=== PATIENT | male | born 1945 | race Asian ===

== ENCOUNTER 2020-09-20 13:23 | Outpatient (REF) | payer MEDICARE, SELFPAY ==
[2020-09-20 15:03] LABS: Anion Gap 12 (12-20); Blood Urea Nitrogen 26 mg/dL (9-16); Carbon Dioxide 31 mmol/L (22-29); Chloride 103 mmol/L (96-108); Estimated Glomerular Filt Rate 50; Potassium 4.5 mmol/l (3.3-5.1); Sodium 141 mmol/L (135-145)
[2020-09-20 15:50] LABS: Creatinine Urine 39.63 mg/dL
[2020-09-20 17:07] LABS: Protein/Creatinine Ratio, Ur 8.07 (<0.2); Total Protein Urine Random 320 mg/dL (<12)
[2020-09-22 12:02] LABS: IgA 144 mg/dL (70-320); IgG 955 mg/dL (600-1540); IgM 148 mg/dL (50-300)
== END 2020-09-20 13:24 | disposition home or self-care (01) ==
LOC: HO.LAB 13:23
PROVIDERS: PCP Internal Medicine Endocrinology, Diabetes & Metabolism; Visit Provider Internal Medicine Hypertension Specialist
DX: E11.21 Type 2 diabetes mellitus with diabetic nephropathy (principal); E11.22 Type 2 diabetes mellitus with diabetic chronic kidney disease; N18.30 Chronic kidney disease, stage 3 unspecified
CPT/HCPCS: 36415; 80051; 82565; 82784; 84156; 84520; 86334

== ENCOUNTER 2021-02-04 15:27 | Outpatient (REF) | payer MEDICARE, SELFPAY ==
[2021-02-04 16:02] LABS: Hematocrit 45.3 % (42-52); Hemoglobin 14.8 g/dl (14.0-18.0); Mean Corpuscular HGB Conc 32.7 g/dl (31.0-36.0); Mean Corpuscular Hemoglobin 29.4 pg (27.0-33.0); Mean Corpuscular Volume 90.1 fL (80-98); Mean Platelet Volume 10.3 fL (9.4-12.4); Platelet Count 235 X10*3/uL (160-400); Red Blood Count 5.03 X10*6/uL (4.60-5.80); Red Cell Distribution Width 12.9 % (11.0-16.0); White Blood Count 10.7 X10*3/uL (4.8-10.8)
[2021-02-04 16:28] LABS: Anion Gap 13 (12-20); Blood Urea Nitrogen 42 mg/dL (9-16); Calcium 9.6 mg/dL (8.4-10.2); Carbon Dioxide 33 mmol/L (22-29); Chloride 102 mmol/L (96-108); Estimated Glomerular Filt Rate 37; Potassium 4.2 mmol/L (3.3-5.1); Sodium 144 mmol/L (135-145)
== END 2021-02-04 15:28 | disposition home or self-care (01) ==
LOC: HO.LAB 15:27
PROVIDERS: Visit Provider Internal Medicine Hypertension Specialist
DX: N18.31 Chronic kidney disease, stage 3a (principal)
CPT/HCPCS: 36415; 80051; 82310; 82565; 84520; 85027

== ENCOUNTER 2021-05-21 03:52 | Emergency (ER) | payer MEDICARE, SELFPAY ==
[2021-05-21] VITALS (8 sets, daily range): BP systolic 157–205; BP diastolic 72–78; PULSE 59–66; RESP 14–16; TEMP 36.4; O2SAT 95–97; BMI 27.4
--- NOTE | 2021-05-21 04:34 | ED.EYEPROB ---
HPI - Eye Problem General Chief complaint: Eye Problems Stated complaint: Headache Time Seen by Provider: 05/21/21 03:59 Source: patient Mode of arrival: ambulatory Limitations: language barrier (phlipine) History of Present Illness HPI Narrative: patient comes to emergency room complaining of severe left-sided eye pain, which started yesterday. Patient states that yesterday he had an eye appointment, he was told that his eye pressure was high. patient is currently taking ofloxacin ophthalmic, prednisolone acetate, and dorzolamide -timolol. Patient states that yesterday during his appointment he had no eye pain, however when he got home, he started developing severe eye pain and pressure. Patient states the eye pressure radiates towards the back of his head. Of note, patient states he had a procedure done on on May 03, on May 04, patient noticed that he cannot see out of his left eye, states he has not regained vision in the left eye since then. MD chief complaint: eye pain and eye redness Related Data Home Medications Medication Instructions Recorded Confirmed fenofibrate nanocrystallized 145 mg PO DAILY 05/17/21 05/18/21 [Tricor] fluticasone propion-salmeterol 2 puff INHALATION BID 05/17/21 05/18/21 [Advair HFA] furosemide [Lasix] 20 mg PO DAILY 05/17/21 05/18/21 hydralazine 25 mg PO TID 05/17/21 05/18/21 insulin pump controller 05/17/21 05/17/21 isosorbide mononitrate [Imdur] 30 mg PO DAILY 05/17/21 05/18/21 metoprolol succinate 50 mg PO DAILY 05/17/21 05/18/21 pravastatin 40 mg PO BEDTIME 05/17/21 05/18/21 pregabalin [Lyrica] 75 mg PO BID 05/17/21 05/18/21 valsartan [Diovan] 320 mg PO DAILY 05/17/21 05/18/21 Novolog U-100 Insulin aspart 05/18/21 05/18/21 Allergies Allergy/AdvReac Type Severity Reaction Status Date / Time brompheniramine Allergy Unknown NAUSEA & Unverified 05/17/21 16:15 [From DIMETAPP DM COLD-COUGH VOMITING (PE)] dextromethorphan Allergy Unknown NAUSEA & Unverified 05/17/21 16:15 [From DIMETAPP DM COLD-COUGH VOMITING (PE)] phenylephrine Allergy Unknown NAUSEA & Unverified 05/17/21 16:15 [From DIMETAPP DM COLD-COUGH VOMITING (PE)] Penicillins Allergy Unknown Verified 05/21/21 04:37 Review of Systems Review of Systems: Constitutional : No Weight loss, No Fever, No Chills, No Night Sweats, No Fatigue, No Malaise ENT/Mouth : No Hearing loss, No Ear Pain, No Nasal Congestion, No Sinus Pain, No Hoarseness, No sore throat, No Rhinorrhea, No Swallowing Difficulty Eyes: complaining of severe left eye pain, redness, feels hard Cardiovascular : No Chest Pain, No SOB, No Dyspnea on Exertion, No Orthopnea, No Edema, No Palpitations Respiratory : No Cough, No Sputum, No Wheezing, No Smoke Exposure, No Dyspnea Gastrointestinal : No Nausea, No Vomiting, No Diarrhea, No Constipation, No abdominal Pain, No Hematochezia, No Melena Genitourinary : no irregular bleeding, No Dysuria, No Urinary Frequency, No Hematuria, No Urinary Incontinence, No Urgency, No Flank Pain, No Urinary Flow Changes, No Hesitancy Musculoskeletal : No joint pain, No Myalgias, No Joint Swelling Skin : No Skin Lesions, No rash Neuro : No Weakness, No Numbness, No Paresthesias, No Loss of Consciousness, No Dizziness, No Headache Psych : No Anxiety/Panic, No Depression, No SI/HI/AH/VH, No Social Issues, Heme/Lymph: No Bruising, No Bleeding,No Lymphadenopathy Endocrine : No Polyuria, No Polydipsia, No Temperature Intolerance [facility] Past Medical History Medical History Asthma Back pain CAD (coronary artery disease) COVID-19 vaccine series completed Elevated cholesterol [place] (hard of hearing) HTN (hypertension) IDDM (insulin dependent diabetes mellitus) On beta robert at home Renal disease Surgical History History of blepharoplasty History of nasal surgery S/P triple vessel bypass Social History Social History Are you a primary hospice home care coordinator to a significant other at home: No Do you presently have visiting nurse or other home services: No Alcohol intake: never Patient Tobacco Use Status: Never used Tobacco Use of substances other than those prescribed or required for medical reasons: No Advance Directives: No Advance Directives Information Provided: No Physical Exam Vital Signs: Vital Signs: Last Vital Signs Temp 97.6 F 05/21/21 04:03 Pulse 64 05/21/21 06:43 Resp 14 05/21/21 06:43 BP 158/72 H 05/21/21 06:43 Pulse Ox 96 05/21/21 06:43 Body Mass Index 27.4 Appearance: Alert. Oriented X3. No acute distress. Eyes: Pupils equal, round and reactive to light on the right side, on the left side, patient's pupil is dilated at 5 mm, sluggish response. Eye pressure average range in the right eye is 21mmHg, on the left eye, to averages were checked, 1st average 65mmHg, 2nd average was 75mmHg ENT: Pharynx normal. Neck: Normal inspection. Neck supple. No lymph nodes noted. No crepitus CVS: Normal heart rate and rhythm. Pulses normal. Normal S1 and S2 Respiratory: No respiratory distress. Breath sounds normal. No Wheezing. No rales Abdomen: Soft and nontender. No rigidity. No distention. good BS x4 Skin: Skin warm and dry. Normal skin color. Normal skin turgor. Extremities: No lower extremity edema. No lower extremity edema. No Lacerations. No Rash Neuro: Oriented X 3. No motor deficit. No sensory deficit. Moving all extermities. No slurred speech. Course Course Course Narrative: I discussed the patient and the eye pressure on the left eye with Dr. Maxwell. Patient has the dx of neovascular glaucoma. Recommendations: Apply apraclonidine 0.5% eyedrops to the left eye, and IV acetazolamide will be given as well, and was instructed to recheck the eye pressure again in 1/2 hour and 1 hour and then call Dr[address] Maxwell again. The medication above-mentioned was given at 05:00, at 05:35, the eye pressure on the left side is 61 mmHg, the eye looks less erythematous, patient was given Dilaudid for pain, this time he feels comfortable Now at 06:00, 1 hour after the medication was given, eye pressure averages are 56 and 58. I discussed the patient again with Dr. Maxwell. Dr. Maxwell is coming in, he is coming to his office where he can not perform a more thorough eye exam with his equipment. Once Dr. Maxwell gets to his office, he will let us know that he is in, patient will be discharged/escorted to his office. At this time, patient states that the pain in his decreased, patient received 1 mg of Dilaudid Patient is being sent now to Dr. Maxwell office, patient is taking with him a bottle of ophthalmic Betadine. Critical Care Time Critical Care Time Total Critical Care Time: 60 Discharge Plan Discharge Clinical Impression: Neovascular glaucoma of left eye Qualifiers: Glaucoma stage: stage unspecified Qualified Code(s): H40.52X0 - Glaucoma secondary to other eye disorders, left eye, stage unspecified Patient Disposition: Xfer Other Transfer Details: Ophthalmology office with Dr. Maxwell Prescriptions: No Action pravastatin 40 mg Tablet 40 mg PO BEDTIME RF: 0 metoprolol succinate 50 mg Tablet Extended Release 24 Hr 50 mg PO DAILY RF: 0 isosorbide mononitrate [Imdur] 30 mg Tablet Extended Release 24 Hr 30 mg PO DAILY RF: 0 hydralazine 25 mg Tablet 25 mg PO TID RF: 0 valsartan [Diovan] 320 mg Tablet 320 mg PO DAILY RF: 0 furosemide [Lasix] 20 mg Tablet 20 mg PO DAILY RF: 0 pregabalin [Lyrica] 75 mg Capsule 75 mg PO BID RF: 0 fenofibrate nanocrystallized [Tricor] 145 mg Tablet 145 mg PO DAILY RF: 0 Advair HFA 115-21 mcg/actuation Hfa Aerosol Inhaler 2 puff INHALATION BID RF: 0 (DME) insulin pump controller RF: 0 Novolog U-100 Insulin aspart RF: 0
[2021-05-21] MEDS: Morphine Sulfate 2 MG/ML CARTRIDGE IVPUSH (04:38)
[2021-05-21] MEDS: Apraclonidine HCl 1 % Oph Sol 1 EACH DROPERETTE 1 DROP EYE-LEFT (05:01)
[2021-05-21] MEDS: acetaZOLAMIDE sodium 500 MG VIAL IVPUSH (05:01)
--- NOTE | 2021-05-21 05:11 | PC.NURSE ---
PATIENT MEDICATED PER [facility]AR FOR PAIN MEDICATION, PROVIDER STATING TO ONLY GIVE 2MG MORPHINE AT THIS TIME AND HOLD THE 4MG. ADDITIONAL MEDICATIONS BROUGHT TO UNIT BY NURSING EMPLOYMENT SERVICE SPECIALIST DUE TO UNAVAILABILITY IN ED PYXIS. MONITORING PATIENTS PRESSURE CLOSELY.
[2021-05-21] MEDS: HYDROmorphone HCl 1 MG/ML SYRINGE IVPUSH (05:31)
[2021-05-21] MEDS: POVIDONE IODINE 5% 1 APPL EYE-LEFT (06:50)
--- NOTE | 2021-05-21 06:50 | PC.NURSE ---
PATIENT TRANSPORTED BY STAFF MEMBER TO [address] TO SEE THE EYE DOCTOR. PATIENT IS BEING TRANSPORTED WITH EYE SOLUTION PER THE REQUEST OF ANALOG DEVICE DESIGNER
== END 2021-05-21 07:00 | disposition other institution (70) ==
PROVIDERS: Emergency Provider Emergency Medicine; PCP Internal Medicine Endocrinology, Diabetes & Metabolism
DX: H40.52X0 Glaucoma secondary to other eye disorders, left eye, stage unspecified (principal); I10 Essential (primary) hypertension; E11.9 Type 2 diabetes mellitus without complications; I25.10 Atherosclerotic heart disease of native coronary artery without angina pectoris; J45.909 Unspecified asthma, uncomplicated; Z79.4 Long term (current) use of insulin; Z79.899 Other long term (current) drug therapy
CPT/HCPCS: 96374; 96375; 99284; J1170; J2270

== ENCOUNTER 2021-05-23 10:38 | Day surgery (SDC) | payer MEDICARE, SELFPAY ==
[2021-05-18 09:28] VITALS: BMI 30.1
--- NOTE | 2021-05-19 14:24 | MHC.SHP ---
Pre-Procedural Eval Section A Date of Service: 05/19/21 The patient is an INPATIENT: No The History & Physical has been completed within 30 days and I have reviewed it.: Yes Section B Chief Complaint: cataract Allergies: Allergies Allergy/AdvReac Type Severity Reaction Status Date / Time brompheniramine Allergy Unknown NAUSEA & Unverified 05/17/21 16:15 [From DIMETAPP DM COLD-COUGH VOMITING (PE)] dextromethorphan Allergy Unknown NAUSEA & Unverified 05/17/21 16:15 [From DIMETAPP DM COLD-COUGH VOMITING (PE)] phenylephrine Allergy Unknown NAUSEA & Unverified 05/17/21 16:15 [From DIMETAPP DM COLD-COUGH VOMITING (PE)] Plan Diagnosis/Plan: Unchanged I have reviewed the history and physical and performed a pertinent physical examination on my patient. No changes have occurred unless specified.
--- NOTE | 2021-05-23 12:49 | HO.ANESPROP2 ---
[facility] Past Medical History Medical History Asthma Back pain CAD (coronary artery disease) COVID-19 vaccine series completed Elevated cholesterol [place] (hard of hearing) HTN (hypertension) IDDM (insulin dependent diabetes mellitus) On beta robert at home Renal disease Surgical History Surgical History History of blepharoplasty History of nasal surgery S/P triple vessel bypass Social History Social History Are you a primary inspector health care facilities to a significant other at home: No Do you presently have visiting nurse or other home services: No Alcohol intake: never Patient Tobacco Use Status: Never used Tobacco Use of substances other than those prescribed or required for medical reasons: No Have you been hit, kicked, punched, or otherwise hurt by someone within the past year? If so, by whom?: No Are you DNR?: No Advance Directives: No Advance Directives Information Provided: No Advance Directives on File: No Recently lost weight without trying: No Eating poorly because of decreased appetite: No Nutrition Risks: No Nutritional Risk Meds Allergies Allergy/AdvReac Type Severity Reaction Status Date / Time brompheniramine Allergy Unknown NAUSEA & Verified 05/23/21 12:35 [From DIMETAPP DM COLD-COUGH VOMITING (PE)] dextromethorphan Allergy Unknown NAUSEA & Verified 05/23/21 12:35 [From DIMETAPP DM COLD-COUGH VOMITING (PE)] phenylephrine Allergy Unknown NAUSEA & Verified 05/23/21 12:35 [From DIMETAPP DM COLD-COUGH VOMITING (PE)] Penicillins Allergy Unknown Verified 05/21/21 04:37 Home Medications Medication Instructions Recorded Confirmed Last Taken Type fenofibrate nanocrystallized 145 mg PO DAILY 05/17/21 05/18/21 Unknown History [Tricor] fluticasone propion-salmeterol 2 puff INHALATION BID 05/17/21 05/18/21 05/23/21 History [Advair HFA] furosemide [Lasix] 20 mg PO DAILY 05/17/21 05/18/21 Unknown History hydralazine 25 mg PO TID 05/17/21 05/18/21 05/23/21 History insulin pump controller 05/17/21 05/17/21 Unknown History isosorbide mononitrate [Imdur] 30 mg PO DAILY 05/17/21 05/18/21 Unknown History metoprolol succinate 50 mg PO DAILY 05/17/21 05/18/21 05/23/21 History pravastatin 40 mg PO BEDTIME 05/17/21 05/18/21 Unknown History pregabalin [Lyrica] 75 mg PO BID 05/17/21 05/18/21 Unknown History valsartan [Diovan] 320 mg PO DAILY 05/17/21 05/18/21 Unknown History Novolog U-100 Insulin aspart 05/18/21 05/18/21 Unknown History Exam Exam Date and Time: May 23, 2021 1249 Height,Weight and Vital Signs: Height 5 ft 5 in Weight 82.1 kg Airway Mallampati Class: III TM Dist: >3cm Neck ROM: Full Heart: rrr Lungs: cta Assessment and Plan Assessment Anesthesia Assessment: Anesthesia Plan Discussed and Chart Reviewed Final Anesthetic Review NPO: Yes (Sip water) ASA Class: III Final Preanesthetic Review: No Changes in Pt Med Stat and Consent Obtained/Reviewed Patient Risk: Intermediate Procedure Risk: Intermediate Anesthetic Plan Anesthetic Plan: MAC: Disposition: Standard PACU
[2021-05-23 12:54] VITALS: BP 113/57; PULSE 51; RESP 16; TEMP 36.4; O2SAT 97
[2021-05-23] MEDS: Tetracaine HCl/PF 0.5% Oph Sol 4 ML DROPS 1 DROP EYE-LEFT (12:58)
[2021-05-23] MEDS: Tropicamide 1 % Ophth Sol 3 ML BTL 1 DROP EYE-LEFT ×3 (12:59→13:11)
[2021-05-23] MEDS: Phenylephrine HCL 2.5% Oph SoL 2 ML BOTTLE 1 DROP EYE-LEFT ×3 (13:02→13:15)
[2021-05-23] MEDS: Lactated Ringers 500 ML 50 ML IV (13:21)
--- NOTE | 2021-05-23 14:09 | HO.PNOPHT ---
Ophthalmology Procedure Procedure Date of Service: 05/23/21 Ophthalmology Viscoelastic: Healmarvin Garciat Dual Pack Pro Ophthalmology Lenses: TECRAMONA [id number] (19.5) Procedure Notes: PREOPERATIVE DIAGNOSIS: Decreased visual acuity left eye secondary to cataract POSTOPERATIVE DIAGNOSIS: Same PROCEDURE: Left cataract extraction with intraocular lens insertion SURGEON: Nacho Maxwell M.D. ANESTHESIA: Topical/MAC ESTIMATED BLOOD LOSS: None COMPLICATIONS: Posterior Capsule tear After obtaining informed consent, the patient was brought to the operation room suite and placed in the supine position. After adequate sedation per anesthesia, topical drops of Tetracaine were given to the left eye. The eye was then prepped and draped in the usual sterile fashion. The operating room microscope was then positioned over the operative eye and a lid speculum placed. A paracentesis was created. Viscoelastic was then instilled into the anterior chamber. A three plane incision was then created temporally, utilizing a 2.85 mm keratome. Capsulotomy forceps were then utilized to create a circular tear capsulotomy. Hydrodissection and hydrodelineation were carried out until adequate mobilization of the nucleus occurred. The lens had undergone partial autolysis so the automated aspiration irrigation unit was utilized to remove the lens A partial tear was noted in the posterior capule requiring placement of the lens into the sulcus.. The residual Viscoat elastic was then removed utilizing the vitrector. The wound was check and found to be watertight. Miochol was instilled resulting in a small round pupil.The patient tolerated the procedure well and the lid speculum was removed. Intracameral injection of Vigamox 0.1 mL followed by a subtenon injection of Kenalog-40 0.2 mL were administered. The patient will be seen in the a.m.
[2021-05-23 14:43] VITALS: BP 144/68; PULSE 56; RESP 16; TEMP 36.2; O2SAT 95
== END 2021-05-23 15:13 | disposition home or self-care (01) ==
PROVIDERS: PCP Internal Medicine Endocrinology, Diabetes & Metabolism; Visit Provider Ophthalmology
PROC: (CPT 66985; principal; 2021-05-23 13:30)
DX: H25.12 Age-related nuclear cataract, left eye (principal); H59.212 Accidental puncture and laceration of left eye and adnexa during an ophthalmic procedure; Y65.8 Other specified misadventures during surgical and medical care; Y92.234 Operating room of hospital as the place of occurrence of the external cause; H54.7 Unspecified visual loss; J45.909 Unspecified asthma, uncomplicated; I25.10 Atherosclerotic heart disease of native coronary artery without angina pectoris; I10 Essential (primary) hypertension; Z95.1 Presence of aortocoronary bypass graft; E11.9 Type 2 diabetes mellitus without complications; Z79.4 Long term (current) use of insulin; Z79.899 Other long term (current) drug therapy
CPT/HCPCS: 66984; J2250; J3010; J3300; V2632

== ENCOUNTER 2021-05-24 22:54 | Emergency (ER) | payer MEDICARE, SELFPAY ==
[2021-05-24 23:02] VITALS: BP 159/79; PULSE 60; RESP 18; TEMP 36.8; O2SAT 93; BMI 27.3
--- NOTE | 2021-05-24 23:12 | ED_ITS ---
HPI - Headache General Chief Complaint: Headache Stated Complaint: migraine Time Seen by Provider: 05/24/21 23:13 Source: patient Mode of arrival: ambulatory Limitations: no limitations History of Present Illness HPI Narrative: patient with history of neurovascular glaucoma status post left eye cataract surgery done yesterday on dorzolamide -timolol eyedrops was seen by Dr. Maxwell today and IOP was only 8 was doing fine until 19:00 and patient started having headache on the left eye with left eye pain with blurred vision no nausea no vomiting , patient was here on 05/21 at that time patient's IOP was 75 left eye Related Data Home Medications Medication Instructions Recorded Confirmed fenofibrate nanocrystallized 145 mg PO DAILY 05/17/21 05/18/21 [Tricor] fluticasone propion-salmeterol 2 puff INHALATION BID 05/17/21 05/18/21 [Advair HFA] furosemide [Lasix] 20 mg PO DAILY 05/17/21 05/18/21 hydralazine 25 mg PO TID 05/17/21 05/18/21 insulin pump controller 05/17/21 05/17/21 isosorbide mononitrate [Imdur] 30 mg PO DAILY 05/17/21 05/18/21 metoprolol succinate 50 mg PO DAILY 05/17/21 05/18/21 pravastatin 40 mg PO BEDTIME 05/17/21 05/18/21 pregabalin [Lyrica] 75 mg PO BID 05/17/21 05/18/21 valsartan [Diovan] 320 mg PO DAILY 05/17/21 05/18/21 Novolog U-100 Insulin aspart 05/18/21 05/18/21 Allergies Allergy/AdvReac Type Severity Reaction Status Date / Time brompheniramine Allergy Intermediate NAUSEA & Verified 05/24/21 23:02 [From DIMETAPP DM COLD-COUGH VOMITING (PE)] dextromethorphan Allergy Intermediate NAUSEA & Verified 05/24/21 23:02 [From DIMETAPP DM COLD-COUGH VOMITING (PE)] Penicillins Allergy Intermediate Unknown Verified 05/24/21 23:02 phenylephrine Allergy Intermediate NAUSEA & Verified 05/24/21 23:02 [From DIMETAPP DM COLD-COUGH VOMITING (PE)] Review of Systems 2 Review of Systems: Yes all other systems are reviewed and are negative PMFSH Past Medical History Medical History Asthma Back pain CAD (coronary artery disease) COVID-19 vaccine series completed Elevated cholesterol [place] (hard of hearing) HTN (hypertension) IDDM (insulin dependent diabetes mellitus) On beta robert at home Renal disease Surgical History History of blepharoplasty History of nasal surgery S/P triple vessel bypass Social History Social History Are you a primary rn intensive care unit to a significant other at home: No Do you presently have visiting nurse or other home services: No Alcohol intake: never Patient Tobacco Use Status: Never used Tobacco Use of substances other than those prescribed or required for medical reasons: No Advance Directives: No Advance Directives Information Provided: No Physical Exam Vital Signs: Vital Signs: Last Vital Signs Temp 98.3 F 05/24/21 23:02 Pulse 60 05/24/21 23:02 Resp 15 05/25/21 00:01 BP 159/79 H 05/24/21 23:02 Pulse Ox 93 05/24/21 23:02 Body Mass Index 27.3 Const: General: well developed and acute distress moderate Orientation/consciousness: patient oriented x3 Eyes: Eyelids: Yes eyelids normal Conjunctivae: conjunctivae normal Sclerae: sclerae normal Pupils: Dilated pupils and Pupil size comments ( dilated left pupil 3 mm slow reaction to the light) Direct Ophthalmoscopy: decreased light reflex and other ( IOP left eye 81 right eye 35 mm Hg) Neck: Neck: Yes full ROM Resp: Effort & Inspection: normal respiratory effort Auscultation: clear to auscultation bilaterally Cardio: Palpation: normal PMI Rate: regular rate Rhythm: regular rhythm Heart sounds: S1 normal heart sound present and S2 normal heart sound present GI: Inspection: Yes normal to inspection Palpation (GI): Soft to palpation Auscultation: normal bowel sounds Neuro: General: patient oriented x3 and no focal motor deficits MDM - Headache MDM Narrative Medical decision making narrative: patient with neurovascular glaucoma with severe headache on the left side IOP was 81 mm Hg checked multiple times including tonopen an icare IOP on right eye was 35. Case discussed his eye doctor Dr. 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 Maxwell office Instructions: Glaucoma (ED) Additional Instructions: See Dr. Maxwell now Prescriptions: No Action pravastatin 40 mg Tablet 40 mg PO BEDTIME RF: 0 metoprolol succinate 50 mg Tablet Extended Release 24 Hr 50 mg PO DAILY RF: 0 isosorbide mononitrate [Imdur] 30 mg Tablet Extended Release 24 Hr 30 mg PO DAILY RF: 0 hydralazine 25 mg Tablet 25 mg PO TID RF: 0 valsartan [Diovan] 320 mg Tablet 320 mg PO DAILY RF: 0 furosemide [Lasix] 20 mg Tablet 20 mg PO DAILY RF: 0 pregabalin [Lyrica] 75 mg Capsule 75 mg PO BID RF: 0 fenofibrate nanocrystallized [Tricor] 145 mg Tablet 145 mg PO DAILY RF: 0 Advair HFA 115-21 mcg/actuation Hfa Aerosol Inhaler 2 puff INHALATION BID RF: 0 (DME) insulin pump controller RF: 0 Novolog U-100 Insulin aspart RF: 0 Discharge Date/Time: 05/25/21 00:55
[2021-05-25 00:01] VITALS: RESP 15
[2021-05-25] MEDS: Morphine Sulfate 4 MG/ML CARTRIDGE IVPUSH (00:01)
[2021-05-25] MEDS: ondansetron HCL 4 MG/2 ML VIAL IVPUSH (00:01)
[2021-05-25] MEDS: acetaZOLAMIDE sodium 500 MG VIAL IVPUSH (00:45)
[2021-05-25] MEDS: Apraclonidine HCl 1 % Oph Sol 1 EACH DROPERETTE 1 DROP EYE-LEFT (00:45)
== END 2021-05-25 00:55 | disposition other institution (70) ==
PROVIDERS: Emergency Provider Internal Medicine; PCP Internal Medicine Endocrinology, Diabetes & Metabolism
DX: H40.52X3 Glaucoma secondary to other eye disorders, left eye, severe stage (principal); I10 Essential (primary) hypertension; E11.9 Type 2 diabetes mellitus without complications; I25.10 Atherosclerotic heart disease of native coronary artery without angina pectoris; J45.909 Unspecified asthma, uncomplicated; Z79.4 Long term (current) use of insulin; Z79.899 Other long term (current) drug therapy
CPT/HCPCS: 96374; 96375; 99284; J2270; J2405

== ENCOUNTER 2021-08-02 14:31 | Outpatient (REF) | payer MEDICARE, SELFPAY ==
[2021-08-02 15:31] LABS: MANUAL DIFF FLAG NO
[2021-08-02 15:35] LABS: Basophils Percent Auto 0.3 % (0-2); Eosinophils Absolute Auto 0.3 X10*3/uL (0.0-0.4); Eosinophils Percent Auto 3.1 % (0-4); Hematocrit 42.3 % (42-52); Hemoglobin 13.7 g/dl (14.0-18.0); Imm Gran Abs Auto 0.03 X10*3/uL (0.00-0.03); Imm Gran Pct Auto 0.3 % (0.0-0.4); Lymphocytes Absolute Auto 2.9 X10*3/uL (1.2-4.9); Lymphocytes Percent Auto 31.3 % (20-40); Mean Corpuscular HGB Conc 32.4 g/dl (31.0-36.0); Mean Corpuscular Hemoglobin 28.7 pg (27.0-33.0); Mean Corpuscular Volume 88.7 fL (80-98); Mean Platelet Volume 10.2 fL (9.4-12.4); Monocytes Absolute Auto 0.9 X10*3/uL (0.1-1.2); Monocytes Percent Auto 9.5 % (2-11); Neutrophils Absolute Auto 5.1 X10*3/uL (2.0-8.3); Neutrophils Percent Auto 55.5 % (45-73); Platelet Count 209 X10*3/uL (160-400); Red Blood Count 4.77 X10*6/uL (4.60-5.80); Red Cell Distribution Width 12.7 % (11.0-16.0); White Blood Count 9.1 X10*3/uL (4.8-10.8)
[2021-08-02 15:57] LABS: Anion Gap 10 (12-20); Blood Urea Nitrogen 35 mg/dL (9-16); Calcium 9.4 mg/dL (8.4-10.2); Carbon Dioxide 30 mmol/L (22-29); Chloride 105 mmol/L (96-108); Estimated Glomerular Filt Rate 38; Potassium 4.2 mmol/L (3.3-5.1); Sodium 141 mmol/L (135-145)
[2021-08-07 06:31] LABS: Calcium (PTHI) 9.5 mg/dL (8.6-10.3); PTHI 25 pg/mL (14-64)
== END 2021-08-02 14:32 | disposition home or self-care (01) ==
LOC: HO.LAB 14:31
PROVIDERS: Absent Provider Internal Medicine Endocrinology, Diabetes & Metabolism; PCP Internal Medicine Endocrinology, Diabetes & Metabolism; Visit Provider Internal Medicine Hypertension Specialist
DX: N18.32 Chronic kidney disease, stage 3b (principal)
CPT/HCPCS: 36415; 80051; 82310; 82565; 83970; 84520; 85025

== ENCOUNTER 2022-01-13 07:57 | Outpatient (REF) | payer MEDICARE, SELFPAY ==
[2022-01-13 09:22] LABS: Thyroid Stimulating Hormone 2.39 uIU/mL (0.32-4.0)
== END 2022-01-13 07:58 | disposition home or self-care (01) ==
LOC: HO.LAB 07:57
PROVIDERS: PCP Internal Medicine Endocrinology, Diabetes & Metabolism; Visit Provider Internal Medicine Endocrinology, Diabetes & Metabolism
DX: E11.9 Type 2 diabetes mellitus without complications (principal); I25.10 Atherosclerotic heart disease of native coronary artery without angina pectoris; R80.9 Proteinuria, unspecified
CPT/HCPCS: 36415; 84443

== ENCOUNTER 2022-01-25 16:28 | Outpatient (REF) | payer MEDICARE, SELFPAY ==
[2022-01-25 16:44] LABS: MANUAL DIFF FLAG NO
[2022-01-25 17:06] LABS: Basophils Percent Auto 0.3 % (0-2); Eosinophils Absolute Auto 0.2 X10*3/uL (0.0-0.4); Eosinophils Percent Auto 2.4 % (0-4); Imm Gran Abs Auto 0.04 X10*3/uL (0.00-0.03); Imm Gran Pct Auto 0.5 % (0.0-0.4); Lymphocytes Percent Auto 34.2 % (20-40); Mean Corpuscular HGB Conc 31.8 g/dl (31.0-36.0); Mean Corpuscular Hemoglobin 28.3 pg (27.0-33.0); Mean Corpuscular Volume 88.9 fL (80.0-98.0); Mean Platelet Volume 10.3 fL (9.4-12.4); Monocytes Absolute Auto 0.7 X10*3/uL (0.1-1.2); Monocytes Percent Auto 7.7 % (2-11); Neutrophils Absolute Auto 4.8 x10*3/uL (2.0-8.3); Neutrophils Percent Auto 54.9 % (45-73); Platelet Count 196 X10*3/uL (160-400); Red Blood Count 4.95 X10*6/uL (4.60-5.80); Red Cell Distribution Width 13.5 % (11.0-16.0); White Blood Count 8.7 X10*3/uL (4.8-10.8)
[2022-01-25 17:26] LABS: Anion Gap 13 (12-20); Blood Urea Nitrogen 44 mg/dL (9-16); Calcium 9.1 mg/dL (8.4-10.2); Carbon Dioxide 30 mmol/L (22-29); Chloride 103 mmol/L (96-108); Estimated Glomerular Filt Rate 31; Glucose Random 239 mg/dL (60-115); Potassium 4.6 mmol/L (3.3-5.1); Sodium 141 mmol/L (135-145)
[2022-01-25 18:01] LABS: Creatinine Urine 69.32 mg/dL
[2022-01-25 18:34] LABS: Protein/Creatinine Ratio, Ur 8.34 (<0.2); Total Protein Urine Random 578 mg/dL (<12)
== END 2022-01-25 16:29 | disposition home or self-care (01) ==
LOC: HO.LAB 16:28
PROVIDERS: Visit Provider Internal Medicine Hypertension Specialist
DX: N18.32 Chronic kidney disease, stage 3b (principal); E11.22 Type 2 diabetes mellitus with diabetic chronic kidney disease
CPT/HCPCS: 36415; 80048; 84156; 85025

== ENCOUNTER 2022-04-04 08:25 | Outpatient (REF) | payer MEDICARE, SELFPAY ==
--- NOTE | ~2022-04-04 | FL_ITS ---
PROCEDURE: FL BARIUM SWALLOW CLINICAL INFORMATION: Dysphagia. COMPARISON: None TECHNIQUE: Barium swallow examination is performed using fluoroscopic evaluation in addition to multiple fluoroscopic spot views. The patient is imaged both upright and prone and using both thick and thin sulfate along with effervescent granules. A barium tablet was also administered. Fluoroscopy time: 1.2 minutes DAP: 10.8 Gy-cm2 Images: 64 FINDINGS: No aspiration or penetration is seen. Esophageal motility is normal. There is gastroesophageal reflux. There are feline contractions suggestive of mild esophagitis in mid and distal thoracic esophagus. No mass or stricture is seen. There is a small sliding-type hiatal hernia. The barium tablet passed freely into the stomach. FL/FL barium swallow IMPRESSION: Gastroesophageal reflux and mild esophagitis. Small sliding-type hiatal hernia.
== END 2022-04-04 08:26 | disposition home or self-care (01) ==
LOC: HO.XRAY 08:25
PROVIDERS: Visit Provider Otolaryngology
DX: R13.10 Dysphagia, unspecified (principal)
CPT/HCPCS: 74220

== ENCOUNTER 2022-04-11 11:32 | Outpatient (REF) | payer MEDICARE, SELFPAY ==
[2022-04-11 12:36] LABS: Blood Urea Nitrogen 38 mg/dL (9-16); Estimated Glomerular Filt Rate 26
== END 2022-04-11 11:33 | disposition home or self-care (01) ==
LOC: HO.LAB 11:32
PROVIDERS: PCP Internal Medicine Endocrinology, Diabetes & Metabolism; Visit Provider Otolaryngology
DX: Z01.812 Encounter for preprocedural laboratory examination (principal); R22.1 Localized swelling, mass and lump, neck
CPT/HCPCS: 36415; 82565; 84520

== ENCOUNTER 2022-04-26 11:00 | Outpatient (REF) | payer MEDICARE, SELFPAY ==
[2022-04-26 12:09] LABS: Anion Gap 11 (12-20); Blood Urea Nitrogen 39 mg/dL (9-16); Calcium 9.2 mg/dL (8.4-10.2); Carbon Dioxide 28 mmol/L (22-29); Chloride 107 mmol/L (96-108); Estimated Glomerular Filt Rate 29; Potassium 4.8 mmol/L (3.3-5.1); Sodium 141 mmol/L (135-145)
[2022-04-26 15:23] LABS: Creatinine Urine 89.98 mg/dL
[2022-04-26 15:53] LABS: Total Protein Urine Random 675 mg/dL (<12)
== END 2022-04-26 11:01 | disposition home or self-care (01) ==
LOC: HO.LAB 11:00
PROVIDERS: PCP Internal Medicine Endocrinology, Diabetes & Metabolism; Visit Provider Internal Medicine Hypertension Specialist
DX: E11.22 Type 2 diabetes mellitus with diabetic chronic kidney disease (principal); I12.9 Hypertensive chronic kidney disease with stage 1 through stage 4 chronic kidney disease, or unspecified chronic kidney disease; N18.9 Chronic kidney disease, unspecified
CPT/HCPCS: 36415; 80051; 82310; 82565; 84156; 84520

== ENCOUNTER 2022-05-08 10:25 | Outpatient (REF) | payer MEDICARE, SELFPAY ==
[2022-05-08 11:09] LABS: Alanine Aminotransferase 21 U/L (0-40); Albumin Level 3.8 g/dL (3.5-5.0); Alkaline Phosphatase 54 U/L (39-117); Anion Gap 11 (12-20); Aspartate Amino Transferase 27 U/L (5-37); B Type Natriuretic Peptide 95 pg/mL (<100); Bilirubin Total 0.4 mg/dL (0.0-1.0); Blood Urea Nitrogen 44 mg/dL (9-16); Carbon Dioxide 32 mmol/L (22-29); Chloride 100 mmol/L (96-108); Estimated Glomerular Filt Rate 27; Glucose Random 153 mg/dL (60-115); Magnesium 2.5 mg/dL (1.6-2.6); Potassium 4.3 mmol/L (3.3-5.1); Sodium 139 mmol/L (135-145); Total Protein 6.7 g/dL (6.5-8.0)
== END 2022-05-08 10:26 | disposition home or self-care (01) ==
LOC: HO.LAB 10:25
PROVIDERS: Visit Provider Internal Medicine Cardiovascular Disease
DX: I25.10 Atherosclerotic heart disease of native coronary artery without angina pectoris (principal); R60.0 Localized edema
CPT/HCPCS: 36415; 80053; 83735; 83880

== ENCOUNTER 2022-09-13 13:36 | Outpatient (REF) | payer MEDICARE, SELFPAY ==
[2022-09-13 14:43] LABS: Mean Corpuscular HGB Conc 32.4 g/dl (31.0-36.0); Mean Corpuscular Hemoglobin 29.2 pg (27.0-33.0); Mean Corpuscular Volume 90.2 fL (80.0-98.0); Mean Platelet Volume 10.6 fL (9.4-12.4); Platelet Count 225 X10*3/uL (160-400); Red Blood Count 3.77 X10*6/uL (4.60-5.80); Red Cell Distribution Width 14.2 % (11.0-16.0); White Blood Count 6.8 X10*3/uL (4.8-10.8)
[2022-09-13 15:17] LABS: Alanine Aminotransferase 14 U/L (0-40); Alkaline Phosphatase 46 U/L (39-117); Anion Gap 15 (12-20); Aspartate Amino Transferase 18 U/L (5-37); Bilirubin Total 0.3 mg/dL (0.0-1.0); Blood Urea Nitrogen 36 mg/dL (9-16); Carbon Dioxide 28 mmol/L (22-29); Chloride 103 mmol/L (96-108); Estimated Glomerular Filt Rate 26; Glucose Random 156 mg/dL (60-115); Potassium 4.4 mmol/L (3.3-5.1); Sodium 142 mmol/L (135-145); Total Protein 6.9 g/dL (6.5-8.0)
== END 2022-09-13 13:37 | disposition home or self-care (01) ==
LOC: HO.LAB 13:36
PROVIDERS: Visit Provider Internal Medicine Hypertension Specialist
DX: E11.22 Type 2 diabetes mellitus with diabetic chronic kidney disease (principal); N18.4 Chronic kidney disease, stage 4 (severe)
CPT/HCPCS: 36415; 80053; 85027

== ENCOUNTER 2023-01-01 11:54 | Outpatient (REF) | payer MEDICARE, SELFPAY ==
[2023-01-01 14:24] LABS: Hematocrit 38.3 % (42.0-52.0); Hemoglobin 12.1 g/dl (14.0-18.0); Mean Corpuscular HGB Conc 31.6 g/dl (31.0-36.0); Mean Corpuscular Hemoglobin 28.8 pg (27.0-33.0); Mean Corpuscular Volume 91.2 fL (80.0-98.0); Platelet Count 198 X10*3/uL (160-400); Red Cell Distribution Width 13.9 % (11.0-16.0); White Blood Count 7.7 X10*3/uL (4.8-10.8)
[2023-01-01 14:50] LABS: Anion Gap 14 (12-20); Blood Urea Nitrogen 47 mg/dL (9-16); Calcium 8.9 mg/dL (8.4-10.2); Carbon Dioxide 26 mmol/L (22-29); Chloride 107 mmol/L (96-108); Estimated Glomerular Filt Rate 22; Glucose Random 116 mg/dL (60-115); Potassium 4.4 mmol/L (3.3-5.1); Sodium 143 mmol/L (135-145)
== END 2023-01-01 11:55 | disposition home or self-care (01) ==
LOC: HO.LAB 11:54
PROVIDERS: PCP Internal Medicine Endocrinology, Diabetes & Metabolism; Visit Provider Internal Medicine Hypertension Specialist
DX: N18.30 Chronic kidney disease, stage 3 unspecified (principal)
CPT/HCPCS: 36415; 80048; 85027

== ENCOUNTER 2023-03-30 12:09 | Outpatient (REF) | payer MEDICARE, SELFPAY ==
[2023-03-30 12:34] LABS: MANUAL DIFF FLAG NO
[2023-03-30 14:20] LABS: Basophils Percent Auto 0.4 % (0-2); Eosinophils Absolute Auto 0.2 X10*3/uL (0.0-0.4); Eosinophils Percent Auto 4.3 % (0-4); Hematocrit 35.1 % (42.0-52.0); Hemoglobin 11.1 g/dl (14.0-18.0); Imm Gran Abs Auto 0.01 X10*3/uL (0.00-0.03); Imm Gran Pct Auto 0.2 % (0.0-0.4); Lymphocytes Absolute Auto 1.1 X10*3/uL (1.2-4.9); Lymphocytes Percent Auto 19.8 % (20-40); Mean Corpuscular HGB Conc 31.6 g/dl (31.0-36.0); Mean Corpuscular Hemoglobin 28.4 pg (27.0-33.0); Mean Corpuscular Volume 89.8 fL (80.0-98.0); Mean Platelet Volume 11.8 fL (9.4-12.4); Monocytes Absolute Auto 0.6 X10*3/uL (0.1-1.2); Neutrophils Absolute Auto 3.4 x10*3/uL (2.0-8.3); Neutrophils Percent Auto 64.3 % (45-73); Platelet Count 188 X10*3/uL (160-400); Red Blood Count 3.91 X10*6/uL (4.60-5.80); Red Cell Distribution Width 14.3 % (11.0-16.0); White Blood Count 5.4 X10*3/uL (4.8-10.8)
[2023-03-30 14:54] LABS: Anion Gap 10 (12-20); Blood Urea Nitrogen 43 mg/dL (9-16); Calcium 8.1 mg/dL (8.4-10.2); Carbon Dioxide 28 mmol/L (22-29); Chloride 109 mmol/L (96-108); Estimated Glomerular Filt Rate 20; Potassium 4.1 mmol/L (3.3-5.1); Sodium 143 mmol/L (135-145)
== END 2023-03-30 12:10 | disposition home or self-care (01) ==
LOC: HO.LAB 12:09
PROVIDERS: PCP Internal Medicine Endocrinology, Diabetes & Metabolism; Visit Provider Internal Medicine Hypertension Specialist
DX: N18.30 Chronic kidney disease, stage 3 unspecified (principal)
CPT/HCPCS: 36415; 80051; 82310; 82565; 84520; 85025

== ENCOUNTER 2023-04-02 09:21 | Day surgery (SDC) | payer MEDICARE, SELFPAY ==
[2023-03-27 16:20] VITALS: BMI 26.7
--- NOTE | 2023-03-30 08:48 | MHC.SHP ---
Pre-Procedural Eval Section A Date of Service: 03/30/23 The patient is an INPATIENT: No Changes since office visit: No Cold of Flu in the past 2 weeks, No New Medical Problems, No Changes in Medication and No Patient answered all questions The History & Physical has been completed within 30 days and I have reviewed it.: Yes Section B Chief Complaint: Age-related nuclear cataract, right eye Allergies: Allergies Allergy/AdvReac Type Severity Reaction Status Date / Time brompheniramine Allergy Intermediate NAUSEA & Verified 05/24/21 23:02 [From DIMETAPP DM COLD-COUGH VOMITING (PE)] dextromethorphan Allergy Intermediate NAUSEA & Verified 05/24/21 23:02 [From DIMETAPP DM COLD-COUGH VOMITING (PE)] Penicillins Allergy Intermediate Unknown Verified 05/24/21 23:02 phenylephrine Allergy Intermediate NAUSEA & Verified 05/24/21 23:02 [From DIMETAPP DM COLD-COUGH VOMITING (PE)] Plan Diagnosis/Plan: Unchanged I have reviewed the history and physical and performed a pertinent physical examination on my patient. No changes have occurred unless specified. Time Spent With Patient Time: Total time managing care of this patient today ____ minutes.
--- NOTE | 2023-04-02 10:05 | P.CONAN_ITS ---
[facility] Past Medical History Medical History Asthma Back pain CAD (coronary artery disease) COVID-19 vaccine series completed Elevated cholesterol [place] (hard of hearing) HTN (hypertension) IDDM (insulin dependent diabetes mellitus) On beta robert at home Renal disease Surgical History Surgical History History of blepharoplasty History of nasal surgery Hx of left cataract extraction S/P triple vessel bypass History of Problems with Anesthesia: No Social History Social History Are you a primary medicare specialist to a significant other at home: No Do you presently have visiting nurse or other home services: No Alcohol intake: never Patient Tobacco Use Status: Never used Tobacco Use of substances other than those prescribed or required for medical reasons: No Have you been hit, kicked, punched, or otherwise hurt by someone within the past year? If so, by whom?: No Are you DNR?: No Advance Directives: No Advance Directives Information Provided: Yes Advance Directives on File: No Recently lost weight without trying: No Eating poorly because of decreased appetite: No Nutrition Risks: No Nutritional Risk Meds Allergies Allergy/AdvReac Type Severity Reaction Status Date / Time brompheniramine Allergy Intermediate NAUSEA & Verified 05/24/21 23:02 [From DIMETAPP DM COLD-COUGH VOMITING (PE)] dextromethorphan Allergy Intermediate NAUSEA & Verified 05/24/21 23:02 [From DIMETA DM COLD-COUGH VOMITING (PE)] Penicillins Allergy Intermediate Unknown Verified 05/24/21 23:02 phenylephrine Allergy Intermediate NAUSEA & Verified 05/24/21 23:02 [From DIMETA DM COLD-COUGH VOMITING (PE)] Home Medications Medication Instructions Recorded Confirmed Last Taken Type fluticasone propionate 115 2 puff inhalation BID 05/17/21 03/27/23 05/23/21 History mcg-salmeterol 21 mcg/actuation HFA inhaler (Advair HFA) furosemide 20 mg tablet (Lasix) 20 mg PO DAILY 05/17/21 03/27/23 Unknown History hydralazine 25 mg tablet 25 mg PO TID 05/17/21 03/27/23 05/23/21 History insulin pump controller 05/17/21 05/17/21 Unknown History isosorbide mononitrate 30 mg 30 mg PO DAILY 05/17/21 03/27/23 Unknown History tablet,extended release 24 hr metoprolol succinate 50 mg 50 mg PO DAILY 05/17/21 03/27/23 05/23/21 History tablet,extended release 24 hr pravastatin 40 mg tablet 40 mg PO BEDTIME 05/17/21 03/27/23 Unknown History pregabalin 75 mg capsule (Lyrica) 75 mg PO BID 05/17/21 03/27/23 Unknown History valsartan 320 mg tablet (Diovan) 320 mg PO DAILY 05/17/21 03/27/23 Unknown History albuterol sulfate 90 mcg/actuation inhalation 03/27/23 Unknown History aerosol inhaler cholecalciferol (vitamin D3) 25 25 mcg PO DAILY 03/27/23 03/27/23 Unknown History mcg (1,000 unit) capsule dapagliflozin 5 mg tablet (Farxiga) 5 mg PO DAILY 03/27/23 03/27/23 Unknown History fenofibrate nanocrystallized 145 145 mg PO DAILY 03/27/23 03/27/23 Unknown History mg tablet (Tricor) fluticasone propionate 50 1 spray intranasal BID 03/27/23 03/27/23 Unknown History mcg/actuation nasal spray,suspension insulin aspart U-100 100 unit/mL 240 unit subcut DAILY 03/27/23 03/27/23 Unknown History subcutaneous solution (Novolog U-100 Insulin aspart) gbvcbpvsjner-jlvqgdrh-qvlbem tablet 1 tab PO DAILY 03/27/23 03/27/23 Unknown History omega 5-cql-nzc-fish oil 1,000 mg 1 cap PO DAILY 03/27/23 03/27/23 Unknown History (120 mg-180 mg) capsule (Fish Oil) Exam Exam Date and Time: April 02, 2023 1005 Height,Weight and Vital Signs: Height 5 ft 7 in Weight 77.2 kg Airway Mallampati Class: III TM Dist: >3cm Neck ROM: Full Loose/Missing/Broken Teeth: No Heart: RRR Lungs: CTA Assessment and Plan Assessment Anesthesia Assessment: Anesthesia Plan Discussed Final Anesthetic Review History of Problems with Anesthesia: No NPO: Yes ASA Class: III Final Preanesthetic Review: Meds/Allgs Chart Reviewed, Consent Obtained/Reviewed and Anes Risks/Benef Reviewed Patient Risk: Intermediate Procedure Risk: Low Anesthetic Plan Anesthetic Plan: MAC: Disposition: Standard PACU
[2023-04-02 10:27] LABS: Glucose, Whole Blood 158 mg/dL (60-115)
[2023-04-02 10:46] VITALS: BP 162/86; PULSE 75; RESP 18; TEMP 36.4; O2SAT 96
[2023-04-02] MEDS: Lactated Ringers 500 ML 50 ML IV (10:49)
[2023-04-02] MEDS: Phenylephrine HCL 2.5% Oph SoL 2 ML BOTTLE 1 DROP EYE-RIGHT ×3 (10:55→11:00)
[2023-04-02] MEDS: Tetracaine HCl/PF 0.5% Oph Sol 4 ML DROPS 1 DROP EYE-RIGHT (10:55)
[2023-04-02] MEDS: Ketorolac Tromethamine 0.5% Op 5 ML DROPS 1 DROP EYE-RIGHT ×3 (10:56→11:01)
[2023-04-02] MEDS: Cyclopentolate 1 % Ophth Sol 2 ML DRPBTL 1 DROP EYE-RIGHT ×3 (10:56→11:00)
[2023-04-02] MEDS: Tropicamide 1 % Ophth Sol 3 ML BTL 1 DROP EYE-RIGHT ×3 (10:56→11:00)
--- NOTE | 2023-04-02 11:44 | HO.PNOPHT ---
Ophthalmology Procedure Procedure Date of Service: 04/02/23 Ophthalmology Viscoelastic: Ron Garciat Dual Pack Pro Ophthalmology Lenses: TECRAMONA [id number] (19) Procedure Notes: PREOPERATIVE DIAGNOSIS: Decreased visual acuity right eye secondary to cataract POSTOPERATIVE DIAGNOSIS: Same PROCEDURE: Right cataract extraction with intraocular lens insertion SURGEON: Nacho Maxwell M.D. ANESTHESIA: Topical/MAC ESTIMATED BLOOD LOSS: None COMPLICATIONS: None After obtaining informed consent, the patient was brought to the operating room suite and placed in the supine position. After adequate sedation per anesthesia, topical drops of Tetracaine were given to the right eye. The eye was then prepped and draped in the usual sterile fashion. The operating room microscope was then positioned over the operative eye and a lid speculum placed. A paracentesis was created. Viscoelastic was then instilled into the anterior chamber. A three plane incision was then created temporally, utilizing a 2.85 mm keratome. Capsulotomy forceps were then utilized to create a circular tear capsulotomy. Hydrodissection and hydrodelineation were carried out until adequate mobilization of the nucleus occurred. Phacoemulsification was then utilized to remove the dense central nucleus followed by removal of the cortical material utilizing the automated aspiration irrigation unit. Viscoelastic was instilled into the posterior capsular bag followed by placement of a posterior chamber intraocular lens without difficulty. The residual Viscoelastic was then removed utilizing the automated IA machine. The wound was checked and found to be watertight. The patient tolerated the procedure well and the lid speculum was removed. Intracameral injection of Vigamox 0.1 mL followed by a subtenon injection of Kenalog-40 0.2 mL were administered. The patient will be seen in the a.m.
[2023-04-02 12:18] VITALS: BP 163/67; PULSE 55; RESP 18; TEMP 36.7; O2SAT 96
== END 2023-04-02 12:22 | disposition home or self-care (01) ==
PROVIDERS: PCP Internal Medicine Endocrinology, Diabetes & Metabolism; Visit Provider Ophthalmology
PROC: (CPT 66985; principal; 2023-04-02 11:50)
DX: H25.11 Age-related nuclear cataract, right eye (principal); H40.52X3 Glaucoma secondary to other eye disorders, left eye, severe stage; I25.10 Atherosclerotic heart disease of native coronary artery without angina pectoris; Z95.1 Presence of aortocoronary bypass graft; I10 Essential (primary) hypertension; E11.9 Type 2 diabetes mellitus without complications; Z79.4 Long term (current) use of insulin; Z88.0 Allergy status to penicillin; Z88.8 Allergy status to other drugs, medicaments and biological substances; Z79.899 Other long term (current) drug therapy
CPT/HCPCS: 66984; 82947; J2250; J3010; J3301; V2632

== ENCOUNTER 2023-06-13 13:22 | Outpatient (REF) | payer MEDICARE, SELFPAY ==
[2023-06-14 02:43] LABS: Anion Gap 12 (12-20); Blood Urea Nitrogen 48 mg/dL (9-16); Calcium 8.7 mg/dL (8.4-10.2); Carbon Dioxide 26 mmol/L (22-29); Chloride 109 mmol/L (96-108); Estimated Glomerular Filt Rate 21; Glucose Random 118 mg/dL (60-115); Potassium 4.7 mmol/L (3.3-5.1); Sodium 142 mmol/L (135-145)
[2023-06-16 05:43] LABS: Calcium (PTHI) 8.2 mg/dL (8.6-10.3); PTHI 124 pg/mL (16-77)
== END 2023-06-13 13:23 | disposition home or self-care (01) ==
LOC: HO.LAB 13:22
PROVIDERS: PCP Internal Medicine Endocrinology, Diabetes & Metabolism; Visit Provider Internal Medicine Hypertension Specialist
DX: N18.4 Chronic kidney disease, stage 4 (severe) (principal)
CPT/HCPCS: 36415; 80048; 83970

== ENCOUNTER 2023-07-18 09:17 | Outpatient (REF) | payer MEDICARE, SELFPAY ==
[2023-07-18 10:23] LABS: Anion Gap 12 (12-20); Blood Urea Nitrogen 41 mg/dL (9-16); Calcium 9.1 mg/dL (8.4-10.2); Carbon Dioxide 27 mmol/L (22-29); Chloride 110 mmol/L (96-108); Estimated Glomerular Filt Rate 22; Glucose Random 116 mg/dL (60-115); Potassium 4.2 mmol/L (3.3-5.1); Sodium 145 mmol/L (135-145)
== END 2023-07-18 09:18 | disposition home or self-care (01) ==
LOC: HO.LAB 09:17
PROVIDERS: PCP Internal Medicine Endocrinology, Diabetes & Metabolism; Visit Provider Internal Medicine Hypertension Specialist
DX: N18.4 Chronic kidney disease, stage 4 (severe) (principal)
CPT/HCPCS: 36415; 80048

== ENCOUNTER 2023-09-06 15:43 | Outpatient (REF) | payer MEDICARE, SELFPAY ==
[2023-09-06 17:19] LABS: Anion Gap 14 (12-20); Blood Urea Nitrogen 49 mg/dL (9-16); Calcium 8.2 mg/dL (8.4-10.2); Carbon Dioxide 25 mmol/L (22-29); Chloride 107 mmol/L (96-108); Estimated Glomerular Filt Rate 18; Glucose Random 194 mg/dL (60-115); Potassium 4.6 mmol/L (3.3-5.1); Sodium 141 mmol/L (135-145)
== END 2023-09-06 15:44 | disposition home or self-care (01) ==
LOC: HO.LAB 15:43
PROVIDERS: Visit Provider Internal Medicine Hypertension Specialist
DX: N18.4 Chronic kidney disease, stage 4 (severe) (principal)
CPT/HCPCS: 36415; 80048

== ENCOUNTER 2023-10-01 13:38 | Outpatient (REF) | payer MEDICARE, SELFPAY ==
[2023-10-01 15:49] LABS: Anion Gap 14 (12-20); Blood Urea Nitrogen 57 mg/dL (9-16); Carbon Dioxide 34 mmol/L (22-29); Chloride 97 mmol/L (96-108); Glucose Random 88 mg/dL (60-115); Potassium 4.3 mmol/L (3.3-5.1); Sodium 141 mmol/L (135-145)
[2023-10-01 15:51] LABS: Estimated Glomerular Filt Rate 14
== END 2023-10-01 13:39 | disposition home or self-care (01) ==
LOC: HO.LAB 13:38
PROVIDERS: PCP Internal Medicine Endocrinology, Diabetes & Metabolism; Visit Provider Internal Medicine
DX: Z13.89 Encounter for screening for other disorder (principal)
CPT/HCPCS: 36415; 80048; 80051; 82310; 82565; 84520

== ENCOUNTER 2023-10-04 18:15 | Emergency (ER) | payer MEDICARE, SELFPAY ==
[2023-10-04 18:21] VITALS: BP 145/76; PULSE 80; O2SAT 98
[2023-10-04 18:29] VITALS: BP 142/88; PULSE 82; RESP 14; TEMP 36.7; O2SAT 97; BMI 25.6
[2023-10-04 18:31] LABS: Glucose, Whole Blood 123 mg/dL (60-115)
--- NOTE | 2023-10-04 18:34 | PC.NURSE ---
patient is resting comfortably on stretcher, respirations even and unlabored, skin is pink warm and dry, patient is alert and oriented x4. Offers no complaints at this time, requesting to leave at this time. Reports he is feeling better
--- NOTE | 2023-10-04 19:30 | ED.GENADULT ---
HPI - General Adult General Chief complaint: General Medical Stated complaint: LOW BLOOD SUGAR Time Seen by Provider: 10/04/23 19:20 Source: patient, family, RN notes reviewed and old records reviewed Mode of arrival: EMS Limitations: no limitations History of Present Illness HPI narrative: Patient with PMH diabetes presents for low blood sugar. He states he started feeling lightheaded and dizzy and took his blood sugar which was approximately 50. He reports calling EMS who provided D10 which brought his sugar up. He states he took his medications today as prescribed and ate a normal breakfast this morning before going shopping. He reports this has never happened before. He denies nausea, vomiting, syncope. Patient has a PCP who manages his diabetes. He states he currently feels fine and is asymptomatic. Related Data Home Medications Medication Instructions Recorded Confirmed fluticasone propionate 115 2 puff inhalation BID 05/17/21 03/27/23 mcg-salmeterol 21 mcg/actuation HFA inhaler (Advair HFA) furosemide 20 mg tablet (Lasix) 20 mg PO DAILY 05/17/21 03/27/23 hydralazine 25 mg tablet 25 mg PO TID 05/17/21 03/27/23 insulin pump controller 05/17/21 05/17/21 isosorbide mononitrate 30 mg 30 mg PO DAILY 05/17/21 03/27/23 tablet,extended release 24 hr metoprolol succinate 50 mg 50 mg PO DAILY 05/17/21 03/27/23 tablet,extended release 24 hr pravastatin 40 mg tablet 40 mg PO BEDTIME 05/17/21 03/27/23 pregabalin 75 mg capsule (Lyrica) 75 mg PO BID 05/17/21 03/27/23 valsartan 320 mg tablet (Diovan) 320 mg PO DAILY 05/17/21 03/27/23 albuterol sulfate 90 mcg/actuation inhalation 03/27/23 aerosol inhaler cholecalciferol (vitamin D3) 25 25 mcg PO DAILY 03/27/23 03/27/23 mcg (1,000 unit) capsule dapagliflozin propanediol 5 mg 5 mg PO DAILY 03/27/23 03/27/23 tablet (Farxiga) fenofibrate nanocrystallized 145 145 mg PO DAILY 03/27/23 03/27/23 mg tablet (Tricor) fluticasone propionate 50 1 spray intranasal BID 03/27/23 03/27/23 mcg/actuation nasal spray,suspension insulin aspart U-100 100 unit/mL 240 unit subcut DAILY 03/27/23 03/27/23 subcutaneous solution (Novolog U-100 Insulin aspart) iipjckscybuy-lkxcjjka-fgrbkv tablet 1 tab PO DAILY 03/27/23 03/27/23 omega 2-ouh-ntr-fish oil 1,000 mg 1 cap PO DAILY 03/27/23 03/27/23 (120 mg-180 mg) capsule (Fish Oil) Allergies Allergy/AdvReac Type Severity Reaction Status Date / Time brompheniramine Allergy Intermediate NAUSEA & Verified 05/24/21 23:02 [From DIMETAPP DM COLD-COUGH VOMITING (PE)] dextromethorphan Allergy Intermediate NAUSEA & Verified 05/24/21 23:02 [From DIMETAPP DM COLD-COUGH VOMITING (PE)] Penicillins Allergy Intermediate Unknown Verified 05/24/21 23:02 phenylephrine Allergy Intermediate NAUSEA & Verified 05/24/21 23:02 [From DIMETAPP DM COLD-COUGH VOMITING (PE)] Review of Systems Constitutional: Constitutional: Denies chills, Denies fever(s), Denies headache(s) and Denies weakness Eyes: Eyes: Denies change in vision ENT: Reports dizziness and Denies headache(s) Cardiovascular: Cardiovascular: Denies chest pain, Denies syncope and Denies dyspnea Respiratory: Respiratory: Denies dyspnea Gastrointestinal: Gastrointestinal: Denies abdominal pain, Denies nausea and Denies vomiting Integumentary/Breasts: Skin/Breast: Denies rash Neurologic: Reports dizziness, Denies syncope, Denies headache(s) and Denies weakness [facility] Past Medical History Medical History Asthma Back pain CAD (coronary artery disease) COVID-19 vaccine series completed Elevated cholesterol [place] (hard of hearing) HTN (hypertension) IDDM (insulin dependent diabetes mellitus) On beta robert at home Renal disease Surgical History History of blepharoplasty History of nasal surgery Hx of left cataract extraction S/P triple vessel bypass Social History Social History Are you a primary manager respiratory care to a significant other at home: No Do you presently have visiting nurse or other home services: No Alcohol intake: never Patient Tobacco Use Status: Never used Tobacco Smoked in Last 30 Days: No Use of substances other than those prescribed or required for medical reasons: No Advance Directives: No Physical Exam ED Vital Signs: Vital Signs - 24 hr 10/04/23 18:29 Temperature 98.0 F Pulse Rate 82 Respiratory Rate 14 Blood Pressure 142/88 H Pulse Oximetry 97 Oxygen Delivery Method Room Air BMI result Body Mass Index 25.6 Const General: comfortable and no acute distress Orientation/consciousness: patient oriented x3 Limitations: no limitations HENMT Head: Yes normocephalic and Yes atraumatic Eyes Conjunctivae: conjunctivae normal Sclerae: sclerae normal Corneas: corneas normal Pupils: Equal, round and reactive pupils present Resp Effort & Inspection: normal respiratory effort Auscultation: clear to auscultation bilaterally Cardio Rate: regular rate Rhythm: regular rhythm Skin General skin exam: no rashes or lesions noted Neuro General: patient oriented x3 Cranial nerves: Yes Equal, round and reactive pupils present Cognition (Neuro): normal cognition Extrem General: Yes normal to inspection Medical Decision Making Medical Decision Making [facility] Narrative: 37-year-old male presents for evaluation of dizziness that has resolved. His blood sugar was reportedly 58 for EMS. At the time of my evaluation he has been the ER for approximately 3 hours. He has been asymptomatic in the ER. He has been checking his blood sugar it did drop as low as 60. Again, he remains asymptomatic he just took a glucose tablet, he will be set any is requesting discharge. Given that he has been stable for the last 3 hours and is capable of checking his blood sugar regularly as he has an electric monitor I feel he is safe for discharge at this time. Patient was given return precautions Differential Diagnosis Differential Diagnoses: The differential diagnosis associated with the presentation includes hypoglycemia insulin resistance medication noncompliance malnutrition hyperinsulinemia Lab Data [facility] Lab Attestation statement: I reviewed the patient's lab results. Point of care glucose 123 and then 60 Labs: Lab Results 10/04/23 10/04/23 Range/Units 18:26 19:35 POC Glucose 123 H 60 (60-115) mg/dL Discharge Plan Discharge Clinical Impression: Hypoglycemia Patient Disposition: Home, Self-Care Instructions: Hypoglycemia in a Person with Diabetes (ED) Additional Instructions: Check your blood sugar every hour and to go to bed. If it is less than 80 you should continue taking your glucose tablets Make sure you take all of your medications exactly as prescribed Follow-up with your primary doctor Prescriptions: No Action pravastatin 40 mg Tablet 40 mg PO BEDTIME metoprolol succinate 50 mg Tablet Extended Release 24 Hr 50 mg PO DAILY isosorbide mononitrate [Imdur] 30 mg Tablet Extended Release 24 Hr 30 mg PO DAILY hydralazine 25 mg Tablet 25 mg PO TID valsartan [Diovan] 320 mg Tablet 320 mg PO DAILY furosemide [Lasix] 20 mg Tablet 20 mg PO DAILY pregabalin [Lyrica] 75 mg Capsule 75 mg PO BID fluticasone propion-salmeterol [Advair HFA] 115-21 mcg/actuation Hfa Aerosol Inhaler 2 puff INHALATION BID (DME) insulin pump controller insulin aspart U-100 [Novolog U-100 Insulin aspart] 100 unit/mL solution 240 unit subcut DAILY albuterol sulfate 90 mcg/actuation HFA aerosol inhaler INHALATION fluticasone propionate 50 mcg/actuation spray,suspension 1 spray intranasal BID Farxiga 5 mg tablet 5 mg PO DAILY cholecalciferol (vitamin D3) 25 mcg (1,000 unit) Capsule 25 mcg PO DAILY Centrum Silver Tablet 1 tab PO DAILY fenofibrate nanocrystallized [Tricor] 145 mg Tablet 145 mg PO DAILY omega 1-wov-rhi-fish oil [Fish Oil] 1,000 mg (120 mg-180 mg) Capsule 1 cap PO DAILY
[2023-10-04 19:39] LABS: Glucose, Whole Blood 60 mg/dL (60-115)
== END 2023-10-04 20:02 | disposition home or self-care (01) ==
PROVIDERS: Emergency Provider Emergency Medicine; PCP Internal Medicine Endocrinology, Diabetes & Metabolism
DX: E11.649 Type 2 diabetes mellitus with hypoglycemia without coma (principal); R42 Dizziness and giddiness; E78.00 Pure hypercholesterolemia, unspecified; I10 Essential (primary) hypertension; Z79.4 Long term (current) use of insulin; Z79.899 Other long term (current) drug therapy
CPT/HCPCS: 82947; 99283; 99284

== ENCOUNTER 2023-10-20 10:19 | Outpatient (REF) | payer MEDICARE, SELFPAY ==
[2023-10-20 11:28] LABS: Albumin Level 3.4 g/dL (3.5-5.0); Anion Gap 12 (12-20); Blood Urea Nitrogen 61 mg/dL (9-16); Carbon Dioxide 28 mmol/L (22-29); Chloride 108 mmol/L (96-108); Magnesium 2.8 mg/dL (1.6-2.6); Phosphorus 5.4 mg/dL (2.7-4.5); Potassium 4.4 mmol/L (3.3-5.1); Sodium 144 mmol/L (135-145)
[2023-10-20 11:33] LABS: Appearance Urine Clear; Color Urine Yellow; Glucose Urine UA 500 mg/dL (Negative); Leukocyte Esterase Urine Negative (Negative); Nitrite Urine Negative (Negative); Specific Gravity - Urine 1.015 (1.005-1.025); UMIC TRIGGER UA YES; Urine Blood Negative (Negative); Urine Ketones Negative (Negative); Urine Protein 300 (3+) mg/dL (Neg-Trace)
[2023-10-20 11:33] LABS: Vitamin D 25-OH Total 15.8 ng/mL (>30)
[2023-10-20 11:34] LABS: Estimated Glomerular Filt Rate 13
[2023-10-20 11:37] LABS: Bacteria Urine None Seen (None Seen); Hyaline Casts Urine 0-2 /LPF (0-2); RBC Urine 0-2 /HPF (0-2); Squamous Epithelial Cell Urine 0-2 /HPF (0-2); WBC Urine 0-5 /HPF (0-5)
[2023-10-20 12:20] LABS: Creatinine Urine 29.62 mg/dL
[2023-10-20 12:35] LABS: Protein/Creatinine Ratio, Ur 11.95 (<0.2); Total Protein Urine Random 354 mg/dL (<12)
[2023-10-20 12:42] LABS: Microalbumin Urine > 2000.0 mg/L
[2023-10-22 14:23] LABS: Calcium (PTHI) 8.8 mg/dL (8.6-10.3); PTHI 107 pg/mL (16-77)
== END 2023-10-20 10:20 | disposition home or self-care (01) ==
LOC: HO.LAB 10:19
PROVIDERS: PCP Internal Medicine Endocrinology, Diabetes & Metabolism; Visit Provider Internal Medicine Nephrology
DX: I12.9 Hypertensive chronic kidney disease with stage 1 through stage 4 chronic kidney disease, or unspecified chronic kidney disease (principal); E11.22 Type 2 diabetes mellitus with diabetic chronic kidney disease; N18.4 Chronic kidney disease, stage 4 (severe); R80.1 Persistent proteinuria, unspecified
CPT/HCPCS: 36415; 80051; 81001; 82040; 82043; 82306; 82310; 82565; 82570; 83735; 83970; 84100; 84156; 84520

== ENCOUNTER 2024-01-29 14:33 | Outpatient (AMB) | payer MEDICARE, SELFPAY ==
[2024-01-29 14:36] VITALS: BP 116/46; PULSE 64; O2SAT 97; BMI 29.3
--- NOTE | 2024-01-29 14:36 | HO.NEPHOV_ITS ---
HPI HPI Comments History of Present Illness Details Elderly man with a history of longstanding hypertension and diabetes mellitus with advanced kidney disease. He is well known to me for the last several years. He has biopsy-proven diabetic nephropathy. He was accompanied by his today and wants me to take care of him. 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 Trinidad and awaiting a PET scan in the next few weeks. 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 [place] light chain 179 with a kappa lambda ratio of 6.1 Jordan was recently hospitalized with hypoxemic respiratory failure and fluid overload. At that time he was diuresed and fortunately was able to discharge the need for dialysis. His recent serum creatinine is 5.5 with EGFR of 10 mL/minute. Today denies any nausea or vomiting. No shortness of breath. Appetite is fair according to his . No urinary symptoms. His blood sugar seems to be well controlled PFSH Medical History Asthma Back pain CAD (coronary artery disease) COVID-19 vaccine series completed Elevated cholesterol [place] (hard of hearing) HTN (hypertension) IDDM (insulin dependent diabetes mellitus) On beta robert at home Renal disease Surgical History Hx of left cataract extraction History of blepharoplasty History of nasal surgery S/P triple vessel bypass Social History Are you a primary child care sitter to a significant other at home: No Do you presently have visiting nurse or other home services: No Alcohol intake: never Patient Tobacco Use Status: Never used Tobacco Vital Signs 01/29/24 14:36 Height 5 ft 2 in Weight 160 lb BMI 29.3 BP 116/46 L Blood Pressure Location Lt brachial Position Sitting Pulse 64 Pulse Source Pulse Oximeter Pulse Oximetry (%) 97 Oxygen Delivery Method Room Air Physical Exam Vital Signs: Last Vital Signs Pulse 64 01/29/24 14:36 BP 116/46 L 01/29/24 14:36 Pulse Ox 97 01/29/24 14:36 Oxygen Delivery Method Room Air 01/29/24 14:36 BMI result Body Mass Index 29.3 Const General: comfortable Nutritional Appearance: well nourished Orientation/consciousness: patient oriented x3 HEENT Head: No normal to inspection Mouth: moist mucous membranes Neck Neck: Yes supple and Yes no JVD Resp Auscultation: clear to auscultation bilaterally, no rales and rub present Cardio Jugular venous distension: no JVD Palpation: no palpable S3 and no palpable S4 Heart sounds: no rubs GI Palpation (GI): Soft to palpation and nontender Percussion: No Fluid wave present General: Yes no CVA tenderness Back/Spine/Pelvis Back: no CVA tenderness Skin General skin exam: no rashes or lesions noted Neuro General: patient oriented x3 Extrem General: Yes no pedal edema and No clubbing Assessment & Plan Assessment & Plan (1) CKD (chronic kidney disease) stage 5, GFR less than 15 ml/min: Code(s): N18.5 - Chronic kidney disease, stage 5 Plan Jordan has stage 5 CKD due to diabetic nephropathy. Today he has no overt signs or symptoms of uremia or fluid overload. However he is approaching end stage renal disease. I had a lengthy discussion with him and his regarding the possible need for dialysis in the near future. They are in agreement. We discussed treatment options including hemodialysis and peritoneal dialysis and he prefers to proceed with hemodialysis. I have taken the liberty of referring him to Dr. Cosme for the creation of AV fistula in preparation for hemodialysis. At present the blood pressure is optimal. Discussed importance of maintaining tight control of blood sugar. Continue to avoid nephrotoxic agents including NSAIDs. Today the fluid status seems optimal. We will continue with the current dose of diuretics and encouraged him to stay on a low-salt diet. I will follow him closely along with the team. Orders: Orders Complete Blood Count no Diff Today N18.5 - Chronic kidney disease, stage 5 Comprehensive Met. Panel Today N18.5 - Chronic kidney disease, stage 5, N18.9 - Chronic kidney disease, unspecified Phosphorus Today N18.5 - Chronic kidney disease, stage 5 Parathyroid Hormone Intact Today N18.5 - Chronic kidney disease, stage 5 Referrals Vascular Surgery Referral N18.5 - Chronic kidney disease, stage 5 Coding Level of Care Code Est Pt Level 5 (33697) Diagnoses CKD (chronic kidney disease) stage 5, GFR less than 15 ml/min N18.5 Results Reviewed Results Reviewed: Lab results from December 2023 was reviewed. Nephrology Results: Hgb 11.1 g/dl (14.0-18.0) L 03/30/23 WBC 5.4 X10*3/uL (4.8-10.8) 03/30/23 Plt Count 188 X10*3/uL (160-400) 03/30/23 Sodium 144 mmol/L (135-145) 10/20/23 Potassium 4.4 mmol/L (3.3-5.1) 10/20/23 Chloride 108 mmol/L (96-108) 10/20/23 Carbon Dioxide 28 mmol/L (22-29) 10/20/23 BUN 61 mg/dL (9-16) H 10/20/23 Creatinine 4.33 mg/dL (0.5-1.4) H* 10/20/23 Calcium 9.0 mg/dL (8.4-10.2) 10/20/23 Phosphorus 5.4 mg/dL (2.7-4.5) H 10/20/23 PTH Intact 107 pg/mL (16-77) H 10/20/23 Urine Protein 300 (3+) mg/dL (Neg-Trace) H 10/20/23 Urine Creatinine 29.62 mg/dL 10/20/23 Protein/Creatinin Ratio 11.95 (<0.2) H 10/20/23
== END 2024-01-29 15:05 | disposition home or self-care (01) ==
PROVIDERS: PCP Internal Medicine Endocrinology, Diabetes & Metabolism; Visit Provider Internal Medicine Hypertension Specialist
DX: N18.5 Chronic kidney disease, stage 5 (principal)
CPT/HCPCS: 99214

== ENCOUNTER 2024-01-29 14:33 | Outpatient (REF) | payer MEDICARE, SELFPAY ==
[2024-01-29 16:10] LABS: Hematocrit 25.9 % (42.0-52.0); Hemoglobin 8.5 g/dl (14.0-18.0); Mean Corpuscular HGB Conc 32.8 g/dl (31.0-36.0); Mean Corpuscular Hemoglobin 29.2 pg (27.0-33.0); Platelet Count 178 X10*3/uL (160-400); Red Blood Count 2.91 X10*6/uL (4.60-5.80); Red Cell Distribution Width 14.6 % (11.0-16.0)
[2024-01-29 16:38] LABS: Parathyroid Hormone Intact 182.1 pg/mL (8.7-77.1)
[2024-01-29 17:00] LABS: Alanine Aminotransferase 13 U/L (0-40); Albumin Level 4.1 g/dL (3.5-5.0); Alkaline Phosphatase 44 U/L (39-117); Anion Gap 14 (12-20); Aspartate Amino Transferase 22 U/L (5-37); Bilirubin Total 0.4 mg/dL (0.0-1.0); Blood Urea Nitrogen 97 mg/dL (9-16); Calcium 9.3 mg/dL (8.4-10.2); Carbon Dioxide 29 mmol/L (22-29); Chloride 99 mmol/L (96-108); Estimated Glomerular Filt Rate 9; Glucose Random 217 mg/dL (60-115); Phosphorus 5.7 mg/dL (2.7-4.5); Potassium 4.3 mmol/L (3.3-5.1); Sodium 138 mmol/L (135-145); Total Protein 7.2 g/dL (6.5-8.0)
== END 2024-01-29 14:34 | disposition home or self-care (01) ==
LOC: HO.LAB 14:33
PROVIDERS: PCP Internal Medicine Endocrinology, Diabetes & Metabolism; Visit Provider Internal Medicine Hypertension Specialist
DX: N18.5 Chronic kidney disease, stage 5 (principal)
CPT/HCPCS: 36415; 80053; 83970; 84100; 85027; 99212

== ENCOUNTER 2024-02-12 11:04 | Outpatient (AMB) | payer MEDICARE, SELFPAY ==
--- NOTE | 2024-02-12 11:05 | A.OFFVIS_ITS ---
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 Patient is not on dialysis as of yet. Patient is diabetic and has advanced kidney disease. Accompanied by: Son Allergies brompheniramine [From DIMETAPP DM COLD-COUGH (PE)] Allergy (Intermediate, Verified 02/12/24 11:11) NAUSEA & VOMITING dextromethorphan [From DIMETAPP DM COLD-COUGH (PE)] Allergy (Intermediate, Verified 02/12/24 11:11) NAUSEA & VOMITING Penicillins Allergy (Intermediate, Verified 02/12/24 11:11) Unknown phenylephrine [From DIMETAPP DM COLD-COUGH (PE)] Allergy (Intermediate, Verified 02/12/24 11:11) NAUSEA & VOMITING HPI Neurophysiological Technician/ Ref for Fistula placement CKD5 HPI Details Very pleasant 78-year-old gentleman presents for chronic renal insufficiency and potential dialysis access. Reason for dialysis access includes longstanding hypertension and diabetes Current GFR 9 Currently not on dialysis Patient denies any previous catheter use, pacemaker or other risk factors for central venous stenosis. 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 (hard of hearing) HTN (hypertension) IDDM (insulin dependent diabetes mellitus) On beta robert at home Renal disease Surgical History Hx of left cataract extraction History of blepharoplasty History of nasal surgery S/P triple vessel bypass Social History Are you a primary customer care associate to a significant other at home: No Do you presently have visiting nurse or other home services: No Alcohol intake: never Patient Tobacco Use Status: Never used Tobacco Review of Systems Const All systems reviewed & are unremarkable except as noted in HPI and below Reports no additional complaints ENT Reports Normal hearing present Card Denies chest pain, Denies chest pain at rest, Denies chest pain with activity and Denies pedal edema Resp Denies cough GI Denies abdominal pain Musc Denies abnormal gait, Denies muscle cramps and Denies radiating pain into limb Skin/Breast Denies skin ulcer and Denies wounds Neuro Reports Normal hearing present and Denies abnormal gait Psych Reports no additional complaints Physical Exam Vital Signs: BMI result Body Mass Index 29.3 Const General: cooperative, healthy appearing and comfortable Orientation/consciousness: oriented to person, oriented to place and oriented to time HEENT Head: Yes normal to inspection Neck Neck: Yes normal visual inspection Carotids: no bruits Chest Chest palpation & inspection: normal inspection of the chest Resp Effort & Inspection: normal respiratory effort and able to speak in complete sentences Auscultation: clear to auscultation bilaterally, no crackles, no rales, no rhonchi and no wheezes Cardio Rate: regular rate Rhythm: regular rhythm Heart sounds: S1 normal heart sound present and S2 normal heart sound present Bruits: no carotid bruits Peripheral pulses: Peripheral pulses 2+ throughout GI Inspection: Yes normal to inspection Skin Wounds: no wounds Hair: normal Neuro General: oriented to person, oriented to place and oriented to time Cranial nerves: Yes CN's II-XII intact bilaterally and Yes Normal hearing present Cognition (Neuro): normal cognition Motor exam (neuro): 5/5 motor strength present throughout Extrem Other: venous exam: No significant superficial varicosities or spider telangiectasias, minimal edema General: No clubbing, No cyanosis and No edema Psych Appearance: grossly normal Mental Status: mental status grossly normal Speech and movement: Normal speech and movement present Assessment & Plan Assessment & Plan (1) CKD (chronic kidney disease) stage 5, GFR less than 15 ml/min: Code(s): N18.5 - Chronic kidney disease, stage 5 Plan: In short patient will require permanent dialysis access. ?The patient will require left arm fistula placement. ?Alternative modalities of dialysis was discussed with the patient and the patient has elected for fistula placement. ?Risks benefits complications including but not limited to bleeding, infection, hematoma, pseudoaneurysm, congestive heart failure, steal syndrome, ischemic neuropathy, thrombosis, and limb loss were discussed with the patient. ?They agreed and would like to move forward. ?We will schedule for fistula placement as soon as possible. ?Thank you for allowing us to assist in this patient's care. ?If there are any questions or concerns please do not hesitate to contact us. Orders: Orders US venous duplex UE LT 02/13/24 N18.5 - Chronic kidney disease, stage 5 Coding Level of Care Code New Pt Level 4 (27607) Diagnoses CKD (chronic kidney disease) stage 5, GFR less than 15 ml/min N18.5
[2024-02-12 11:06] VITALS: BMI 29.3
== END 2024-02-12 12:13 | disposition home or self-care (01) ==
PROVIDERS: PCP Internal Medicine Endocrinology, Diabetes & Metabolism; Visit Provider Surgery Vascular Surgery
DX: N18.5 Chronic kidney disease, stage 5 (principal)
CPT/HCPCS: 99204

== ENCOUNTER → 2024-02-12 11:04 | Outpatient (BNVA) | payer MEDICARE, SELFPAY | PROVIDERS: PCP Internal Medicine Endocrinology, Diabetes & Metabolism; Visit Provider Surgery Vascular Surgery | DX: E11.22 Type 2 diabetes mellitus with diabetic chronic kidney disease (principal); N18.5 Chronic kidney disease, stage 5 | CPT/HCPCS: 99202 ==

== ENCOUNTER 2024-02-21 08:35 | Outpatient (REF) | payer MEDICARE, SELFPAY ==
--- NOTE | ~2024-02-21 | US_ITS ---
EXAMINATION: US VENOUS WITH DOPPLER UPPER EXTREMITY, LEFT CLINICAL INFORMATION: Vein mapping for AV fistula placement COMPARISON: None available. TECHNIQUE: Ultrasound of the upper extremity is performed for venous mapping of the left upper extremity basilic vein and cephalic vein. Additional Doppler ultrasound evaluation of the brachial, radial artery and ulnar artery. Spectral analysis with color-flow imaging is performed. FINDINGS: Basilic vein: Proximal upper arm: 0.4 cm, depth 1.0 cm Mid upper arm: 0.2 cm, depth 0.8 cm Distal upper arm: 0.3 cm, depth 0.6 cm Cephalic vein: Shoulder: 0.5 cm, depth 1.2 cm Proximal upper arm: 0.4 cm, depth 0.8 cm Mid upper arm: 0.4 cm, depth 0.4 cm Distal upper arm: 0.3 cm, depth 0.5 cm AC fossa: 0.5 cm, depth 0.5 cm Proximal forearm: 0.3 cm, depth 0.4 cm Mid forearm: 0.2 cm, depth 0.3 cm Wrist: 0.2 cm, depth 0.4 cm Brachial artery: Patent with normal arterial waveform. Peak systolic velocity 81 cm/s. Diameter: 0.6 cm, depth 1.1 cm Radial artery: Patent with normal arterial waveform. Peak systolic velocity 61 cm/s. The diameter: 0.1 cm, depth of 2.0 cm Ulnar artery: Patent with a normal arterial waveform. Peak systolic velocity 136 cm/s. Diameter: 0.3 cm, depth 0.7 cm US/US venous duplex UE LT IMPRESSION: Ultrasound venous mapping of the left upper extremity as described above.
== END 2024-02-21 08:36 | disposition home or self-care (01) ==
LOC: HO.US 08:35
PROVIDERS: PCP Internal Medicine Endocrinology, Diabetes & Metabolism; Visit Provider Surgery Vascular Surgery
DX: N18.5 Chronic kidney disease, stage 5 (principal)
CPT/HCPCS: 93971

== ENCOUNTER 2024-02-25 06:10 | Day surgery (SDC) | payer MEDICARE, SELFPAY ==
[2024-02-21 11:16] VITALS: BMI 29.3
--- NOTE | 2024-02-21 13:33 | P.CONAN_ITS ---
Documented by User: Rehana Galindo NP 02/22/24 13:03 HPI - Anesthesia Eval Consult details Narrative: 78yo M for Left Arm AV Fistula Creation Insulin pump in situ PMFSH Active Problems Active Problems: All Active Problems (Updated 02/21/24 @ 11:06 by Davina Pereyra RN) CKD (chronic kidney disease) stage 5, GFR less than 15 ml/min (Acute) Past Medical History Medical History (Updated 02/21/24 @ 11:06 by Davina Pereyra RN) CKD (chronic kidney disease) stage 5, GFR less than 15 ml/min YAKUTAT (hard of hearing) Elevated cholesterol Back pain IDDM (insulin dependent diabetes mellitus) Asthma On beta robert at home CAD (coronary artery disease) HTN (hypertension) Surgical History Surgical History (Updated 02/21/24 @ 10:58 by Davina Pereyra RN) Hx of right cataract extraction Hx of left cataract extraction History of blepharoplasty History of nasal surgery S/P triple vessel bypass History of Problems with Anesthesia: No Social History Social History Are you a primary palliative care coordinator to a significant other at home: No Do you presently have visiting nurse or other home services: No Alcohol intake: never Patient Tobacco Use Status: Never used Tobacco Use of substances other than those prescribed or required for medical reasons: No Are you DNR?: No Advance Directives: No Advance Directives Information Provided: Yes Meds Allergies Allergy/AdvReac Type Severity Reaction Status Date / Time brompheniramine Allergy Intermediate NAUSEA & Verified 02/12/24 11:11 [From DIMETAPP DM COLD-COUGH VOMITING (PE)] dextromethorphan Allergy Intermediate NAUSEA & Verified 02/12/24 11:11 [From DIMETAPP DM COLD-COUGH VOMITING (PE)] Penicillins Allergy Intermediate Unknown Verified 02/12/24 11:11 phenylephrine Allergy Intermediate NAUSEA & Verified 02/12/24 11:11 [From DIMETAPP DM COLD-COUGH VOMITING (PE)] Home Medications Medication Instructions Recorded Confirmed Last Taken Type fluticasone propionate 115 2 puff inhalation BID 05/17/21 02/21/24 02/25/24 History mcg-salmeterol 21 mcg/actuation HFA inhaler (Advair HFA) insulin pump controller 05/17/21 05/17/21 Unknown History albuterol sulfate 90 mcg/actuation 2 puff inhalation Q6H PRN 03/27/23 02/21/24 Unknown History aerosol inhaler Shortness Of Breath cholecalciferol (vitamin D3) 25 25 mcg PO DAILY 03/27/23 02/21/24 Unknown History mcg (1,000 unit) capsule fenofibrate nanocrystallized 145 145 mg PO DAILY 03/27/23 02/21/24 Unknown History mg tablet (Tricor) fluticasone propionate 50 1 spray intranasal BID 03/27/23 02/21/24 Unknown History mcg/actuation nasal spray,suspension insulin aspart U-100 100 unit/mL 240 unit subcut DAILY 03/27/23 02/21/24 Unknown History subcutaneous solution (Novolog U-100 Insulin aspart) ubfhqpmmonvc-acvgfukf-qeisvk tablet 1 tab PO DAILY 03/27/23 02/21/24 Unknown History omega 8-new-xrm-fish oil 1,000 mg 1 cap PO DAILY 03/27/23 02/21/24 Unknown History (120 mg-180 mg) capsule (Fish Oil) amlodipine 5 mg tablet 5 mg PO DAILY 01/29/24 02/21/24 02/25/24 History atorvastatin 40 mg tablet 40 mg PO DAILY 01/29/24 02/21/24 Unknown History hydralazine 50 mg tablet 50 mg PO TID 01/29/24 02/21/24 02/25/24 History insulin glargine 100 unit/mL (3 10 unit subcut DAILY 01/29/24 02/21/24 Unknown History mL) subcutaneous pen (Lantus Solostar U-100 Insulin) metoprolol succinate 50 mg 25 mg PO BID 01/29/24 02/21/24 02/25/24 History tablet,extended release 24 hr nitroglycerin 0.4 mg sublingual 0.4 mg sublingual Q5M PRN Chest 01/29/24 02/21/24 Unknown History tablet Pain pregabalin 100 mg capsule 100 mg PO BID 01/29/24 02/21/24 Unknown History torsemide 20 mg tablet 40 mg PO BID 01/29/24 02/21/24 Unknown History calcium acetate(phosphat bind) 667 667 mg PO TID 02/21/24 02/21/24 Unknown History mg tablet Exam Height,Weight and Vital Signs: Height 5 ft 2 in Weight 72.575 kg Pertinent Lab Results Pertinent Lab Results: Laboratory Tests 01/29/24 15:39 WBC 6.0 Hgb 8.5 L D Hct 25.9 L D Plt Count 178 Sodium 138 Potassium 4.3 Chloride 99 Carbon Dioxide 29 Assessment and Plan Assessment Anesthesia Assessment: Chart Reviewed Final Anesthetic Review History of Problems with Anesthesia: No Documented by User: Jovan Soler MD 02/25/24 07:32 [facility] Past Medical History Medical History (Updated 02/21/24 @ 11:06 by Davina Pereyra RN) CKD (chronic kidney disease) stage 5, GFR less than 15 ml/min [place]UTAT (hard of hearing) Elevated cholesterol Back pain IDDM (insulin dependent diabetes mellitus) Asthma On beta robert at home CAD (coronary artery disease) HTN (hypertension) Family History Family history of problems with anesthesia: No Surgical History Surgical History (Updated 02/21/24 @ 10:58 by Davina Pereyra RN) Hx of right cataract extraction Hx of left cataract extraction History of blepharoplasty History of nasal surgery S/P triple vessel bypass Social History Social History Are you a primary palliative care coordinator to a significant other at home: No Do you presently have visiting nurse or other home services: No Alcohol intake: never Patient Tobacco Use Status: Never used Tobacco Use of substances other than those prescribed or required for medical reasons: No Are you DNR?: No Advance Directives: No Advance Directives Information Provided: Yes Meds Allergies Allergy/AdvReac Type Severity Reaction Status Date / Time brompheniramine Allergy Intermediate NAUSEA & Verified 02/12/24 11:11 [From DIMETAPP DM COLD-COUGH VOMITING (PE)] dextromethorphan Allergy Intermediate NAUSEA & Verified 02/12/24 11:11 [From DIMETAPP DM COLD-COUGH VOMITING (PE)] Penicillins Allergy Intermediate Unknown Verified 02/12/24 11:11 phenylephrine Allergy Intermediate NAUSEA & Verified 02/12/24 11:11 [From [facility] DM COLD-COUGH VOMITING (PE)] Home Medications Medication Instructions Recorded Confirmed Last Taken Type fluticasone propionate 115 2 puff inhalation BID 05/17/21 02/21/24 02/25/24 History mcg-salmeterol 21 mcg/actuation HFA inhaler (Advair HFA) insulin pump controller 05/17/21 05/17/21 Unknown History albuterol sulfate 90 mcg/actuation 2 puff inhalation Q6H PRN 03/27/23 02/21/24 Unknown History aerosol inhaler Shortness Of Breath cholecalciferol (vitamin D3) 25 25 mcg PO DAILY 03/27/23 02/21/24 Unknown History mcg (1,000 unit) capsule fenofibrate nanocrystallized 145 145 mg PO DAILY 03/27/23 02/21/24 Unknown History mg tablet (Tricor) fluticasone propionate 50 1 spray intranasal BID 03/27/23 02/21/24 Unknown History mcg/actuation nasal spray,suspension insulin aspart U-100 100 unit/mL 240 unit subcut DAILY 03/27/23 02/21/24 Unknown History subcutaneous solution (Novolog U-100 Insulin aspart) lbuzzmpgwbpa-xdcktmyz-wvzxqf tablet 1 tab PO DAILY 03/27/23 02/21/24 Unknown History omega 8-paf-rbc-fish oil 1,000 mg 1 cap PO DAILY 03/27/23 02/21/24 Unknown History (120 mg-180 mg) capsule (Fish Oil) amlodipine 5 mg tablet 5 mg PO DAILY 01/29/24 02/21/24 02/25/24 History atorvastatin 40 mg tablet 40 mg PO DAILY 01/29/24 02/21/24 Unknown History hydralazine 50 mg tablet 50 mg PO TID 01/29/24 02/21/24 02/25/24 History insulin glargine 100 unit/mL (3 10 unit subcut DAILY 01/29/24 02/21/24 Unknown History mL) subcutaneous pen (Lantus Solostar U-100 Insulin) metoprolol succinate 50 mg 25 mg PO BID 01/29/24 02/21/24 02/25/24 History tablet,extended release 24 hr nitroglycerin 0.4 mg sublingual 0.4 mg sublingual Q5M PRN Chest 01/29/24 02/21/24 Unknown History tablet Pain pregabalin 100 mg capsule 100 mg PO BID 01/29/24 02/21/24 Unknown History torsemide 20 mg tablet 40 mg PO BID 01/29/24 02/21/24 Unknown History calcium acetate(phosphat bind) 667 667 mg PO TID 02/21/24 02/21/24 Unknown History mg tablet Exam Airway Mallampati Class: III TM Dist: <=3cm Neck ROM: Full Loose/Missing/Broken Teeth: No Heart: rrr Lungs: cta Assessment and Plan Final Anesthetic Review Family History of Problems with Anesthesia: No NPO: Yes ASA Class: IV Final Preanesthetic Review: No Changes in Pt Med Stat, Meds/Allgs Chart Reviewed, Consent Obtained/Reviewed and Anes Risks/Benef Reviewed Patient Risk: Intermediate Procedure Risk: Intermediate Anesthetic Plan Anesthetic Plan: GA Disposition: Standard PACU
[2024-02-25] VITALS (8 sets, daily range): BP systolic 142–171; BP diastolic 49–67; PULSE 56–64; RESP 12–20; TEMP 36.6–36.9; O2SAT 94–96; BMI 30.6
[2024-02-25 06:50] LABS: Hematocrit 27.1 % (42.0-52.0); Hemoglobin 8.8 g/dl (14.0-18.0); Mean Corpuscular HGB Conc 32.5 g/dl (31.0-36.0); Mean Corpuscular Hemoglobin 29.1 pg (27.0-33.0); Mean Corpuscular Volume 89.7 fL (80.0-98.0); Mean Platelet Volume 9.9 fL (9.4-12.4); Platelet Count 162 X10*3/uL (160-400); Red Blood Count 3.02 X10*6/uL (4.60-5.80); Red Cell Distribution Width 14.5 % (11.0-16.0); White Blood Count 6.7 X10*3/uL (4.8-10.8)
[2024-02-25] MEDS: Lactated Ringers 1,000 ML 50 ML IVCONT (06:51)
[2024-02-25] MEDS: vancomycin HCL 1,000 MG in 0.9 % Sodium Chloride 250 ML 270 MG IV (07:01)
[2024-02-25 07:10] LABS: Anion Gap 18 (12-20); Blood Urea Nitrogen 97 mg/dL (9-16); Calcium 9.1 mg/dL (8.4-10.2); Carbon Dioxide 27 mmol/L (22-29); Chloride 102 mmol/L (96-108); Glucose Random 131 mg/dL (60-115); Potassium 4.7 mmol/L (3.3-5.1); Sodium 142 mmol/L (135-145)
[2024-02-25 07:13] LABS: Creatinine Clr Calc Pharmacy 8.5; Estimated Glomerular Filt Rate 8
--- NOTE | 2024-02-25 07:35 | PC.NURSE ---
changed lr fluids to ns per md parks.
--- NOTE | 2024-02-25 09:24 | MHC.SHP ---
Pre-Procedural Eval Section A - 24 Hr Update-Section A only Date of Service: 02/25/24 The patient is an INPATIENT: No Changes since office visit: Yes Patient answered all questions The patient has been examined within 24 hours of the surgical procedure. The History & Physical has been completed within 30 days and I have reviewed it.: Yes Section B - Complete if H&P > 30 days Chief Complaint: End stage renal disease Allergies: Allergies Allergy/AdvReac Type Severity Reaction Status Date / Time brompheniramine Allergy Intermediate NAUSEA & Verified 02/12/24 11:11 [From DIMETAPP DM COLD-COUGH VOMITING (PE)] dextromethorphan Allergy Intermediate NAUSEA & Verified 02/12/24 11:11 [From DIMETAPP DM COLD-COUGH VOMITING (PE)] Penicillins Allergy Intermediate Unknown Verified 02/12/24 11:11 phenylephrine Allergy Intermediate NAUSEA & Verified 02/12/24 11:11 [From DIMETAPP DM COLD-COUGH VOMITING (PE)] Plan I have reviewed the history and physical and performed a pertinent physical examination on my patient. No changes have occurred unless specified. Time Spent With Patient Time: Total time managing care of this patient today ____ minutes.
--- NOTE | 2024-02-25 09:26 | P.OP_ITS ---
Operative Note Operative Note Date of Service: 02/25/24 Narrative: Operative note by [facility] Preoperative diagnosis: Chronic renal insufficiency Postoperative diagnosis: Same Procedure: Left Arm brachiocephalic fistula creation (direct) Surgeon:Clay Cosme M.D. Extension Professor: James Anesthesia: General Specimens: None Drains: None Estimated blood loss: Minimal Indications: Patient was identified with chronic renal insufficiency by the nephrology team. Now presents for permanent dialysis access risks benefits complications including but not limited to bleeding, infection, ischemic neuropathy, heart failure, lymphedema, steal. The patient has signed the informed consent after reviewing risks, complications, benefits, and alternatives previously discussed with the patient. The patient was given the opportunity to ask any additional questions or voice any concerns. All questions were answered to the patient's satisfaction. Procedure in detail: Patient was brought to the operating room prior to which a time-out was called for patient identification and site verification. The patient was placed in a supine position. The left arm was prepped and draped in the standard surgical fashion. We made a small transverse incision in the antecubital fossa approximately 1-2 finger breaths just above the antecubital fossa. The cephalic vein was identified and mobilized. The fascia was incised, and the brachial artery was also identified and mobilized. Both these vessels were skeletonized. The brachial artery was free of significant disease. A good pulse was noted. The cephalic vein was mobilized proximally and distally. The brachial artery was mobilized proximally and distally. We administered 3000 units of systemic heparin. The brachial artery was then isolated with silastic loops and clamped proximally and distally. The cephalic vein was also clamped proximally. We then distally ligated the vein. We used a 2-0 silk suture ligature to close the vein. We then marked the vein. We brought the vein over and made sure there was appropriate reach. Longitudinal arteriotomy was made in the brachial artery, and this was splayed open using 2 separate stay 7 0 Prolene sutures. We then trimmed the cephalic vein appropriately. We did a circumferential anastomosis using a 6 0 Prolene. Prior to closure this was flushed clear. Then the anastomosis was completed. A good thrill was noted. Hemostasis was achieved. We closed the you wound using a deep layer of 2-0 Polysorb. Superficial layer of 3-0 Polysorb. Finally the skin was closed using a running 4-0 Monocryl in a subcuticular fashion. Sterile dressing was applied at the end the case. At the end the case sponge needle instrument counts were correct. Patient awoke and had a good radial and ulnar pulse. This note is constructed using voice recognition software. While every effort has been made to ensure accuracy, snow plow operator errors may have been included. Thank you for allowing me to participate in the care of your patient. Yours sincerely, Clay Cosme MD, FACS, R.P.V.I.
== END 2024-02-25 11:40 | disposition home or self-care (01) ==
LOC: HO.SSS 06:10
PROVIDERS: Nurse Practitioner; PCP Internal Medicine Endocrinology, Diabetes & Metabolism; Visit Provider Surgery Vascular Surgery
PROC: (CPT 36821; principal; 2024-02-25 07:30)
DX: E11.22 Type 2 diabetes mellitus with diabetic chronic kidney disease (principal); I12.0 Hypertensive chronic kidney disease with stage 5 chronic kidney disease or end stage renal disease; N18.5 Chronic kidney disease, stage 5; J45.909 Unspecified asthma, uncomplicated; E78.00 Pure hypercholesterolemia, unspecified; I25.10 Atherosclerotic heart disease of native coronary artery without angina pectoris; Z95.1 Presence of aortocoronary bypass graft; Z79.4 Long term (current) use of insulin; Z79.899 Other long term (current) drug therapy; Z88.0 Allergy status to penicillin; Z88.8 Allergy status to other drugs, medicaments and biological substances
CPT/HCPCS: 36821; 36415; 80048; 85027; A4364; A4649; J1644; J2704; J2795; J3010; J3370

== ENCOUNTER → 2024-02-25 06:10 | Outpatient (BNV) | payer MEDICARE, SELFPAY | PROVIDERS: PCP Internal Medicine Endocrinology, Diabetes & Metabolism; Visit Provider Surgery Vascular Surgery | DX: N18.6 End stage renal disease (principal) | CPT/HCPCS: 36821 ==

== ENCOUNTER 2024-04-01 09:41 | Outpatient (REF) | payer MEDICARE, SELFPAY ==
--- NOTE | ~2024-04-01 | XR_ITS ---
EXAMINATION: XR RIBS, LEFT CLINICAL INFORMATION: Left lower rib pain. Evaluate for fracture. COMPARISON: Chest radiograph dated 11/20/2019. TECHNIQUE: PA view the chest as well as 3 views of the left ribs. FINDINGS: Interstitial and pulmonary vascular crowding, which may be due to hypoinflation. No focal airspace consolidation. Stable cardiac mediastinal silhouette. Sternal wires and mediastinal surgical clips are redemonstrated. Dual lumen right-sided central venous catheter in appropriate position. No pleural effusion or pneumothorax. No displaced rib fracture. No lytic or blastic osseous lesion. No abnormal soft tissue calcification. XR/XR ribs LT min 3V w CXR1V IMPRESSION: 1. No displaced rib fracture. 2. Interstitial and pulmonary vascular crowding, which may be due to hypoinflation. No focal airspace consolidation.
== END 2024-04-01 09:42 | disposition home or self-care (01) ==
LOC: HO.XRAY 09:41
PROVIDERS: PCP Internal Medicine Endocrinology, Diabetes & Metabolism; Visit Provider Internal Medicine Endocrinology, Diabetes & Metabolism
DX: M84.48XD Pathological fracture, other site, subsequent encounter for fracture with routine healing (principal)
CPT/HCPCS: 71101

== ENCOUNTER 2024-04-10 10:52 | Outpatient (AMB) | payer MEDICARE, SELFPAY ==
--- NOTE | 2024-04-10 10:59 | MHC.OFFVIS ---
Intake Visit Reasons: 2 week follow up fistula placement Intake Note: follow up Left UE fistula creation for dialysis. No complaints Twisting Frame Operator Required: No Accompanied by: Family/Other Allergies brompheniramine [From DIMETAPP DM COLD-COUGH (PE)] Allergy (Intermediate, Verified 04/10/24 11:00) NAUSEA & VOMITING dextromethorphan [From DIMETAPP DM COLD-COUGH (PE)] Allergy (Intermediate, Verified 04/10/24 11:00) NAUSEA & VOMITING Penicillins Allergy (Intermediate, Verified 04/10/24 11:00) Unknown phenylephrine [From DIMETAPP DM COLD-COUGH (PE)] Allergy (Intermediate, Verified 04/10/24 11:00) NAUSEA & VOMITING HPI HPI 2 week follow up fistula placement: Details: Very pleasant 78-year-old gentleman presents for follow-up status post fistula placement. This was a left brachiocephalic fistula placed on 02/25/2024. Reports no postoperative issues. He denies any pain or discomfort in the left arm. In the interim he ended up on hemodialysis which is currently being done through a right IJ PermCath. There is significant confusion as to who his yard caller is. He was originally seen by Dr. Shima Lara and has transferred back to yard caller at [facility]. He now presents for routine postoperative follow-up. [facility] Medical History CKD (chronic kidney disease) stage 5, GFR less than 15 ml/min [place] (hard of hearing) Elevated cholesterol Back pain IDDM (insulin dependent diabetes mellitus) Asthma On beta robert at home CAD (coronary artery disease) HTN (hypertension) Surgical History Hx of right cataract extraction Hx of left cataract extraction History of blepharoplasty History of nasal surgery S/P triple vessel bypass Social History Are you a primary health care liaison to a significant other at home: No Do you presently have visiting nurse or other home services: No Alcohol intake: never Patient Tobacco Use Status: Never used Tobacco Review of Systems Const All systems reviewed & are unremarkable except as noted in HPI and below Reports no additional complaints ENT Reports Normal hearing present Card Denies chest pain, Denies chest pain at rest, Denies chest pain with activity and Denies pedal edema Resp Denies cough GI Denies abdominal pain Musc Denies abnormal gait, Denies muscle cramps and Denies radiating pain into limb Skin/Breast Denies skin ulcer and Denies wounds Neuro Reports Normal hearing present and Denies abnormal gait Psych Reports no additional complaints Physical Exam Const General: cooperative, healthy appearing and comfortable Orientation/consciousness: oriented to person, oriented to place and oriented to time HEENT Head: Yes normal to inspection Neck Neck: Yes normal visual inspection Carotids: no bruits Chest Chest palpation & inspection: normal inspection of the chest Resp Effort & Inspection: normal respiratory effort and able to speak in complete sentences Auscultation: clear to auscultation bilaterally, no crackles, no rales, no rhonchi and no wheezes Cardio Rate: regular rate Rhythm: regular rhythm Heart sounds: S1 normal heart sound present and S2 normal heart sound present Bruits: no carotid bruits Peripheral pulses: Peripheral pulses 2+ throughout GI Inspection: Yes normal to inspection Skin Wounds: no wounds Hair: normal Neuro General: oriented to person, oriented to place and oriented to time Cranial nerves: Yes CN's II-XII intact bilaterally and Yes Normal hearing present Cognition (Neuro): normal cognition Motor exam (neuro): 5/5 motor strength present throughout Extrem Other: Left upper extremity fistula demonstrates excellent thrill and bruit General: No clubbing, No cyanosis and No edema Psych Appearance: grossly normal Mental Status: mental status grossly normal Speech and movement: Normal speech and movement present Assessment & Plan Assessment & Plan (1) ESRD (end stage renal disease): Code(s): N18.6 - End stage renal disease Category: Medical Plan: In short patient has an excellent functioning left upper extremity fistula. It appears to be ready for use. Unfortunately he is already on dialysis through a PermCath. I have given him a note that it is okay to start using fistula at the dialysis center. Should it worked out well PermCath can be removed. He will follow up with us on an as-needed basis. Thank you for allowing us to assist in his care. If there are any questions or concerns please do not hesitate to contact us. Coding Level of Care Code Est Pt Level 4 (53171) Diagnoses ESRD (end stage renal disease) N18.6
== END 2024-04-10 11:01 | disposition home or self-care (01) ==
PROVIDERS: PCP Internal Medicine Endocrinology, Diabetes & Metabolism; Visit Provider Surgery Vascular Surgery
DX: N18.6 End stage renal disease (principal)
CPT/HCPCS: 99024

== ENCOUNTER → 2024-04-10 10:52 | Outpatient (BNVA) | payer MEDICARE, SELFPAY | PROVIDERS: PCP Internal Medicine Endocrinology, Diabetes & Metabolism; Visit Provider Surgery Vascular Surgery | DX: N18.6 End stage renal disease (principal); Z99.2 Dependence on renal dialysis; Z98.890 Other specified postprocedural states | CPT/HCPCS: 99212 ==

== ENCOUNTER 2024-12-04 12:10 | Outpatient (RCR) | payer MEDICARE, SELFPAY ==
[2024-10-30 12:05] VITALS: BP 107/52; PULSE 55
--- NOTE | 2024-12-04 17:12 | MHC.PT.DC ---
[facility] [place] Office [place] Office [place] [address] Guicho Engle [address] [phone] F: [phone] F: [phone] F: [phone] F: [phone] Physical Therapy Discharge Report Diagnosis: Vertigo Date of Surgery: Date of Evaluation: 10/30/24 Date of Discharge: 12/04/24 Treatments to Date: 5 Cancellations to Date: No Shows to Date: Discharge Status: Improved Function Independent with HEP Discharge Summary: Pt has made good progress since SOC. He consistently presents without dizziness and demonstrates improvements in balance and gait since SOC. I provided pt with cervical stretching exercises and gentle postural stabilization exercises as he appeared to have a cervicogenic component to his dizziness. Pt is being D/C from skilled PT at this time. I provided pt with printed, updated copy of HEP and YTB. He reports he has a follow up with his provider today regarding his L UE fistula as it may not be working properly; I discussed with pt to ask his doctor about performing banded exercises if he is undergoing any new intervention and pt verbalized understanding. Pt reports no further questions or concerns for PT at this time Electronically signed by: Jalyn Barrios, PT, DPT Please sign and return to therapist. Thank you for your referral.
== END 2024-12-04 17:11 | disposition home or self-care (01) ==
LOC: HO.PT 12:10
PROVIDERS: PCP Physician Assistant; Visit Provider Otolaryngology
DX: H81.11 Benign paroxysmal vertigo, right ear (principal)
CPT/HCPCS: 95992; 97110; 97112; 97140; 97162

== ENCOUNTER 2024-12-04 13:24 | Outpatient (AMB) | payer MEDICARE, SELFPAY ==
--- NOTE | 2024-12-04 13:25 | A.OFFVIS_ITS ---
Vital Signs 12/04/24 13:27 Height 5 ft 6 in Weight 153 lb BMI 24.7 Intake Visit Reasons: PRN follow up fistulagram Intake Note: follow up fistula Left UE for bleeding. Has dialysis M, W, F Accompanied by: Self / Same As Patient Allergies brompheniramine [From DIMETAPP DM COLD-COUGH (PE)] Allergy (Intermediate, Verified 12/04/24 13:29) NAUSEA & VOMITING dextromethorphan [From DIMETAPP DM COLD-COUGH (PE)] Allergy (Intermediate, Verified 12/04/24 13:29) NAUSEA & VOMITING Penicillins Allergy (Intermediate, Verified 12/04/24 13:29) Unknown phenylephrine [From DIMETAPP DM COLD-COUGH (PE)] Allergy (Intermediate, Verified 12/04/24 13:29) NAUSEA & VOMITING HPI HPI PRN follow up fistulagram: Details: Very pleasant 78-year-old gentleman presents for follow-up regarding his dialysis access. He had a left brachiocephalic fistula placed on 02/25/2024. He is now back on dialysis and is currently on a Sunday regimen. They have been using the left upper extremity fistula and has been noticing incr eased bleeding times. They had difficulty at his last dialysis session. He is being treated at the [facility]. He now presents for vascular evaluation. 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 ml/min [place] (hard of hearing) Elevated cholesterol Back pain IDDM (insulin dependent diabetes mellitus) Asthma On beta robert at home CAD (coronary artery disease) HTN (hypertension) Surgical History Hx of right cataract extraction Hx of left cataract extraction History of blepharoplasty History of nasal surgery S/P triple vessel bypass Social History Are you a primary resident care provider to a significant other at home: No Do you presently have visiting nurse or other home services: No Alcohol intake: never Patient Tobacco Use Status: Never used Tobacco Review of Systems Const All systems reviewed & are unremarkable except as noted in HPI and below Reports no additional complaints ENT Reports Normal hearing present Card Denies chest pain, Denies chest pain at rest, Denies chest pain with activity and Denies pedal edema Resp Denies cough GI Denies abdominal pain Musc Denies abnormal gait, Denies muscle cramps and Denies radiating pain into limb Skin/Breast Denies skin ulcer and Denies wounds Neuro Reports Normal hearing present and Denies abnormal gait Psych Reports no additional complaints Physical Exam Vital Signs: BMI result Body Mass Index 24.7 Const General: cooperative, healthy appearing and comfortable Orientation/consciousness: oriented to person, oriented to place and oriented to time HEENT Head: Yes normal to inspection Neck Neck: Yes normal visual inspection Carotids: no bruits Chest Chest palpation & inspection: normal inspection of the chest Resp Effort & Inspection: normal respiratory effort and able to speak in complete sentences Auscultation: clear to auscultation bilaterally, no crackles, no rales, no rhonchi and no wheezes Cardio Rate: regular rate Rhythm: regular rhythm Heart sounds: S1 normal heart sound present and S2 normal heart sound present Bruits: no carotid bruits Peripheral pulses: Peripheral pulses 2+ throughout GI Inspection: Yes normal to inspection Skin Wounds: no wounds Hair: normal Neuro General: oriented to person, oriented to place and oriented to time Cranial nerves: Yes CN's II-XII intact bilaterally and Yes Normal hearing present Cognition (Neuro): normal cognition Motor exam (neuro): 5/5 motor strength present throughout Extrem Other: venous exam: No significant superficial varicosities or spider telangiectasias, minimal edema General: No clubbing, No cyanosis and No edema Psych Appearance: grossly normal Mental Status: mental status grossly normal Speech and movement: Normal speech and movement present Assessment & Plan Assessment & Plan (1) ESRD (end stage renal disease): Code(s): N18.6 - End stage renal disease Category: Medical Plan: In short patient has poorly functioning left upper extremity fistula. He will require left upper extremity fistulogram with possible plasty and stent. Risks benefits complications including but not limited to bleeding infection clot and limb loss were discussed in detail with the patient he understood and consented. We will try to get him scheduled for Sunday to not interfere with his dialysis schedule. Coding Level of Care Code Est Pt Level 4 (44266) Diagnoses ESRD (end stage renal disease) N18.6
[2024-12-04 13:27] VITALS: BMI 24.7
--- OUTSIDE RECORDS SUMMARY | 2024-12-04 14:42 | XMS_ITS ---
Author Organization [facility] [place] Address [address] [place] [address] Care Team Providers Care [employer] Crewmember Name Role Phone Delon Gao MD Primary Care Provider David Arzate Unavailable [phone] Allergies Allergen (clinical drug ingredient) Drug/Non Drug Allergy documented on EMR Reaction Allergy Type Onset Date Status amoxicillin Amoxicillin itching Drug Allergy Act tommy REASON FOR VISIT At Risk Footcare, Skin problem(s) Medications Medication SIG (Take, Route, Frequency, Duration) Notes Start Date End Date Status Ammonium Lactate 12 % 1 application Exte rnally to affected areas of dry skin to feet except for between the toes Twice a day for 30 days Active HumaLOG Not-Taking Metoprolol Succinate 50 MG Orally Not-Taking Pravastatin Sodium 40 MG Orally Not-Taking Lyrica 75 MG Orally Once a day Not-Taking Insulin Pump Syringe Spiro Active Extra Depth Orthopedic Shoes (1 Pair) with Customized Heat Molded Multidensity Innersoles (3 Pair) as directed Dx: NIDDM/Polyneuropathy (E11.42), Hammertoe Foot Deformity (M20.41,M20.42), Preulcerative Skin Lesion(s) (L85.1 Active Aspirin 81 MG Orally Not-Ta cami Diovan 320 MG Orally Not-Ta cami NovoLOG Active Furosemide 20 MG TAKE 1 TABLET BY WALTER TH EVERY DAY DIRECTED Oral for 90 Days Active hydrALAZINE HCl 50 MG TAKE 1 TABLET BY M OUTH THREE TIMES A DAY DIRECTED Oral for 90 Days Active Nitroglycerin 0.4 MG as directed Sublingual 2022 Active Fenofibrate 145 MG TAKE 1 TABLET BY WALTER TH EVERY DAY Oral for 90 Days Active Fluticasone Propionate 50 MCG/ACT SPRAY 1 SPRAY INTO EACH NOSTRIL TWICE A DAY Nasal for 90 Days Active Metoprolol Tartrate 50 MG Oral for 90 Days Active Pregabalin 100 MG TAKE 1 CAPSULE BY MO UTH TWICE A DAY Oral for 90 Days Active Social History Tobacco Use: Social History Observation Description Date Details (start date - stop date) Former Smoker NA - NA Tobacco Use/Smoking Question Answer Notes Are you a: former smoker Additional Findings: Tobacco Non-User Current no n-smoker Alcohol Screen Question Answer Notes Did you have a drink containing alcohol in the p ast year? No Points 0 Interpretation Negative Tobacco use other than smoking: Question Answer Notes Are you an other tobacco user? No Vital Signs Height 5 ft 5 in in 10/07/2024 Weight 153 lbs 10/07/2024 BMI 25.46 kg/m2 10/07/2024 Blood pressure systolic 120 mm Hg 10/07/20 24 Blood pressure diastolic 70 mm Hg 024 Procedures Procedure Date Ordered Date Performed Result Body Sit e 08073-DOODWOZ NAIL, 6 OR MORE 10/07/2024 N/A 82431-RSPN SKIN LESIONS, OVER 4 10/07/2024 N/A Encounters Encounter Location Date Provider Diagnosis [facility] [address] [place] [address] 10/07/2024 David Thao Type 2 diabetes mellitus with diabetic polyneuropathy E11.42 ; Tinea unguium B35.1 and Xerosis of skin L85.3 Assessments Encounter Date Diagnosis (ICD Code) Assessment Notes Treatment Notes Treatment Clinical Notes Section Notes 10/07/2024 Type 2 diabetes mellitus with diabetic polyneuropathy (ICD-10 - E11.42) 10/07/2024 Tinea unguium (ICD-10 - B35.1) 10/07/2024 Xerosis of skin (ICD-10 - L85.3) 10/07/2024 Other Plan Of Treatment Medication Medication Name Sig Start Date Stop Date Notes Ammonium Lactate 12 % 1 application Exte rnally to affected areas of dry skin to feet except for between the toes Twice a day for 30 days Pending Test Test Name Order Date 75477-[id number] NAIL, 6 OR MORE 10/07/2024 99718-FTZL SKIN LESIONS, OVER 4 10/07/20 24 Next Appt Details Follow Up: prn, Reason: Provider Name:David Thao , 01/06/2025 01:45:00 PM, [address] [place], [address], Procedure Notes * Category Sub-Category Detail Notes Debride Nail 6-10 Nail debridement Performance o f this nail treatment by a nonprofessional would put this patients foot and overall health at risk. Therefore, debridement to affected nail(s), as described in exam, was performed extensively to reduce/remove overall nail length, girth, thickness, subungual debris, and necrotic tissue, by manual and/or electrical means through the use of a nail nipper and/or dremel-type gear and spline grinder, to a more viable healthy nail plate or bed tissue 6-10. Silver nitrate used for any petechial bleeding as necessary. Definitive antifungal treatment options have been reviewed and discussed with the patient. The patient chooses, no pharmaceutical tx - 45716 Keratoma Treatment Parring or Cutting o f Benign Hyperkeratotic Lesion(s) (-57) More than 4 Lesions - The Benign hyperkeratotic lesions, as described in exam, were pared, and/or cut utilizing a sterile 15 blade, tissue nippers, and/or dremel - 03769 Progress Notes * Jordan SOLORZANO VDOB:1945 (78 yo M)Acc No.[id number]:10/07/2024 Progress Note Patient:?Jordan SOLORZANO V Provider:?David Thao DPM :1945???Age:78 Y???Sex:Male Osmin e:10/07/2024 Address:[address] [place] [id number] Pcp:Delon Gao MD Subjective: * Chief Complaints: * ???At Risk FootcareSkin prob lorie(s) * HPI: ???At Risk footcare:?Pt States Last PCP Visit:?Date?05/27/2024 ???Toe pain:?Treatments:?Rx shoes, states still needs.?Skin problems:?Nature:?dryness , scaling.?Location:?B/L .?Duration:?several days.?Course:?worse.? * ROS:?General/Constitutional:?Nausea?denies.?Vomiting?denies.?Hunger Thirst?denies.?Loss appetite?denies.?Chills?denies.?Fatigue?denies.?Fever?denies.?Night Sweats?denies.?Unexplained weight loss?denies.?Unexplained weight gain?denies.?HEENTM:?Dentures?denies.?Dizziness?denies.?Glasses/contacts?denies.?Retinopathy?de nies.?Blurred/double vision?denies.?TMJ?denies.?Discharge/drainage?denies.?Implants?denies.?Sore throat?denies.?Dental implants?admits.?Hard of hearing ?admits.?Difficulty chewing/swallowing/speaking?denies.?Nose bleeds?denies.?Sore mouth?denies.?Respiratory:?On Oxygen?denies.?Pneumonia/pleurisy?denies.?Bronchitis?denies.?Emphysema?denies.?C oughing?admits.?Cough blood?denies.?Shortness of breath?admits.?Wheezing?admits.?Cardiovascular:?Pacemaker?denies.?MVP?denies.?WPW?denies.?CHF?denies.?Heart attack?denies.?Septal defect?denies.?Rapid beat?denies.?Chest pain ?denies.?Atrial Fib.?denies.?Murmur/Palpitations?denies.?Gastrointestinal:?Hemorrhoids?denies.?Stomach/Abdominal pain?denies.?Dark blood stool?denies.?Irritable bowel ?denies.?Constipation?denies.?Diarrhea?denies.?Hematology:?Swelling?admits.?Clots?denies.?Varicose Veins?denies.?Bruising?denies.?Bleeding problem?denies.?Genitourinary:?Blood urine?denies.?Frequent/Painfu/urination/bladder control?denies.?Kidney stones?denies.?Infection (UTI)?denies.?Nephropathy?denies.?sex trans dis (STD)?denies.?Prostate?denies.?Musculoskeletal:?Hammertoes?admits.?Bunions?denies.?Back Pain?denies.?Muscle Cramps/ Resting?admits.?Muscle cramps / walking?denies.?Generalized aches and pains?denies.?Weakness?denies.?Integ.:?Dominguez?denies.?Scars?denies.?Corns/calluses?admits.?Ingrown nails?admits.?Painful nails?denies.?Open Sores?denies.?Rashes?denies.?Neurologic:?Difficulty sleeping?admits.?Brain disorder?denies.?Numbness?admits.?Balance trouble?admits.?Confusion?denies.?Fainting/blackouts?denies.?Tingling?denies.?Tr emors?denies.? * Medical History:? * Surgical History:?triple byp ass 2004eye surgery 05/2020 * Hospitalization/Major Diagno stic Procedure:?Denies Past Hospitalization * Family History:?Mother: dece ased, colon cancer, diagnosed with Other malignant neoplasm of unspecified site, Diabetic - NIDDM.?Father: .?Siblings: diagnosed with Diabetic - NIDDM, Family history of arthritis.? * Social History:?Tobacco Use:?Tobacco Use/Smoking?Are you a:?former smoker ?Additional Findings: Tobacco Non-User?Current non-smoker ?Tobacco use other than smoking?Are you an other tobacco user??No ???Drugs/Alcohol:?Drugs?Have you used drugs other than those for medical reasons in the past 12 months??No ?Alcohol Screen?Did you have a drink containing alcohol in the past year??No ?Points?0 ?Interpretation?Negative ???Miscellaneous:?Caffeine: no. ?Children: yes, 3. ?Exercise: no. ?Marital status: . * Medications:?TakingMetoprolo l Tartrate 50 MG Tablet Oral Pregabalin 100 MG Capsule TAKE 1 CAPSULE BY MOUTH TWICE A DAY Oral Fenofibrate 145 MG Tablet TAKE 1 TABLET BY MOUTH EVERY DAY Oral Fluticasone Propionate 50 MCG/ACT Suspension SPRAY 1 SPRAY INTO EACH NOSTRIL TWICE A DAY Nasal Furosemide 20 MG Tablet TAKE 1 TABLET BY MOUTH EVERY DAY DIRECTED Oral hydrALAZINE HCl 50 MG Tablet TAKE 1 TABLET BY MOUTH THREE TIMES A DAY DIRECTED Oral Nitroglycerin 0.4 MG Tablet Sublingual as directed Sublingual NovoLOG Insulin Pump Syringe Spiro Extra Depth Orthopedic Shoes (1 Pair) with Customized Heat Molded Multidensity Innersoles (3 Pair) as directed Dx: NIDDM/Polyneuropathy (E11.42), Hammertoe Foot Deformity (M20.41,M20.42), Preulcerative Skin Lesion(s) (L85.1 Taking Metoprolol Tartrate 50 MG Tablet Oral Taking Pregabalin 100 MG Capsule TAKE 1 CAPSULE BY MOUTH TWICE A DAY Oral Taking Fenofibrate 145 MG Tablet TAKE 1 TABLET BY MOUTH EVERY DAY Oral Taking Fluticasone Propionate 50 MCG/ACT Suspension SPRAY 1 SPRAY INTO EACH NOSTRIL TWICE A DAY Nasal Taking Furosemide 20 MG Tablet TAKE 1 TABLET BY MOUTH EVERY DAY DIRECTED Oral Taking hydrALAZINE HCl 50 MG Tablet TAKE 1 TABLET BY MOUTH THREE TIMES A DAY DIRECTED Oral Taking Nitroglycerin 0.4 MG Tablet Sublingual as directed Sublingual Taking NovoLOG Taking Insulin Pump Syringe Spiro Taking Extra Depth Orthopedic Shoes (1 Pair) with Customized Heat Molded Multidensity Innersoles (3 Pair) as directed Dx: NIDDM/Polyneuropathy (E11.42), Hammertoe Foot Deformity (M20.41,M20.42), Preulcerative Skin Lesion(s) (L85.1 Not-Taking/PRNAspirin 81 MG Tablet Delayed Release Orally Diovan 320 MG Tablet Orally Metoprolol Succinate 50 MG Capsule ER 24 Hour Sprinkle Orally Pravastatin Sodium 40 MG Tablet Orally Lyrica 75 MG Capsule Orally Once a day HumaLOG Medication List reviewed and reconciled with the patientNot-Taking/PRN Aspirin 81 MG Tablet Delayed Release Orally Not-Taking/PRN Diovan 320 MG Tablet Orally Not-Taking/PRN Metoprolol Succinate 50 MG Capsule ER 24 Hour Sprinkle Orally Not-Taking/PRN Pravastatin Sodium 40 MG Tablet Orally Not-Taking/PRN Lyrica 75 MG Capsule Orally Once a day Not-Taking/PRN HumaLOG Medication List reviewed and reconciled with the patient * Allergies:?Amoxicillin: itch ingyes[Allergies Verified] Objective: * Vitals:?Ht: 5 ft 5 in, Wt:15 3, BMI: 25.46, Shoe size:7, BP:120/70mm Hg, BS:130, Ht-cm: 165.1 cm, Wt-k.4 kg. * ???Past Orders: ???Lab:HEMOGLOBIN A1C (GLYCO HEMOGLOBIN) (Order Date - 12/14/2023) (Collection Date & Time - 11/27/2023) ? Value Reference Range ?TOTAL HEMOGLOBIN (HGBA1C) 6.2 * Examination: ???Neurological: ?SENSORY:? Neurological exam demonstrates, reduced light touch sensation, reduced sharp/dull pin prick discrimination , B/L, 5.07 monofilament test performed at plantar aspects of 5 varied sites per foot shows sensation, reduced , B/L.?Nails: ?NAILS are:?Elongated, overgrown, dystrophic, lytic, greater than 3mm thick, discolored and friable with crumbly malodorous subungual debris , 1-5 B/L.?Dermatologic: ?SKIN FINDINGS:?Skin exam reveals Keratotic lesion(s) located at , Medial plantar, IPJ, TA, Medial plantar, IPJ, T5, SUB MTH (s) , 1 , B/L , SUB MTH (s) , 5 , B/L , Heel(s) , B/L , Skin shows sign(s) of, dryness, scaling, in a stocking fashion, no fissure(s) present, B/L.? Assessment: * Assessment: 1.?Type 2 diabetes mellitus with diabetic polyneuropathy - E11.42 (Primary)???2.?Tinea unguium - B35.1???3.?Xerosis of skin - L85.3???Specify :Acute problem, Uncomplicated (3),Rx Management (4)??? Plan: * Treatment: 2.?Xerosis of skin? Start Ammonium Lactate Cream, 12 %, 1 application, Externally to affected areas of dry skin to feet except for between the toes, Twice a day, 30 days, 140, Refills 2.?? * Procedures:?Debride Nail 6-10:?Nail debridement?Performance of this nail treatment by a nonprofessional would put this patients foot and overall health at risk. Therefore, debridement to affected nail(s), as described in exam, was performed extensively to reduce/remove overall nail length, girth, thickness, subungual debris, and necrotic tissue, by manual and/or electrical means through the use of a nail nipper and/or dremel-type gear and spline grinder, to a more viable healthy nail plate or bed tissue 6-10. Silver nitrate used for any petechial bleeding as necessary. Definitive antifungal treatment options have been reviewed and discussed with the patient. The patient chooses, no pharmaceutical tx - 30922.?Keratoma Treatment:?Parring or Cutting of Benign Hyperkeratotic Lesion(s)?(-57) More than 4 Lesions - The Benign hyperkeratotic lesions, as described in exam, were pared, and/or cut utilizing a sterile 15 blade, tissue nippers, and/or dremel - 49964.? * Procedure Codes:?90111 DEBRI DE NAIL, 6 OR MORE, Modifiers: XS 26773 TRIM SKIN LESIONS, OVER 4, Modifiers: XS * Preventive Medicine:? ??Counseling:?Discussion:?-13: Office or other outpatient visit for the evaluation and management of an established patient, which required a medically appropriate history and/or examination and LOW level of DECISION MAKING for: 1 STABLE ACUTE UNCOMPLICATED PROBLEM, 2 OR MORE MINOR PROBLEMS, OR 1 STABLE CHRONIC PROBLEM, THAT POSE(S) A LOW RISK FOR MORBIDITY/MORTALITY. The visit on the day of the encounter encompassed interpreting the data and educating the patient as to the nature of their condition, treatment options available according to their individual PMH, meds, allergies, and overall health/living conditions, as well as any potential risks or complications that may occur from a failure to adhere to, and participate in, the recommended course of therapy. The discussion included a complete verbal, and/or written explanation of the examination results, any x-rays taken, the proposed diagnosis, and outline of the treatment plan. A schedule for future care needs was also explained. The patient verbalized an understanding of the instructions at this time and agreed to be an active participant in their treatment. If the patient should think of any questions or concerns after the visit, I have encouraged the patient to call the office.?Xerosis:?The patient was counseled on the diagnosis, potential etiologies, and treatment options for their skin condition. We discussed the risks and benefits of each option from performing no treatment, to utilizing OTC topical skin creams/ointments, to utilizing prescription topical creams/ointments, to utilizing customized compounded topical medications and use of nocturnal occlusion with any/all previously detailed therapies. We discussed the advantages and disadvantages of each possible treatment and importance for adherence to all the recommended therapies for optimum success and avoid potential complications such as open sore/infection/possible hospitalization. We discussed the potential effectiveness of each topical preparation as well as each ones possible side effects and/or patient medication interactions. Patient questions re: use, dosage, successful outcomes, and application consistency were reviewed and the patient verbalized that all answers were clearly understood. The patient has decided to apply Rx skin creams to their feet save the interspaces while paying special attention to the heels. Such was sent to their pharmacy at the time of visit.? * Follow Up:?prn * Images: * Sign off status: Completed true * Provider:?David Thao DPM Date:?2023 Generated for Darion cain/Mandy/Avi on:?12/04/2024 02:42 PM EST History and Physical Notes * HPI (History of Present Illness) Category Sub-Category Detail Notes Category Not es Toe pain Treatments: Rx shoes, states still needs Skin problems Nature: dryness , scaling Location: B/L Duration: several days Course: worse At Risk footcare Pt States Last PCP Visit: Date: 4 Examination Category Sub-Category Detail Notes Category Not es Neurological SENSORY: Neurological exa m demonstrates, reduced light touch sensation, reduced sharp/dull pin prick discrimination , B/L, 5.07 monofilament test performed at plantar aspects of 5 varied sites per foot shows sensation, reduced , B/L Dermatologic SKIN FINDINGS: Skin exam reveal s Keratotic lesion(s) located at , Medial plantar, IPJ, TA, Medial plantar, IPJ, T5, SUB MTH (s) , 1 , B/L , SUB MTH (s) , 5 , B/L , Heel(s) , B/L , Skin shows sign(s) of, dryness, scaling, in a stocking fashion, no fissure(s) present, B/L Nails NAILS are: Elongated, overg rown, dystrophic, lytic, greater than 3mm thick, discolored and friable with crumbly malodorous subungual debris , 1-5 B/L
--- OUTSIDE RECORDS SUMMARY | 2024-12-04 14:43 | XMS_ITS ---
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 Name Role Phone Delon Gao MD Primary Care Provider David Arzate Unavailable [phone] Allergies Allergen (clinical drug ingredient) Drug/Non Drug Allergy documented on EMR Reaction Allergy Type Onset Date Status amoxicillin Amoxicillin itching Drug Allergy Act tommy REASON FOR VISIT At Risk Footcare, Toe Irritation, Ingrown Nail Medications Medication SIG (Take, Route, Frequency, Duration) Notes Start Date End Date Status Pravastatin Sodium 40 MG Orally Unknown Diovan 320 MG Orally Unknow n Metoprolol Succinate 50 MG Orally Unknown Extra Depth Orthopedic Shoes (1 Pair) with Customized Heat Molded Multidensity Innersoles (3 Pair) as directed Dx: NIDDM/Polyneuropathy (E11.42), Hammertoe Foot Deformity (M20.41,M20.42), Preulcerative Skin Lesion(s) (L85.1 Active Lyrica 75 MG Orally Once a day Unknown Aspirin 81 MG Orally Unknow n NovoLOG Active Insulin Pump Syringe Brogden Active hydrALAZINE HCl 50 MG TAKE 1 [...] A DAY Oral for 90 Days Active Furosemide 20 MG TAKE 1 TABLET BY WALTER TH EVERY DAY DIRECTED Oral for 90 Days Active HumaLOG Unknown Social History Tobacco Use: Social History Observation [...] Signs Height 5 ft 5 in in 07/08/2024 Weight 156 lbs 07/08/2024 BMI 25.96 kg/m2 07/08/2024 Blood pressure systolic 120 mm Hg 07/08/20 24 Blood pressure diastolic 70 mm Hg 024 Procedures Procedure Date Ordered Date Performed Result Body Sit e 57163-CCNVHGW NAIL, 6 OR MORE 07/08/2024 N/A 20631-Zjjfbeko Plate 07/08/2024 N/A 47524-CSRA SKIN LESIONS, OVER 4 07/08/2024 N/A Encounters Encounter Location Date Provider Diagnosis [facility] [place] [address] [place] [address] 07/08/2024 David Thao Type 2 diabetes mellitus with diabetic polyneuropathy E11.42 ; Tinea unguium B35.1 ; Other hammer toe(s) (acquired), right foot M20.41 ; Other hammer toe(s) (acquired), left foot M20.42 and Ingrown nail L60.0 Assessments Encounter Date Diagnosis (ICD Code) Assessment Notes Treatment Notes Treatment Clinical Notes Section Notes 07/08/2024 Type 2 diabetes mellitus with diabetic polyneuropathy (ICD-10 - E11.42) 07/08/2024 Tinea unguium (ICD-10 - B35.1) 07/08/2024 Other hammer toe(s) (acquired), right foot (ICD-10 - M20.41) Patient Educated with: DIABETIC FOOT CARE INSTRUCTIONS. pdf (DIABETIC FOOT CARE INSTRUCTIONS. pdf) 07/08/2024 Other hammer toe(s) (acquired), left foot (ICD-10 - M20.42) 07/08/2024 Ingrown nail (ICD-10 - L60.0) Plan Of Treatment Medication Medication Name Sig Start Date Stop Date Notes Extra Depth Orthopedic Shoes (1 Pair) with Customized Heat Molded Multidensity Innersoles (3 Pair) as directed Dx: NIDDM/Polyneuropathy (E11.42), Hammertoe Foot Deformity (M20.41,M20.42), Preulcerative Skin Lesion(s) (L85.1 Treatment Notes Assessment Notes Other hammer toe(s) (acquired), right fo ot Patient Educated with: DIABETIC FOOT CARE INSTRUCTIONS.pdf (DIABETIC FOOT CARE INSTRUCTIONS.pdf) Pending Test Test Name Order Date 59691-IBRHPQP NAIL, 6 OR MORE 07/08/2024 64887-Fqbwhbjk Plate 07/08/2024 33036-HKEA SKIN LESIONS, OVER 4 07/08/20 24 Next Appt Details Follow Up: prn, Reason: Provider Name:David Thao , 01/06/2025 01:45:00 PM, [address] [place] [address], [phone], Procedure Notes * Category Sub-Category Detail Notes Nail Avulsion Procedure A fine sterile e levator was placed between the eponychium, nail fold, and nail plate to separate the structures. A sterile nail splitter, and/or sterile 316 blade, was then used to longitudinally section the nail along its entire length through the eponychium to the area under the nail fold. The offending portion of nail was from the nail bed with a rolling action and then removed with a hemostat. No underlying bone was identified. There was minimal bleeding as hemostasis was achieved through the temporary use of either a digital tourniquet or the aforementioned local with epinephrine. A bacitracin sterile dressing was applied. Local wound aftercare instructions were discussed and dispensed. The patient was informed of both conservative and future surgical procedures to prevent recurrence. Tylenol or Motrin was recommended for pain or discomfort (00213) , DIABETES: Pt was advised as to the risk of delayed or nonhealing due to diabetes. Pt is to call the office with any questions, concerns, or complications Anesthesia was deferred - NEURO NATHANAEL: patient has medically documented neuropathic condition affecting sensation Location T5, Lateral nail bor dayday Debride Nail 6-10 Nail debridement Nail debridem ent performed extensively to reduce/remove overall nail length, girth, thickness, subungual debris, and necrotic tissue, by manual and electrical means through the use of a nail nipper and/or dremel, to more viable healthy nail plate or bed tissue 6-10. Silver nitrate used for any petechial bleeding as necessary. Patient chooses, no pharmaceutical tx (14601) Keratoma Treatment Parring or Cutting o f Benign Hyperkeratotic Lesion(s) 60095 ( More than 4 Lesions ) - The Benign hyperkeratotic lesions, as described above were pared, and/or cut utilizing a sterile 15 blade, tissue nippers, and/or dremel Progress Notes * SOLORZANOJordan DELGADO VDOB:1945 (78 yo M)Acc No.[id number]:07/08/2024 Progress Note Patient:?Jordan Solorzano V Provider:?David Thao DPM :1945???Age:78 Y???Sex:Male Osmin e:07/08/2024 Address:[address] [place], [place] [id number] Pcp:Delon Gao MD Subjective: * Chief Complaints: * ???At Risk FootcareToe Irrit ationIngrown Nail * HPI: ???At Risk footcare:?Pt States Last PCP Visit:?Date?05/27/2024 ???Toe pain:?Location:?B/L feet.?Duration:?several years.?Course:?worse.?Aggravated by:?shoes, any pressure.?Treatments:?change in shoes.? * ROS:?General/Constitutional:?Nausea?denies.?Vomiting?denies.?Hunger Thirst?denies.?Loss appetite?denies.?Chills?denies.?Fatigue?denies.?Fever?denies.?Night Sweats?denies.?Unexplained weight loss?denies.?Unexplained [...] History:?Mother: dece ased, colon cancer, diagnosed with Diabetic - NIDDM, Other malignant neoplasm of unspecified site.?Father: .?Siblings: diagnosed with Family history of arthritis, Diabetic - NIDDM.? * Social History:?Tobacco Use:?Tobacco Use/Smoking?Are you a:?former smoker ?Additional Findings: Tobacco Non-User?Current non-smoker ?Tobacco use other than smoking?Are you an other tobacco user??No ???Drugs/Alcohol:?Drugs?Have you used drugs other than those for medical reasons in the past 12 months??No ?Alcohol Screen?Did you have a drink containing alcohol in the past year??No ?Points?0 ?Interpretation?Negative ???Miscellaneous:?no Caffeine. ?Children: yes, 3. ?no Exercise. ?Marital status: . * Medications:?TakingMetoprolo l Tartrate [...] as directed Sublingual NovoLOG Insulin Pump Syringe Brogden Extra Depth Orthopedic Shoes (1 Pair) with Customized Heat Molded Multidensity Innersoles (3 Pair) as directed Dx: NIDDM/Polyneuropathy (E11.42), Hammertoe Foot Deformity (M20.41,M20.42), Preulcerative Skin Lesion(s) (L85.1Taking Metoprolol Tartrate 50 MG Tablet Oral Taking [...] Sublingual Taking NovoLOG Taking Insulin Pump Syringe Brogden Taking Extra Depth Orthopedic Shoes (1 Pair) with Customized Heat Molded Multidensity Innersoles (3 Pair) as directed Dx: NIDDM/Polyneuropathy (E11.42), Hammertoe Foot Deformity (M20.41,M20.42), Preulcerative Skin Lesion(s) (L85.1UnknownAspirin 81 MG Tablet Delayed Release Orally Diovan 320 MG Tablet Orally Metoprolol Succinate 50 MG Capsule ER 24 Hour Sprinkle Orally Pravastatin Sodium 40 MG Tablet Orally Lyrica 75 MG Capsule Orally Once a dayHumaLOG Medication List reviewed and reconciled with the patientUnknown Aspirin 81 MG Tablet Delayed Release Orally Unknown Diovan 320 MG Tablet Orally Unknown Metoprolol Succinate 50 MG Capsule ER 24 Hour Sprinkle Orally Unknown Pravastatin Sodium 40 MG Tablet Orally Unknown Lyrica 75 MG Capsule Orally Once a dayUnknown HumaLOG Medication List reviewed and reconciled with the patient * Allergies:?Amoxicillin: itch ingyes[Allergies Verified] Objective: * Vitals:?Ht: 5 ft 5 in, Wt:15 6, BMI:25.96, Shoe size:7, BP:120/70 mm Hg, BS:130. * ???Past Orders: ???Lab:HEMOGLOBIN A1C (GLYCO HEMOGLOBIN) (Order Date - 12/14/2023) (Collection Date - 11/27/2023) ? Value Reference Range ?TOTAL [...] with crumbly malodorous subungual debris , 1-5 B/L.?Ingrown Nail: ?INSPECTION:?Reveals nail incurvation, dull pain on palpation due to neuropathy, groove hypertrophy , Lateral nail border , T5.?Dermatologic: ?SKIN FINDINGS:?Skin exam reveals Keratotic lesion(s) located at , Medial plantar, IPJ, TA, Medial plantar, IPJ, T5, SUB MTH (s) , 1 , B/L , SUB MTH (s) , 5 , B/L , Heel(s) , B/L.?Orthopedic: ?MUSCLE STRENGTH:?5/5 all groups in a symmetrical fashion, B/L.?FOOT MORPHOLOGY:?(-) Charcot collapse/destruction noted at [facility].?DIGITAL DEFORMITIES:?Digital contracture, PIPJ, 2-5 B/L, incompl- nonreducible to push-up test, no over, nor underlapping, with evidence of shoe producing skin irritation.?FOOTWEAR:?worn, non-supportive, shoe gear properties exacerbate patient's foot/toe deformity , shoe gear properties exacerbate patients foot/toe deformity.?Vascular: ?DP PULSES:?0/4, B/L.?PT PULSES:?0/4, B/L.?CAPILLARY FILL TIME:?delayed, all digits, B/L.?SKIN TEMPERTURE GRADIENT OF THE LOWER EXTERMITIES:?decreased, cool to cool, proximal to distal, B/L.?HAIR GROWTH/TEXTURE/ELASTICITY/TURGOR:?decreased, B/L.?PIGMENTATION:?mottled, B/L.?EDEMA:?absent, B/L.?CLAUDICATION:?denies, B/L.?REST PAIN:?denies, B/L.?Ophthalmology Referral: ?DIABETES EYE EXAM?General Examination: ?GENERAL APPEARANCE:?Reveals a pleasant, alert, well nourished, well- developed, well hydrated individual, who demonstrates proper attention to hygiene/body habitus, and is in no acute distress, Pt serves as own historian for office visit today.?ORIENTED:?person, place, and time.?FOOT EXAM:?Footwear Evaluation? Assessment: * Assessment: 1.?Type 2 diabetes mellitus with diabetic polyneuropathy - E11.42 (Primary)?2.?Tinea unguium - B35.1?3.?Other hammer toe(s) (acquired), right foot - M20.41, Chronic problem, Worse (4),Rx Management (4)?4.?Other hammer toe(s) (acquired), left foot - M20.42, Chronic problem, Worse (4),Rx Management (4)?5.?Ingrown nail - L60.0, Lateral border, T5? Plan: * Treatment: 2.?Other hammer toe(s) (acqu ired), right foot? Start Extra Depth Orthopedic Shoes (1 Pair) with Customized Heat Molded Multidensity Innersoles (3 Pair), as directed, Dx: NIDDM/Polyneuropathy (E11.42), Hammertoe Foot Deformity (M20.41,M20.42), Preulcerative Skin Lesion(s) (L85.1, 1, Refills 0.?? Notes: Patient Educated with: DIABETIC FOOT CARE INSTRUCTIONS.pdf (DIABETIC FOOT CARE INSTRUCTIONS.pdf)?? 3.?Ingrown nail?Procedure: 98197-Ggrhubza Plate * Procedures:?Debride Nail 6-10:?Nail debridement?Nail debridement performed extensively to reduce/remove overall nail length, girth, thickness, subungual debris, and necrotic tissue, by manual and electrical means through the use of a nail nipper and/or dremel, to more viable healthy nail plate or bed tissue 6-10. Silver nitrate used for any petechial bleeding as necessary. Patient chooses, no pharmaceutical tx (24789).?Keratoma Treatment:?Parring or Cutting of Benign Hyperkeratotic Lesion(s)?20989 ( More than 4 Lesions ) - The Benign hyperkeratotic lesions, as described above were pared, and/or cut utilizing a sterile 15 blade, tissue nippers, and/or dremel.?Nail Avulsion:?Location?T5, Lateral nail border.?Anesthesia?was deferred - NEUROPATHY: patient has medically documented neuropathic condition affecting sensation.?Procedure?A fine sterile elevator was placed between the eponychium, nail fold, and nail plate to separate the structures. A sterile nail splitter, and/or sterile 316 blade, was then used to longitudinally section the nail along its entire length through the eponychium to the area under the nail fold. The offending portion of nail was from the nail bed with a rolling action and then removed with a hemostat. No underlying bone was identified. There was minimal bleeding as hemostasis was achieved through the temporary use of either a digital tourniquet or the aforementioned local with epinephrine. A bacitracin sterile dressing was applied. Local wound aftercare instructions were discussed and dispensed. The patient was informed of both conservative and future surgical procedures to prevent recurrence. Tylenol or Motrin was recommended for pain or discomfort (24490) , DIABETES: Pt was advised as to the risk of delayed or nonhealing due to diabetes. Pt is to call the office with any questions, concerns, or complications.? * Procedure Codes:?96668 Avuls ion Plate, Modifiers: XS , [id number] DEBRIDE NAIL, 6 OR MORE, Modifiers: XS 98419 TRIM SKIN LESIONS, OVER 4, Modifiers: XS * Preventive Medicine:? ??Counseling:?Discussion:?-14: Office or other outpatient visit for the evaluation and management of an established patient, which required a medically appropriate history and/or examination and MODERATE level of DECISION MAKING for: 1 OR MORE CHRONIC PROBLEM(S) THATS WORSENING, 2 STABLE CHRONIC PROBLEMS, A NEWLY DIAGNOSED PROBLEM WITH UNCERTAIN PROGNOSIS, AN ACUTE COMPLICATED INJURY WITH MULTIPLE TREATMENT OPTIONS, OR AN ACUTE PROBLEM WITH ACCOMPANYING SYSTEMIC SYMPTOMS, THAT POSE(S) A MODERATE RISK OF MORBIDITY. THIS CONDITION MAY ALSO INCLUDE RX DRUG MANAGEMENT, OR A DECISON FOR MINOR SURGERY. The visit on the day of the [...] have encouraged the patient to call the office.?Digital Surgery:?Digital surgery was discussed with the patient, We elected to try conservative treatment at the present time, due to the patients medical history and increased asssociated post-operative risks.?Digital Treatment:?HT- I explained to the patient the possible etiologies of Hammertoes, including genetics/foot type/shoegear/activity level/exercise routine and the risks/benefits of all the different treatment options for their pain including: No treatment at all, Rest, Ice, New/supportive/wider/deeper Shoegear, Digital Padding/Strapping/Taping/Bracing/Gel protective sleeves, Foot/Ankle AFO Bracing, Stretching exercises, Deep Tissue Massage, Arch support/shoe inserts with splay metatarsal padding, and Custom orthoses. I insisted that any digital devices be removed daily and not worn overnight for safety. The patient is to carefully examine the toes daily for any skin irritation while using any splinting or padding device. The advantages and disadvantages of each option were discussed and the patients questions re: shoegear, padding, custom vs prefabricated inserts, activity level, and consistency in home treatment regimens for optimal success were answered to their verbally confirmed satisfaction.?Shoe Gear Counseling:?SHOE Rx - The patient was counseled in great detail on their muscoloskeletal foot and toe deformities which coincided with the dermatological presentations visualized on exam. We discussed how their deformities put the integrity of their feet at risk for potential pedal complications which makes the accomidative diabetic shoes and cutomizable inserts medically necessary. We discussed the different shoe and insert treatment types and options, as well as the important advantages for adhering to regularly wearing these accomidative devices daily. The patient was made aware of the fact that a failure to abide by these recommedations may be deleterious to their foot health as they are able to prevent many pedal complications such as skin irritation, skin ulceration, infection, and even loss of toe/foot/leg/or life. Time was also spent with the patient dispensing and discussing proper diabetic footcare techniques including daily skin moisturization, daily foot inspection for any interruption in skin integrity including open lesions, or sign of infection such as redness/malodor/drainage/swelling. Also discussed and recommended were procedures regarding daily shoe inspection for the presence of internal foreign bodies as well as any visualized irregular shoe or insert wear. Patient questions re: shoes, inserts, and self foot inspections were answered to their satisfaction as the patient verbally confirmed a full understanding of the above information. A Rx for Extra Depth Orthopedic Shoes with 3 pair of custom heat-molded inserts was dispensed.? ??Screening/Special Tests:?Fall Risk?Assessment:?Performed ?Plan of Care:?Documented ?Screening:?No falls in the past year ?FALLS: Screening for Future Fall Risk?Have you had any falls with injury in the past year??No * Follow Up:?prn * Images: * Sign off status: Completed true * Provider:?David Thao DPM Date:?2023 Generated for Darion cain/Mandy/Avi on:?12/04/2024 02:42 PM EST History and Physical Notes * HPI (History of Present Illness) Category Sub-Category Detail Notes Category Not es Toe pain Location: B/L feet Duration: several years Course: worse Aggravated by: shoes, any pressure Treatments: change in shoes At Risk footcare Pt States Last PCP Visit: Date: 4 Examination Category Sub-Category Detail Notes Category Not es Ingrown Nail INSPECTION: Reveals nail inc urvation, dull pain on palpation due to neuropathy, groove hypertrophy , Lateral nail border , T5 Neurological SENSORY: Neurological exa m demonstrates, reduced [...] 5 , B/L , Heel(s) , B/L Orthopedic FOOT MORPHOLOGY: (-) Charcot col lapse/destruction noted at [facility] FOOTWEAR: worn, non-supportive , shoe gear properties exacerbate patient's foot/toe deformity , shoe gear properties exacerbate patients foot/toe deformity DIGITAL DEFORMITIES: Digital contracture , PIPJ, 2-5 B/L, incompl-nonreducible to push-up test, no over, nor underlapping, with evidence of shoe producing skin irritation MUSCLE STRENGTH: 5/5 all groups in a symmetrical fashion, B/L General Examination GENERAL APPEARANCE: Reveals a pleasant, alert, well nourished, well-developed, well hydrated individual, who demonstrates proper attention to hygiene/body habitus, and is in no acute distress, Pt serves as own historian for office visit today FOOT EXAM: Lower Extremity Neurological Exa m performed:: Yes ORIENTED: person, place, and t moiz Footwear Evaluation Footwear Evaluation performe d:: Yes Ophthalmology Referral DIABETES EYE EXAM Diabetic Retinopa thy Screening:: No Findings of Diabetic Eye Exam:: no retin opathy Vascular DP PULSES (B): 0/4, B/L PT PULSES (B): 0/4, B/L CAPILLARY FILL TIME: delayed, all digits , B/L TEMPERTURE GRADIENT (C): decreased, cool to cool, proximal to distal, B/L TROPHIC CONDITION-TEXTURE/ELASTICITY/TURGOR/HAIR GROWTH (B): decreased, B/L EDEMA (C): absent, B/L CLAUDICATION (C): denies, B/L REST PAIN: denies, B/L PIGMENTATION: mottled, B/L Nails NAILS are: Elongated, overg rown, dystrophic, lytic, greater than 3mm thick, discolored and friable with crumbly malodorous subungual debris , 1-5 B/L
--- OUTSIDE RECORDS SUMMARY | 2024-12-04 14:43 | XMS_ITS | Patient Health Record ---
Author Organization [facility] Pablo lizz [place] Address [address] [facility] [address] Care Team Providers Care Food Service Helper Name Role Phone Murray MONTILLA, Delon Primary Care Provider David Arzate Unavailable [phone] Allergies Allergen (clinical drug ingredient) Drug/Non Drug Allergy documented on EMR Reaction Allergy Type Onset Date Status amoxicillin Amoxicillin itching Drug Allergy Act tommy Results Component Value Reference Range Notes HEMOGLOBIN A1C (GLYCOHEMOGLO BIN) Reviewed date:12/14/2023 10:49:57 AM Interpretation: Performing Lab: Notes/Report: TOTAL HEMOGLOBIN (HGBA1C) 6.2 Reason For Referral No Information Medications Medication SIG (Take, Route, Frequency, Duration) Notes Start Date End Date Status Metoprolol Succinate 50 MG Orally Not-Taking Pravastatin Sodium 40 MG Orally Not-Taking Lyrica 75 MG Orally Once a day Not-Taking Insulin Pump Syringe [place] Active Extra Depth Orthopedic Shoes (1 Pair) with Customized Heat Molded Multidensity Innersoles (3 Pair) as directed Dx: NIDDM/Polyneuropathy (E11.42), Hammertoe Foot Deformity (M20.41,M20.42), Preulcerative Skin Lesion(s) (L85.1 Active Aspirin 81 MG Orally Not-Ta Ammonium Lactate 12 % 1 application Exte rnally to affected areas of dry skin to feet except for between the toes Twice a day for 30 days Active Diovan 320 MG Orally Not-Ta Furosemide 20 MG TAKE 1 TABLET BY WALTER TH EVERY DAY DIRECTED Oral for 90 Days Active HumaLOG Not-Taking hydrALAZINE HCl 50 MG TAKE 1 TABLET BY M OUTH THREE TIMES A DAY DIRECTED Oral for 90 Days Active Nitroglycerin 0.4 MG as directed Sublingual 2022 Active NovoLOG Active Metoprolol Tartrate 50 MG Oral for 90 Days Active Pregabalin 100 MG TAKE 1 CAPSULE BY MO UTH TWICE A DAY Oral for 90 Days Active Fenofibrate 145 MG TAKE 1 TABLET BY WALTER TH EVERY DAY Oral for 90 Days Active Fluticasone Propionate 50 MCG/ACT SPRAY 1 SPRAY INTO EACH NOSTRIL TWICE A DAY Nasal for 90 Days Active Immunizations Vaccine Route Administration Date Status Comme nts Influenza Unknown 08/26/2018 Administered Influenza Unknown 08/26/2019 Administered Social History Tobacco Use: Social History Observation [...] Are you an other tobacco user? No Problems Problem Type SNOMED Code ICD Code Onset Dates Problem Status W/U Status Risk Notes Problem Acquired hammer toe of right foot (9930281319891714 ) Other hammer toe(s) (acquired), right foot (M20.41) Active confirmed Problem Acquired hammer toe of left foot (9636235976719691 ) Other hammer toe(s) (acquired), left foot (M20.42) Active confirmed Problem Polyneuropathy due to type 2 diabetes mellitus (144646824) Type 2 diabetes mellitus with diabetic polyneuropathy (E11.42) Active confirmed Vital Signs Blood pressure diastolic 70 mm Hg 10/07/2024 Height 5 ft 5 in in 10/07/2024 Blood pressure systolic 120 mm Hg 10/07/2024 Weight 153 lbs 10/07/2024 BMI 25.46 kg/m2 10/07/2024 Procedures Procedure Date Ordered Date Performed Result Body Sit e 42972-AGTBBHG NAIL, 6 OR MORE 12/14/2023 N/A 97377-UCYB SKIN LESIONS, OVER 4 12/14/2023 N/A 13538-ISRSMQQ NAIL, 6 OR MORE 07/08/2024 N/A 23791-Xijfstpi Plate 07/08/2024 N/A 19157-NHSY SKIN LESIONS, OVER 4 07/08/2024 N/A 15518-EOVAPLQ NAIL, 6 OR MORE 10/07/2024 N/A 51431-TWLC SKIN LESIONS, OVER 4 10/07/2024 N/A Encounters Encounter Location Date Provider Diagnosis [address] [address] 12/14/2023 David Thao Type 2 diabetes mellitus with diabetic polyneuropathy E11.42 ; Tinea unguium B35.1 ; Other hammer toe(s) (acquired), right foot M20.41 and Other hammer toe(s) (acquired), left foot M20.[address] [address] 07/08/2024 David Thao Type 2 diabetes mellitus with diabetic polyneuropathy E11.42 ; Tinea unguium B35.1 ; Other hammer toe(s) (acquired), right foot M20.41 ; Other hammer toe(s) (acquired), left foot M20.42 and Ingrown nail L60.[address] [address] 10/07/2024 David Thao Type 2 diabetes mellitus with diabetic polyneuropathy E11.42 ; Tinea unguium B35.1 and Xerosis of skin L85.[address] [address] 03/10/2024 David Thao [address] [address] 04/16/2024 David Thao [facility] [address] [address] 06/12/2024 David Thao Assessments Encounter Date Diagnosis (ICD Code) Assessment Notes Treatment Notes Treatment Clinical Notes Section Notes 12/14/2023 Type 2 diabetes mellitus with diabetic polyneuropathy (ICD-10 - E11.42) 12/14/2023 Tinea unguium (ICD-10 - B35.1) 07/08/2024 Type 2 diabetes mellitus with diabetic polyneuropathy (ICD-10 - E11.42) 07/08/2024 Tinea unguium (ICD-10 - B35.1) 10/07/2024 Type 2 diabetes mellitus with diabetic polyneuropathy (ICD-10 - E11.42) 10/07/2024 Tinea unguium (ICD-10 - B35.1) 07/08/2024 Other hammer toe(s) (acquired), right foot (ICD-10 - M20.41) Patient Educated with: DIABETIC FOOT CARE INSTRUCTIONS. pdf (DIABETIC FOOT CARE INSTRUCTIONS. pdf) 12/14/2023 Other hammer toe(s) (acquired), right foot (ICD-10 - M20.41) Patient Educated with: DIABETIC FOOT CARE INSTRUCTIONS. pdf (DIABETIC FOOT CARE INSTRUCTIONS. pdf) 12/14/2023 Other hammer toe(s) (acquired), left foot (ICD-10 - M20.42) 07/08/2024 Other hammer toe(s) (acquired), left foot (ICD-10 - M20.42) 10/07/2024 Xerosis of skin (ICD-10 - L85.3) 07/08/2024 Ingrown nail (ICD-10 - L60.0) 10/07/2024 Other Plan Of Treatment Pending Test Test Name Order Date X ray : Foot, left 3V 12/04/2018 X ray : Foot, left 3V 12/22/2019 60066-DMFIUZZ NAIL, 6 OR MORE 12/14/2023 33042-KFTOBKP NAIL, 6 OR MORE 07/08/2024 23544-QPSKFYT NAIL, 6 OR MORE 10/07/2024 36875-Gnqqxwjp Plate 07/08/2024 69743-RGJP SKIN LESIONS, OVER 4 10/07/20 24 51789-SSHD SKIN LESIONS, OVER 4 07/08/20 24 77733-FZIE SKIN LESIONS, OVER 4 12/14/19 24 08544-GMMX SKIN LESIONS, OVER 4 12/22/19 20 51870-WBDC SKIN LESIONS, OVER 4 03/25/20 64830-LVZD SKIN LESIONS, OVER 4 06/26/20 27744-FGQV SKIN LESIONS, OVER 4 09/25/20 Next Appt Details Provider Name:David Thao , 01/06/2025 01:45:00 PM, [address] [place] [address], [place], [address], Insurance Providers Payer Name Payer Address Payer Phone Subscriber Number Group Number Insured Name Patient Relationship to Insured Coverage Start Date Coverage End Date Medicare National Govt Sv[employer] Inc [address] [place] [address] [id number] Jordan Orozco Self - patient is the insured [employer] [address] [place] [address] [phone] [id number] Jordan Orozco Self - patient is the insured Medical (General) History Medical History History ICD Code Diabetic Chicken pox Heart disease Cancer Cataracts High blood pressure Kidney disease Numbness Reflux ( GERD) Warts Measles Surgical History Surgery Date(Month/Year) triple bypass 2003 eye surgery 05/2020
--- OUTSIDE RECORDS SUMMARY | 2024-12-04 14:43 | XMS_ITS ---
Author Organization [facility] lizz [employer] Address [address] [place] [address] Care Team Providers Care Seed Cleaning Manager Name Role Phone Delon Gao MD Primary Care Provider David Arzate [phone] Encounters Encounter Location Date Provider Diagnosis [address] [address] 06/27/2024 David Thao Plan Of Treatment Next Appt Details Provider Name:David Thao , 01/06/2025 01:45:00 PM, [address] [place] [address], [address], Progress Notes * Jordan SOLORZANO VDOB:1945 (78 yo M)Acc No.[id number]:06/27/2024 Progress Note Patient:?Jordan SOLORZANO V Provider:?David Thao DPM :1945???Age:78 Y???Sex:Male Osmin e:06/27/2024 Address:[address] [place] [address] Pcp:Delon Gao MD Subjective: * Chief Complaints: * ??? * Medical History:? Objective: * Vitals:? Assessment: Plan: * Treatment: * Images: * The named appointment provid er may or may not be the originator of this progress note, and it is not deemed complete until electronically signed by the appointment provider. Sign off status: Pending * Provider:Alda Thao DPM Date:?2023 Generated for Darion cain/Mandy/Avi on:?12/04/2024 02:42 PM EST
--- OUTSIDE RECORDS SUMMARY | 2024-12-04 14:43 | XMS_ITS | Continuity of Care Document ---
Author Organization [facility] [address] [facility] [address] [place] [address] Phone [phone] Care Team Providers Care Telephony Engineer Name Role Phone Delon Gao M.D. Care Team Information Rece iver [phone] Hudson Silva Care Team Information Receive r [phone] Problems Active Problems Provider Date Coronary artery bypass graft Debo Engle Onset: 08/01/2022 Asthma Delon Gao M.D. Onset: 04/2022 Diabetes mellitus Delon Gao M.D. 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 Onset: 08/01/2022 Monoclonal gammopathy (clinical) Delon Gao M.D. Onset: 12/01/2022 Congestive heart failure Delon Gao M.D. O nset: 09/28/2023 Insulin treated type 2 diabetes mellitus Delon santos M.D. 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 07/22/2024 Idzzpurln53bk Tablets 2 tab by mouth every morning 180tadenver Peraza M.D. 01/24/2024 Amlodipine Fnrjdndb8ut Tablets 1 by mouth every day 90tabs Delon Gao M.D. 12/04/2023 Hydralazine AXK23qr Tablets Take 1 Tablet By Mouth Two Times A Day as Directed 270tadenver Peraza M.D. 04/30/2023 Albuterol Sulfate LEO107(90Base) mcg/Act Aerosol Inhale 2 Puffs 4 Times Daily as Needed 25.5units Becky Peraza M.D. 04/30/2023 Minimed [place] 3ML3ml Misc 1 reservoir to insulin pump every two days as directed for 90 days dx: e11.9 40units E11Osmany Gao M.D. 02/01/2023 Freestyle Jana 2/Sensor/Flash Glucose Monitoring Jlhoga1Cvoqgb Misc 1 sensor to skin every fourteen days as directed dx: e11.9 6units E11Osmany Gao M.D. 02/01/2023 Minimed Quick Set Infusion Set/23 /6mm23 /6mm Misc use 1 every 3 days dx: e11.9 30units E11Osmany Gao M.D. 02/01/2023 Kpxkqr433js Capsules 1 by mouth 2 times a day 180caps Delon Gao M.D. 12/01/2022 Zetgrv819oa Tablets take 1 tablet 1 time daily 90tadenver Peraza M.D. 08/01/2022 Wixela Fejof059-91obw/Act Aerosol inhale 1 puff 2 times daily as directed 180unserafin Peraza M.D. 08/01/2022 Metoprolol Mwxdpjnm95ea Tablets take 1/2 tablet 2 times daily 180tabs Becky Peraza M.D. 06/19/2022 Ngzcseo420Mkjr/ML Solution Use 240 Units Subcutaneously With Insulin Pump Every Day as Directed 210units E11.9 Becky Peraza M.D. 06/13/2022 Atorvastatin Ihegrvp93wi Tablets 1 by mouth every day 90tabs Emiliana Peraza M.D. History Medications Oxycodone HCL5mg/5ML Solution 5ml q 6hrs prn pain 100ml Delon Gao M.D. 03/31/2024 - 07/22/2024 Ukbfdpavxg45xo Tablets 1 by mouth every day 180tabs Delon Gao M.D. 01/24/2024 - 01/25/2024 Vital Signs Date Vital Result Comment 09/23/2024 1:34pm BP Systolic 140 mmHg BP Diastolic 60 mmHg Heart Rate 96 /min Height 66 inches 5'6 Weight 157.38 lb BMI (Body Mass Index) 25.4 kg/m2 Results Test Acquired Date Facility Test Result H/L Range Note Laboratory test finding 09/23/2024 Inhouse Glucose Fingerstick 250 Laboratory test finding 07/22/2024 Inhouse Glucose Fingerstick 162 Hemoglobin A1c 7.1% Laboratory test finding 03/31/2024 Inhouse Glucose Fingerstick 106 Laboratory test finding 01/24/2024 Inhouse Glucose Fingerstick 182 Hemoglobin A1c 6.3% Laboratory test finding 12/04/2023 Inhouse Glucose Fingerstick 156 Laboratory test finding 10/08/2023 Inhouse Glucose Fingerstick 98 Laboratory test finding 09/28/2023 Inhouse Glucose Fingerstick 227 Hemoglobin A1c 6.2% Laboratory test finding 08/27/2023 [facility] Calcium 9.2 mg/dL (8.6-10.5 ) Lipid Panel 08/27/2023 [facility] Cholesterol, Total 175 mg/dL (<200) Triglyceride 193 mg/dL High (<150) HDL Chol 45 mg/dL (>39) LDL Cholesterol , Calculated 91 mg/dL (0-130) Non HDL Cholesterol (Calc) 130 mg/dL (<160) Laboratory test finding 08/27/2023 Inhouse Glucose Fingerstick 175 Hemoglobin A1c 6.2% Laboratory test finding 04/26/2023 Inhouse Glucose Fingerstick 122 Hemoglobin A1c 6.5% Laboratory test finding 12/01/2022 Inhouse Glucose Fingerstick 150 Hemoglobin A1c 6.6% Laboratory test finding 09/11/2022 [facility] Phosphorus 4.2 mg/dL (2.5-4.5) Calcium 10.4 mg/dL (8.6-10.5 ) PTH, Intact 20 pg/mL (15-65) Albumin 4.5 GM/DL (3.4-4.8) Laboratory test finding 08/01/2022 Inhouse Hemoglobin A1c 7.3% Glucose Fingerstick 134 Procedures Date Code Description Status 09/23/2024 50974 Glucose Monitoring Interpeta tion And Report Completed 07/22/2024 64694 Glucose Monitoring Interpeta tion And Report Completed 03/31/2024 13783 Glucose Monitoring Interpeta tion And Report Completed 09/28/2023 98811 Glucose Monitoring Interpeta tion And Report Completed 12/01/2022 84795 Glucose Monitoring Interpeta tion And Report Completed 11/03/2022 NSHOWOFF No Show Office Visit Complet ed 08/01/2022 30170 Glucose Monitoring Interpeta tion And Report Completed Medical Devices Description No Information Available Encounters Type Date Location Provider Dx Diagnosis Office Visit 10/29/2024 1:30p Main Office [facility] I10 Essential (pr imary) hypertension E78.5 Hyperlipidemia, unsp ecified Assessments Date Code Description Provider 10/29/2024 I10 Essential hypertension J[facility] Mu[facility]iz 10/29/2024 E78.5 Hyperlipidemia, unspecified [facility] Plan of Treatment Future Appointment(s):* 01/15/2025 1:00 pm - [facility] at Main Office 09/23/2024 - [facility] [place]* N18.9 Chronic renal failure NOS * I10 Essential hypertension * E78.5 Hyperlipidemia, unspecified * 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 * D47.2 Monoclonal gammopathy of uncertain significance * I50.9 Congestive heart failure * I25.10 Atherosclerotic heart disease of [place] coronary artery without angina pectoris * E11.8 Type 2 diabetes mellitus with unspecified complications * Z79.4 USP (current) use of insulin * Z96.41 Presence of insulin pump (external) (internal) * G47.30 Sleep apnea, unspecified Functional Status Description No Information Available Mental Status Description No Information Available Referrals Refer to Reason for Referral Status Appt Osmin e MONOCLONAL GAMMA NATHANAEL ANEMIA Closed 03/27/2024 [facility] chest pain Closed [address] [facility] [phone] [facility] sleep study Closed 11/04/[address] [place] [address] [phone]
== END 2024-12-04 14:09 | disposition home or self-care (01) ==
PROVIDERS: PCP Physician Assistant; Visit Provider Surgery Vascular Surgery
DX: N18.6 End stage renal disease (principal)
CPT/HCPCS: 99214

== ENCOUNTER → 2024-12-04 13:24 | Outpatient (BNVA) | payer MEDICARE, SELFPAY | PROVIDERS: PCP Physician Assistant; Visit Provider Surgery Vascular Surgery | DX: N18.6 End stage renal disease (principal) | CPT/HCPCS: 99212 ==

== ENCOUNTER 2024-12-09 06:32 | Day surgery (SDC) | payer MEDICARE, SELFPAY ==
--- OUTSIDE RECORDS SUMMARY | 2024-12-08 09:29 | XMS_ITS ---
Author Organization [facility] lizz [place] Address [address] [place] [address] Care Team Providers Care Food Runner Name Role Phone Delon Gao MD Primary Care Provider David Arzate [phone] Encounters Encounter Location Date Provider Diagnosis [address] [address] 06/27/2024 David Thao Plan Of Treatment Next Appt Details Provider Name:aDvid Thao , 01/06/2025 01:45:00 PM, [address] [place] [address], [address], Progress Notes * Jordan SOLORZANO VDOB:1945 (79 yo M)Acc No.[id number]:06/27/2024 Progress Note Patient:?Jordan SOLORZANO V Provider:?David Thao DPM :1945???Age:78 Y???Sex:Male Osmin e:06/27/2024 Address:[address] [place] [address] Pcp:Delon Gao MD Subjective: * Chief Complaints: * ??? * Medical History:? Objective: * Vitals:? Assessment: Plan: * Treatment: * Images: * The named appointment provid er may or may not be the originator of this progress note, and it is not deemed complete until electronically signed by the appointment provider. Sign off status: Pending * Provider:?David Thao DPM Date:?2023 Generated for Darion cain/Mandy/Avi on:?12/08/2024 09:29 AM EST
--- OUTSIDE RECORDS SUMMARY | 2024-12-08 09:29 | XMS_ITS ---
Author Organization [facility] Pablo [place] Address [address] [place] [address] Care Team Providers Care Fundraising Manager Name Role Phone Delon Gao MD Primary Care Provider David Arzate Unavailable [phone] Allergies Allergen (clinical drug ingredient) Drug/Non Drug [...] Unknow n NovoLOG Active Insulin Pump Syringe [place] Active hydrALAZINE HCl 50 MG TAKE 1 [...] Ordered Date Performed Result Body Sit e 66561-VEWVDLL NAIL, 6 OR MORE 07/08/2024 N/A 45431-Zfshusub Plate 07/08/2024 N/A 07168-QEUD SKIN LESIONS, OVER 4 07/08/2024 N/A Encounters Encounter Location Date Provider Diagnosis [facility] [place] [address] [place] [address] 07/08/2024 David Thao Type 2 diabetes mellitus [...] INSTRUCTIONS.pdf) Pending Test Test Name Order Date 72441-HRFVUJN NAIL, 6 OR MORE 07/08/2024 28507-Cklwzdlk Plate 07/08/2024 48431-MTVT SKIN LESIONS, OVER 4 07/08/20 24 Next Appt Details Follow Up: prn, Reason: Provider Name:David Thao , 01/06/2025 01:45:00 PM, [address] [place] [address], [phone], Procedure Notes * Category Sub-Category Detail [...] Motrin was recommended for pain or discomfort (93390) , DIABETES: Pt was advised as to [...] as necessary. Patient chooses, no pharmaceutical tx (07832) Keratoma Treatment Parring or Cutting o f Benign Hyperkeratotic Lesion(s) 65387 ( More than 4 Lesions ) - The Benign hyperkeratotic lesions, as described above were pared, and/or cut utilizing a sterile 15 blade, tissue nippers, and/or dremel Progress Notes * SOLORZANOJordan DELGADO VDOB:1945 (78 yo M)Acc No.[id number]:07/08/2024 Progress Note Patient:?Jordan Solorzano V Provider:?David Thao DPM :1945???Age:78 Y???Sex:Male Osmin e:07/08/2024 Address:[address] [place], [place] [address] Pcp:Delon Gao MD Subjective: * Chief Complaints: [...] as directed Sublingual NovoLOG Insulin Pump Syringe [place] Extra Depth Orthopedic Shoes (1 Pair) with [...] Sublingual Taking NovoLOG Taking Insulin Pump Syringe [place] Taking Extra Depth Orthopedic Shoes (1 Pair) [...] INSTRUCTIONS.pdf (DIABETIC FOOT CARE INSTRUCTIONS.pdf)?? 3.?Ingrown nail?Procedure: 93669-Tmiyeauu Plate * Procedures:?Debride Nail 6-10:?Nail debridement?Nail debridement performed extensively to reduce/remove overall nail length, girth, thickness, subungual debris, and necrotic tissue, by manual and electrical means through the use of a nail nipper and/or dremel, to more viable healthy nail plate or bed tissue 6-10. Silver nitrate used for any petechial bleeding as necessary. Patient chooses, no pharmaceutical tx (98728).?Keratoma Treatment:?Parring or Cutting of Benign Hyperkeratotic Lesion(s)?98729 ( More than 4 Lesions ) - [...] Motrin was recommended for pain or discomfort (05317) , DIABETES: Pt was advised as to the risk of delayed or nonhealing due to diabetes. Pt is to call the office with any questions, concerns, or complications.? * Procedure Codes:?84238 Avuls ion Plate, Modifiers: XS , [id number] DEBRIDE NAIL, 6 OR MORE, Modifiers: XS 49537 TRIM SKIN LESIONS, OVER 4, Modifiers: XS [...] for Darion cain/Mandy/Avi on:?12/08/2024 09:29 AM EST History and Physical Notes * HPI [...]
--- OUTSIDE RECORDS SUMMARY | 2024-12-08 09:29 | XMS_ITS ---
Author Organization [facility] Pablo lizz [place] Address [address] [place] [address] Care Team Providers Care Schedule Planning Manager Name Role Phone Delon Gao MD Primary Care Provider David Arzate Unavailable [phone] Allergies Allergen (clinical drug ingredient) Drug/Non Drug [...] Once a day Not-Taking Insulin Pump Syringe [place] Active Extra Depth Orthopedic Shoes (1 Pair) [...] Ordered Date Performed Result Body Sit e 89531-MVZKPNK NAIL, 6 OR MORE 10/07/2024 N/A 62131-DUNO SKIN LESIONS, OVER 4 10/07/2024 N/A Encounters Encounter Location Date Provider Diagnosis [facility] [place] [address] [place] [address] 10/07/2024 David Thao Type 2 diabetes mellitus [...] days Pending Test Test Name Order Date 01942-OFYHZXN NAIL, 6 OR MORE 10/07/2024 05147-HDZR SKIN LESIONS, OVER 4 10/07/20 24 Next Appt Details Follow Up: prn, Reason: Provider Name:David Thao , 01/06/2025 01:45:00 PM, [address] [place], [address], Procedure Notes * Category Sub-Category Detail Notes [...] use of a nail nipper and/or dremel-type grinder set up operator surface, to a more viable healthy nail plate or bed tissue 6-10. Silver nitrate used for any petechial bleeding as necessary. Definitive antifungal treatment options have been reviewed and discussed with the patient. The patient chooses, no pharmaceutical tx - 92120 Keratoma Treatment Parring or Cutting o f Benign Hyperkeratotic Lesion(s) (-57) More than 4 Lesions - The Benign hyperkeratotic lesions, as described in exam, were pared, and/or cut utilizing a sterile 15 blade, tissue nippers, and/or dremel - 12193 Progress Notes * Jordan SOLORZANO VDOB:1945 (78 yo M)Acc No.[id number]:10/07/2024 Progress Note Patient:?Jordan SOLORZANO V Provider:?David Thao DPM :1945???Age:78 Y???Sex:Male Osmin e:10/07/2024 Address:[address] [place] [address] Pcp:Delon Gao MD Subjective: * Chief Complaints: [...] as directed Sublingual NovoLOG Insulin Pump Syringe [place] Extra Depth Orthopedic Shoes (1 Pair) with [...] Sublingual Taking NovoLOG Taking Insulin Pump Syringe [place] Taking Extra Depth Orthopedic Shoes (1 Pair) [...] use of a nail nipper and/or dremel-type grinder set up operator surface, to a more viable healthy nail plate or bed tissue 6-10. Silver nitrate used for any petechial bleeding as necessary. Definitive antifungal treatment options have been reviewed and discussed with the patient. The patient chooses, no pharmaceutical tx - 21124.?Keratoma Treatment:?Parring or Cutting of Benign Hyperkeratotic Lesion(s)?(-57) More than 4 Lesions - The Benign hyperkeratotic lesions, as described in exam, were pared, and/or cut utilizing a sterile 15 blade, tissue nippers, and/or dremel - 91858.? * Procedure Codes:?89138 DEBRI DE NAIL, 6 OR MORE, Modifiers: XS 26875 TRIM SKIN LESIONS, OVER 4, Modifiers: XS [...]
--- OUTSIDE RECORDS SUMMARY | 2024-12-08 09:30 | XMS_ITS | Patient Health Record ---
Author Organization [facility] Pablo lizz [place] Address [address] [place] [address] Care Team Providers Care Quill Machine Operator Name Role Phone Murray MONTILLA, Delon Primary Care Provider David Arzate Unavailable [phone] Allergies Allergen (clinical drug ingredient) Drug/Non Drug [...] Once a day Not-Taking Insulin Pump Syringe [place] Active Extra Depth Orthopedic Shoes (1 Pair) [...] Problem Acquired hammer toe of right foot (9202078848888194 ) Other hammer toe(s) (acquired), right foot (M20.41) Active confirmed Problem Acquired hammer toe of left foot (8734758798187328 ) Other hammer toe(s) (acquired), left foot (M20.42) Active confirmed Problem Polyneuropathy due to type 2 diabetes mellitus (257613156) Type 2 diabetes mellitus with diabetic polyneuropathy (E11.42) Active confirmed Vital Signs Blood pressure diastolic 70 mm Hg 10/07/2024 Height 5 ft 5 in in 10/07/2024 Blood pressure systolic 120 mm Hg 10/07/2024 Weight 153 lbs 10/07/2024 BMI 25.46 kg/m2 10/07/2024 Procedures Procedure Date Ordered Date Performed Result Body Sit e 59992-WMNFKNG NAIL, 6 OR MORE 12/14/2023 N/A 42146-ASXA SKIN LESIONS, OVER 4 12/14/2023 N/A 59713-EAXIRSU NAIL, 6 OR MORE 07/08/2024 N/A 91087-Olfruhdb Plate 07/08/2024 N/A 69234-NSJE SKIN LESIONS, OVER 4 07/08/2024 N/A 99836-LTYAZUN NAIL, 6 OR MORE 10/07/2024 N/A 98315-IWUF SKIN LESIONS, OVER 4 10/07/2024 N/A Encounters Encounter Location Date Provider Diagnosis [address] [address] 12/14/2023 David Thao Type 2 diabetes mellitus with diabetic polyneuropathy E11.42 ; Tinea unguium B35.1 ; Other hammer toe(s) (acquired), right foot M20.41 and Other hammer toe(s) (acquired), left foot M20.[address] [address] 07/08/2024 David Thao Type 2 diabetes mellitus with diabetic polyneuropathy E11.42 ; Tinea unguium B35.1 ; Other hammer toe(s) (acquired), right foot M20.41 ; Other hammer toe(s) (acquired), left foot M20.42 and Ingrown nail L60.[address] [address] 10/07/2024 David Thao Type 2 diabetes mellitus with diabetic polyneuropathy E11.42 ; Tinea unguium B35.1 and Xerosis of skin L85.[address] [address] 03/10/2024 David Thao [address] [address] 04/16/2024 David Thao [facility] [address] [address] 06/12/2024 David Thao Assessments Encounter Date Diagnosis [...] X ray : Foot, left 3V 12/22/2019 93327-NJBZJKH NAIL, 6 OR MORE 12/14/2023 64156-IGEZIVC NAIL, 6 OR MORE 07/08/2024 89933-OSILKZO NAIL, 6 OR MORE 10/07/2024 18534-Oudqahyf Plate 07/08/2024 62898-WDCX SKIN LESIONS, OVER 4 10/07/20 24 63766-ILYD SKIN LESIONS, OVER 4 07/08/20 24 97161-OUCV SKIN LESIONS, OVER 4 12/14/19 24 69849-TNZY SKIN LESIONS, OVER 4 12/22/19 20 37096-NKGZ SKIN LESIONS, OVER 4 03/25/20 46357-FSVW SKIN LESIONS, OVER 4 06/26/20 90887-PELV SKIN LESIONS, OVER 4 09/25/20 Next Appt Details Provider Name:David Thao , 01/06/2025 01:45:00 PM, [address] [place] [address], [place], [address], Insurance Providers Payer Name Payer Address Payer Phone Subscriber Number Group Number Insured Name Patient Relationship to Insured Coverage Start Date Coverage End Date Medicare National Govt Svcs Inc [address] [place] [address] [id number] Jordan Orozco Self - patient is the insured [employer] [address] [place] [address] [phone] [id number] Jordan Orozco Self - patient is the insured Medical (General) History Medical History History ICD Code Diabetic Chicken pox Heart disease Cancer Cataracts High blood pressure Kidney disease Numbness Reflux ( GERD) Warts Measles Surgical History Surgery Date(Month/Year) triple bypass 2003 eye surgery 05/2020
--- OUTSIDE RECORDS SUMMARY | 2024-12-08 09:30 | XMS_ITS | Continuity of Care Document ---
Author Organization [facility] [address] [facility] [address] [place] [address] Phone [phone] Care Team Providers Care Toll Repairer Central Office Name Role Phone Delon Gao M.D. Care Team Information Rece iver [phone] Hudson Silva Care Team Information Receive r [phone] Problems Active Problems Provider Date Coronary artery [...] SIG Qnty Indications Order ing Provider Date [place] 85378nx Capsules 1 by mouth every day 90caps Becky Peraza M.D. 07/22/2024 Bphypmggm34sq Tablets 2 tab by mouth every morning 180tadenver Peraza M.D. 01/24/2024 Amlodipine Viiiqnnb5et Tablets 1 by mouth every day 90tabs Delon Gao M.D. 12/04/2023 Hydralazine VEH07td Tablets Take 1 Tablet By Mouth Two Times A Day as Directed 270tadenver Peraza M.D. 04/30/2023 Albuterol Sulfate TXX451(90Base) mcg/Act Aerosol Inhale 2 Puffs 4 Times Daily as Needed 25.5units Becky Peraza M.D. 04/30/2023 Minimed [place] 3ML3ml Misc 1 reservoir to insulin pump every two days as directed for 90 days dx: e11.9 40units E11Osmany Gao M.D. 02/01/2023 Freestyle Jana 2/Sensor/Flash Glucose Monitoring Rxgoqb3Zwegie Misc 1 sensor to skin every fourteen days as directed dx: e11.9 6units E11Osmany Gao M.D. 02/01/2023 Minimed Quick Set Infusion Set/23 /6mm23 /6mm Misc use 1 every 3 days dx: e11.9 30units E11Osmany Gao M.D. 02/01/2023 Flhnvv465vv Capsules 1 by mouth 2 times a day 180caps Delon Gao M.D. 12/01/2022 Sxqxej848xt Tablets take 1 tablet 1 time daily 90tadenver Peraza M.D. 08/01/2022 Wixela Vcesc925-52zcp/Act Aerosol inhale 1 puff 2 times daily as directed 180unsearfin Peraza M.D. 08/01/2022 Metoprolol Gntvubxf99zg Tablets take 1/2 tablet 2 times daily 180tabs Becky Peraza M.D. 06/19/2022 Hpbjqvc641Zjsl/ML Solution Use 240 Units Subcutaneously With Insulin Pump Every Day as Directed 210units E11.9 Becky Peraza M.D. 06/13/2022 Atorvastatin Enpbhqs88wu Tablets 1 by mouth every day 90tabs Emiliana Peraza M.D. History Medications Oxycodone HCL5mg/5ML Solution 5ml q 6hrs prn pain 100ml Delon Gao M.D. 03/31/2024 - 07/22/2024 Ssiwqofzgw15rr Tablets 1 by mouth every day 180tabs [...] Hemoglobin A1c 6.2% Laboratory test finding 08/27/2023 [facility] Calcium 9.2 mg/dL (8.6-10.5 ) Lipid Panel 08/27/2023 [facility] Cholesterol, Total 175 mg/dL [...] Hemoglobin A1c 6.6% Laboratory test finding 09/11/2022 [facility] Phosphorus 4.2 mg/dL (2.5-4.5) Calcium 10.4 mg/dL (8.6-10.5 ) PTH, Intact 20 pg/mL (15-65) Albumin 4.5 GM/DL (3.4-4.8) Laboratory test finding 08/01/2022 Inhouse Hemoglobin A1c 7.3% Glucose Fingerstick 134 Procedures Date Code Description Status 09/23/2024 44427 Glucose Monitoring Interpeta tion And Report Completed 07/22/2024 70781 Glucose Monitoring Interpeta tion And Report Completed 03/31/2024 59586 Glucose Monitoring Interpeta tion And Report Completed 09/28/2023 43120 Glucose Monitoring Interpeta tion And Report Completed 12/01/2022 09642 Glucose Monitoring Interpeta tion And Report Completed 11/03/2022 NSHOWOFF No Show Office Visit Complet ed 08/01/2022 57021 Glucose Monitoring Interpeta tion And Report Completed [...] failure * I25.10 Atherosclerotic heart disease of [place] coronary artery without angina pectoris * E11.8 Type 2 diabetes mellitus with unspecified complications * Z79.4 assisted (current) use of insulin * Z96.41 Presence of insulin pump (external) (internal) * G47.30 Sleep apnea, unspecified Functional Status Description No Information Available Mental Status Description No Information Available Referrals Refer to Reason for Referral Status Appt Osmin e MONOCLONAL GAMMA NATHANAEL ANEMIA Closed 03/27/2024 [facility] Heart & Vascular chest pain Closed [address] [facility] [phone] [facility] sleep study Closed 11/04/[address] [place] [address] [phone]
[2024-12-09] VITALS (8 sets, daily range): BP systolic 127–164; BP diastolic 31–60; PULSE 50–56; RESP 16–19; TEMP 36.1–36.5; O2SAT 96–97; BMI 24.2
--- OUTSIDE RECORDS SUMMARY | 2024-12-09 06:34 | XMS_ITS ---
Author Organization [facility] Pablo [place] Address [address] [place] [address] Care Team Providers Care Lead Level Designer Name Role Phone Delon Gao MD Primary Care Provider David Arzate Unavailable [phone] Allergies Allergen (clinical drug ingredient) Drug/Non Drug [...] Unknow n NovoLOG Active Insulin Pump Syringe [place] Active hydrALAZINE HCl 50 MG TAKE 1 [...] Ordered Date Performed Result Body Sit e 53704-EGYGNAG NAIL, 6 OR MORE 07/08/2024 N/A 73445-Wtfroisn Plate 07/08/2024 N/A 11423-TENN SKIN LESIONS, OVER 4 07/08/2024 N/A Encounters Encounter Location Date Provider Diagnosis [facility] [address] [place] [address] 07/08/2024 David Thao Type 2 diabetes mellitus [...] INSTRUCTIONS.pdf) Pending Test Test Name Order Date 03983-OSJACSJ NAIL, 6 OR MORE 07/08/2024 48534-Ujgmdvjh Plate 07/08/2024 57831-UOJH SKIN LESIONS, OVER 4 07/08/20 24 Next Appt Details Follow Up: prn, Reason: Provider Name:David Thao , 01/06/2025 01:45:00 PM, [address] [place] [address], [phone], Procedure Notes * Category Sub-Category Detail [...] Motrin was recommended for pain or discomfort (25034) , DIABETES: Pt was advised as to [...] as necessary. Patient chooses, no pharmaceutical tx (20707) Keratoma Treatment Parring or Cutting o f Benign Hyperkeratotic Lesion(s) 99415 ( More than 4 Lesions ) - The Benign hyperkeratotic lesions, as described above were pared, and/or cut utilizing a sterile 15 blade, tissue nippers, and/or dremel Progress Notes * SOLORZANOJordan DELGADO VDOB:1945 (78 yo M)Acc No.[id number]:07/08/2024 Progress Note Patient:?Jordan Solorzano V Provider:?David Thao DPM :1945???Age:78 Y???Sex:Male Osmin e:07/08/2024 Address:[address] [place], [place] [address] Pcp:Delon Gao MD Subjective: * Chief Complaints: [...] as directed Sublingual NovoLOG Insulin Pump Syringe [place] Extra Depth Orthopedic Shoes (1 Pair) with [...] Sublingual Taking NovoLOG Taking Insulin Pump Syringe [place] Taking Extra Depth Orthopedic Shoes (1 Pair) [...] INSTRUCTIONS.pdf (DIABETIC FOOT CARE INSTRUCTIONS.pdf)?? 3.?Ingrown nail?Procedure: 00263-Kujcdvmf Plate * Procedures:?Debride Nail 6-10:?Nail debridement?Nail debridement performed extensively to reduce/remove overall nail length, girth, thickness, subungual debris, and necrotic tissue, by manual and electrical means through the use of a nail nipper and/or dremel, to more viable healthy nail plate or bed tissue 6-10. Silver nitrate used for any petechial bleeding as necessary. Patient chooses, no pharmaceutical tx (21669).?Keratoma Treatment:?Parring or Cutting of Benign Hyperkeratotic Lesion(s)?79740 ( More than 4 Lesions ) - [...] Motrin was recommended for pain or discomfort (66806) , DIABETES: Pt was advised as to the risk of delayed or nonhealing due to diabetes. Pt is to call the office with any questions, concerns, or complications.? * Procedure Codes:?99072 Avuls ion Plate, Modifiers: XS , [id number] DEBRIDE NAIL, 6 OR MORE, Modifiers: XS 15187 TRIM SKIN LESIONS, OVER 4, Modifiers: XS [...] Thao DPM Date:?2023 Generated for Darion cain/Mandy/Avi on:?12/09/2024 06:34 AM EST History and Physical Notes * [...]
--- OUTSIDE RECORDS SUMMARY | 2024-12-09 06:34 | XMS_ITS ---
Author Organization [facility] lizz [place] Address [address] [place] [address] Care Team Providers Care Senior Integration Developer Name Role Phone Delon Gao MD Primary Care Provider David Arzate [phone] Encounters Encounter Location Date Provider Diagnosis [address] [address] 06/27/2024 David Thao Plan Of Treatment Next Appt Details Provider Name:David Thao , 01/06/2025 01:45:00 PM, [address] [place] [address], [phone], Progress Notes * Jordan SOLORZANO VDOB:1945 (79 yo M)Acc No.[id number]:06/27/2024 Progress Note Patient:?Jordan SOLORZANO V Provider:?David Thao DPM :1945???Age:78 Y???Sex:Male Osmin e:06/27/2024 Address:[address] [place] [address] Pcp:Delon Gao MD Subjective: * Chief Complaints: [...]
--- OUTSIDE RECORDS SUMMARY | 2024-12-09 06:34 | XMS_ITS | Patient Health Record ---
Author Organization [facility] Pablo lizz [place] Address [address] [facility] [place] [address] Care Team Providers Care Electrical And Radio Mechanic Name Role Phone Murray MONTILLA, Delon Primary Care Provider David Arzate Unavailable [phone] Allergies Allergen (clinical drug ingredient) Drug/Non Drug [...] Once a day Not-Taking Insulin Pump Syringe [place] Active Extra Depth Orthopedic Shoes (1 Pair) [...] Problem Acquired hammer toe of right foot (0976084586676415 ) Other hammer toe(s) (acquired), right foot (M20.41) Active confirmed Problem Acquired hammer toe of left foot (0097315023179086 ) Other hammer toe(s) (acquired), left foot (M20.42) Active confirmed Problem Polyneuropathy due to type 2 diabetes mellitus (564851637) Type 2 diabetes mellitus with diabetic polyneuropathy (E11.42) Active confirmed Vital Signs Blood pressure diastolic 70 mm Hg 10/07/2024 Height 5 ft 5 in in 10/07/2024 Blood pressure systolic 120 mm Hg 10/07/2024 Weight 153 lbs 10/07/2024 BMI 25.46 kg/m2 10/07/2024 Procedures Procedure Date Ordered Date Performed Result Body Sit e 99659-DKYHZWQ NAIL, 6 OR MORE 12/14/2023 N/A 12709-ALDS SKIN LESIONS, OVER 4 12/14/2023 N/A 48259-LOCDVWH NAIL, 6 OR MORE 07/08/2024 N/A 74459-Cvbxoptq Plate 07/08/2024 N/A 74549-QKNR SKIN LESIONS, OVER 4 07/08/2024 N/A 28007-JZTYZQW NAIL, 6 OR MORE 10/07/2024 N/A 03012-EVRF SKIN LESIONS, OVER 4 10/07/2024 N/A Encounters Encounter Location Date Provider Diagnosis [address] [address] 12/14/2023 David Thao Type 2 diabetes mellitus with diabetic polyneuropathy E11.42 ; Tinea unguium B35.1 ; Other hammer toe(s) (acquired), right foot M20.41 and Other hammer toe(s) (acquired), left foot M20.[address] [address] 07/08/2024 David Thao Type 2 diabetes mellitus with diabetic polyneuropathy E11.42 ; Tinea unguium B35.1 ; Other hammer toe(s) (acquired), right foot M20.41 ; Other hammer toe(s) (acquired), left foot M20.42 and Ingrown nail L60.[address] [address] 10/07/2024 David Thao Type 2 diabetes mellitus with diabetic polyneuropathy E11.42 ; Tinea unguium B35.1 and Xerosis of skin L85.[address] [address] 03/10/2024 David Thao [address] [address] 04/16/2024 David Thao [facility] [address] [address] 06/12/2024 David Thao Assessments Encounter Date Diagnosis [...] X ray : Foot, left 3V 12/22/2019 49673-JGQVPJJ NAIL, 6 OR MORE 12/14/2023 39913-BYNQNQS NAIL, 6 OR MORE 07/08/2024 83997-LGLLDFH NAIL, 6 OR MORE 10/07/2024 31663-Aamcgqtd Plate 07/08/2024 27903-RSFM SKIN LESIONS, OVER 4 10/07/20 24 34108-OPKO SKIN LESIONS, OVER 4 07/08/20 24 01385-ICTJ SKIN LESIONS, OVER 4 12/14/19 24 06325-FGQP SKIN LESIONS, OVER 4 12/22/19 20 04269-CUOK SKIN LESIONS, OVER 4 03/25/20 87321-WCIW SKIN LESIONS, OVER 4 06/26/20 13346-GFKF SKIN LESIONS, OVER 4 09/25/20 Next Appt Details Provider Name:David Thao , 01/06/2025 01:45:00 PM, [address] [place] [address], [place], [address], Insurance Providers Payer Name Payer Address Payer Phone Subscriber Number Group Number Insured Name Patient Relationship to Insured Coverage Start Date Coverage End Date Medicare National Govt Svcs Inc [address] [place] [address] [id number] Jordan Orozco Self - patient is the insured [employer]. [address] [place] [address] [phone] [id number] Jordan Orozco Self - patient is the insured Medical (General) History Medical History History ICD Code Diabetic Chicken pox Heart disease Cancer Cataracts High blood pressure Kidney disease Numbness Reflux ( GERD) Warts Measles Surgical History Surgery Date(Month/Year) triple bypass 2003 eye surgery 05/2020
--- OUTSIDE RECORDS SUMMARY | 2024-12-09 06:34 | XMS_ITS | Continuity of Care Document ---
Author Organization [facility] [address] [facility] [address] [place] [address] Phone [phone] Care Team Providers Care Aircraft Maintenance Engineer Name Role Phone Delon Gao M.D. Care Team Information Rece iver [phone] Hudson Silva Care Team Information Receive r [phone] Problems Active Problems Provider Date Coronary artery [...] Insulin treated type 2 diabetes mellitus Delon santso M.D. Onset: 08/27/2023 Chronic kidney disease JACKSON [...] SIG Qnty Indications Order ing Provider Date [place] 55733iw Capsules 1 by mouth every day 90caps Becky Peraza M.D. 07/22/2024 Lniqfnzbs88dd Tablets 2 tab by mouth every morning 180tadenver Peraza M.D. 01/24/2024 Amlodipine Pexmaulm7sm Tablets 1 by mouth every day 90tabs Delon Gao M.D. 12/04/2023 Hydralazine LHF77tf Tablets Take 1 Tablet By Mouth Two Times A Day as Directed 270tadenver Peraza M.D. 04/30/2023 Albuterol Sulfate CMF707(90Base) mcg/Act Aerosol Inhale 2 Puffs 4 Times Daily as Needed 25.5units Becky Peraza M.D. 04/30/2023 Minimed [place] 3ML3ml Misc 1 reservoir to insulin pump every two days as directed for 90 days dx: e11.9 40units E11Osmany Gao M.D. 02/01/2023 Freestyle Jana 2/Sensor/Flash Glucose Monitoring Vsavzp0Udfqzz Misc 1 sensor to skin every fourteen days as directed dx: e11.9 6units E11Osmany Gao M.D. 02/01/2023 Minimed Quick Set Infusion Set/23 /6mm23 /6mm Misc use 1 every 3 days dx: e11.9 30units E11Osmany Gao M.D. 02/01/2023 Vdmhjl342rx Capsules 1 by mouth 2 times a day 180caps Delon Gao M.D. 12/01/2022 Vjsxml717nz Tablets take 1 tablet 1 time daily 90tadenver Peraza M.D. 08/01/2022 Wixela Xxmwq184-09rde/Act Aerosol inhale 1 puff 2 times daily as directed 180unserafin Peraza M.D. 08/01/2022 Metoprolol Xrhafxoy49yl Tablets take 1/2 tablet 2 times daily 180tabs Becky Peraza M.D. 06/19/2022 Zhactdg615Sotd/ML Solution Use 240 Units Subcutaneously With Insulin Pump Every Day as Directed 210units E11.9 Becky Peraza M.D. 06/13/2022 Atorvastatin Kwrjeiw48gu Tablets 1 by mouth every day 90tabs Emiliana Peraza M.D. History Medications Oxycodone HCL5mg/5ML Solution 5ml q 6hrs prn pain 100ml Delon Gao M.D. 03/31/2024 - 07/22/2024 Mzhcfgolzp77zz Tablets 1 by mouth every day 180tabs [...] Hemoglobin A1c 6.2% Laboratory test finding 08/27/2023 [facility] Calcium 9.2 mg/dL (8.6-10.5 ) Lipid Panel 08/27/2023 [facility] Cholesterol, Total 175 mg/dL [...] Hemoglobin A1c 6.6% Laboratory test finding 09/11/2022 [facility] Phosphorus 4.2 mg/dL (2.5-4.5) Calcium 10.4 mg/dL (8.6-10.5 ) PTH, Intact 20 pg/mL (15-65) Albumin 4.5 GM/DL (3.4-4.8) Laboratory test finding 08/01/2022 Inhouse Hemoglobin A1c 7.3% Glucose Fingerstick 134 Procedures Date Code Description Status 09/23/2024 42186 Glucose Monitoring Interpeta tion And Report Completed 07/22/2024 14354 Glucose Monitoring Interpeta tion And Report Completed 03/31/2024 24615 Glucose Monitoring Interpeta tion And Report Completed 09/28/2023 81752 Glucose Monitoring Interpeta tion And Report Completed 12/01/2022 63680 Glucose Monitoring Interpeta tion And Report Completed 11/03/2022 NSHOWOFF No Show Office Visit Complet ed 08/01/2022 31323 Glucose Monitoring Interpeta tion And Report Completed [...] failure * I25.10 Atherosclerotic heart disease of [place] coronary artery without angina pectoris * E11.8 Type 2 diabetes mellitus with unspecified complications * Z79.4 [facility] (current) use of insulin * Z96.41 Presence of insulin pump (external) (internal) * G47.30 Sleep apnea, unspecified Functional Status Description No Information Available Mental Status Description No Information Available Referrals Refer to Reason for Referral Status Appt Osmin e MONOCLONAL GAMMA NATHANAEL ANEMIA Closed 03/27/2024 [facility] Heart & Vascular chest pain Closed [address] [facility] [phone] [facility] sleep study Closed 11/04/[address] [place] [address] [phone]
[2024-12-09 07:34] LABS: MANUAL DIFF FLAG NO
[2024-12-09 07:36] LABS: Basophils Percent Auto 0.3 % (0-2); Eosinophils Absolute Auto 0.2 X10*3/uL (0.0-0.4); Eosinophils Percent Auto 2.5 % (0-4); Hematocrit 26.9 % (42.0-52.0); Hemoglobin 9.1 g/dl (14.0-18.0); Imm Gran Abs Auto 0.04 X10*3/uL (0.00-0.03); Imm Gran Pct Auto 0.6 % (0.0-0.4); Lymphocytes Absolute Auto 1.6 X10*3/uL (1.2-4.9); Lymphocytes Percent Auto 25.3 % (20-40); Mean Corpuscular HGB Conc 33.8 g/dl (31.0-36.0); Mean Corpuscular Volume 94.7 fL (80.0-98.0); Mean Platelet Volume 9.5 fL (9.4-12.4); Monocytes Absolute Auto 0.8 X10*3/uL (0.1-1.2); Monocytes Percent Auto 12.6 % (2-11); Neutrophils Absolute Auto 3.7 x10*3/uL (2.0-8.3); Neutrophils Percent Auto 58.7 % (45-73); Platelet Count 186 X10*3/uL (160-400); Red Blood Count 2.84 X10*6/uL (4.60-5.80); White Blood Count 6.3 X10*3/uL (4.8-10.8)
[2024-12-09 07:56] LABS: Anion Gap 17 (12-20); Blood Urea Nitrogen 45 mg/dL (9-16); Calcium 9.3 mg/dL (8.4-10.2); Carbon Dioxide 28 mmol/L (22-29); Chloride 97 mmol/L (96-108); Creatinine Clr Calc Pharmacy 11.5; Estimated Glomerular Filt Rate 11; Glucose Random 143 mg/dL (60-115); Potassium 5.2 mmol/L (3.3-5.1); Sodium 137 mmol/L (135-145)
[2024-12-09] MEDS: 0.9 % Sodium Chloride 1,000 ML 100 ML IVCONT (07:56)
--- NOTE | 2024-12-09 09:56 | P.OP_ITS ---
Operative Note Operative Note Date of Service: 12/09/24 Narrative: Angiogram report from [facility] Preoperative diagnosis: End-stage renal disease Postoperative diagnosis: Same Procedure: 1. Ultrasound-guided left upper extremity fistula access 2. Fistulogram 3. Angioplasty of outflow tract Surgeon:Clay Cosme M.D., FACS, RPVI Broadcast Director Operations:None Anesthesia: Local only Specimens:none Drains:none Estimated blood loss: Less than 10 ml Implant: Medtronic Impact DCB 6 x 40 Indications:[] The patient has signed the informed consent after reviewing risks, complications, benefits, and alternatives previously discussed with the patient. The patient was given the opportunity to ask any additional questions or voice any concerns. All questions were answered to the patient's satisfaction. Procedure in detail: Patient was brought to the angiography suite prior to which a time-out was called for patient identification and site verification. Left upper extremity was prepped and draped in standard surgical fashion. Under ultrasound guidance 5 Norwegian precision sheath was brought into place. Once the sheath was in place fistulogram was then undertaken. We imaged the entire outflow tract along with central venous imaging. We did identify [address] enosis in the mid cephalic vein. At this time we exchanged out for an 0180 glidewire Advantage along with a short 6 [place] sheath. Once in position we 1st plasty this area in the mid cephalic vein outflow tract with a 6 x 30 regular balloon. Subsequently we followed this up with a 6 x 40 drug coated balloon. This was brought into position in under 3 minutes and insufflated for a total of 3 minutes in duration. Once this was accomplished completion fistulogram demonstrated excellent result. Prolene pursestring suture was then placed. Adequate hemostasis was achieved. Patient tolerated the procedure well and returned to recovery with stable vitals. Interpretation of films: 1. Ultrasound demonstrates appropriate fistula access site. Vessel was patent with minimal stenosis at entry site. Needle entry was visualized. Image of ultrasound was saved. 2. Fistulogram demonstrated mid cephalic vein stenosis. No evidence of central venous stenosis. Arterial anastomosis appeared intact with no significant stenosis 3. Completion fistulogram demonstrated resolution of stenotic area Conclusion: 1. Successful fistulogram with outflow tract plasty 2. Anticoagulation status: No change This note is constructed using voice recognition software. While every effort has been made to ensure accuracy, manager meeting errors may have been included. Thank you for allowing me to participate in the care of your patient. Yours sincerely, Clay Cosme MD, FACS, R.P.V.I.
== END 2024-12-09 10:05 | disposition home or self-care (01) ==
PROVIDERS: Visit Provider Surgery Vascular Surgery
DX: E11.22 Type 2 diabetes mellitus with diabetic chronic kidney disease (principal); I12.0 Hypertensive chronic kidney disease with stage 5 chronic kidney disease or end stage renal disease; N18.6 End stage renal disease; Z99.2 Dependence on renal dialysis; Z79.4 Long term (current) use of insulin; E78.00 Pure hypercholesterolemia, unspecified; J45.909 Unspecified asthma, uncomplicated; I25.10 Atherosclerotic heart disease of native coronary artery without angina pectoris; Z95.1 Presence of aortocoronary bypass graft; Z79.899 Other long term (current) drug therapy
CPT/HCPCS: 36415; 36902; 80048; 85025; C1725; C1769; C1894; C2623; J1644; J2250; J2310; J3010; Q9967

== ENCOUNTER → 2024-12-09 06:32 | Outpatient (BNV) | payer MEDICARE, SELFPAY | PROVIDERS: Visit Provider Surgery Vascular Surgery | DX: N18.6 End stage renal disease (principal) | CPT/HCPCS: 36902; 76937 ==

== ENCOUNTER 2024-12-23 14:14 | Outpatient (AMB) | payer MEDICARE, SELFPAY ==
--- NOTE | 2024-12-23 14:15 | A.OFFVIS_ITS ---
Intake Visit Reasons: 2w follow up s/p L arm Fistulagram 12/09/24 Intake Note: Patient presents for two week follow up left arm fistulagram . Patient states he feels good, no pain. He has a stitch that he is asking to have removed. Accompanied by: Self / Same As Patient Allergies brompheniramine [From DIMETAPP DM COLD-COUGH (PE)] Allergy (Intermediate, Verified 12/23/24 14:29) NAUSEA & VOMITING dextromethorphan [From DIMETAPP DM COLD-COUGH (PE)] Allergy (Intermediate, Verified 12/23/24 14:29) NAUSEA & VOMITING Penicillins Allergy (Intermediate, Verified 12/23/24 14:29) Unknown phenylephrine [From DIMETAPP DM COLD-COUGH (PE)] Allergy (Intermediate, Verified 12/23/24 14:29) NAUSEA & VOMITING HPI HPI 2w follow up s/p L arm Fistulagram 12/09/24: Details: Very pleasant 79-year-old gentleman presents for follow-up status post fistulogram. Undergone left upper extremity fistulogram and outflow tract plasty. Reports that dialysis is going much better. He has no post dialysis bleeding. He now presents for routine postprocedure follow-up [facility] Medical History CKD (chronic kidney disease) stage 5, GFR less than 15 ml/min [place] (hard of hearing) Elevated cholesterol Back pain IDDM (insulin dependent diabetes mellitus) Asthma On beta robert at home CAD (coronary artery disease) HTN (hypertension) Surgical History Hx of right cataract extraction Hx of left cataract extraction History of blepharoplasty History of nasal surgery S/P triple vessel bypass Social History Are you a primary behavioral health care coordinator to a significant other at home: No Do you presently have visiting nurse or other home services: No Alcohol intake: never Patient Tobacco Use Status: Never used Tobacco Review of Systems Const All systems reviewed & are unremarkable except as noted in HPI and below Reports no additional complaints ENT Reports Normal hearing present Card Denies chest pain, Denies chest pain at rest, Denies chest pain with activity and Denies pedal edema Resp Denies cough GI Denies abdominal pain Musc Denies abnormal gait, Denies muscle cramps and Denies radiating pain into limb Skin/Breast Denies skin ulcer and Denies wounds Neuro Reports Normal hearing present and Denies abnormal gait Psych Reports no additional complaints Physical Exam Const General: cooperative, healthy appearing and comfortable Orientation/consciousness: oriented to person, oriented to place and oriented to time HEENT Head: Yes normal to inspection Neck Neck: Yes normal visual inspection Carotids: no bruits Chest Chest palpation & inspection: normal inspection of the chest Resp Effort & Inspection: normal respiratory effort and able to speak in complete sentences Auscultation: clear to auscultation bilaterally, no crackles, no rales, no rhonchi and no wheezes Cardio Rate: regular rate Rhythm: regular rhythm Heart sounds: S1 normal heart sound present and S2 normal heart sound present Bruits: no carotid bruits Peripheral pulses: Peripheral pulses 2+ throughout GI Inspection: Yes normal to inspection Skin Wounds: no wounds Hair: normal Neuro General: oriented to person, oriented to place and oriented to time Cranial nerves: Yes CN's II-XII intact bilaterally and Yes Normal hearing present Cognition (Neuro): normal cognition Motor exam (neuro): 5/5 motor strength present throughout Extrem Other: Left upper extremity has excellent thrill and bruit. Stitch removed. General: No clubbing, No cyanosis and No edema Psych Appearance: grossly normal Mental Status: mental status grossly normal Speech and movement: Normal speech and movement present Assessment & Plan Assessment & Plan (1) ESRD (end stage renal disease): Code(s): N18.6 - End stage renal disease Category: Medical Plan: In short patient is doing well with his left upper extremity brachiocephalic fistula. 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 I did inform him that this does have a propensity to restenosis. I did schedule him for a six- month follow-up with us to ensure that the fistula continues to function well. Should he have any interval issues prior to that I requested that he call our office. Thank you for allowing us to take care of this very kind gentleman. If there are any questions or concerns please do not hesitate to contact us Coding Level of Care Code Est Pt Level 3 (98483) Diagnoses ESRD (end stage renal disease) N18.6
--- OUTSIDE RECORDS SUMMARY | 2024-12-23 15:13 | XMS_ITS ---
Author Organization [facility] Pablo [place] Address [address] [place] [address] Care Team Providers Care Promotions Intern Name Role Phone Delon Gao MD Primary Care Provider David Arzate Unavailable [phone] Allergies Allergen (clinical drug ingredient) Drug/Non Drug [...] Unknow n NovoLOG Active Insulin Pump Syringe [place] Active hydrALAZINE HCl 50 MG TAKE 1 [...] Ordered Date Performed Result Body Sit e 07497-ZEAAFKU NAIL, 6 OR MORE 07/08/2024 N/A 62178-Yzwhfvue Plate 07/08/2024 N/A 24998-VJQL SKIN LESIONS, OVER 4 07/08/2024 N/A Encounters Encounter Location Date Provider Diagnosis [facility] [place] [address] [place] [address] 07/08/2024 David Thao Type 2 diabetes mellitus [...] INSTRUCTIONS.pdf) Pending Test Test Name Order Date 20470-BIQFXIT NAIL, 6 OR MORE 07/08/2024 39225-Wqhkfyqc Plate 07/08/2024 77587-KXKZ SKIN LESIONS, OVER 4 07/08/20 24 Next Appt Details Follow Up: prn, Reason: Provider Name:David Thao , 01/06/2025 01:45:00 PM, [address] [place] [address], [phone], Procedure Notes * Category Sub-Category Detail [...] Motrin was recommended for pain or discomfort (49599) , DIABETES: Pt was advised as to [...] as necessary. Patient chooses, no pharmaceutical tx (09972) Keratoma Treatment Parring or Cutting o f Benign Hyperkeratotic Lesion(s) 28618 ( More than 4 Lesions ) - The Benign hyperkeratotic lesions, as described above were pared, and/or cut utilizing a sterile 15 blade, tissue nippers, and/or dremel Progress Notes * SOLORZANOJordan DELGADO VDOB:1945 (78 yo M)Acc No.[id number]:07/08/2024 Progress Note Patient:?Jordan Solorzano V Provider:?David Thao DPM :1945???Age:78 Y???Sex:Male Osmin e:07/08/2024 Address:[address] [place], [place] [address] Pcp:Delon Gao MD Subjective: * Chief Complaints: [...] as directed Sublingual NovoLOG Insulin Pump Syringe [place] Extra Depth Orthopedic Shoes (1 Pair) with [...] Sublingual Taking NovoLOG Taking Insulin Pump Syringe [place] Taking Extra Depth Orthopedic Shoes (1 Pair) [...] INSTRUCTIONS.pdf (DIABETIC FOOT CARE INSTRUCTIONS.pdf)?? 3.?Ingrown nail?Procedure: 41732-Zczuqqor Plate * Procedures:?Debride Nail 6-10:?Nail debridement?Nail debridement performed extensively to reduce/remove overall nail length, girth, thickness, subungual debris, and necrotic tissue, by manual and electrical means through the use of a nail nipper and/or dremel, to more viable healthy nail plate or bed tissue 6-10. Silver nitrate used for any petechial bleeding as necessary. Patient chooses, no pharmaceutical tx (06628).?Keratoma Treatment:?Parring or Cutting of Benign Hyperkeratotic Lesion(s)?52050 ( More than 4 Lesions ) - [...] Motrin was recommended for pain or discomfort (44876) , DIABETES: Pt was advised as to the risk of delayed or nonhealing due to diabetes. Pt is to call the office with any questions, concerns, or complications.? * Procedure Codes:?57655 Avuls ion Plate, Modifiers: XS , [id number] DEBRIDE NAIL, 6 OR MORE, Modifiers: XS 89799 TRIM SKIN LESIONS, OVER 4, Modifiers: XS [...] Thao DPM Date:?2023 Generated for Darion cain/Mandy/Avi on:?12/23/2024 03:13 PM EST History and Physical Notes * [...]
--- OUTSIDE RECORDS SUMMARY | 2024-12-23 15:13 | XMS_ITS | Patient Health Record ---
Author Organization [facility] Pablo lizz [place] Address [address] [place] [place] [address] Care Team Providers Care Teletypesetter Name Role Phone Murray MONTILLA, Delon Primary Care Provider David Arzate Unavailable [phone] Allergies Allergen (clinical drug ingredient) Drug/Non Drug Allergy documented on EMR Reaction Allergy Type Onset Date Status amoxicillin Amoxicillin itching Drug Allergy Act tommy Reason For Referral No Information Medications Medication SIG (Take, Route, Frequency, Duration) Notes Start Date End Date Status Metoprolol Succinate 50 MG Orally Not-Taking Pravastatin Sodium 40 MG Orally Not-Taking Lyrica 75 MG Orally Once a day Not-Taking Insulin Pump Syringe [place] Active Extra Depth Orthopedic Shoes (1 Pair) [...] 30 days Active Diovan 320 MG Orally Not-Elia almanza Furosemide 20 MG TAKE 1 TABLET BY [...] Problem Acquired hammer toe of right foot (5278222338173763 ) Other hammer toe(s) (acquired), right foot (M20.41) Active confirmed Problem Acquired hammer toe of left foot (0158630403650811 ) Other hammer toe(s) (acquired), left foot (M20.42) Active confirmed Problem Polyneuropathy due to type 2 diabetes mellitus (573916407) Type 2 diabetes mellitus with diabetic polyneuropathy (E11.42) Active confirmed Vital Signs Blood pressure diastolic 70 mm Hg 10/07/2024 Height 5 ft 5 in in 10/07/2024 Blood pressure systolic 120 mm Hg 10/07/2024 Weight 153 lbs 10/07/2024 BMI 25.46 kg/m2 10/07/2024 Procedures Procedure Date Ordered Date Performed Result Body Sit e 96513-JRFYODK NAIL, 6 OR MORE 07/08/2024 N/A 34454-Swauqyeg Plate 07/08/2024 N/A 05232-WPLV SKIN LESIONS, OVER 4 07/08/2024 N/A 03258-KHPBQHP NAIL, 6 OR MORE 10/07/2024 N/A 68077-SHPX SKIN LESIONS, OVER 4 10/07/2024 N/A Encounters Encounter Location Date Provider Diagnosis [facility] [place] [address] [place] [address] 07/08/2024 David Thao Type 2 diabetes mellitus with diabetic polyneuropathy E11.42 ; Tinea unguium B35.1 ; Other hammer toe(s) (acquired), right foot M20.41 ; Other hammer toe(s) (acquired), left foot M20.42 and Ingrown nail L60.[address] [address] 10/07/2024 David Thao Type 2 diabetes mellitus with diabetic polyneuropathy E11.42 ; Tinea unguium B35.1 and Xerosis of skin L85.[address] [address] 03/10/2024 [facility] [address] [address] [facility] [address] [facility] [address] [place] [address] 06/12/2024 David Master Assessments Encounter Date Diagnosis (ICD Code) Assessment [...] X ray : Foot, left 3V 12/22/2019 60577-TIMCZIE NAIL, 6 OR MORE 12/14/2023 85849-FFHNFIU NAIL, 6 OR MORE 07/08/2024 11940-NAGCCWK NAIL, 6 OR MORE 10/07/2024 30364-Icftvwum Plate 07/08/2024 23802-ENZK SKIN LESIONS, OVER 4 10/07/20 24 09137-NMGE SKIN LESIONS, OVER 4 07/08/20 24 11408-BMFD SKIN LESIONS, OVER 4 12/14/19 24 92293-FCNL SKIN LESIONS, OVER 4 12/22/19 90597-ULSJ SKIN LESIONS, OVER 4 03/25/20 17285-XWWT SKIN LESIONS, OVER 4 06/26/20 74758-CENV SKIN LESIONS, OVER 4 09/25/20 Next Appt Details Provider Name:David Thao , 01/06/2025 01:45:00 PM, [address] [place], [address], Insurance Providers Payer Name Payer Address Payer Phone Subscriber Number Group Number Insured Name Patient Relationship to Insured Coverage Start Date Coverage End Date Medicare National [employer] [address] [facility] [place] [address] [id number] Jordan Orozco Self - [facility] the [facility] [address] [place] [address] [id number] Jordan Orozco Self - patient is the insured Medical (General) History Medical History History ICD Code Diabetic Chicken pox Heart disease Cancer Cataracts High blood pressure Kidney disease Numbness Reflux ( GERD) Warts Measles Surgical History Surgery Date(Month/Year) triple bypass 2004 eye surgery 05/2020
--- OUTSIDE RECORDS SUMMARY | 2024-12-23 15:13 | XMS_ITS ---
Author Organization [facility] Pablo lizz [place] Address [address] [place] [address] Care Team Providers Care Cost Consultant Name Role Phone Delon Gao MD Primary Care Provider David Arzate Unavailable [phone] Allergies Allergen (clinical drug ingredient) Drug/Non Drug [...] Once a day Not-Taking Insulin Pump Syringe [place] Active Extra Depth Orthopedic Shoes (1 Pair) [...] Ordered Date Performed Result Body Sit e 66816-LZMUCMK NAIL, 6 OR MORE 10/07/2024 N/A 36626-GMCQ SKIN LESIONS, OVER 4 10/07/2024 N/A Encounters Encounter Location Date Provider Diagnosis [facility] [place] [address] [place] [address] 10/07/2024 David Thao Type 2 diabetes mellitus [...] days Pending Test Test Name Order Date 67823-GEHOOXZ NAIL, 6 OR MORE 10/07/2024 02865-OFYF SKIN LESIONS, OVER 4 10/07/20 24 Next Appt Details Follow Up: prn, Reason: Provider Name:David Thao , 01/06/2025 01:45:00 PM, [address] [place], [address], Procedure Notes * Category Sub-Category Detail Notes [...] use of a nail nipper and/or dremel-type steel grinder, to a more viable healthy nail plate or bed tissue 6-10. Silver nitrate used for any petechial bleeding as necessary. Definitive antifungal treatment options have been reviewed and discussed with the patient. The patient chooses, no pharmaceutical tx - [address]177 Keratoma Treatment Parring or Cutting o f Benign Hyperkeratotic Lesion(s) (-57) More than 4 Lesions - The Benign hyperkeratotic lesions, as described in exam, were pared, and/or cut utilizing a sterile 15 blade, tissue nippers, and/or dremel - 13392 Progress Notes * Jordan SOLORZANO VDOB:1945 (78 yo M)Acc No.[id number]:10/07/2024 Progress Note Patient:?Jordan SOLORZANO V Provider:?David Thao DPM :1945???Age:78 Y???Sex:Male Osmin e:10/07/2024 Address:[address] [place] [phone] Pcp:Delon Gao MD Subjective: * Chief Complaints: [...] as directed Sublingual NovoLOG Insulin Pump Syringe [place] Extra Depth Orthopedic Shoes (1 Pair) with [...] Sublingual Taking NovoLOG Taking Insulin Pump Syringe [place] Taking Extra Depth Orthopedic Shoes (1 Pair) [...] use of a nail nipper and/or dremel-type steel grinder, to a more viable healthy nail plate or bed tissue 6-10. Silver nitrate used for any petechial bleeding as necessary. Definitive antifungal treatment options have been reviewed and discussed with the patient. The patient chooses, no pharmaceutical tx - 54572.?Keratoma Treatment:?Parring or Cutting of Benign Hyperkeratotic Lesion(s)?(-57) More than 4 Lesions - The Benign hyperkeratotic lesions, as described in exam, were pared, and/or cut utilizing a sterile 15 blade, tissue nippers, and/or dremel - 49864.? * Procedure Codes:?19481 DEBRI DE NAIL, 6 OR MORE, Modifiers: XS 72617 TRIM SKIN LESIONS, OVER 4, Modifiers: XS [...] DPM Date:?2023 Generated for Darion cain/Mandy/Avi on:?12/23/2024 03:12 PM EST History and Physical Notes * HPI (History of Present Illness) Category Sub-Category Detail Notes Category Not es Toe pain Treatments: Rx shoes, states still needs Skin problems Nature: dryness , scaling Location: B/L Duration: several days Course: worse At Risk footcare Pt States Last PCP Visit: Date: Examination Category Sub-Category Detail Notes Category Not [...]
--- OUTSIDE RECORDS SUMMARY | 2024-12-23 15:13 | XMS_ITS ---
Author Organization [facility] lizz [place] Address [address] [place] [address] Care Team Providers Care Tongue Presser Name Role Phone Delon Gao MD Primary Care Provider David Arzate [phone] Encounters Encounter Location Date Provider Diagnosis [address] [address] 06/27/2024 David Thao Plan Of Treatment Next Appt Details Provider Name:David Thao , 01/06/2025 01:45:00 PM, [address] [place] [address], [phone], Progress Notes * Jordan SOLORZANO VDOB:1945 (79 yo M)Acc No.[id number]:06/27/2024 Progress Note Patient:?Jordan SOLORZANO V Provider:?David Thao DPM :1945???Age:78 Y???Sex:Male Osmin e:06/27/2024 Address:[address] [place] [address] Pcp:Delon Gao MD Subjective: * Chief Complaints: [...]
--- OUTSIDE RECORDS SUMMARY | 2024-12-23 15:13 | XMS_ITS | Encounter Summary ---
Author Organization [facility] Address [address] [facility] [address] [place] [address] Phone Care Team Providers Care Technical Laboratory Asst Name Role Phone Frank Velarde MD Primary Care Provide r Encounter Details Date Type Department Care Team (Late st Contact Info) Description 10/20/2023 Office Communication [facility] [address] [facility] [address] [place] [address] Thiago Angelo MD [address] [facility] [address] [place] [phone] Social History Tobacco Use Types Packs/Day Years Used Date Smoking Tobacco: Never Smokeless Tobacco: Never Alcohol Use Standard Drinks/Week Comments No 0 (1 standard drink = 0.6 oz pur e alcohol) Sex and Gender Information Value Date Recorded Sex Assigned at Not on file Legal Sex Male 4:57 PM EST Gender Identity Not on file Sexual Orientation Not on file documented as of this encounter Miscellaneous Notes * Telephone Encounter - Thiago Angelo MD - 10/20/2023 7:59 PM EST Needs f/uwith me in 1-2 weeks documented in this encounter Plan of Treatment Not on file documented as of this encounter Visit Diagnoses Not on filedocumented in this encounter Care Teams Technical Laboratory Asst Relationship Specialty Start Date End Date Frank Velarde MD PCP - General Nephrology 01/14/24 03/12/24 documented as of this encounter
--- OUTSIDE RECORDS SUMMARY | 2024-12-23 15:13 | XMS_ITS | Encounter Summary ---
Author Organization [facility] Address [address] [place] [phone] Phone Care Team Providers Care Computed Tomography Technologist Name Role Phone Unavailable Primary Care Provider Unavailabl e Encounter Details Date Type Department Care Team ([facility] st Contact Info) Description 11/28/2024 Treatment [facility] [address] [address] Jun Harris MD [address] [address] Social History Tobacco Use Types Packs/Day Years [...] as of this encounter Miscellaneous Notes * Dialysis Note - Jun Harris MD - 11/28/2024 12:00 AM EST Patient: Jordan Orozco : 1945 Note Type: Dialysis Rounds-Comp Service Date: 11/28/2024 This patient was personally seen for a complete visit as part of routine monthly dialysis care for end stage renal disease. Attending Wrapper Cashier: MJ PIERRE MD Dialysis Location: [facility] Schedule: Shift: 2 OVERVIEW Patient is stable. HOME MEDICATIONS Medications reviewed. [facility] Medications albuterol (PROVENTIL HFA;VENTOLIN HFA) inhaler Inhale as directed Start Date: amLODIPine (NORVASC) tablet Take 5 mg by mouth 1 (one) time each day Start Date: atorvastatin (LIPITOR) tablet Take 40 mg by mouth 1 (one) time each day Start Date: 10/22/2023 BD PEN NEEDLE MINI U/F 31G X 5 MM MISC USE TO INJECT INSULIN FOUR TIMES A DAY Start Date: 01/07/2024 calcium acetate (PHOSLO) 667 MG tablet Take 1 tablet (667 mg total) by mouth in the morning and 1 tablet (667 mg total) at noon and 1 tablet (667 mg total) in the evening. Take with meals. Start Date: 08/01/2024 CHOLECALCIFEROL 25 MCG (1000 UT) PO CHEW Chew Start Date: fenofibrate (TRICOR) tablet Take 1 tablet by mouth 1 (one) time each day Start Date: FISH OIL 1000 MG PO CPDR Take by mouth Start Date: fluticasone-salmeterol (ADVAIR DISKUS) inhaler 100-50mcg/dose Inhale as directed Start Date: furosemide (LASIX) tablet Take 40 mg by mouth Start Date: 01/07/2024 hydrALAZINE 50 MG tablet Take 1 tablet (50 mg total) by mouth in the morning and 1 tablet (50 mg total) in the evening and 1 tablet (50 mg total) before bedtime. Start Date: 07/26/2023 LANTUS SOLOSTAR 100 UNIT/ML SC SOPN Inject 10 Units under the skin Start Date: 01/07/2024 LIDOCAINE VISCOUS HCL 2 % MT SOLN Use 15 mL in the mouth or throat Start Date: 06/09/2022 losartan (Cozaar) 25 MG tablet Take 1 tablet (25 mg total) by mouth 1 (one) time each day Start Date: 10/29/2024 metoprolol tartrate (LOPRESSOR) tablet Take 1 tablet by mouth 2 (two) times a day Start Date: nitroglycerin (NITROSTAT) SL tablet Place 0.4 mg under the tongue every 5 (five) minutes if needed for chest pain Start Date: NOVOLOG FLEXPEN 100 UNIT/ML SC SOPN 140 Units Start Date: pregabalin (LYRICA) capsule Take 100 mg by mouth 1 (one) time each day Start Date: 03/07/2021 Current [facility] Allergies Allergen: AMOXICILLIN Reaction: Itching Allergen: Dimetapp Cold-allergy [BROMPHENIRAMINE-PHENYLEPHRINE] Allergen: PENICILLINS Reaction: Other (see comments) BP AND FLUID ASSESSMENT Acceptable blood pressure. Fluid status acceptable. ADEQUACY ASSESSMENT Target met. Prescription compliance acceptable. Kt/V, Natural Log 1.28 (10/29/24) 1.58 (10/01/24) UREA REDUCTION RATIO (%) 66 (10/29/24) 75 (10/01/24) BUN 53 (10/29/24) 52 (10/01/24) 78 (01/07/24) BUN Post Dialysis 18 (10/29/24) 13 (10/01/24) Creatinine 5.09 (10/29/24) 5.32 (10/01/24) 5.70 (01/07/24) Bicarbonate (CO2) 25 (10/29/24) 27 (10/01/24) Sodium 137 (10/29/24) 140 (10/01/24) 139 (01/07/24) ACCESS ASSESSMENT Vascular access examined. Current access is permanent and functioning well. ANEMIA ASSESSMENT Anemia targets met. Continue current NIURKA dose. Iron adjusted per protocol. Hgb 10.5 (11/12/24) 11.3 (10/29/24) 11.0 (10/01/24) Iron Saturation (TSat) 76 (10/29/24) 31 (10/01/24) Ferritin 1,507 (10/29/24) 1,389 (10/01/24) Iron 243 (10/29/24) 116 (10/01/24) TIBC 321 (10/29/24) 375 (10/01/24) MCV 95.1 (10/29/24) 101.5 (10/01/24) Platelets 159 (10/29/24) 154 (10/01/24) BMM ASSESSMENT PTH within target. Phosphorus controlled. Phosphorus binders adjusted. Calcium controlled. Bone and mineral metabolism parameters reviewed. Calcium, Adjusted Total 9.1 10/29/24 9.2 10/01/24 Calcium 9.1 10/29/24 9.2 10/01/24 9.2 01/07/24 Phosphorus, Serum 4.0 10/29/24 4.2 10/01/24 Ca*PO4 36.4 10/29/24 38.6 10/01/24 Magnesium 2.4 10/29/24 2.7 10/01/24 Alkaline Phosphatase 57 10/29/24 50 10/01/24 NUTRITION ASSESSMENT Albumin at goal. Potassium controlled. Albumin 4.5 10/29/24 4.5 10/01/24 4.0 01/07/24 Potassium 4.6 10/29/24 4.5 10/01/24 3.8 01/07/24 PHYSICAL EXAM Exam performed. Vital Signs Reviewed. Lungs - Clear. CV - Blood pressure noted. No edema. EXT - No ulcers. ADDITIONAL LABS White Blood Cells 7.4 (10/29/24) 6.4 (10/01/24) Signed by: JUN HARRIS MD on 11/28/2024 at 09:04:22 PM Transcribed by: JUN HARRIS MD on 11/28/2024 at 09:04:22 PM documented in this encounter Plan of Treatment Not on file documented as of this encounter Visit Diagnoses Not on filedocumented in this encounter
--- OUTSIDE RECORDS SUMMARY | 2024-12-23 15:13 | XMS_ITS | Encounter Summary ---
Author Organization [facility] Address [address] [place] [phone] Phone Care Team Providers Care Train Operations Manager Name Role Phone Unavailable Primary Care Provider Unavailabl e Encounter Details Date Type Department Care Team ([facility] st Contact Info) Description 12/10/2024 Treatment [facility] [address] [phone] Jun Harris MD [address] [phone] Social History Tobacco Use Types [...] Dialysis Note - Jun Harris MD - 12/10/2024 12:00 AM EST Patient: Jordan Orozco : 1945 Note Type: Dialysis Rounds-Basic Service Date: 12/10/2024 This patient was personally seen for a basic visit as part of routine monthly dialysis care for end stage renal disease. Attending Rap Artist: MJ PIERRE MD Dialysis Location: [facility] Schedule: Shift: 2 OVERVIEW Patient is stable. HOME MEDICATIONS Medications reviewed. Current [facility] Outpatient Medications albuterol (PROVENTIL HFA;VENTOLIN HFA) inhaler [...] blood pressure. Fluid status acceptable. ADEQUACY ASSESSMENT Kt/V, Natural Log 1.59 (12/03/24) 1.28 (10/29/24) 1.58 (10/01/24) UREA REDUCTION RATIO (%) 75 (12/03/24) 66 (10/29/24) 75 (10/01/24) BUN 69 (12/03/24) 53 (10/29/24) 52 (10/01/24) BUN Post Dialysis 17 (12/03/24) 18 (10/29/24) 13 (10/01/24) Creatinine 7.18 (12/03/24) 5.09 (10/29/24) 5.32 (10/01/24) Bicarbonate (CO2) 25 (12/03/24) 25 (10/29/24) 27 (10/01/24) Sodium 136 (12/03/24) 137 (10/29/24) 140 (10/01/24) ANEMIA ASSESSMENT Hgb 9.2 (12/03/24) 10.5 (11/12/24) 11.3 (10/29/24) Iron Saturation (TSat) 43 (12/03/24) 76 (10/29/24) 31 (10/01/24) Ferritin 1,416 (12/03/24) 1,507 (10/29/24) 1,389 (10/01/24) Iron 132 (12/03/24) 243 (10/29/24) 116 (10/01/24) TIBC 304 (12/03/24) 321 (10/29/24) 375 (10/01/24) MCV 96.6 (12/03/24) 95.1 (10/29/24) 101.5 (10/01/24) Platelets 203 (12/03/24) 159 (10/29/24) 154 (10/01/24) BMM ASSESSMENT Calcium, Adjusted Total 9.4 12/03/24 9.1 10/29/24 9.2 10/01/24 Calcium 9.4 12/03/24 9.1 10/29/24 9.2 10/01/24 Phosphorus, Serum 5.9 12/03/24 4.0 10/29/24 4.2 10/01/24 Ca*PO4 55.5 12/03/24 36.4 10/29/24 38.6 10/01/24 PTH, Intact 165 12/03/24 Magnesium 2.7 12/03/24 2.4 10/29/24 2.7 10/01/24 Alkaline Phosphatase 38 12/03/24 57 10/29/24 50 10/01/24 Aluminum 4 12/03/24 NUTRITION ASSESSMENT Albumin 4.5 12/03/24 4.5 10/29/24 4.5 10/01/24 Potassium 4.6 12/03/24 4.6 10/29/24 4.5 10/01/24 Hemoglobin A1C 7.3 12/03/24 ADDITIONAL LABS White Blood Cells 5.7 (12/03/24) 7.4 (10/29/24) 6.4 (10/01/24) Cholesterol 178 (12/03/24) HDL 30 (12/03/24) LDL-Calc 87 (12/03/24) Triglycerides 304 (12/03/24) Hep B Surface Antibody <4 (12/03/24) Uric Acid 8.7 (12/03/24) Signed by: JUN HARRIS MD on 12/10/2024 at 09:27:50 PM documented in this encounter Plan of Treatment Not on file documented as of this encounter Visit Diagnoses Not on filedocumented in this encounter
--- OUTSIDE RECORDS SUMMARY | 2024-12-23 15:13 | XMS_ITS | Encounter Summary ---
Author Organization [facility] Address [address] [place] [phone] Phone Care Team Providers Care Asphalt Mixing Machine Operator Name Role Phone Unavailable Primary Care Provider Unavailabl e Encounter Details Date Type Department Care Team ([facility] st Contact Info) Description 12/16/2024 Treatment [facility] [address] [phone] Jun Harris MD [address] [phone] Social History Tobacco Use Types [...] Dialysis Note - Jun Harris MD - 12/16/2024 12:00 AM EST Patient: Jordan Orozco : 1945 Note Type: Dialysis Rounds-Basic Telehealth Service Date: 12/16/2024 Telehealth encounter using audiovisual technology, performed according to state requirements. Appropriate patient consent obtained. This patient was personally seen for a basic visit as part of routine monthly dialysis care for end stage renal disease. Attending Senior Electronics Technician: MJ PIERRE MD Dialysis Location: [facility] Schedule: Shift: 2 OVERVIEW Patient is stable. HOME MEDICATIONS Medications reviewed. Current [facility] Outpatient Medications albuterol (PROVENTIL HFA;VENTOLIN [...] BP AND FLUID ASSESSMENT Acceptable blood pressure. ADEQUACY ASSESSMENT Kt/V, Natural Log 1.59 (12/03/24) [...] (12/03/24) Signed by: JUN HARRIS MD on 12/17/2024 at 02:20:49 PM documented in this encounter Plan of Treatment Not on file documented as of this encounter Visit Diagnoses Not on filedocumented in this encounter
--- OUTSIDE RECORDS SUMMARY | 2024-12-23 15:13 | XMS_ITS | Clinical Summary ---
Author Organization [facility] Address [address] [place] [address] Phone Care Team Providers Care Sports Intern Name Role Phone Unavailable Primary Care Provider Unavailabl e Allergies Active Allergy Reactions Criticality Noted Date Comments Amoxicillin Itching 01/11/2024 Brompheniramine-Phenylephrine 2021 Penicillins Other (see comments) 01/21/2021 Medications albuterol HFA (PROVENTIL HFA;VENTOLIN HFA) 108 (90 Base) MCG/ACT inhaler Inhale as directed Active fenofibrate (TRICOR) 145 MG tablet Take 1 tablet by mouth 1 (one) time each day Active fluticasone-kylah meterol (ADVAIR DISKUS) 100-50 MCG/DOSE diskus inhaler Inhale as directed Active insulin aspart (NovoLOG FLEXPEN) 100 UNIT/ML injection 140 Units Active metoprolol tartrate (LOPRESSOR) 50 MG tablet Take 1 tablet by mouth 2 (two) times a day Active pregabalin (LYRICA) 100 MG capsule Take 100 mg by mouth 1 (one) time each day 03/07/2021 Active Lidocaine HCl (Lidocaine Viscous HCl) 2 % solution Use 15 mL in the mouth or throat 06/09/2022 Active hydrALAZINE 50 MG tablet Take 1 tablet (50 mg total) by mouth in the morning and 1 tablet (50 mg total) in the evening and 1 tablet (50 mg total) before bedtime. 90 tablet 5 07/26/2023 Active atorvastatin (LIPITOR) 40 MG tablet Take 40 mg by mouth 1 (one) time each day 10/22/2023 Active amLODIPine (NORVASC) 5 MG tablet Take 5 mg by mouth 1 (one) time each day Active furosemide (Lasix) 40 MG tablet Take 40 mg by mouth 01/07/2024 Active Lantus SoloStar 100 UNIT/ML injection Inject 10 Units under the skin 01/07/2024 Active B-D UF III MINI PEN NEEDLES 31G X 5 MM [facility] INJECT INSULIN FOUR TIMES A DAY 01/07/2024 Active Cholecalciferol 25 MCG (1000 UT) chewable tablet Chew Active nitroglycerin (NITROSTAT) 0.[address] 0.4 mg under the tongue every 5 (five) minutes if needed for chest pain Active Paris-3 Fatty Acids (Fish Oil) 1000 MG capsule delayed-release Take by mouth Active calcium acetate (PHOSLO) 667 MG tablet Take 1 tablet (667 mg total) by mouth in the morning and 1 tablet (667 mg total) at noon and 1 tablet (667 mg total) in the evening. Take with meals. 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 Asthma 05/17/2022 07/26/2023 Overview (07/26/2023): Last Assessment & Plan: No current symptoms of acute exacerbation. Patient does have home inhalers with albuterol, Advair Diskus, rarely. Flonase as needed. Home medical regimen ordered as needed. Gastroesophageal reflux disease 05/17/2022 07/26/2023 Malignant neoplasm of oropharynx 05/17/2022 07/26/2023 Overview (07/26/2023): Last Assessment & Plan: Patient radiation oncology/oncology notes reviewed. History of right-sided oropharyngeal cancer with dysphagia, just a 5 pound weight loss. Prior to admission eating softer foods. Status post G-tube placement for nutrition delivery during his cancer treatment. Procedure well-tolerated in the CV IR suite. -Admission lab work requested. CBC shows no leukocytosis or anemia, normal platelet count. PT/INR within normal limits. BMP, LFTs, magnesium pending -Surgery instructions reviewed with diet to be advanced this evening. Oral intake okay. Mouth swabs for comfort. No G-tube access for 24 hours. -Nursing instructions for G-tube to low continuous suction. No suction for 6 hours after a meal. -We will avoid chemical DVT prophylaxis, SCDs ordered. -Pain management as needed. No current discomfort. Tylenol available. 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 [address] [address] Jun Harris MD 12/10/2024 Treatment [facility] [address] [address] Jun Hraris MD 12/03/2024 Treatment [facility] [address] [facility] [address] [place] [address] Jun Harris MD 11/28/2024 Treatment [facility] [address] [address] Jun Harris MD 11/25/2024 Treatment [facility] [address] [address] Jun Harris MD 11/17/2024 Treatment [facility] [address] [address] Frank Velarde MD 11/07/2024 Treatment [facility] [address] [address] Jun Harris MD 10/29/2024 Treatment [facility] [address] [address] Jun Harris MD 10/15/2024 Treatment [facility] [address] [address] Jun Harris MD 10/08/2024 Treatment [facility] [address] [address] Jun Harris MD 10/01/2024 Treatment [facility] [address] [address] Jun Harris MD 09/26/2024 Treatment [facility] [address] [address] Jun Harris MD 09/22/2024 Treatment [facility] [address] [address] Jun Harris MD from Last 3 Months Immunizations Name Administration Dates Next Due Influenza Split High Dose Pr eservative Free IM 10/01/2017,09/14/2016 Influenza Vaccine, Quadrivalent, Adjuvanted 08/26 Influenza, Quadrivalent, Preservative Free 09/20 Pfizer SARS-COV-2 08/31/2021,02/27/2021,02/07/20 21 Pneumococcal Polysaccharide 09/14/2016, 3 Family History Medical History Relation Comments Cancer Mother Diabetes Mother Diabetes Sibling Relation Status Comments Father Mother Sibling Social History Tobacco Use Types Packs/Day Years Used Date Smoking Tobacco: Never Smokeless Tobacco: Never Tobacco Cessation:Counseling Given: Not Answered Alcohol Use Standard Drinks/Week Comments No 0 (1 standard drink = 0.6 oz pur e alcohol) Sex and Gender Information Value Date Recorded Sex Assigned at Not on file Legal Sex Male 4:57 PM EST Gender Identity Not on file Sexual Orientation Not on file Last Filed Vital Signs Vital Sign Reading Time Taken Comments Blood Pressure 120/54 01/11/2024 12:01 PM EST Pulse 53 01/11/2024 12:01 PM EST Temperature - - Respiratory Rate - - Oxygen Saturation 97% 01/11/2024 12:01 PM EST Inhaled Oxygen Concentration - - Weight 67.1 kg (148 lb) 01/11/2024 12:01 PM EST Height 170.2 cm (5' 7 ) 06/21/2023 2:09 PM EDT Body Mass Index 23.18 06/21/2023 2:09 PM EDT Plan of Treatment Health Maintenance Due Date Last Done Comments Hepatitis B Vaccine (1 of 5 - Risk Dialysis 4-dose series) 1965 Pneumococcal Vaccine: 65+ Ye ars (3 of 3 - PCV) 09/14/2017 09/14/2016, 10/29/2013 Diabetes: Ophthalmology Exam 12/26/2020 Diabetes: Pedal Pulse Checked 12/26/2020 Diabetes: Sensory Foot Exam 12/26/2020 Diabetes: Visual Foot Exam 12/26/2020 Influenza Vaccine (#1) 2024 , 08/26/2019, 08/26/2018, Additional history exists Diabetes: Hemoglobin A1C 03/03/2025 12/03/2024, 09/0 07/2020 Procedures Procedure Name Priority Date/Time Associated Diagnosis Comments HEMOGLOBIN Routine 12/19/2024 3:00 AM EST COLLECTION DATE (HC) Routine 12/19/2024 3:00 AM EST COLLECTION DATE (HC) Routine 12/03/2024 3:00 AM EST ALUMINUM LEVEL Routine 12/03/2024 3:00 AM EST FERRITIN Routine 12/03/2024 3:00 AM EST HEPATITIS C ABS W/REFLEX RNA DETECTR Routine 12/03/2024 3:00 AM EST CONFIRMATION TEST HCV Routine 12/03/2024 3:00 AM EST HEPATITIS B SURFACE ANTIGEN W/REFL CONFIRM Routine 12/03/2024 3:00 AM EST HEPATITIS B SURFACE ANTIBODY QUANT Routine 12/03/2024 3:00 AM EST TRANSFERRIN SATURATION Routine 3:00 AM EST URIC ACID Routine 12/03/2024 3:00 AM EST PROTEIN, TOTAL, SERUM Routine 12/03/2024 3:00 AM EST KT/V NATURAL LOG, URR (HC) Routine 12/03/2024 3:00 AM EST LIPID PANEL Routine 12/03/2024 3:00 AM EST ELECTROLYTE PANEL Routine 12/03/2024 3:0 0 AM EST MAGNESIUM Routine 12/03/2024 3:00 AM EST LIH (HC) Routine 12/03/2024 3:00 AM EST LACTATE DEHYDROGENASE Routine 12/03/2024 3:00 AM EST GLUCOSE, RANDOM Routine 12/03/2024 3:00 AM EST BILIRUBIN, TOTAL Routine 12/03/2024 3:00 AM EST CREATININE, SERUM Routine 12/03/2024 3:0 0 AM EST AST Routine 12/03/2024 3:00 AM EST ALKALINE PHOSPHATASE Routine 12/03/2024 3:00 AM EST CALCIUM PHOSPHORUS PRODUCT, ADJUSTED (HC) Routine 12/03/2024 3:00 AM EST ALT Routine 12/03/2024 3:00 AM EST PTH, INTACT Routine 12/03/2024 3:00 AM EST HEMOGLOBIN A1C Routine 12/03/2024 3:00 AM EST CBC AND DIFFERENTIAL Routine 12/03/2024 3:00 AM EST HEMOGLOBIN Routine 11/12/2024 3:00 AM EST HEPATITIS B SURFACE ANTIGEN W/REFL CONFIRM Routine 10/29/2024 3:00 AM EST PROTEIN, TOTAL, SERUM Routine 10/29/2024 3:00 AM EST TRANSFERRIN SATURATION Routine 3:00 AM EST KT/V NATURAL LOG, URR (HC) Routine 10/29/2024 3:00 AM EST ELECTROLYTE PANEL Routine 10/29/2024 3:0 0 AM EST MAGNESIUM Routine 10/29/2024 3:00 AM EST LIH (HC) Routine 10/29/2024 3:00 AM EST LACTATE DEHYDROGENASE Routine 10/29/2024 3:00 AM EST GLUCOSE, RANDOM Routine 10/29/2024 3:00 AM EST CREATININE, SERUM Routine 10/29/2024 3:0 0 AM EST BILIRUBIN, TOTAL Routine 10/29/2024 3:00 AM EST ALT Routine 10/29/2024 3:00 AM EST ALKALINE PHOSPHATASE Routine 10/29/2024 3:00 AM EST AST Routine 10/29/2024 3:00 AM EST CALCIUM PHOSPHORUS PRODUCT, ADJUSTED (HC) Routine 10/29/2024 3:00 AM EST FERRITIN Routine 10/29/2024 3:00 AM EST CBC AND DIFFERENTIAL Routine 10/29/2024 3:00 AM EST COLLECTION DATE (HC) Routine 10/01/2024 3:00 AM EST HEPATITIS B SURFACE ANTIGEN W/REFL CONFIRM Routine 10/01/2024 3:00 AM EST TRANSFERRIN SATURATION Routine 3:00 AM EST PROTEIN, TOTAL, SERUM Routine 10/01/2024 3:00 AM EST MAGNESIUM Routine 10/01/2024 3:00 AM EST KT/V NATURAL LOG, URR (HC) Routine 10/01/2024 3:00 AM EST ELECTROLYTE PANEL Routine 10/01/2024 3:0 0 AM EST LIH (HC) Routine 10/01/2024 3:00 AM EST LACTATE DEHYDROGENASE Routine 10/01/2024 3:00 AM EST GLUCOSE, RANDOM Routine 10/01/2024 3:00 AM EST CREATININE, SERUM Routine 10/01/2024 3:0 0 AM EST BILIRUBIN, TOTAL Routine 10/01/2024 3:00 AM EST AST Routine 10/01/2024 3:00 AM EST CALCIUM PHOSPHORUS PRODUCT, ADJUSTED (HC) Routine 10/01/2024 3:00 AM EST ALT Routine 10/01/2024 3:00 AM EST ALKALINE PHOSPHATASE Routine 10/01/2024 3:00 AM EST FERRITIN Routine 10/01/2024 3:00 AM EST CBC AND DIFFERENTIAL Routine 10/01/2024 3:00 AM EST from Last 3 Months Results * Collection Date (12/19/2024 3:00 AM EST) Only the most recent of3 resultswithin the time period is included. Collection Date See Comment [facility] Comment: Patient sample received may exceed specimen stability, based on the collection date electronically provided. ??When reviewing patient results, verify collection information and consider specimen stability before acting on any critical or panic results. 12/19/2024 3:00 AM EST Khoa Carmichael MD LAB [id number] ICITED RESULTS Final Result [facility] [address] [place] [address] * (ABNORMAL) Hemoglobin (12/19/2024 3:00 AM EST) Only the most recent of2 resultswithin the time period is included. Hgb 9.4(L) 13.7 - 17.5 g/dL [facility] Hemoglobin x 3 28.2(L) 41.1 - 52.5 g/dL [facility] 12/19/2024 3:00 AM EST 12/23/2024 12:23 PM EST us Khoa Carmichael MD LAB BLOOD ORDERABLES Final Resul t Performing Organization Address [facility] Co de Phone Number [facility]PS [facility] [address] [place] [address] * Confirmation Test HCV (12/03/2024 3:00 AM EST) Hep C Ab Confirmation Not needed [facility] 12/03/2024 3:00 AM EST 12/04/2024 4:10 PM EST us Khoa Carmichael MD LAB BLOOD ORDERABLES Final Resul t Performing Organization Address [facility] de Phone Number [facility]PS [facility] [address] [place] [address] * LIH (12/03/2024 3:00 AM EST) Only the most recent of3 resultswithin the time period is included. Lipemia Normal Normal [facility] Icterus Normal Normal [facility] Hemolysis Normal Normal [facility] 12/03/2024 3:00 AM EST 12/04/2024 4:46 PM EST us Khoa Carmichael MD LAB [id number] ICITED RESULTS Final Result Performing Organization Address [facility] de Phone Number [facility] [address] [place] [address] * (ABNORMAL) Kt/V Natural Log, URR (12/03/2024 3:00 AM EST) Only the most recent of3 resultswithin the time period is included. BUN 69(H) 7 - 25 mg/dL [facility] Treatment Time 227 min [facility] Pre-Weight, lb 72.3 kg [facility] Post-Weight, lb 70.9 kg [facility] Ultrafiltration Rate 5 <=13 mL/kg/hr [facility] Comment: Recommend achieving Ultrafiltration Rate (UFR) <=10 mL/kg/hr References: Slim HARMON et al. Kidney Int. 2010; 79(2):250-257 BUN Post Dialysis 17 7 - 25 mg/dL [facility] UREA REDUCTION RATIO (%) 75 >=65 % [facility] Kt/V Natural Log 1.59 >=1.2 [facility] 12/03/2024 3:00 AM EST 12/04/2024 4:46 PM EST us Khoa Carmichael MD LAB [id number] ICITED RESULTS Final Result Performing Organization Address [facility] Co de Phone Number [facility]PS [facility] [address] [place] [address] * (ABNORMAL) Calcium Phosphorus Product, Adjusted (12/03/2024 3:00 AM EST) Only the most recent of3 resultswithin the time period is included. Pathologist [facility] Albumin 4.5 3.6 - 5.4 g/dL [facility] Calcium 9.4 8.6 - 10.3 mg/dL [facility] Phosphorus, Serum 5.9(H) 2.5 - 5.0 mg/dL [facility] Ca*PO4 55.5(A) <55.0 mg2/dL2 [facility] Calcium, Adjusted Total 9.4 8.6 - 10.3 mg/dL [facility] CA*PO4 CORRCTD 55.5(A) <55.0 mg2/dL2 [facility] 12/03/2024 3:00 AM EST 12/04/2024 4:46 PM EST us Khoa Carmichael MD LAB [id number] ICITED RESULTS Final Result Performing Organization Address [facility] Co de Phone Number [facility] [address] [place] [address] * HEPATITIS C ABS W/REFLEX RNA DETECTR (12/03/2024 3:00 AM EST) Hep C Virus Ab Non-Reacti ve Non-Reacti ve [facility] 12/03/2024 3:00 AM EST 12/04/2024 4:46 PM EST us Khoa Carmichael MD LAB [id number] ICITED RESULTS Final Result Performing Organization Address City/[facility]/ZIP Co de Phone Number [facility] [address] [place] [address] * Hepatitis B Surface Ag w/Reflex Confirmation (12/03/2024 3:00 AM EST) Only the most recent of3 resultswithin the time period is included. Hep B Surface Antigen Negative Negative [facility] 12/03/2024 3:00 AM EST 12/04/2024 4:46 PM EST us Khoa Carmichael MD LAB BLOOD ORDERABLES Final Resul t Performing Organization Address [facility] de Phone Number [facility] [address] [place] [address] * TSAT (12/03/2024 3:00 AM EST) Only the most recent of3 resultswithin the time period is included. Iron 132 65 - 175 ug/dL [facility] Transferrin 217 215 - 365 mg/dL [facility] TIBC 304 211 - 406 ug/dL [facility] Iron Saturation (TSat) 43 22 - 52 % [facility] 12/03/2024 3:00 AM EST 12/04/2024 4:46 PM EST us Khoa Carmichael MD LAB BLOOD ORDERABLES Final Resul t Performing Organization Address [facility] de Phone Number [facility]PS [facility] [address] [place] [address] * Aluminum level (12/03/2024 3:00 AM EST) Aluminum 4 1 - 20 ug/L [facility] 12/03/2024 3:00 AM EST 12/04/2024 4:39 PM EST us Khoa Carmichael MD LAB BLOOD ORDERABLES Final Resul t Performing Organization Address [facility] Co de Phone Number [facility] [address] [place] [address] * (ABNORMAL) Hepatitis B Surface Antibody (12/03/2024 3:00 AM EST) Pathologist [facility] Hep B Surface Antibody <4(A) mIU/mL [facility] Comment: Interpretation: <10: No Immunity >=10: Probable Immunity 12/03/2024 3:00 AM EST 12/04/2024 4:46 PM EST us Khoa Carmichael MD LAB BLOOD ORDERABLES Final Resul t [facility] [address] [place] [address] * (ABNORMAL) CBC and Differential (12/03/2024 3:00 AM EST) Only the most recent of3 resultswithin the time period is included. Pathologist [facility] DIFFERENTIAL MANUAL, 2 Not Indicated [facility] White Blood Cells 5.7 4.2 - 9.1 K/uL [facility] RBC 2.92(L) 4.63 - 6.08 M/uL [facility] Hgb 9.2(L) 13.7 - 17.5 g/dL [facility] Hemoglobin x 3 27.6(L) 41.1 - 52.5 g/dL [facility] Hematocrit 28.2(L) 40.1 - 51.0 % [facility] MCV 96.6(H) 79.0 - 92.2 fL [facility] MCH 31.5 25.7 - 32.2 pg [facility] MCHC 32.6 32.3 - 36.5 g/dL [facility] Platelets 203 163 - 337 K/uL [facility] RDW 13.5 11.6 - 14.4 % [facility] Neutrophils Relative 59.7 34.0 - 67.9 % [facility] Lymphocytes Relative 25.5 21.8 - 53.1 % [facility] Monocytes 11.2 5.3 - 12.2 % [facility] Eosinophils Relative 2.8 0.8 - 7.0 % [facility] Basophils Relative 0.3 0.2 - 1.2 % [facility] Immature Granulocytes 0.5 0.0 - 1.0 % [facility] 12/03/2024 3:00 AM EST 12/04/2024 4:10 PM EST us Khoa Carmichael MD LAB BLOOD ORDERABLES Final Resul t Performing Organization Address [facility] Co de Phone Number [facility] [address] [place] [address] * (ABNORMAL) Uric Acid (12/03/2024 3:00 AM EST) Uric Acid 8.7(H) 4.4 - 7.6 mg/dL [facility] 12/03/2024 3:00 AM EST 12/04/2024 4:46 PM EST Khoa Carmichael MD LAB BLOOD ORDERABLES Final Resul t Performing Organization Address [facility] de Phone Number [facility] [address] [place] [address] * ALT (12/03/2024 3:00 AM EST) Only the most recent of3 resultswithin the time period is included. ALT (SGPT) 13 10 - 49 U/L [facility] 12/03/2024 3:00 AM EST 12/04/2024 4:46 PM EST us Khoa Carmichael MD LAB BLOOD ORDERABLES Final Resul t Performing Organization Address [facility] de Phone Number [facility] [address] [place] [address] * AST (12/03/2024 3:00 AM EST) Only the most recent of3 resultswithin the time period is included. AST (SGOT) 23 <34 U/L [facility] 12/03/2024 3:00 AM EST 12/04/2024 4:46 PM EST us Khoa Carmichael MD LAB BLOOD ORDERABLES Final Resul t Performing Organization Address [facility] de Phone Number [facility] [address] [place] [address] * Protein, total (12/03/2024 3:00 AM EST) Only the most recent of3 resultswithin the time period is included. Total Protein 7.5 6.4 - 8.9 g/dL [facility] 12/03/2024 3:00 AM EST 12/04/2024 4:46 PM EST us Khoa Carmichael MD LAB BLOOD ORDERABLES Final Resul t Performing Organization Address [facility] de Phone Number [facility] [address] [place] [address] * (ABNORMAL) Alkaline phosphatase (12/03/2024 3:00 AM EST) Only the most recent of3 resultswithin the time period is included. Alkaline Phosphatase 38(L) 46 - 116 U/L [facility] 12/03/2024 3:00 AM EST 12/04/2024 4:46 PM EST us Khoa Carmichael MD LAB BLOOD ORDERABLES Final Resul t Performing Organization Address [facility] de Phone Number [facility] [address] [place] [address] * PTH, Intact (12/03/2024 3:00 AM EST) PTH, Intact 165 160 - 721 pg/mL [facility] Comment: Suggested (KDIGO) ESRD maintenance range is two to nine times the upper normal limit (80.1 pg/mL) for the laboratory. 12/03/2024 3:00 AM EST 12/04/2024 4:46 PM EST us Khoa Carmichael MD LAB BLOOD ORDERABLES Final Resul t Performing Organization Address [facility] de Phone Number [facility] [address] [place] [address] * Magnesium (12/03/2024 3:00 AM EST) Only the most recent of3 resultswithin the time period is included. Magnesium 2.7 1.9 - 2.7 mg/dL [facility] 12/03/2024 3:00 AM EST 12/04/2024 4:46 PM EST us Khoa Carmichael MD LAB BLOOD ORDERABLES Final Resul t Performing Organization Address City/[facility] Co de Phone Number [facility] [address] [place] [address] * (ABNORMAL) Lactate dehydrogenase (12/03/2024 3:00 AM EST) Only the most recent of3 resultswithin the time period is included. LDH 278(H) 120 - 246 U/L [facility] 12/03/2024 3:00 AM EST 12/04/2024 4:46 PM EST us Khoa Carmichael MD LAB BLOOD ORDERABLES Final Resul t Performing Organization Address [facility] de Phone Number [facility] [address] [place] [address] * (ABNORMAL) Hemoglobin A1c (12/03/2024 3:00 AM EST) Hemoglobin A1C 7.3(H) <5.7 % [facility] Comment: Methodology: Enzymatic HbA1c (NGSP %) ?Suggested Diagnosis >6.4% ? Diabetic 5.7-6.4% ?Pre-Diabetic <5.7% ? Non-Diabetic Diabetic Glucose Control Evaluation: Therapeutic action suggested at >8.0% ADA recommends a glycemic goal of <7.0% 12/03/2024 3:00 AM EST 12/04/2024 4:10 PM EST us Khoa Carmichael MD LAB BLOOD ORDERABLES Final Resul t Performing Organization Address [facility] Co de Phone Number [facility] [address] [place] [address] * (ABNORMAL) Glucose, random (12/03/2024 3:00 AM EST) Only the most recent of3 resultswithin the time period is included. Glucose 217(H) 74 - 109 mg/dL [facility] 12/03/2024 3:00 AM EST 12/04/2024 4:46 PM EST us Khoa Carmichael MD LAB BLOOD ORDERABLES Final Resul t Performing Organization Address [facility] Co de Phone Number [facility] [address] [place] [address] * (ABNORMAL) Ferritin (12/03/2024 3:00 AM EST) Only the most recent of3 resultswithin the time period is included. Ferritin 1,416(H) 22 - 322 ng/mL [facility] 12/03/2024 3:00 AM EST 12/04/2024 4:46 PM EST us Khoa Carmichael MD LAB BLOOD ORDERABLES Final Resul t Performing Organization Address [facility] de Phone Number [address] [address] * (ABNORMAL) Creatinine, serum (12/03/2024 3:00 AM EST) Only the most recent of3 resultswithin the time period is included. Creatinine 7.18(H) 0.70 - 1.30 mg/dL [facility] 12/03/2024 3:00 AM EST 12/04/2024 4:46 PM EST us Khoa Carmichael MD LAB BLOOD ORDERABLES Final Resul t Performing Organization Address [facility] de Phone Number [facility] [address] [place] [address] * Bilirubin, total (12/03/2024 3:00 AM EST) Only the most recent of3 resultswithin the time period is included. Total Bilirubin 0.4 0.3 - 1.2 mg/dL [facility] 12/03/2024 3:00 AM EST 12/04/2024 4:46 PM EST us Khoa Carmichael MD LAB BLOOD ORDERABLES Final Resul t Performing Organization Address [facility] de Phone Number [facility] [address] [place] [address] * (ABNORMAL) Lipid panel (12/03/2024 3:00 AM EST) Cholesterol 178 <200 mg/dL [facility] Comment: Optimal: ?<200 Borderline: ? 200-239 Higher Risk: ?>239 Triglycerides 304(A) <150 mg/dL [facility] Comment: Optimal: ?<150 Borderline High: ??150-199 High: ? 200-499 Very High: ?>499 HDL 30(A) >59 mg/dL [facility] Comment: Desirable: ?>59 Higher Risk: ?<40 LDL-Calc 87 <100 mg/dL [facility] Comment: Optimal: ?<100 Above Optimal: ?100-129 Borderline High: ??130-159 High: ? 160-189 Very High: ?>189 VLDL Cholesterol Vic 61(A) <30 mg/dL [facility] Comment: Optimal: ?<30 Borderline High: ??30-39 High: ? 40-99 Very High: ?>99 Chol/HDL Ratio 5.9(A) <3.3 [facility] Comment: Optimal: ?<3.3 Higher Risk: ?>6.2 12/03/2024 3:00 AM EST 12/04/2024 4:46 PM EST Khoa Carmichael MD LAB BLOOD ORDERABLES Final Resul t Performing Organization Address [facility] de Phone Number APS [facility] [address] [place] [address] * Electrolyte panel (12/03/2024 3:00 AM EST) Only the most recent of3 resultswithin the time period is included. Sodium 136 136 - 145 mEq/L [facility] Potassium 4.6 3.4 - 5.0 mEq/L [facility] Chloride 99 98 - 107 mEq/L [facility] Bicarbonate (CO2) 25 21 - 31 mEq/L [facility] Anion Gap 12 3 - 14 mEq/L [facility] 12/03/2024 3:00 AM EST 12/04/2024 4:46 PM EST us Khoa Carmichael MD LAB BLOOD ORDERABLES Final Resul t [facility]PS [facility] [address] [place] [address] from Last 3 Months Insurance [facility]
--- OUTSIDE RECORDS SUMMARY | 2024-12-23 15:13 | XMS_ITS | Encounter Summary ---
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 Role Phone Unavailable Primary Care Provider Unavailabl e Encounter Details Date Type Department Care Team ([facility] st Contact Info) Description 11/25/2024 Treatment [facility] [address] [address] Jun Harris MD [address] [address] Social History Tobacco Use Types [...] Dialysis Note - Jun Harris MD - 11/25/2024 12:00 AM EST Patient: Jordan Orozco : 1945 Note Type: Dialysis Rounds-Basic Telehealth Service Date: 11/25/2024 Telehealth encounter using audiovisual technology, performed according to state requirements. Appropriate patient consent obtained. This patient was personally seen for a basic visit as part of routine monthly dialysis care for end stage renal disease. Attending Enterprise Account Manager: MJ PIERRE MD Dialysis Location: [facility] Schedule: Shift: 2 OVERVIEW Patient is stable. HOME MEDICATIONS Medications reviewed. Current [facility] Outpatient Medications albuterol (PROVENTIL HFA;VENTOLIN [...] status acceptable. ADEQUACY ASSESSMENT Kt/V, Natural Log 1.28 (10/29/24) 1.58 (10/01/24) UREA REDUCTION RATIO (%) 66 (10/29/24) 75 (10/01/24) BUN 53 (10/29/24) 52 (10/01/24) 78 (01/07/24) BUN Post Dialysis 18 (10/29/24) 13 (10/01/24) Creatinine 5.09 (10/29/24) 5.32 (10/01/24) 5.70 (01/07/24) Bicarbonate (CO2) 25 (10/29/24) 27 (10/01/24) Sodium 137 (10/29/24) 140 (10/01/24) 139 (01/07/24) ANEMIA ASSESSMENT Hgb 10.5 (11/12/24) 11.3 (10/29/24) 11.0 (10/01/24) Iron Saturation (TSat) 76 (10/29/24) 31 (10/01/24) Ferritin 1,507 (10/29/24) 1,389 (10/01/24) Iron 243 (10/29/24) 116 (10/01/24) TIBC 321 (10/29/24) 375 (10/01/24) MCV 95.1 (10/29/24) 101.5 (10/01/24) Platelets 159 (10/29/24) 154 (10/01/24) BMM ASSESSMENT Calcium, Adjusted Total 9.1 10/29/24 9.2 10/01/24 Calcium 9.1 10/29/24 9.2 10/01/24 9.2 01/07/24 Phosphorus, Serum 4.0 10/29/24 4.2 10/01/24 Ca*PO4 36.4 10/29/24 38.6 10/01/24 Magnesium 2.4 10/29/24 2.7 10/01/24 Alkaline Phosphatase 57 10/29/24 50 10/01/24 NUTRITION ASSESSMENT Albumin 4.5 10/29/24 4.5 10/01/24 4.0 01/07/24 Potassium 4.6 10/29/24 4.5 10/01/24 3.8 01/07/24 ADDITIONAL LABS White Blood Cells 7.4 (10/29/24) 6.4 (10/01/24) Signed by: JUN HARRIS MD on 11/26/2024 at 06:47:23 PM Transcribed by: JUN HARRIS MD on 11/26/2024 at 06:47:23 PM documented in this encounter Plan of Treatment Not on file documented as of this encounter Visit Diagnoses Not on filedocumented in this encounter
--- OUTSIDE RECORDS SUMMARY | 2024-12-23 15:13 | XMS_ITS | Encounter Summary ---
Author Organization [facility] Address [address] [place] [phone] Phone Care Team Providers Care Manager Parking Name Role Phone Unavailable Primary Care Provider Unavailabl e Encounter Details Date Type Department Care Team ([facility] st Contact Info) Description 12/03/2024 Treatment [facility] [address] [phone] Jun Harris MD [address] [phone] Social History Tobacco Use Types [...] Dialysis Note - Jun Harris MD - 12/03/2024 12:00 AM EST Patient: Jordan Orozco : 1945 Note Type: Dialysis Rounds-Basic Service Date: 12/03/2024 This patient was personally seen for a basic visit as part of routine monthly dialysis care for end stage renal disease. Attending Clinic Lpn: MJ PIERRE MD Dialysis Location: [facility] Schedule: Shift: 2 OVERVIEW Patient is stable. HOME MEDICATIONS Medications reviewed. [facility] Medications albuterol (PROVENTIL HFA;VENTOLIN HFA) [...] (10/01/24) Signed by: JUN HARRIS MD on 12/03/2024 at 02:21:43 PM Transcribed by: JUN HARRIS MD on 12/03/2024 at 02:21:43 PM documented in this encounter Plan of Treatment Not on file documented as of this encounter Visit Diagnoses Not on filedocumented in this encounter
== END 2024-12-23 14:43 | disposition home or self-care (01) ==
PROVIDERS: PCP Physician Assistant; Visit Provider Surgery Vascular Surgery
DX: N18.6 End stage renal disease (principal)
CPT/HCPCS: 99213

== ENCOUNTER → 2024-12-23 14:14 | Outpatient (BNVA) | payer MEDICARE, SELFPAY | PROVIDERS: PCP Physician Assistant; Visit Provider Surgery Vascular Surgery | DX: N18.6 End stage renal disease (principal); I77.0 Arteriovenous fistula, acquired | CPT/HCPCS: 99212 ==

== ENCOUNTER 2025-02-26 13:03 | Outpatient (RCR) | payer MEDICARE, SELFPAY | END 2025-03-05 08:34 | disposition home or self-care (01) | LOC: HO.PT 13:03 | PROVIDERS: PCP Physician Assistant; Visit Provider Nurse Practitioner Family | DX: M43.6 Torticollis (principal) | CPT/HCPCS: 97110; 97140; 97161 ==

== ENCOUNTER 2025-03-17 08:12 | Outpatient (REF) | payer MEDICARE, SELFPAY ==
--- OUTSIDE RECORDS SUMMARY | 2025-03-17 08:32 | XMS_ITS | Clinical Summary ---
Author Organization [facility] Address [address] [place] [address] Phone Care Team Providers Care It Network Administrator Name Role Phone Unavailable Primary Care Provider [...] MINI PEN NEEDLES 31G X 5 MM [facility] USE TO INJECT INSULIN FOUR TIMES A DAY 01/07/2024 Active Cholecalciferol 25 MCG (1000 UT) chewable tablet Chew Active nitroglycerin (NITROSTAT) 0.[address] 0.4 mg under the tongue every 5 (five) minutes if needed for chest pain Active [place]-3 Fatty Acids (Fish Oil) 1000 MG capsule [...] Encounters Date Type Department Care Team Description 03/11/2025 Treatment [facility] [address] [phone] Jun Harris MD End stage renal disease; Dependence on renal dialysis 03/06/2025 Treatment [facility] [address] [phone] Jnu Harris MD End stage renal disease; Dependence on renal dialysis 03/04/2025 Treatment [facility] [address] [address] Jun Harris MD End stage renal disease; Dependence on renal dialysis 02/11/2025 Treatment [facility] [address] [address] Jun Harris MD End stage renal disease; Dependence on renal dialysis 02/04/2025 Treatment [facility] [address] [address] Jun Harris MD End stage renal disease; Dependence on renal dialysis 01/28/2025 Orders Only [facility] [address] [address] hKoa Carmichael MD 01/28/2025 Treatment [facility] [address] [address] Jun Harris MD End stage renal disease; Dependence on renal dialysis 01/26/2025 Treatment [facility] [address] [address] Jun Harris MD End stage renal disease; Dependence on renal dialysis 01/14/2025 Treatment [facility] [address] [address] Jun Harris MD 01/07/2025 Treatment [facility] [address] [address] Jun Harris MD 01/05/2025 Treatment [facility] [address] [address] Jun Harris MD 12/31/2024 Treatment [facility] [address] [address] Jun Harris MD from Last 3 Months Immunizations Immunization Administration Dates Next Due Influenza Split High [...] Risk Dialysis 4-dose series) 1967 Pneumococcal Vaccine: 50+ Ye ars (3 of 3 - PCV) 09/14/2017 09/14/2016, 10/29/2013 Diabetes: Ophthalmology Exam 12/26/2020 Diabetes: Pedal Pulse Checked 12/26/2020 Diabetes: Sensory Foot Exam 12/26/2020 Diabetes: Visual Foot Exam 12/26/2020 Diabetes: Hemoglobin A1C 05/27/2025 04/ 025, 12/03/2024, 08/04/2020 Influenza Vaccine (Season Ended) 2025 09/07/2021, 08/26/2019, 08/26/2018, Additional history exists Pneumococcal Vaccine: Peds ( 0 to 5 Years) and At-Risk Patients (6 to 49 Years) Discontinued 09/14/2016, 10/29/2013 Procedures Procedure Name Priority Date/Time Associated Diagnosis Comments COLLECTION DATE (HC) Routine 02/25/2025 3:00 AM EDT HEMOGLOBIN A1C Routine 02/25/2025 3:00 AM EDT HEPATITIS B SURFACE ANTIGEN W/REFL CONFIRM Routine 02/25/2025 3:00 AM EDT TRANSFERRIN SATURATION Routine 3:00 AM EDT MAGNESIUM Routine 02/25/2025 3:00 AM EDT PROTEIN, TOTAL, SERUM Routine 02/25/2025 3:00 AM EDT KT/V NATURAL LOG, URR (HC) Routine 02/25/2025 3:00 AM EDT ELECTROLYTE PANEL Routine 02/25/2025 3:0 0 AM EDT LIPID PANEL Routine 02/25/2025 3:00 AM EDT LIH (HC) Routine 02/25/2025 3:00 AM EDT LACTATE DEHYDROGENASE Routine 02/25/2025 3:00 AM EDT CREATININE, SERUM Routine 02/25/2025 3:0 0 AM EDT GLUCOSE, RANDOM Routine 02/25/2025 3:00 AM EDT BILIRUBIN, TOTAL Routine 02/25/2025 3:00 AM EDT AST Routine 02/25/2025 3:00 AM EDT ALKALINE PHOSPHATASE Routine 02/25/2025 3:00 AM EDT ALT Routine 02/25/2025 3:00 AM EDT CALCIUM PHOSPHORUS PRODUCT, ADJUSTED (HC) Routine 02/25/2025 3:00 AM EDT FERRITIN Routine 02/25/2025 3:00 AM EDT PTH, INTACT Routine 02/25/2025 3:00 AM EDT CBC AND DIFFERENTIAL Routine 02/25/2025 3:00 AM EDT HEMOGLOBIN Routine 02/18/2025 3:00 AM EDT HEMOGLOBIN Routine 02/11/2025 3:00 AM EDT HEPATITIS B SURFACE ANTIGEN W/REFL CONFIRM Routine 01/28/2025 3:00 AM EST PROTEIN, TOTAL, SERUM Routine 01/28/2025 3:00 AM EST TRANSFERRIN SATURATION Routine 3:00 AM EST MAGNESIUM Routine 01/28/2025 3:00 AM EST LIH (HC) Routine 01/28/2025 3:00 AM EST ELECTROLYTE PANEL Routine 01/28/2025 3:0 0 AM EST GLUCOSE, RANDOM Routine 01/28/2025 3:00 AM EST LACTATE DEHYDROGENASE Routine 01/28/2025 3:00 AM EST CREATININE, SERUM Routine 01/28/2025 3:0 0 AM EST BILIRUBIN, TOTAL Routine 01/28/2025 3:00 AM EST ALT Routine 01/28/2025 3:00 AM EST AST Routine 01/28/2025 3:00 AM EST CALCIUM PHOSPHORUS PRODUCT, ADJUSTED (HC) Routine 01/28/2025 3:00 AM EST ALKALINE PHOSPHATASE Routine 01/28/2025 3:00 AM EST FERRITIN Routine 01/28/2025 3:00 AM EST KT/V NATURAL LOG, URR (HC) Routine 01/28/2025 3:00 AM EST CBC AND DIFFERENTIAL Routine 01/28/2025 3:00 AM EST CLOTTED TUBE Routine 01/21/2025 3:00 AM EST HEMOGLOBIN Routine 01/14/2025 3:00 AM EST HEMOGLOBIN Routine 01/07/2025 3:00 AM EST HEPATITIS B SURFACE ANTIGEN W/REFL CONFIRM Routine 12/31/2024 3:00 AM EST TRANSFERRIN SATURATION Routine 3:00 AM EST KT/V NATURAL LOG, URR (HC) Routine 12/31/2024 3:00 AM EST PROTEIN, TOTAL, SERUM Routine 12/31/2024 3:00 AM EST ELECTROLYTE PANEL Routine 12/31/2024 3:0 0 AM EST MAGNESIUM Routine 12/31/2024 3:00 AM EST LIH (HC) Routine 12/31/2024 3:00 AM EST LACTATE DEHYDROGENASE Routine 12/31/2024 3:00 AM EST GLUCOSE, RANDOM Routine 12/31/2024 3:00 AM EST CREATININE, SERUM Routine 12/31/2024 3:0 0 AM EST BILIRUBIN, TOTAL Routine 12/31/2024 3:00 AM EST AST Routine 12/31/2024 3:00 AM EST ALT Routine 12/31/2024 3:00 AM EST CALCIUM PHOSPHORUS PRODUCT, ADJUSTED (HC) Routine 12/31/2024 3:00 AM EST ALKALINE PHOSPHATASE Routine 12/31/2024 3:00 AM EST FERRITIN Routine 12/31/2024 3:00 AM EST CBC AND DIFFERENTIAL Routine 12/31/2024 3:00 AM EST HEMOGLOBIN Routine 12/26/2024 3:00 AM EST HEMOGLOBIN Routine 12/19/2024 3:00 AM EST COLLECTION DATE (HC) Routine 12/19/2024 3:00 AM EST from Last 3 Months Results * Collection Date (02/25/2025 3:00 AM EDT) Only the most recent of2 resultswithin the time period is included. Collection Date See Comment [facility] Comment: Patient sample received may exceed specimen stability, based on the collection date electronically provided. ??When reviewing patient results, verify collection information and consider specimen stability before acting on any critical or panic results. 02/25/2025 3:00 AM EDT us Khoa Carmichael MD LAB [id number] ICITED RESULTS Final Result [facility] [address] [place] [address] * [facility] (02/25/2025 3:00 AM EDT) Only the most recent of3 resultswithin the time period is included. Lipemia Normal Normal [facility] Icterus Normal Normal [facility] Hemolysis Normal Normal [facility] 02/25/2025 3:00 AM EDT 02/27/2025 2:45 PM EDT us Khoa Carmichael MD LAB [id number] ICITED RESULTS Final Result Performing Organization Address [facility] de Phone Number APS [facility] [address] [place] [address] * (ABNORMAL) Kt/V Natural Log, URR (02/25/2025 3:00 AM EDT) Only the most recent of3 resultswithin the time period is included. BUN 68(H) 7 - 25 mg/dL [facility] Treatment Time 215 min [facility] Pre-Weight, lb 73.7 kg [facility] Post-Weight, lb 72.0 kg [facility] Ultrafiltration Rate 7 <=13 mL/kg/hr [facility] Comment: Recommend achieving Ultrafiltration Rate (UFR) <=10 mL/kg/hr References: Slim HARMON et al. Kidney Int. 2010; 79(2):250-257 BUN Post Dialysis 18 7 - 25 mg/dL [facility] UREA REDUCTION RATIO (%) 74 >=65 % [facility] Kt/V Natural Log 1.52 >=1.2 [facility] 02/25/2025 3:00 AM EDT 02/27/2025 2:45 PM EDT us Khoa Carmichael MD LAB [id number] ICITED RESULTS Final Result Performing Organization Address [facility] de Phone Number [facility]PS [facility] [address] [place] [address] * (ABNORMAL) Calcium Phosphorus Product, Adjusted (02/25/2025 3:00 AM EDT) Only the most recent of3 resultswithin the time period is included. Albumin 4.9 3.6 - 5.4 g/dL [facility] Calcium 8.8 8.6 - 10.3 mg/dL [facility] Phosphorus, Serum 6.0(H) 2.5 - 5.0 mg/dL [facility] Ca*PO4 52.8 <55.0 mg2/dL2 [facility] Calcium, Adjusted Total 8.8 8.6 - 10.3 mg/dL [facility] CA*PO4 CORRCTD 52.8 <55.0 mg2/dL2 [facility] 02/25/2025 3:00 AM EDT 02/27/2025 2:45 PM EDT us Khoa Carmichael MD LAB [id number] ICITED RESULTS Final Result Performing Organization Address [facility] Co de Phone Number [facility]PS [facility] [address] [place] [address] * Hepatitis B Surface Ag w/Reflex Confirmation (02/25/2025 3:00 AM EDT) Only the most recent of3 resultswithin the time period is included. Hep B Surface Antigen Negative Negative [facility] 02/25/2025 3:00 AM EDT 02/27/2025 2:45 PM EDT us Khoa Carmichael MD LAB BLOOD ORDERABLES Final Resul t Performing Organization Address [facility] de Phone Number [facility]PS [facility] [address] [place] [address] * (ABNORMAL) TSAT (02/25/2025 3:00 AM EDT) Only the most recent of3 resultswithin the time period is included. Iron 61(L) 65 - 175 ug/dL [facility] Transferrin 270 215 - 365 mg/dL [facility] TIBC 378 211 - 406 ug/dL [facility] Iron Saturation (TSat) 16(L) 22 - 52 % [facility] 02/25/2025 3:00 AM EDT 02/27/2025 2:45 PM EDT us Khoa Carmichael MD LAB BLOOD ORDERABLES Final Resul t Performing Organization Address [facility] de Phone Number [facility] [address] [place] [address] * (ABNORMAL) CBC and Differential (02/25/2025 3:00 AM EDT) Only the most recent of3 resultswithin the time period is included. DIFFERENTIAL MANUAL, 2 Not Indicated [facility] White Blood Cells 7.1 4.2 - 9.1 K/uL [facility] RBC 3.29(L) 4.63 - 6.08 M/uL [facility] Hgb 10.6(L) 13.7 - 17.5 g/dL [facility] Hemoglobin x 3 31.8(L) 41.1 - 52.5 g/dL [facility] Hematocrit 33.1(L) 40.1 - 51.0 % [facility] MCV 100.6(H) 79.0 - 92.2 fL [facility] MCH 32.2 25.7 - 32.2 pg [facility] MCHC 32.0(L) 32.3 - 36.5 g/dL [facility] Platelets 152(L) 163 - 337 K/uL [facility] RDW 13.5 11.6 - 14.4 % [facility] Neutrophils Relative 67.4 34.0 - 67.9 % [facility] Lymphocytes Relative 18.5(L) 21.8 - 53.1 % [facility] Monocytes 11.0 5.3 - 12.2 % [facility] Eosinophils Relative 2.1 0.8 - 7.0 % [facility] Basophils Relative 0.4 0.2 - 1.2 % [facility] Immature Granulocytes 0.6 0.0 - 1.0 % [facility] 02/25/2025 3:00 AM EDT 02/27/2025 2:28 PM EDT us Khoa Carmichael MD LAB BLOOD ORDERABLES Final Resul t Performing Organization Address City/State/[facility] Co de Phone Number [facility]PS [facility] [address] [place] [address] * ALT (02/25/2025 3:00 AM EDT) Only the most recent of3 resultswithin the time period is included. Pathologist [facility] ALT (SGPT) 11 10 - 49 U/L [facility] 02/25/2025 3:00 AM EDT 02/27/2025 2:45 PM EDT us Khoa Carmichael MD LAB BLOOD ORDERABLES Final Resul t Performing Organization Address City/State/[facility] Co de Phone Number [facility]PS [facility] [address] [place] [address] * AST (02/25/2025 3:00 AM EDT) Only the most recent of3 resultswithin the time period is included. AST (SGOT) 22 <34 U/L [facility] 02/25/2025 3:00 AM EDT 02/27/2025 2:45 PM EDT us Khoa Carmichael MD LAB BLOOD ORDERABLES Final Resul t Performing Organization Address [facility] de Phone Number [place] [facility] [address] [place] [address] * Protein, total (02/25/2025 3:00 AM EDT) Only the most recent of3 resultswithin the time period is included. Total Protein 7.5 6.4 - 8.9 g/dL [facility] 02/25/2025 3:00 AM EDT 02/27/2025 2:45 PM EDT us Khoa Carmichael MD LAB BLOOD ORDERABLES Final Resul t Performing Organization Address [facility] de Phone Number [facility]PS [facility] [address] [place] [address] * (ABNORMAL) Alkaline phosphatase (02/25/2025 3:00 AM EDT) Only the most recent of3 resultswithin the time period is included. Alkaline Phosphatase 44(L) 46 - 116 U/L [facility] 02/25/2025 3:00 AM EDT 02/27/2025 2:45 PM EDT us Khoa Carmichael MD LAB BLOOD ORDERABLES Final Resul t Performing Organization Address [facility] Co de Phone Number [facility]PS [facility] [address] [place] [address] * PTH, Intact (02/25/2025 3:00 AM EDT) PTH, Intact 305 160 - 721 pg/mL [facility] Comment: Suggested (KDIGO) ESRD maintenance range is two to nine times the upper normal limit (80.1 pg/mL) for the laboratory. 02/25/2025 3:00 AM EDT 02/27/2025 2:45 PM EDT us Khoa Carmichael MD LAB BLOOD ORDERABLES Final Resul t Performing Organization Address City/[facility] Co de Phone Number [facility]PS [facility] [address] [place] [address] * Magnesium (02/25/2025 3:00 AM EDT) Only the most recent of3 resultswithin the time period is included. Pathologist [facility] Magnesium 2.5 1.9 - 2.7 mg/dL [facility] 02/25/2025 3:00 AM EDT 02/27/2025 2:45 PM EDT us Khoa Carmichael MD LAB BLOOD ORDERABLES Final Resul t Performing Organization Address [facility] de Phone Number [facility] [address] [place] [address] * (ABNORMAL) Lactate dehydrogenase (02/25/2025 3:00 AM EDT) Only the most recent of3 resultswithin the time period is included. Pathologist [facility] LDH 260(H) 120 - 246 U/L [facility] 02/25/2025 3:00 AM EDT 02/27/2025 2:45 PM EDT us Khoa Carmichael MD LAB BLOOD ORDERABLES Final Resul t Performing Organization Address [facility] de Phone Number [facility]PS [facility] [address] [place] [address] * (ABNORMAL) Hemoglobin A1c (02/25/2025 3:00 AM EDT) Pathologist [facility] Hemoglobin A1C 5.8(H) <5.7 % [facility] Comment: Methodology: Enzymatic HbA1c (NGSP %) ?Suggested Diagnosis >6.4% ? Diabetic 5.7-6.4% ?Pre-Diabetic <5.7% ? Non-Diabetic Diabetic Glucose Control Evaluation: Therapeutic action suggested at >8.0% ADA recommends a glycemic goal of <7.0% 02/25/2025 3:00 AM EDT 02/27/2025 2:28 PM EDT us Khoa Carmichael MD LAB BLOOD ORDERABLES Final Resul t Performing Organization Address [facility] de Phone Number [facility] [address] [place] [address] * (ABNORMAL) Glucose, random (02/25/2025 3:00 AM EDT) Only the most recent of3 resultswithin the time period is included. Glucose 149(H) 74 - 109 mg/dL [facility] 02/25/2025 3:00 AM EDT 02/27/2025 2:45 PM EDT us Khoa Carmichael MD LAB BLOOD ORDERABLES Final Resul t Performing Organization Address [facility] de Phone Number [facility] [address] [place] [address] * (ABNORMAL) Ferritin (02/25/2025 3:00 AM EDT) Only the most recent of3 resultswithin the time period is included. Ferritin 1,295(H) 22 - 322 ng/mL [facility] 02/25/2025 3:00 AM EDT 02/27/2025 2:45 PM EDT us Khoa Carmichael MD LAB BLOOD ORDERABLES Final Resul t Performing Organization Address [facility] de Phone Number [facility] [address] [place] [address] * (ABNORMAL) Creatinine, serum (02/25/2025 3:00 AM EDT) Only the most recent of3 resultswithin the time period is included. Creatinine 6.26(H) 0.70 - 1.30 mg/dL [facility] 02/25/2025 3:00 AM EDT 02/27/2025 2:45 PM EDT Khoa Carmichael MD LAB BLOOD ORDERABLES Final Resul t Performing Organization Address [facility] de Phone Number [facility] [address] [place] [address] * Bilirubin, total (02/25/2025 3:00 AM EDT) Only the most recent of3 resultswithin the time period is included. Total Bilirubin 0.3 0.3 - 1.2 mg/dL [facility] 02/25/2025 3:00 AM EDT 02/27/2025 2:45 PM EDT Khoa Carmichael MD LAB BLOOD ORDERABLES Final Resul t Performing Organization Address [facility] de Phone Number [facility] [address] [place] [address] * (ABNORMAL) Lipid panel (02/25/2025 3:00 AM EDT) Cholesterol 76 <200 mg/dL [facility] Comment: Optimal: ?<200 Borderline: ? 200-239 Higher Risk: ?>239 Triglycerides 163(A) <150 mg/dL [facility] Comment: Optimal: ?<150 Borderline High: ??150-199 High: ? 200-499 Very High: ?>499 HDL 23(A) >59 mg/dL [facility] Comment: Desirable: ?>59 Higher Risk: ?<40 LDL-Calc 20 <100 mg/dL [facility] Comment: Optimal: ?<100 Above Optimal: ?100-129 Borderline High: ??130-159 High: ? 160-189 Very High: ?>189 VLDL Cholesterol Vic 33(A) <30 mg/dL [facility] Comment: Optimal: ?<30 Borderline High: ??30-39 High: ? 40-99 Very High: ?>99 Chol/HDL Ratio 3.3(A) <3.3 [facility] Comment: Optimal: ?<3.3 Higher Risk: ?>6.2 02/25/2025 3:00 AM EDT 02/27/2025 2:45 PM EDT Khoa Carmichael MD LAB BLOOD ORDERABLES Final Resul t Performing Organization Address City/[facility] Co de Phone Number [facility] [address] [place] [address] * Electrolyte panel (02/25/2025 3:00 AM EDT) Only the most recent of3 resultswithin the time period is included. Sodium 137 136 - 145 mEq/L [facility] Potassium 4.7 3.4 - 5.0 mEq/L [facility] Chloride 98 98 - 107 mEq/L [facility] Bicarbonate (CO2) 26 21 - 31 mEq/L [facility] Anion Gap 13 3 - 14 mEq/L [facility] 02/25/2025 3:00 AM EDT 02/27/2025 2:45 PM EDT us Khoa Carmichael MD LAB BLOOD ORDERABLES Final Resul t Performing Organization Address City/[facility] Co de Phone Number [facility] [address] [place] [address] * (ABNORMAL) Hemoglobin (02/18/2025 3:00 AM EDT) Only the most recent of6 resultswithin the time period is included. Hgb 10.4(L) 13.7 - 17.5 g/dL [facility] Hemoglobin x 3 31.2(L) 41.1 - 52.5 g/dL [facility] 02/18/2025 3:00 AM EDT 02/19/2025 1:17 PM EDT Khoa Carmichael MD LAB BLOOD ORDERABLES Final Resul t Performing Organization Address [facility] Co de Phone Number [facility] [address] [place] [address] * Clotted Tube (01/21/2025 3:00 AM EST) [facility] Signature Clotted Tube Lavender [facility] Comment:Received clotted lav betty tube; unable to perform hematology tests. 01/21/2025 3:00 AM EST Khoa Carmichael MD LAB BLOOD ORDERABLES Final Resul t Performing Organization Address [facility] de Phone Number [facility]PS [facility] [address] [place] [address] from Last 3 Months Insurance Medicare [facility] Medicare [facility]
--- OUTSIDE RECORDS SUMMARY | 2025-03-17 08:32 | XMS_ITS | Continuity of Care Document ---
Author Organization [facility] [address] [facility] [address] [place] [address] Phone [phone] Care Team Providers Care Platform Power Technician Name Role Phone Delon Gao M.D. Care Team Information Rece iver [phone] Hudson Silva Care Team Information Receive r [phone] Problems Active Problems Provider Date Asthma Delon Gao M.D. 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 Onset: 08/01/2022 Monoclonal gammopathy (clinical) Delon Gao M.D. Onset: 12/01/2022 Insulin treated type 2 diabetes mellitus Delon santos M.D. Onset: 08/27/2023 Congestive heart failure Delon Gao M.D. 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 Onset: 0 08/01/2022 Inactive: 01/15/2025 Social History Type Date Description Comments Sex Unknown Tobacco Use Start: Unknown Never Smoked Cigarettes Smoking Status Reviewed: 09/23/24 Never Smoked Cigaret missael ETOH Use Never used alcohol Allergies and adverse reactions Description No Known Drug Allergies Medications Active Medications SIG Qnty Indications Order ing Provider Date Rosuvastatin Zyjorvu68pr Tablets take 1 tab by mouth every day 30tadenver Peraza M.D. 01/15/2025 Losartan Rkifowcjy38cu Tablets Take 1 tab by mouth every day 90tadenver Peraza M.D. 01/15/2025 Leflore 82143gr Capsules 1 by mouth every day 90tigre Peraza M.D. 07/22/2024 Albuterol Sulfate WUD498(90Base) mcg/Act Aerosol Inhale 2 Puffs 4 Times Daily as Needed 25.5units Becky Peraza M.D. 04/30/2023 Minimed Tyronza 3ML3ml Misc 1 reservoir to insulin pump every two days as directed for 90 days dx: e11.9 40units E11Osmany Gao M.D. 02/01/2023 Freestyle Jana 2/Sensor/Flash Glucose Monitoring Myicvk1Mhexvs Misc 1 sensor to skin every fourteen days as directed dx: e11.9 6units E11Osmany Gao M.D. 02/01/2023 Minimed Quick Set Infusion Set/23 /6mm23 /6mm Misc use 1 every 3 days dx: e11.9 30units E11Osmany Gao M.D. 02/01/2023 Idpmzp588mf Capsules 1 by mouth 2 times a day 180tigre Gao M.D. 12/01/2022 Qtvtjk974rr Tablets take 1 tablet 1 time daily 90hugo Peraza M.D. 08/01/2022 Wixela Vtkpd861-63pqt/Act Aerosol inhale 1 puff 2 times daily as directed 180unserafin Peraza M.D. 08/01/2022 Metoprolol Pgpfmqrk52va Tablets take 1/2 tablet 2 times daily 180tabs Becky Peraza M.D. 06/19/2022 Otbwgrn907Nkbq/ML Solution Use 240 Units Subcutaneously With Insulin Pump Every Day as Directed 210units E11.9 Becky Peraza M.D. 06/13/2022 Sevelamer Ngcqhhfbb979ut Tablets Take 1 tab three times a day Unknown History Medications Oxycodone HCL5mg/5ML Solution 5ml q 6hrs prn pain 100ml Delon Gao M.D. 03/31/2024 - 07/22/2024 Vital Signs Date Vital Result Comment 01/15/2025 1:10pm BP Systolic 118 mmHg BP Diastolic 40 mmHg Heart Rate 47 /min Height 66 inches 5'6 Weight 160.38 lb BMI (Body Mass Index) 25.9 kg/m2 Results Test Acquired Date Facility Test Result H/L Range Note Hemoglobin A1c 01/15/2025 Inhouse Hemoglobin A1c 6.1% Glucose Fingerstick 01/15/2025 Inhouse Glucose Fingerstick 188 Glucose Fingerstick 09/23/2024 Inhouse Glucose Fingerstick 250 Glucose Fingerstick 07/22/2024 Inhouse Glucose Fingerstick 162 Hemoglobin A1c 07/22/2024 Inhouse Hemoglobin A1c 7.1% Glucose Fingerstick 03/31/2024 Inhouse Glucose Fingerstick 106 Glucose Fingerstick 01/24/2024 Inhouse Glucose Fingerstick 182 Hemoglobin A1c 01/24/2024 Inhouse Hemoglobin A1c 6.3% Glucose Fingerstick 12/04/2023 Inhouse Glucose Fingerstick 156 Glucose Fingerstick 10/08/2023 Inhouse Glucose Fingerstick 98 Glucose Fingerstick 09/28/2023 Inhouse Glucose Fingerstick 227 Hemoglobin A1c 09/28/2023 Inhouse Hemoglobin A1c 6.2% Lipid Panel 08/27/2023 [facility] Cholesterol, Total 175 mg/dL (<200) Triglyceride 193 mg/dL High (<150) HDL Chol 45 mg/dL (>39) LDL Cholesterol , Calculated 91 mg/dL (0-130) Non HDL Cholesterol (Calc) 130 mg/dL (<160) Hemoglobin A1c 08/27/2023 Inhouse Hemoglobin A1c 6.2% Glucose Fingerstick 08/27/2023 Inhouse Glucose Fingerstick 175 Calcium 08/27/2023 [facility] Calcium 9.2 mg/dL (8.6-10.5 ) Glucose Fingerstick 04/26/2023 Inhouse Glucose Fingerstick 122 Hemoglobin A1c 04/26/2023 Inhouse Hemoglobin A1c 6.5% Glucose Fingerstick 12/01/2022 Inhouse Glucose Fingerstick 150 Hemoglobin A1c 12/01/2022 Inhouse Hemoglobin A1c 6.6% Phosphorus 09/11/2022 [facility] Phosphorus 4.2 mg/dL (2.5-4.5) Calcium 09/11/2022 [facility] Calcium 10.4 mg/dL (8.6-10.5 ) PTH, Intact 09/11/2022 [facility] PTH, Intact 20 pg/mL (15-65) Albumin 09/11/2022 [facility] Albumin 4.5 GM/DL (3.4-4.8) Hemoglobin A1c 08/01/2022 Inhouse Hemoglobin A1c 7.3% Glucose Fingerstick 08/01/2022 Inhouse Glucose Fingerstick 134 Procedures Date Code Description Status 01/15/2025 40789 Glucose Monitoring Interpeta tion And Report Completed 09/23/2024 89562 Glucose Monitoring Interpeta tion And Report Completed 07/22/2024 85191 Glucose Monitoring Interpeta tion And Report Completed 03/31/2024 27508 Glucose Monitoring Interpeta tion And Report Completed 09/28/2023 13978 Glucose Monitoring Interpeta tion And Report Completed 12/01/2022 86994 Glucose Monitoring Interpeta tion And Report Completed 11/03/2022 NSHOWOFF No Show Office Visit Complet ed 08/01/2022 00867 Glucose Monitoring Interpeta tion And Report Completed Medical Devices Description No Information Available Encounters Type Date Location Provider Dx Diagnosis Office Visit 01/27/2025 1:25p Main Office [facility] E11.8 Type 2 diabet es mellitus with unspecified complications E78.5 Hyperlipidemia, unsp ecified Assessments Date Code Description Provider 01/27/2025 E11.8 Type 2 diabetes mellitus with unspecified complications [facility] [place] 01/27/2025 E78.5 Hyperlipidemia, unspecified [facility] [place] Plan of Treatment Future Appointment(s):* 04/14/2025 1:15 pm - [facility] at Main Office 01/15/2025 - [facility] [place]* E11.8 Type 2 diabetes mellitus with unspecified complications * Z96.41 Presence of insulin pump (external) (internal) * Z79.4 alf (current) use of insulin * I25.10 Atherosclerotic heart disease of [place] coronary artery without angina pectoris * 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 * I10 Essential hypertension * E78.5 Hyperlipidemia, unspecified * D47.2 Monoclonal gammopathy of uncertain significance * Z95.1 History of coronary artery bypass grafting * G47.30 Sleep apnea, unspecified * J45.909 Unspecified asthma, uncomplicated * N18.6 End stage renal disease * Functional Status Description No Information Available Mental Status Description No Information Available Referrals Refer to Reason for Referral Status Appt Osmin e MONOCLONAL GAMMA NATHANAEL ANEMIA Closed 03/27/2024 [facility] chest pain Closed [address] [facility] [phone] [facility] sleep study Closed 11/04/[address] [place] [address] [phone]
--- OUTSIDE RECORDS SUMMARY | 2025-03-17 08:32 | XMS_ITS | Encounter Summary ---
Author Organization [facility] Address [address] [place] [address] Phone Care Team Providers Care Logger Name Role Phone Unavailable Primary Care Provider Unavailabl e Encounter Details Date Type Department Care Team ([facility] st Contact Info) Description 03/11/2025 Treatment [facility] [address] [address] Jun Harris MD [address] [address] End stage renal disease; Dependence on renal dialysis Social History Tobacco Use Types Packs/Day Years [...] Dialysis Note - Jun Harris MD - 03/11/2025 12:00 AM EDT BASIC NOTE Patient: Jordan Orozco : 1945 Note Author: JUN HARRIS MD Service Date: 03/11/2025 This patient was personally seen for a basic visit as part of routine monthly dialysis care for end stage renal disease. Attending Architectural Drafter: MJ PIERRE MD Dialysis Location: [facility] Schedule: Shift: 2 OVERVIEW Patient is stable. HOME MEDICATIONS Medications reviewed. [facility] Medications albuterol (PROVENTIL HFA;VENTOLIN HFA) inhaler [...] status acceptable. ADEQUACY ASSESSMENT Kt/V, Natural Log 1.52 (02/25/25) 1.57 (01/28/25) 1.59 (12/31/24) UREA REDUCTION RATIO (%) 74 (02/25/25) 75 (01/28/25) 75 (12/31/24) BUN 68 (02/25/25) 67 (01/28/25) 71 (12/31/24) BUN Post Dialysis 18 (02/25/25) 17 (01/28/25) 18 (12/31/24) Creatinine 6.26 (02/25/25) 6.17 (01/28/25) 7.88 (12/31/24) Bicarbonate (CO2) 26 (02/25/25) 25 (01/28/25) 27 (12/31/24) Sodium 137 (02/25/25) 139 (01/28/25) 138 (12/31/24) ANEMIA ASSESSMENT Hgb 10.6 (02/25/25) 10.4 (02/18/25) 9.9 (02/11/25) Iron Saturation (TSat) 16 (02/25/25) 24 (01/28/25) 24 (12/31/24) Ferritin 1,295 (02/25/25) 1,317 (01/28/25) 1,267 (12/31/24) Iron 61 (02/25/25) 96 (01/28/25) 100 (12/31/24) TIBC 378 (02/25/25) 392 (01/28/25) 417 (12/31/24) MCV 100.6 (02/25/25) 101.5 (01/28/25) 100.8 (12/31/24) Platelets 152 (02/25/25) 153 (01/28/25) 148 (12/31/24) BMM ASSESSMENT Calcium, Adjusted Total 8.8 02/25/25 8.8 01/28/25 8.8 12/31/24 Calcium 8.8 02/25/25 8.8 01/28/25 8.8 12/31/24 Phosphorus, Serum 6.0 02/25/25 5.9 01/28/25 5.5 12/31/24 Ca*PO4 52.8 02/25/25 51.9 01/28/25 48.4 12/31/24 PTH, Intact 305 02/25/25 165 12/03/24 Magnesium 2.5 02/25/25 2.4 01/28/25 2.3 12/31/24 Alkaline Phosphatase 44 02/25/25 32 01/28/25 47 12/31/24 Aluminum 4 12/03/24 NUTRITION ASSESSMENT Albumin 4.9 02/25/25 4.9 01/28/25 4.7 12/31/24 Potassium 4.7 02/25/25 4.2 01/28/25 4.9 12/31/24 Hemoglobin A1C 5.8 02/25/25 7.3 12/03/24 ADDITIONAL LABS White Blood Cells 7.1 (02/25/25) 6.2 (01/28/25) 6.4 (12/31/24) Cholesterol 76 (02/25/25) 178 (12/03/24) HDL 23 (02/25/25) 30 (12/03/24) LDL-Calc 20 (02/25/25) 87 (12/03/24) Triglycerides 163 (02/25/25) 304 (12/03/24) Hep B Surface Antibody <4 (12/03/24) Uric Acid 8.7 (12/03/24) Signed by: JUN HARRIS MD on 03/11/2025 at 12:48:44 PM documented in this encounter Plan of Treatment Not on file documented as of this encounter Visit Diagnoses Diagnosis End stage renal disease Dependence on renal dialysis documented in this encounter
[2025-03-17 10:18] LABS: Cholesterol 62 mg/dL (<200); HDL Cholesterol 21 mg/dL (>40); LDL Cholesterol Calculated 26 mg/dL (<100); Triglycerides 79 mg/dL (<150)
== END 2025-03-17 08:13 | disposition home or self-care (01) ==
LOC: HO.LAB 08:12
PROVIDERS: Visit Provider Internal Medicine Endocrinology, Diabetes & Metabolism
DX: E11.9 Type 2 diabetes mellitus without complications (principal)
CPT/HCPCS: 36415; 80061

== ENCOUNTER 2025-04-03 07:44 | Outpatient (REF) | payer MEDICARE, SELFPAY ==
--- OUTSIDE RECORDS SUMMARY | 2025-04-03 07:47 | XMS_ITS ---
Author Organization [facility] Address [address] [place] [address] Care Team Providers Care Scallop Cutter Machine Name Role Phone AnishYuriy grimaldoilashalonda Primary Care Provider David Gama Unavailable [phone] Murray MONTILLA, Delon Unavailable Unavailable Cori Waddell Unavailable [phone] REASON FOR VISIT infected toe Encounters Encounter Location Date Provider Diagnosis [facility] [address] [place] [address] 03/28/2025 Cori Waddell Plan Of Treatment Next Appt Details Provider Name:David Thao , 06/30/2025 01:00:00 PM, [address] [place], [address], Progress Notes * Jordan SOLORZANO VDOB:1945 (79 yo M)Acc No.[id number]:03/28/2025 Patient:?Jordan SOLORZANO V :1945???Age:79 Y???Sex:Male Address:[address] [place] [address] * true * Date:? Generated for Printi ng/Faxing/eTransmitting on:?04/03/2025 07:46 AM EDT
--- OUTSIDE RECORDS SUMMARY | 2025-04-03 07:47 | XMS_ITS | Patient Health Record ---
Author Organization [facility] Address [address] [facility] [place] [address] Care Team Providers Care Horse Race Timer Name Role Phone Shira Hudson Primary Care Provider UnavailDavid Blake Unavailable [phone] Murray MONTILLA, Delon Unavailable Unavailable Cori Waddell Unavailable [phone] Allergies Allergen (clinical drug ingredient) Drug/Non Drug Allergy documented on EMR Reaction Allergy Type Onset Date Status amoxicillin Amoxicillin itching Drug Allergy Act tommy Results Component Value Reference Range Notes HEMOGLOBIN A1C (GLYCOHEMOGLO BIN) Reviewed date:01/06/2025 01:57:55 PM Interpretation: Performing Lab: Notes/Report: HEMOGLOBIN A1C (GLYCOHEMOGLO BIN) Reviewed date:01/06/2025 01:59:09 PM Interpretation: Performing Lab: Notes/Report: HEMOGLOBIN A1C % (HH) 6.4 HEMOGLOBIN A1C (GLYCOHEMOGLO BIN) Reviewed date:03/31/2025 09:11:07 AM Interpretation: Performing Lab: Notes/Report: HEMOGLOBIN A1C % (HH) 7.5 Reason For Referral No Information Medications Medication SIG (Take, Route, Frequency, Duration) Notes Start Date End Date Status Nitroglycerin 0.4 MG as directed Sublingual 2022 Active HumaLOG Not-Taking Ammonium Lactate 12 % USE 1 APPLICATION EXTERNALLY TO AFFECTED AREAS OF DRY SKIN TO FEET EXCEPT FOR BETWEEN THE TOES TWICE A DAY 30 DAYS for 30 Active Extra Depth Orthopedic Shoes (1 Pair) with Customized Heat Molded Multidensity Innersoles (3 Pair) as directed Dx: NIDDM/Polyneuropathy (E11.42), Hammertoe Foot Deformity (M20.41,M20.42), Preulcerative Skin Lesion(s) (L85.1 Active Insulin Pump Syringe [place] Active NovoLOG Active Fluticasone Propionate 50 MCG/ACT SPRAY 1 SPRAY INTO EACH NOSTRIL TWICE A DAY Nasal for 90 Days Active Pravastatin Sodium 40 MG Orally Not-Taking Fenofibrate 145 MG TAKE 1 TABLET BY [facility] EVERY DAY Oral for 90 Days Active Metoprolol Succinate 50 MG Orally Not-Taking Pregabalin 100 MG TAKE 1 CAPSULE BY [facility] TWICE A DAY Oral for 90 Days Active Diovan 320 MG Orally Not-[place] Metoprolol Tartrate 50 MG Oral for 90 Days Active Aspirin 81 MG Orally Not-[facility] hydrALAZINE HCl 50 MG TAKE [address] [facility] THREE TIMES A DAY DIRECTED Oral for 90 Days Active Furosemide 20 MG TAKE 1 TABLET BY [facility] EVERY DAY DIRECTED Oral for 90 Days Active Lyrica 75 MG Orally Once a day Not-Taking Immunizations Vaccine Route Administration Date Status Comme nts Influenza Unknown 08/26/2018 Administered Influenza Unknown 08/26/2019 Administered Social History Tobacco Use: Social History Observation Description Date Details (start date - stop date) Never Smoker NA - NA Tobacco use other than smoking: Question Answer Notes Are you an other tobacco user? No Tobacco Control (Standard) Question Answer Notes Tobacco use: Nonsmoker Additional Findings: Tobacco non-user Current no nsmoker AUDIT-C (Standard) Question Answer Notes Did you have a drink containing alcohol in the p ast year? No Points 0 Interpretation Negative Problems Problem Type SNOMED Code ICD Code Onset Dates Problem Status W/U Status Risk Notes Problem Acquired hammer toe of right foot (0846379004946140 ) Other hammer toe(s) (acquired), right foot (M20.41) Active confirmed Problem Acquired hammer toe of left foot (0055391618407104 ) Other hammer toe(s) (acquired), left foot (M20.42) Active confirmed Problem Polyneuropathy due to type 2 diabetes mellitus (358669579) Type 2 diabetes mellitus with diabetic polyneuropathy (E11.42) Active confirmed Vital Signs Blood pressure diastolic 65 mm Hg 03/31/2025 Height 5 ft 5 in in 03/31/2025 Blood pressure systolic 130 mm Hg 03/31/2025 Weight 153 lbs 03/31/2025 BMI 25.46 kg/m2 03/31/2025 Procedures Procedure Date Ordered Date Performed Result Body Sit e 35290-PGLHQOA NAIL, 6 OR MORE 07/08/2024 N/A 11111-Ucmsuipy Plate 07/08/2024 N/A 70408-IMMM SKIN LESIONS, OVER 4 07/08/2024 N/A 36590-ZHCPETY NAIL, 6 OR MORE 10/07/2024 N/A 77314-IYCQ SKIN LESIONS, OVER 4 10/07/2024 N/A 27776-IEBXBRN NAIL, 6 OR MORE 01/06/2025 N/A 85842-HDCJ SKIN LESIONS, OVER 4 01/06/2025 N/A 99627-KZREICL NAIL, 6 OR MORE 03/31/2025 N/A 17319-UPKV SKIN LESIONS, OVER 4 03/31/2025 N/A Encounters Encounter Location Date Provider Diagnosis [address] [address] 07/08/2024 Davidjuan Thao Type 2 diabetes mellitus with diabetic polyneuropathy E11.42 ; Tinea unguium B35.1 ; Other hammer toe(s) (acquired), right foot M20.41 ; Other hammer toe(s) (acquired), left foot M20.42 and Ingrown nail L60.[address] [address] 10/07/2024 David Master Type 2 diabetes mellitus with diabetic polyneuropathy E11.42 ; Tinea unguium B35.1 and Xerosis of skin L85.[address] [address] 01/06/2025 David Thao Type 2 diabetes mellitus with diabetic polyneuropathy E11.42 ; Tinea unguium B35.1 and Xerosis of skin L85.[address] [address] 03/31/2025 David Master Type 2 diabetes mellitus with diabetic polyneuropathy E11.42 ; Tinea unguium B35.1 ; Pain in right toe(s) M79.674 and Contusion of lesser toe of right foot without damage to nail, initial encounter S90.121A [facility] [place] [address] [place] [address] 04/16/2024 [facility] [place] [address] [facility] [address] [place] [address] 06/12/2024 [facility] [place] [address] [place] [address] 03/28/2025 Cori Waddell Assessments Encounter Date Diagnosis (ICD Code) Assessment Notes Treatment Notes Treatment Clinical Notes Section Notes 07/08/2024 Type 2 diabetes mellitus with diabetic polyneuropathy (ICD-10 - E11.42) 07/08/2024 Tinea unguium (ICD-10 - B35.1) 10/07/2024 Type 2 diabetes mellitus with diabetic polyneuropathy (ICD-10 - E11.42) 10/07/2024 Tinea unguium (ICD-10 - B35.1) 01/06/2025 Type 2 diabetes mellitus with diabetic polyneuropathy (ICD-10 - E11.42) 01/06/2025 Tinea unguium (ICD-10 - B35.1) 03/31/2025 Type 2 diabetes mellitus with diabetic polyneuropathy (ICD-10 - E11.42) 03/31/2025 Tinea unguium (ICD-10 - B35.1) 03/31/2025 Pain in right toe(s) (ICD-10 - M79.674) 01/06/2025 Xerosis of skin (ICD-10 - L85.3) 07/08/2024 Other hammer toe(s) (acquired), right foot (ICD-10 - M20.41) Patient Educated with: DIABETIC FOOT CARE INSTRUCTIONS. pdf (DIABETIC FOOT CARE INSTRUCTIONS. pdf) 07/08/2024 Other hammer toe(s) (acquired), left foot (ICD-10 - M20.42) 10/07/2024 Xerosis of skin (ICD-10 - L85.3) 03/31/2025 Contusion of lesser toe of right foot without damage to nail, initial encounter (ICD-10 - S90.121A) 07/08/2024 Ingrown nail (ICD-10 - L60.0) 10/07/2024 Other 01/06/2025 Other Plan Of Treatment Pending Test Test Name Order Date X ray : Foot, left 3V 12/04/2018 X ray : Foot, left 3V 12/22/2019 X ray : Foot, right 3V 03/31/2025 67451-YWYBVFD NAIL, 6 OR MORE 03/31/2025 28763-KEHFXRB NAIL, 6 OR MORE 10/07/2024 95605-NJFROLD NAIL, 6 OR MORE 01/06/2025 83262-FVLFXBE NAIL, 6 OR MORE 12/14/2023 65482-KRRJRJZ NAIL, 6 OR MORE 07/08/2024 96485-Vtkyhhkh Plate 07/08/2024 53700-UXNW SKIN LESIONS, OVER 4 03/31/20 25 93177-GJMN SKIN LESIONS, OVER 4 01/06/20 25 76648-OHNA SKIN LESIONS, OVER 4 10/07/20 24 76469-WGKZ SKIN LESIONS, OVER 4 07/08/20 24 80471-MICL SKIN LESIONS, OVER 4 12/14/19 24 51860-DUWX SKIN LESIONS, OVER 4 12/22/19 20 09312-GHHK SKIN LESIONS, OVER 4 03/25/20 20 49005-FBJL SKIN LESIONS, OVER 4 06/26/20 19 49743-URPR SKIN LESIONS, OVER 4 09/25/20 19 Next Appt Details Provider Name:David Noel Master , 06/30/2025 01:00:00 PM, [address] [place], [address], Insurance Providers Payer Name Payer Address Payer Phone Subscriber Number Group Number Insured Name Patient Relationship to Insured Coverage Start Date Coverage End Date Medicare [facility] [address] [place] [address] [id number] Jordan Orozco Self - patient is the insured [employer] [address] [place] [address] [id number] Jordan Orozco Self - patient is the insured Medical (General) History Medical History History ICD Code Diabetic Chicken pox Heart disease Cancer Cataracts High blood pressure Kidney disease Numbness Reflux ( GERD) Warts Measles Surgical History Surgery Date(Month/Year) triple bypass 2004 eye surgery 05/2020
--- OUTSIDE RECORDS SUMMARY | 2025-04-03 07:47 | XMS_ITS | Clinical Summary ---
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 Name Role Phone Unavailable Primary Care Provider [...] MINI PEN NEEDLES 31G X 5 MM [facility] USE TO INJECT INSULIN FOUR TIMES A DAY 01/07/2024 Active Cholecalciferol 25 MCG (1000 UT) chewable tablet Chew Active nitroglycerin (NITROSTAT) 0.[address] 0.4 mg under the tongue every 5 (five) minutes if needed for chest pain Active Downs-3 Fatty Acids (Fish Oil) 1000 MG capsule [...] Encounters Date Type Department Care Team Description 03/27/2025 Treatment [facility] [address] [phone] Jun Harris MD End stage renal disease; Dependence on renal dialysis 03/18/2025 Treatment [facility] [address] [phone] Jun Harris MD End stage renal disease; Dependence on renal dialysis 03/11/2025 Treatment [facility] [address] [phone] Jun Harris MD End stage renal disease; Dependence on renal dialysis 03/06/2025 Treatment [facility] [address] [phone] Jun Harris MD End stage renal disease; Dependence on renal dialysis 03/04/2025 Treatment [facility] [address] [phone] Jun Harris MD End stage renal disease; Dependence on renal dialysis 02/11/2025 Treatment [facility] [address] [phone] Jun Harris MD End stage renal disease; Dependence on renal dialysis 02/04/2025 Treatment [facility] [address] [phone] Jun Harris MD End stage renal disease; Dependence on renal dialysis 01/28/2025 Orders Only [facility] [address] [phone] Khoa Carmichael MD 01/28/2025 Treatment [facility] [address] [phone] Jun Harris MD End stage renal disease; Dependence on renal dialysis 01/26/2025 Treatment [facility] [address] [phone] Jun Harris MD End stage renal disease; Dependence on renal dialysis 01/14/2025 Treatment [facility] [address] [phone] Jun Harris MD 01/07/2025 Treatment [facility] [address] [phone] Jun Harris MD 01/05/2025 Treatment [facility].C. [address] [place] [address] [address] [place] [phone] Jun Harris MD from Last 3 Months [...] Foot Exam 12/26/2020 Diabetes: Hemoglobin A1C 05/27/2025 025, 12/03/2024, 08/04/2020 Influenza Vaccine (Season Ended) 2025 09/07/2021, 08/26/2019, 08/26/2018, Additional history exists Pneumococcal Vaccine: Peds ( 0 to 5 Years) and At-Risk Patients (6 to 49 Years) Discontinued 09/14/2016, 10/29/2013 Procedures Procedure Name Priority Date/Time Associated Diagnosis Comments PROTEIN, TOTAL, SERUM Routine 04/01/2025 3:00 AM EDT TRANSFERRIN SATURATION Routine 3:00 AM EDT MAGNESIUM Routine 04/01/2025 3:00 AM EDT KT/V NATURAL LOG, URR (HC) Routine 04/01/2025 3:00 AM EDT ELECTROLYTE PANEL Routine 04/01/2025 3:0 0 AM EDT LIH (HC) Routine 04/01/2025 3:00 AM EDT LACTATE DEHYDROGENASE Routine 04/01/2025 3:00 AM EDT GLUCOSE, RANDOM Routine 04/01/2025 3:00 AM EDT BUN/CREATININE RATIO Routine 04/01/2025 3:00 AM EDT CREATININE, SERUM Routine 04/01/2025 3:0 0 AM EDT BILIRUBIN, TOTAL Routine 04/01/2025 3:00 AM EDT AST Routine 04/01/2025 3:00 AM EDT ALT Routine 04/01/2025 3:00 AM EDT ALKALINE PHOSPHATASE Routine 04/01/2025 3:00 AM EDT CALCIUM PHOSPHORUS PRODUCT, ADJUSTED (HC) Routine 04/01/2025 3:00 AM EDT HEPATITIS B SURFACE ANTIGEN W/REFL CONFIRM Routine 04/01/2025 3:00 AM EDT FERRITIN Routine 04/01/2025 3:00 AM EDT CBC AND DIFFERENTIAL Routine 04/01/2025 3:00 AM EDT COLLECTION DATE (HC) Routine 02/25/2025 3:00 AM [...] EST HEMOGLOBIN Routine 01/07/2025 3:00 AM EST from Last 3 Months Results * LIH (04/01/2025 3:00 AM EDT) Only the most recent of3 resultswithin the time period is included. Lipemia Normal Normal [facility] Icterus Normal Normal [facility] Hemolysis Normal Normal [facility] 04/01/2025 3:00 AM EDT 04/02/2025 7:04 PM EDT us Khoa Carmichael MD LAB [id number] ICITED RESULTS Final Result [facility] [address] [place] [address] * Calcium Phosphorus Product, Adjusted (04/01/2025 3:00 AM EDT) Only the most recent of3 resultswithin the time period is included. Albumin 4.5 3.6 - 5.4 g/dL [facility] Calcium 8.8 8.6 - 10.3 mg/dL [facility] Phosphorus, Serum 4.9 2.5 - 5.0 mg/dL [facility] Ca*PO4 43.1 <55.0 mg2/dL2 [facility] Calcium, Adjusted Total 8.8 8.6 - 10.3 mg/dL [facility] CA*PO4 CORRCTD 43.1 <55.0 mg2/dL2 [facility] 04/01/2025 3:00 AM EDT 04/02/2025 7:04 PM EDT us Khoa Carmichael MD LAB [id number] ICITED RESULTS Final Result Performing Organization Address [facility] de Phone Number [facility] [address] [place] [address] * Hepatitis B Surface Ag w/Reflex Confirmation (04/01/2025 3:00 AM EDT) Only the most recent of3 resultswithin the time period is included. Pathologist [facility] Hep B Surface Antigen Negative Negative [facility] 04/01/2025 3:00 AM EDT 04/02/2025 7:04 PM EDT us Khoa Carmichael MD LAB BLOOD ORDERABLES Final Resul t Performing Organization Address [facility] de Phone Number [facility] [address] [place] [address] * BUN/CREATININE RATIO (04/01/2025 3:00 AM EDT) Pathologist [facility] BUN/Creatinine Ratio 8.6 <=23.0 [facility] 04/01/2025 3:00 AM EDT 04/02/2025 7:04 PM EDT us Khoa Carmichael MD LAB [id number] ICITED RESULTS Final Result Performing Organization Address [facility] Co de Phone Number [facility] [address] [place] [address] * (ABNORMAL) TSAT (04/01/2025 3:00 AM EDT) Only the most recent of3 resultswithin the time period is included. Iron 60(L) 65 - 175 ug/dL [facility] Transferrin 264 215 - 365 mg/dL [facility] TIBC 370 211 - 406 ug/dL [facility] Iron Saturation (TSat) 16(L) 22 - 52 % [facility] 04/01/2025 3:00 AM EDT 04/02/2025 7:04 PM EDT us Khoa Carmichael MD LAB BLOOD ORDERABLES Final Resul t [facility] [address] [place] [address] * (ABNORMAL) CBC and Differential (04/01/2025 3:00 AM EDT) Only the most recent of3 resultswithin the time period is included. Pathologist [facility] DIFFERENTIAL MANUAL, 2 Not Indicated [facility] White Blood Cells 6.5 4.2 - 9.1 K/uL [facility] RBC 3.59(L) 4.63 - 6.08 M/uL [facility] Hgb 11.4(L) 13.7 - 17.5 g/dL [facility] Hemoglobin x 3 34.2(L) 41.1 - 52.5 g/dL [facility] Hematocrit 35.2(L) 40.1 - 51.0 % [facility] MCV 98.1(H) 79.0 - 92.2 fL [facility] MCH 31.8 25.7 - 32.2 pg [facility] MCHC 32.4 32.3 - 36.5 g/dL [facility] RDW 14.1 11.6 - 14.4 % [facility] Platelets 130(L) 163 - 337 K/uL [facility] Neutrophils Relative 67.5 34.0 - 67.9 % [facility] Lymphocytes Relative 19.3(L) 21.8 - 53.1 % [facility] Monocytes 10.6 5.3 - 12.2 % [facility] Eosinophils Relative 1.8 0.8 - 7.0 % [facility] Basophils Relative 0.3 0.2 - 1.2 % [facility] Immature Granulocytes 0.5 0.0 - 1.0 % [facility] 04/01/2025 3:00 AM EDT 04/02/2025 6:25 PM EDT us Khoa Carmichael MD LAB BLOOD ORDERABLES Final Resul t Performing Organization Address [facility] de Phone Number [facility] [address] [place] [address] * ALT (04/01/2025 3:00 AM EDT) Only the most recent of3 resultswithin the time period is included. ALT (SGPT) 11 10 - 49 U/L [facility] 04/01/2025 3:00 AM EDT 04/02/2025 7:04 PM EDT us Khoa Carmichael MD LAB BLOOD ORDERABLES Final Resul t Performing Organization Address [facility] Phone Number [facility] [address] [place] [address] * AST (04/01/2025 3:00 AM EDT) Only the most recent of3 resultswithin the time period is included. AST (SGOT) 28 <34 U/L [facility] 04/01/2025 3:00 AM EDT 04/02/2025 7:04 PM EDT us Khoa Carmichael MD LAB BLOOD ORDERABLES Final Resul t Performing Organization Address [facility] de Phone Number [facility] [address] [place] [address] * Protein, total (04/01/2025 3:00 AM EDT) Only the most recent of3 resultswithin the time period is included. Total Protein 7.4 6.4 - 8.9 g/dL [facility] 04/01/2025 3:00 AM EDT 04/02/2025 7:04 PM EDT us Khoa Carmichael MD LAB BLOOD ORDERABLES Final Resul t Performing Organization Address [facility]/ZIP Co de Phone Number [facility] [address] [place] [address] * Alkaline phosphatase (04/01/2025 3:00 AM EDT) Only the most recent of3 resultswithin the time period is included. Alkaline Phosphatase 46 46 - 116 U/L [facility] 04/01/2025 3:00 AM EDT 04/02/2025 7:04 PM EDT us Khoa Carmichael MD LAB BLOOD ORDERABLES Final Resul t Performing Organization Address [facility] de Phone Number [facility] [address] [place] [address] * Magnesium (04/01/2025 3:00 AM EDT) Only the most recent of3 resultswithin the time period is included. Magnesium 2.6 1.9 - 2.7 mg/dL [facility] 04/01/2025 3:00 AM EDT 04/02/2025 7:04 PM EDT us Khoa Carmichael MD LAB BLOOD ORDERABLES Final Resul t Performing Organization Address [facility] de Phone Number [facility] [address] * (ABNORMAL) Lactate dehydrogenase (04/01/2025 3:00 AM EDT) Only the most recent of3 resultswithin the time period is included. LDH 289(H) 120 - 246 U/L [facility] 04/01/2025 3:00 AM EDT 04/02/2025 7:04 PM EDT us Khoa Carmichael MD LAB BLOOD ORDERABLES Final Resul t Performing Organization Address [facility] de Phone Number [facility] [address] [place] [address] * (ABNORMAL) Glucose, random (04/01/2025 3:00 AM EDT) Only the most recent of3 resultswithin the time period is included. Glucose 146(H) 70 - 99 mg/dL [facility] Comment: ADA guidelines outline the following fasting glucose ranges: Normal: ? <100 Prediabetes: 100-125 Diabetes: ? >125 04/01/2025 3:00 AM EDT 04/02/2025 7:04 PM EDT us Khoa Carmichael MD LAB BLOOD ORDERABLES Final Resul t Performing Organization Address [facility] Co de Phone Number [facility] [address] [place] [address] * (ABNORMAL) Ferritin (04/01/2025 3:00 AM EDT) Only the most recent of3 resultswithin the time period is included. Ferritin 1,352(H) 22 - 322 ng/mL [facility] 04/01/2025 3:00 AM EDT 04/02/2025 7:04 PM EDT us Khoa Carmichael MD LAB BLOOD ORDERABLES Final Resul t Performing Organization Address [facility] Co de Phone Number [facility] [address] [place] [address] * (ABNORMAL) Creatinine, serum (04/01/2025 3:00 AM EDT) Only the most recent of3 resultswithin the time period is included. Creatinine 5.34(H) 0.70 - 1.30 mg/dL [facility] 04/01/2025 3:00 AM EDT 04/02/2025 7:04 PM EDT us Khoa Carmichael MD LAB BLOOD ORDERABLES Final Resul t Performing Organization Address [facility] Co de Phone Number [facility] [address] [place] [address] * Bilirubin, total (04/01/2025 3:00 AM EDT) Only the most recent of3 resultswithin the time period is included. Total Bilirubin 0.5 0.3 - 1.2 mg/dL [facility] 04/01/2025 3:00 AM EDT 04/02/2025 7:04 PM EDT us Khoa Carmichael MD LAB BLOOD ORDERABLES Final Resul t Performing Organization Address [facility] de Phone Number [facility] [address] [place] [address] * Electrolyte panel (04/01/2025 3:00 AM EDT) Only the most recent of3 resultswithin the time period is included. Sodium 138 136 - 145 mEq/L [facility] Potassium 4.5 3.4 - 5.0 mEq/L [facility] Chloride 99 98 - 107 mEq/L [facility] Bicarbonate (CO2) 30 21 - 31 mEq/L [facility] Anion Gap 9 3 - 14 mEq/L [facility] 04/01/2025 3:00 AM EDT 04/02/2025 7:04 PM EDT us Khoa Carmichael MD LAB BLOOD ORDERABLES Final Resul t Performing Organization Address [facility] de Phone Number [facility] [address] [place] [address] * Collection Date (02/25/2025 3:00 AM EDT) Collection Date See Comment [facility] Comment: Patient sample received may exceed specimen stability, based on the collection date electronically provided. ??When reviewing patient results, verify collection information and consider specimen stability before acting on any critical or panic results. 02/25/2025 3:00 AM EDT us Khoa Carmichael MD LAB [id number] ICITED RESULTS Final Result Performing Organization Address [facility] de Phone Number [facility] [address] [place] [address] * (ABNORMAL) Kt/V Natural Log, URR (02/25/2025 3:00 AM EDT) Only the most recent of2 resultswithin the time period is included. BUN [...] PM EDT us Khoa Carmichael MD LAB [id number] ICITED RESULTS Final Result Performing Organization Address [facility] de Phone Number [facility] [address] [place] [address] * PTH, Intact (02/25/2025 3:00 AM EDT) PTH, Intact 305 160 - 721 pg/mL [facility] Comment: Suggested (KDIGO) ESRD maintenance range is two to nine times the upper normal limit (80.1 pg/mL) for the laboratory. 02/25/2025 3:00 AM EDT 02/27/2025 2:45 PM EDT us Khoa Carmichael MD LAB BLOOD ORDERABLES Final Resul t Performing Organization Address [facility] Co de Phone Number [facility] [address] [place] [address] * (ABNORMAL) Hemoglobin A1c (02/25/2025 3:00 AM EDT) Hemoglobin A1C 5.8(H) <5.7 % [facility] Comment: Methodology: Enzymatic HbA1c (NGSP %) ?Suggested Diagnosis >6.4% ? Diabetic 5.7-6.4% ?Pre-Diabetic <5.7% ? Non-Diabetic Diabetic Glucose Control Evaluation: Therapeutic action suggested at >8.0% ADA recommends a glycemic goal of <7.0% 02/25/2025 3:00 AM EDT 02/27/2025 2:28 PM EDT us Khoa Carmichael MD LAB BLOOD ORDERABLES Final Resul t [facility] [address] [place] [address] * (ABNORMAL) Lipid panel (02/25/2025 3:00 AM [...] ORDERABLES Final Resul t Performing Organization Address [facility] de Phone Number [facility] [address] [place] [address] * (ABNORMAL) Hemoglobin (02/18/2025 3:00 AM EDT) Only the most recent of4 resultswithin the time period is included. Hgb 10.4(L) 13.7 - 17.5 g/dL [facility] Hemoglobin x 3 31.2(L) 41.1 - 52.5 g/dL [facility] 02/18/2025 3:00 AM EDT 02/19/2025 1:17 PM EDT us Khoa Carmichael MD LAB BLOOD ORDERABLES Final Resul t Performing Organization Address [facility] de Phone Number [facility] [address] [place] [address] * Clotted Tube (01/21/2025 3:00 AM EST) Clotted Tube Lavender [facility] Comment:Received clotted lav betty tube; unable to perform hematology tests. 01/21/2025 3:00 AM EST us Khoa Carmichael MD LAB BLOOD ORDERABLES Final Resul t Performing Organization Address [facility] de Phone Number [facility] [address] [place] [address] from Last 3 Months Insurance Medicare [facility] Medicare [facility]
--- OUTSIDE RECORDS SUMMARY | 2025-04-03 07:47 | XMS_ITS ---
Author Organization [facility] Address [address] [place] [address] Care Team Providers Care [employer] Name Role Phone Hudson Silva Primary Care Provider UnavailDavid Blake Unavailable [phone] Murray MONTILLA, Delon Unavailable Unavailable Allergies Allergen (clinical drug ingredient) Drug/Non Drug Allergy documented on EMR Reaction Allergy Type Onset Date Status amoxicillin Amoxicillin itching Drug Allergy Act tommy REASON FOR VISIT At Risk Footcare, Painful Toe(s) Medications Medication SIG (Take, Route, Frequency, Duration) Notes Start Date End Date Status HumaLOG Not-Taking Pravastatin Sodium 40 MG Orally Not-Taking Metoprolol Succinate 50 MG Orally Not-Taking Diovan 320 MG Orally Not-Ta cami Lyrica 75 MG Orally Once a day Not-Taking Ammonium Lactate 12 % USE 1 APPLICATION EXTERNALLY TO AFFECTED AREAS OF DRY SKIN TO FEET EXCEPT FOR BETWEEN THE TOES TWICE A DAY 30 DAYS for 30 Active Extra Depth Orthopedic Shoes (1 Pair) with Customized Heat Molded Multidensity Innersoles (3 Pair) as directed Dx: NIDDM/Polyneuropathy (E11.42), Hammertoe Foot Deformity (M20.41,M20.42), Preulcerative Skin Lesion(s) (L85.1 Active Insulin Pump Syringe Fate Active NovoLOG Active Aspirin 81 MG Orally Not-Ta cami Nitroglycerin 0.4 MG as directed Sublingual 2022 Active Fluticasone Propionate 50 MCG/ACT SPRAY 1 SPRAY INTO EACH NOSTRIL TWICE A DAY Nasal for 90 Days Active Fenofibrate 145 MG TAKE 1 TABLET BY [facility] EVERY DAY Oral for 90 Days Active hydrALAZINE HCl 50 MG TAKE 1 TABLET BY [facility] THREE TIMES A DAY DIRECTED Oral for 90 Days Active Furosemide 20 MG TAKE 1 TABLET BY [facility] EVERY DAY DIRECTED Oral for 90 Days Active Pregabalin 100 MG TAKE 1 CAPSULE BY [facility] TWICE A DAY Oral for 90 Days Active Metoprolol Tartrate 50 MG Oral for 90 Days Active Social History [...] ast year? No Points 0 Interpretation Negative Vital Signs Height 5 ft 5 in in 03/31/2025 Weight 153 lbs 03/31/2025 BMI 25.46 kg/m2 03/31/2025 Blood pressure systolic 130 mm Hg 03/31/20 25 Blood pressure diastolic 65 mm Hg 025 Procedures Procedure Date Ordered Date Performed Result Body Sit e 86444-ZVCNXYG NAIL, 6 OR MORE 03/31/2025 N/A 64585-VMUC SKIN LESIONS, OVER 4 03/31/2025 N/A Encounters Encounter Location Date Provider Diagnosis [facility] [place] [address] [place] [address] 03/31/2025 David Thao Type 2 diabetes mellitus with diabetic polyneuropathy E11.42 ; Tinea unguium B35.1 ; Pain in right toe(s) M79.674 and Contusion of lesser toe of right foot without damage to nail, initial encounter S90.121A Assessments Encounter Date Diagnosis (ICD Code) Assessment Notes Treatment Notes Treatment Clinical Notes Section Notes 03/31/2025 Type 2 diabetes mellitus with diabetic polyneuropathy (ICD-10 - E11.42) 03/31/2025 Tinea unguium (ICD-10 - B35.1) 03/31/2025 Pain in right toe(s) (ICD-10 - M79.674) 03/31/2025 Contusion of lesser toe of right foot without damage to nail, initial encounter (ICD-10 - S90.121A) Plan Of Treatment Pending Test Test Name Order Date X ray : Foot, right 3V 03/31/2025 22804-[id number] NAIL, 6 OR MORE 03/31/2025 50644-EJZR SKIN LESIONS, OVER 4 03/31/20 25 Next Appt Details Follow Up: prn, Reason: Provider Name:David Thao , 06/30/2025 01:00:00 PM, [address] [place], [address], Procedure Notes * Category Sub-Category Detail Notes I & D Procedure: HEMATOMA: Due to presence of unrelieved pain despite conservative measures taken, an Incision and Drainage was recommended. The area located as per exam was prepped with betadine/alcohol, The area was incised with use of sterile 15 blade or sterile tissue nipper. The wound, once opened, was drained of approximately ( 0.2) cc hemorrhagic fluid, and debrided of devitilized tissue using same instramentation. A dry sterile dressing with antibiotic ointment was applied. The patient tolerated the procedure well and related a decrease in symptoms upon discharge. Local wound care instructions were discussed and dispensed to the patient , DIABETES: : Pt was advised of the risk of delayed/nonhealing due to diabetes risk Location T9, As per exam Anesthesia was not utilized - N EUROPATHY: patient has medically documented neuropathic condition affecting sensation Debride Nail 6-10 Nail debridement Due to the cl inical pathology outlined in the exam findings, performance of this nail treatment is medically necessary as its management by an unskilled/untrained nonprofessional would put this patients foot and overall health at risk. Therefore, debridement to affected nail(s), as described in exam ( TA, T1, T2, T3, T4, T5, T6, T7, T8, T9 ), was performed exclusively by the physician of record to reduce/remove overall nail length, girth, thickness, subungual debris, and necrotic tissue, by manual and/or electrical means through the use of a nail nipper and/or dremel-type emery grinder, to a more viable healthy nail plate or bed tissue 6-10 nails in total. Silver nitrate was used for any petechial bleeding as necessary. Definitive antifungal treatment options, both pharmaceutical and surgical, have been reviewed and discussed with the patient. The patient solely prefers the use of intermittent/as needed professional debridement services for their nail condition and understands the need for additional periodic treatments to maintain effectiveness in symptomatic relief - 64617 Keratoma Treatment Parring or Cutting o f Benign Hyperkeratotic Lesion(s) (-57) More than 4 Lesions - Due to the a t risk nature of the patients medical condition as documented in the exam findings, performance of this keratoderma treatment is medically necessary as its management by an unskilled/untrained nonprofessional would put this patients foot and overall health at risk. Therefore, the benign hyperkeratotic lesions, ( 8 ) in total, locations as stated and described in the exam ( Medial plantar, IPJ, TA, Medial plantar, IPJ, T5, SUB MTH (s) , 1 , B/L , SUB MTH (s) , 5 , B/L , Plantar, Heel(s) , B/L ), were pared, and/or cut utilizing a sterile 15 blade, tissue nippers, and/or power dremel instrumentation by the physician of record - 36717 Progress Notes * Jordan SOLORZANO VDOB:1945 (79 yo M)Acc No.[id number]:03/31/2025 Progress Note Patient:?Jordan SOLORZANO V Provider:?David Thao DPM :1945???Age:79 Y???Sex:Male Osmin e:03/31/2025 Address:[address] [place], [place] [id number] Pcp:Hudson Silva Subjective: * Chief Complaints: * ???At Risk FootcarePainful T oe(s) * HPI: ???At Risk footcare:?Pt States Last PCP Visit:?Date?01/01/2025 ???Toe pain:?Nature:?aching,?bruising,?discoloration,?swelling,?tenderness,?throbbing.?Location:?5th toe, Right foot.?Duration:?since DOI ( 03/26/25).?Onset/Cause:?states traumatic ( hit against door frame at night ).?Course:?worse.?Aggravated by:?any pressure, standing/walking, shoes.?Treatments:?rest/alter normal daily activity, ice, medication ( Vancomycin 500mg BID x 2 days ).? * ROS:?General/Constitutional:?Nausea?denies.?Vomiting?denies.?Hunger Thirst?denies.?Loss appetite?denies.?Chills?denies.?Fatigue?denies.?Fever?denies.?Night Sweats?denies.?Unexplained weight loss?denies.?Unexplained weight gain?denies.?HEENTM:?Dentures?denies.?Dizziness?denies.?Glasses/contacts?denies.?Retinopathy?den ies.?Blurred/double vision?denies.?TMJ?denies.?Discharge/drainage?denies.?Implants?denies.?Sore throat?denies.?Dental implants?admits.?Hard of hearing ?admits.?Difficulty chewing/swallowing/speaking?denies.?Nose bleeds?denies.?Sore mouth?denies.?Respiratory:?On O xygen?denies.?Pneumonia/pleurisy?denies.?Bronchitis?denies.?Emphysema?denies.?Co ughing?admits.?Cough blood?denies.?Shortness of breath?admits.?Wheezing?admits.?Cardiovascular:?Pacemaker?denies.?MVP?denies.?WPW?denies.?CHF?denies.?Heart attack?denies.?Septal defect?denies.?Rapid beat?denies.?Chest pain ?denies.?Atrial Fib.?denies.?Murmur/Palpitations?denies.?Gastrointestinal:?Hemorrhoids?denies.?Stomach/Abdominal pain?denies.?Dark blood stool?denies.?Irritable bowel ?denies.?Constipation?denies.?Diarrhea?denies.?Hematology:?Swelling?admits.?Clots?denies.?Varicose Veins?denies.?Bruising?denies.?Bleeding problem?denies.?Genitourinary:?Blood urine?denies.?Frequent/Painfu/urination/bladder control?denies.?Kidney stones?denies.?Infection (UTI)?denies.?Nephropathy?denies.?sex trans dis (STD)?denies.?Prostate?denies.?Musculoskeletal:?Hammertoes?admits.?Bunions?denies.?Back Pain?denies.?Muscle Cramps/ Resting?admits.?Muscle cramps / walking?denies.?Generalized aches and pains?denies.?Weakness?denies.?Integ.:?Dominguez?denies.?Scars?denies.?Corns/calluses?admits.?Ingrown nails?admits.?Painful nails?denies.?Open Sores?denies.?Rashes?denies.?Neurologic:?Difficulty sleeping?admits.?Brain disorder?denies.?Numbness?admits.?Balance t rouble?admits.?Confusion?denies.?Fainting/blackouts?denies.?Tingling?denies.?Vince mors?denies.? * Medical History:? * Surgical History:?triple byp ass 2004e surgery 05/2020 * Hospitalization/Major Diagno stic Procedure:?Denies Past Hospitalization * Family History:?Mother: dece ased, colon cancer, diagnosed with Other malignant neoplasm of unspecified site, Diabetic - NIDDM.?Father: .?Siblings: diagnosed with Diabetic - NIDDM, Family history of arthritis.? * Social History:?Tobacco Use:?Tobacco use other than smoking?Are you an other tobacco user??No ?Tobacco Control (Standard)?Tobacco use:?Nonsmoker ?Additional Findings: Tobacco non-user?Current nonsmoker ???Drugs/Alcohol:?Drugs?Have you used drugs other than those for medical reasons in the past 12 months??No ???Miscellaneous:?Caffeine: no. ?Children: yes, 3. ?Exercise: no. ?Marital status: . ???Drug/Alcohol:?AUDIT-C (Standard)?Did you have a drink containing alcohol in the past year??No ?Points?0 ?Interpretation?Negative * Medications:?TakingMetoprolo l Tartrate 50 MG Tablet [...] as directed Sublingual NovoLOG Insulin Pump Syringe Fate Extra Depth Orthopedic Shoes (1 Pair) with Customized Heat Molded Multidensity Innersoles (3 Pair) as directed Dx: NIDDM/Polyneuropathy (E11.42), Hammertoe Foot Deformity (M20.41,M20.42), Preulcerative Skin Lesion(s) (L85.1 Ammonium Lactate 12 % Cream USE 1 APPLICATION EXTERNALLY TO AFFECTED AREAS OF DRY SKIN TO FEET EXCEPT FOR BETWEEN THE TOES TWICE A DAY 30 DAYS Taking Metoprolol Tartrate 50 MG Tablet Oral [...] Sublingual Taking NovoLOG Taking Insulin Pump Syringe Fate Taking Extra Depth Orthopedic Shoes (1 Pair) with Customized Heat Molded Multidensity Innersoles (3 Pair) as directed Dx: NIDDM/Polyneuropathy (E11.42), Hammertoe Foot Deformity (M20.41,M20.42), Preulcerative Skin Lesion(s) (L85.1 Taking Ammonium Lactate 12 % Cream USE 1 APPLICATION EXTERNALLY TO AFFECTED AREAS OF DRY SKIN TO FEET EXCEPT FOR BETWEEN THE TOES TWICE A DAY 30 DAYS Not-Taking/PRNAspirin 81 MG Tablet Delayed Release Orally [...] in, Wt:15 3, BMI: 25.46, Shoe size:7, BP:130/65mm Hg, BS:186, Ht-cm: 165.1 cm, Wt-k.4 kg. * ???Past Orders: ???Lab:HEMOGLOBIN A1C (GLYCO HEMOGLOBIN) (Order Date - 11/28/2024) (Collection Date & Time - 03/31/2025 09:10 AM) ? Value Reference Range ?HEMOGLOBIN A1C % (HH) 7.5 * Examination: ???Ophthalmology Referral: ?DIABETES EYE EXAM?Procedure Performed:?Yes ?Date of Exam Performed?03/13/2024 States next appt soon - 5/20/25 ?Diabetic Retinopathy Screening:?Yes ?Retinal Screening Performed:?Yes ?Findings of Diabetic Eye Exam:?no retinopathy?Neurological: ?SENSORY:? Neurological exam demonstrates, reduced light touch sensation, reduced sharp/dull pin prick discrimination , B/L, 5.07 monofilament test performed at plantar aspects of 5 varied sites per foot shows sensation, reduced , B/L.?Nails: ?NAILS are:?Elongated, overgrown, dystrophic, lytic, greater than 3mm thick, discolored and friable with crumbly malodorous subungual debris , TA, T1, T2, T3, T4, T5, T6, T7, T8, T9.?Dermatologic: ?SKIN FINDINGS:?Skin exam reveals Keratotic lesion(s) located at , Medial plantar, IPJ, TA, Medial plantar, IPJ, T5, SUB MTH (s) , 1 , B/L , SUB MTH (s) , 5 , B/L , Plantar, Heel(s) , B/L?.?Orthopedic: ?MUSCLE STRENGTH:?5/5 all groups in a symmetrical fashion, B/L.?FOOT MORPHOLOGY:?(-) Charcot collapse/destruction noted at [facility].?DIGITAL DEFORMITIES:?Digital contracture, PIPJ, 2-5 B/L, incompl- nonreducible to push-up test, no over, nor underlapping, with evidence of shoe producing skin irritation, Reveals pain to palpation, swelling, ecchymosis, T9, Nail plate intact.?FOOTWEAR EVALUATION:?worn, non-supportive, shoe gear properties exacerbate patient's foot/toe deformity , shoe gear properties exacerbate patients foot/toe deformity.?X-Rays - IMAGING REPORT: ?Clinical Indication(s):?Evaluate for Fracture.?Views:?3 views of Foot, AP, LO, MO, RIGHT, Taken by a trained Podiatric Public Safety Dispatcher ( EF ).?Findings:?normal bone and soft tissue density consistent for patients age and sex.?Digits:?Bone cysts identified in distal phalanx, show exostosis of the distal phalanx.?Fracture:?Negative fractures identified.?Vascular: ?DP PULSES (B):?0/4, B/L.?PT PULSES (B):?0/4, B/L.?CAPILLARY FILL TIME:?delayed, all digits, B/L.?TROPHIC CONDITION-TEXTURE/ELASTICITY/TURGOR/HAIR GROWTH (B):?decreased, B/L.?TEMPERTURE GRADIENT (C):?decreased, cool to cool, proximal to distal, B/L.?PIGMENTATION:?mottled, B/L.?EDEMA (C):?absent, B/L.?CLAUDICATION (C):?denies, B/L.?REST PAIN:?denies, B/L.?General Examination: ?GENERAL APPEARANCE:?Reveals a pleasant, alert, well nourished, well- developed, well hydrated individual, who demonstrates proper attention to hygiene/body habitus, and is in no acute distress, Pt serves as own historian for office visit today.?ORIENTED:?person, place, and time.?FOOT EXAM:?Lower Extremity Neurological Exam performed:?Yes ?Visual exam of foot performed:?Yes ?Date?03/31/2025 ?Footwear Evaluation?Footwear Evaluation performed:?Yes??? Assessment: * Assessment: 1.?Type 2 diabetes mellitus with diabetic polyneuropathy - E11.42 (Primary)???2.?Tinea unguium - B35.1???3.?Pain in right toe(s) - M79.674???4.?Contusion of lesser toe of right foot without damage to nail, initial encounter - S90.121A???Specify :Acute problem, Complicated w/ Multiple Tx Options(4),Dx New problem, Prognosis Uncertain (4)??? Plan: * Treatment: 2.?Pain in right toe(s)?Imaging: X ray : Foot, right 3V * Procedures:?Debride Nail 6-10:?Nail debridement?Due to the clinical pathology outlined in the exam findings, performance of this nail treatment is medically necessary as its management by an unskilled/untrained nonprofessional would put this patients foot and overall health at risk. Therefore, debridement to affected nail(s), as described in exam (?TA, T1, T2, T3, T4, T5, T6, T7, T8, T9?), was performed exclusively by the physician of record to reduce/remove overall nail length, girth, thickness, subungual debris, and necrotic tissue, by manual and/or electrical means through the use of a nail nipper and/or dremel-type emery grinder, to a more viable healthy nail plate or bed tissue 6- 10 nails in total. Silver nitrate was used for any petechial bleeding as necessary. Definitive antifungal treatment options, both pharmaceutical and surgical, have been reviewed and discussed with the patient. The patient solely prefers the use of intermittent/as needed professional debridement services for their nail condition and understands the need for additional periodic treatments to maintain effectiveness in symptomatic relief - 23203.?Keratoma Treatment:?Parring or Cutting of Benign Hyperkeratotic Lesion(s)?(-57) More than 4 Lesions - Due to the at risk nature of the patients medical condition as documented in the exam findings, performance of this keratoderma treatment is medically necessary as its management by an unskilled/untrained nonprofessional would put this patients foot and overall health at risk. Therefore, the benign hyperkeratotic lesions, ( 8 ) in total, locations as stated and described in the exam (?Medial plantar,?IPJ,?TA,?Medial plantar,?IPJ,?T5,?SUB MTH (s)?,?1?,?B/L?,?SUB MTH (s)?,?5?,?B/L?,?Plantar,?Heel(s)?,?B/L??), were pared, and/or cut utilizing a sterile 15 blade, tissue nippers, and/or power dremel instrumentation by the physician of record - 84451.?I & D:?Procedure:?HEMATOMA: Due to presence of unrelieved pain despite conservative measures taken, an Incision and Drainage was recommended. The area located as per exam was prepped with betadine/alcohol, The area was incised with use of sterile 15 blade or sterile tissue nipper. The wound, once opened, was drained of approximately ( 0.2) cc hemorrhagic fluid, and debrided of devitilized tissue using same instramentation. A dry sterile dressing with antibiotic ointment was applied. The patient tolerated the procedure well and related a decrease in symptoms upon discharge. Local wound care instructions were discussed and dispensed to the patient , DIABETES: : Pt was advised of the risk of delayed/nonhealing due to diabetes risk.?Location?T9, As per exam.?Anesthesia?was not utilized - NEUROPATHY: patient has medically documented neuropathic condition affecting sensation.? * Procedure Codes:?45033 DEBRI DE NAIL, 6 OR MORE, Modifiers: XS 97105 X-RAY EXAM OF RIGHT FOOT 3V, Modifiers: 26 , [id number] TRIM SKIN LESIONS, OVER 4, Modifiers: XS [...] encouraged the patient to call the office.?Digital Treatment:?I explained to the patient the risks/benefits of all the different treatment [...] success were answered to their verbally confirmed satisfaction.?Hematoma:?The patient was counseled on the diagnosis, treatment options, and importance for adherence to recomm re: Hematoma including rest, elevation, warm moist compresses, compression, and poss surgical incision and drainage depending on response to conservative measures.?P.R.I.C.E.:?The patient was counseled on the use of P.R.I.C.E. and NSAIDS (if well tolerated) to aid in the recovery from their painful condition, Recommended Topical analgesics including Aspercream/Biofreeze/Voltaren gel as directed.? ??Screening/Special Tests:?Fall Risk?Screening:?No falls in the past year ?FALLS: Screening for Future Fall Risk?Have you had any falls with injury in the past year??No * Follow Up:?prn * Images: * Sign off status: Completed true * Provider:?David Thao DPM Date:?2024 Generated for Darion cain/Faxing/eTransmitting on:?04/03/2025 07:47 AM EDT History and Physical Notes * HPI (History of Present Illness) Category Sub-Category Detail Notes Category Not es Toe pain Nature: aching, bruising , discoloration, swelling, tenderness, throbbing Location: 5th toe, Right foot Duration: since DOI ( 03/26/25) Onset/Cause: states traumatic ( h it against door frame at night ) Course: worse Aggravated by: any pressure, standi ng/walking, shoes Treatments: rest/alter normal da kamilla activity, ice, medication ( Vancomycin 500mg BID x 2 days ) At Risk footcare Pt States Last PCP Visit: Date: 5 Examination Category Sub-Category Detail Notes Category Not [...] MTH (s) , 5 , B/L , Plantar, Heel(s) , B/L Orthopedic FOOT MORPHOLOGY: (-) Charcot col lapse/destruction noted at [facility] FOOTWEAR EVALUATION: worn, non-supportiv e, shoe gear properties exacerbate patient's foot/toe deformity , shoe gear properties exacerbate patients foot/toe deformity DIGITAL DEFORMITIES: Digital contracture , PIPJ, 2-5 B/L, incompl-nonreducible to push-up test, no over, nor underlapping, with evidence of shoe producing skin irritation, Reveals pain to palpation, swelling, ecchymosis, T9, Nail plate intact MUSCLE STRENGTH: 5/5 all groups in a symmetrical fashion, B/L General Examination GENERAL APPEARANCE: Reveals a pleasant, alert, well nourished, well-developed, well hydrated individual, who demonstrates proper attention to hygiene/body habitus, and is in no acute distress, Pt serves as own historian for office visit today FOOT EXAM: Lower Extremity Neurological Exa m performed:: Yes Visual exam of foot performed:: Yes Date: 03/31/2025 ORIENTED: person, place, and t moiz Footwear Evaluation Footwear Evaluation performe d:: Yes Ophthalmology Referral DIABETES EYE EXAM Procedure Perform ed:: Yes ?Date of Exam Performed: 03/13/2024 Stat es next appt soon - 04/14/25 Diabetic Retinopathy Screening:: Yes Retinal Screening Performed:: Yes Findings of Diabetic Eye Exam:: no retin [...] friable with crumbly malodorous subungual debris , TA, T1, T2, T3, T4, T5, T6, T7, T8, T9 X-Rays - IMAGING REPORT Findings: normal b one and soft tissue density consistent for patients age and sex Fracture: Negative fractures i dentified Digits: Bone cysts identifie d in distal phalanx, show exostosis of the distal phalanx Views: 3 views of Foot, AP, LO, MO, RIGHT, Taken by a trained Podiatric Public Safety Dispatcher ( EF ) Clinical Indication(s): Evaluate for Fra cture
--- OUTSIDE RECORDS SUMMARY | 2025-04-03 07:47 | XMS_ITS | Continuity of Care Document ---
Author Organization [facility] [employer] [facility] [address] [place] [address] Phone [phone] Care Team Providers Care School Physical Therapist Name Role Phone Delon Gao M.D. Care Team Information Rece iver [phone] Hudson Silva Care Team Information Receive r [phone] Problems Active Problems Provider Date Asthma Delon [...] Qnty Indications Order ing Provider Date Rosuvastatin Askawey95fg Tablets take 1 tab by mouth every day 30tadenver Peraza M.D. 01/15/2025 Losartan Rggptbrvs11sn Tablets Take 1 tab by mouth every day 90tadenver Peraza M.D. 01/15/2025 [place] 16809cb Capsules 1 by mouth every day 90tigre Peraza M.D. 07/22/2024 Albuterol Sulfate DHF216(90Base) mcg/Act Aerosol Inhale 2 Puffs 4 Times Daily as Needed 25.5units Becky Peraza M.D. 04/30/2023 Minimed Darfur 3ML3ml Misc 1 reservoir to insulin pump every two days as directed for 90 days dx: e11.9 40units E11Osmany Gao M.D. 02/01/2023 Freestyle Jana 2/Sensor/Flash Glucose Monitoring Acnfbc9Xlzloq Misc 1 sensor to skin every fourteen days as directed dx: e11.9 6units E11Osmany Gao M.D. 02/01/2023 Minimed Quick Set Infusion Set/23 /6mm23 /6mm Misc use 1 every 3 days dx: e11.9 30units E11Osmany Gao M.D. 02/01/2023 Zncjrt702ih Capsules 1 by mouth 2 times a day 180tigre Gao M.D. 12/01/2022 Hrjpag716ja Tablets take 1 tablet 1 time daily 90hugo Peraza M.D. 08/01/2022 Wixela Tnhkt379-51kpl/Act Aerosol inhale 1 puff 2 times daily as directed 180unserafin Peraza M.D. 08/01/2022 Metoprolol Prruejin53gn Tablets take 1/2 tablet 2 times daily 180tabs Becky Peraza M.D. 06/19/2022 Llnwmsn689Qrar/ML Solution Use 240 Units Subcutaneously With Insulin Pump Every Day as Directed 210units E11.9 Becky Peraza M.D. 06/13/2022 Sevelamer Dyeltcveb467rr Tablets Take 1 tab three times a day Unknown Vital Signs Date Vital Result Comment 01/15/2025 [...] Inhouse Hemoglobin A1c 6.2% Lipid Panel 08/27/2023 [facility] Cholesterol, Total 175 mg/dL (<200) Triglyceride 193 mg/dL High (<150) HDL Chol 45 mg/dL (>39) LDL Cholesterol , Calculated 91 mg/dL (0-130) Non HDL Cholesterol (Calc) 130 mg/dL (<160) Hemoglobin A1c 08/27/2023 Inhouse Hemoglobin A1c 6.2% Glucose Fingerstick 08/27/2023 Inhouse Glucose Fingerstick 175 Calcium 08/27/2023 [facility] Calcium 9.2 mg/dL (8.6-10.5 ) Glucose Fingerstick 04/26/2023 Inhouse Glucose Fingerstick 122 Hemoglobin A1c 04/26/2023 Inhouse Hemoglobin A1c 6.5% Glucose Fingerstick 12/01/2022 Inhouse Glucose Fingerstick 150 Hemoglobin A1c 12/01/2022 Inhouse Hemoglobin A1c 6.6% Phosphorus 09/11/2022 [facility] Phosphorus 4.2 mg/dL (2.5-4.5) Calcium 09/11/2022 [facility] Calcium 10.4 mg/dL (8.6-10.5 ) PTH, Intact 09/11/2022 [facility] PTH, Intact 20 pg/mL (15-65) Albumin 09/11/2022 [facility] Albumin 4.5 GM/DL (3.4-4.8) Hemoglobin A1c 08/01/2022 Inhouse Hemoglobin A1c 7.3% Glucose Fingerstick 08/01/2022 Inhouse Glucose Fingerstick 134 Procedures Date Code Description Status 01/15/2025 13669 Glucose Monitoring Interpeta tion And Report Completed 09/23/2024 60243 Glucose Monitoring Interpeta tion And Report Completed 07/22/2024 58284 Glucose Monitoring Interpeta tion And Report Completed 03/31/2024 61560 Glucose Monitoring Interpeta tion And Report Completed 09/28/2023 66622 Glucose Monitoring Interpeta tion And Report Completed 12/01/2022 71272 Glucose Monitoring Interpeta tion And Report Completed 11/03/2022 NSHOWOFF No Show Office Visit Complet ed 08/01/2022 30707 Glucose Monitoring Interpeta tion And Report Completed [...] JACKSON [place] at Main Office 01/15/2025 - Riyana Khalifa, PA* E11.8 Type 2 diabetes mellitus with unspecified complications * Z96.41 Presence of insulin pump (external) (internal) * Z79.4 salvage determiner (current) use of insulin * I25.10 Atherosclerotic heart disease of [place] coronary artery without angina pectoris * C06.9 [...] Description No Information Available Referrals Refer to Dr Reason for Referral Status Appt Osmin e MONOCLONAL GAMMA NATHANAEL ANEMIA Closed 03/27/2024 [facility] chest pain Closed [address] [facility] [phone] [facility] sleep study Closed 11/04/[address] [place] [address] [phone]
--- OUTSIDE RECORDS SUMMARY | 2025-04-03 07:47 | XMS_ITS ---
Author Organization [facility] Address [address] [place] [address] Care Team Providers Care Transportation Coordinator Name Role Phone Hudson Silva Primary Care Provider UnavailDavid Blake Unavailable [phone] Murray MONTILLA, Delon Unavailable Unavailable Allergies Allergen (clinical drug ingredient) Drug/Non Drug Allergy documented on EMR Reaction Allergy Type Onset Date Status amoxicillin Amoxicillin itching Drug Allergy Act tommy REASON FOR VISIT At Risk Footcare, Skin problem(s) Medications Medication SIG (Take, Route, Frequency, Duration) Notes Start Date End Date Status Lyrica 75 MG Orally Once a day Not-Taking HumaLOG Not-Taking Diovan 320 MG Orally Not-Ta Metoprolol Succinate 50 MG Orally Not-Taking Pravastatin Sodium 40 MG Orally Not-Taking NovoLOG Active Insulin Pump Syringe Dunstan Active Extra Depth Orthopedic Shoes (1 Pair) with Customized Heat Molded Multidensity Innersoles (3 Pair) as directed Dx: NIDDM/Polyneuropathy (E11.42), Hammertoe Foot Deformity (M20.41,M20.42), Preulcerative Skin Lesion(s) (L85.1 Active Ammonium Lactate 12 % 1 application Exte rnally to affected areas of dry skin to feet except for between the toes Twice a day for 30 days Active Aspirin 81 MG Orally Not-Ta hydrALAZINE HCl 50 MG TAKE 1 TABLET BY M OUTH THREE TIMES A DAY DIRECTED Oral for 90 Days Active Nitroglycerin 0.4 MG as directed Sublingual 2022 Active Fenofibrate 145 MG TAKE 1 TABLET BY WALTER TH EVERY DAY Oral for 90 Days Active Fluticasone Propionate 50 MCG/ACT SPRAY 1 SPRAY INTO EACH NOSTRIL TWICE A DAY Nasal for 90 Days Active Furosemide 20 MG TAKE 1 TABLET BY WALTER TH EVERY DAY DIRECTED Oral for 90 Days Active Pregabalin 100 MG TAKE 1 CAPSULE BY MO [facility] TWICE A DAY Oral for 90 Days [...] Signs Height 5 ft 5 in in 01/06/2025 Weight 153 lbs 01/06/2025 BMI 25.46 kg/m2 01/06/2025 Blood pressure systolic 120 mm Hg 01/06/20 25 Blood pressure diastolic 60 mm Hg 025 Procedures Procedure Date Ordered Date Performed Result Body Sit e 29832-SKBSDQI NAIL, 6 OR MORE 01/06/2025 N/A 60413-IFLA SKIN LESIONS, OVER 4 01/06/2025 N/A Encounters Encounter Location Date Provider Diagnosis [facility] [address] [address] 01/06/2025 David Thao Type 2 diabetes mellitus with diabetic polyneuropathy E11.42 ; Tinea unguium B35.1 and Xerosis of skin L85.3 Assessments Encounter Date Diagnosis (ICD Code) Assessment Notes Treatment Notes Treatment Clinical Notes Section Notes 01/06/2025 Type 2 diabetes mellitus with diabetic polyneuropathy (ICD-10 - E11.42) 01/06/2025 Tinea unguium (ICD-10 - B35.1) 01/06/2025 Xerosis of skin (ICD-10 - L85.3) 01/06/2025 Other Plan Of Treatment Pending Test Test Name Order Date 06694-AFURHQJ NAIL, 6 OR MORE 01/06/2025 49331-KRGR SKIN LESIONS, OVER 4 01/06/20 25 Next Appt Details Follow Up: prn, Reason: Provider Name:David Thao , 06/30/2025 01:00:00 PM, [address] [place], [address], Procedure Notes * Category Sub-Category Detail Notes Debride Nail 6-10 Nail debridement Due to [...] use of a nail nipper and/or dremel-type cutter grinder, to a more viable healthy nail [...] to maintain effectiveness in symptomatic relief - 17940 Keratoma Treatment Parring or Cutting o f [...] instrumentation by the physician of record - 97974 Progress Notes * Jordan SOLORZANO VDOB:1945 (79 yo M)Acc No.[id number]:01/06/2025 Progress Note Patient:Jordan VASQUEZ V Provider:?David Thao DPM :1945???Age:79 Y???Sex:Male Osmin e:01/06/2025 Address:[address] [place], [place] [address] Pcp:Delon Gao MD Subjective: * Chief Complaints: * ???At Risk FootcareSkin prob lorie(s) * HPI: ???At Risk footcare:?Pt States Last PCP Visit:?Date?09/30/2024 ???Skin problems:?Nature:?dryness , scaling.?Location:?B/L .?Treatments:?medication ( AM Lactin ), admits intermittent adherence to recommended application.? * ROS:?General/Constitutional:?Nausea?denies.?Vomiting?denies.?Hunger Thirst?denies.?Loss appetite?denies.?Chills?denies.?Fatigue?denies.?Fever?denies.?Night Sweats?denies.?Unexplained weight loss?denies.?Unexplained [...] as directed Sublingual NovoLOG Insulin Pump Syringe Dunstan Extra Depth Orthopedic Shoes (1 Pair) with Customized Heat Molded Multidensity Innersoles (3 Pair) as directed Dx: NIDDM/Polyneuropathy (E11.42), Hammertoe Foot Deformity (M20.41,M20.42), Preulcerative Skin Lesion(s) (L85.1 Ammonium Lactate 12 % Cream 1 application Externally to affected areas of dry skin to feet except for between the toes Twice a day Taking Metoprolol Tartrate 50 MG Tablet Oral [...] Sublingual Taking NovoLOG Taking Insulin Pump Syringe Dunstan Taking Extra Depth Orthopedic Shoes (1 Pair) with Customized Heat Molded Multidensity Innersoles (3 Pair) as directed Dx: NIDDM/Polyneuropathy (E11.42), Hammertoe Foot Deformity (M20.41,M20.42), Preulcerative Skin Lesion(s) (L85.1 Taking Ammonium Lactate 12 % Cream 1 application Externally to affected areas of dry skin to feet except for between the toes Twice a day Not-Taking/PRNAspirin 81 MG Tablet Delayed Release Orally [...] in, Wt:15 3, BMI: 25.46, Shoe size:7, BP:120/60mm Hg, BS:233., Ht-cm: 165.1 cm, Wt-k.4 kg. * ???Past Orders: ???Lab:HEMOGLOBIN A1C (GLYCO HEMOGLOBIN) (Order Date - 10/27/2024) (Collection Date & Time - 01/06/2025 01:58 PM) ? Value Reference Range ?HEMOGLOBIN A1C % (HH) 6.4 * Examination: ???Neurological: ?SENSORY:? Neurological exam demonstrates, [...] , B/L , Plantar, Heel(s) , B/L , Skin shows approximately 10 percent LESS, sign(s) of, dryness, scaling, in a stocking fashion, no fissure(s) present, B/L.? Assessment: * Assessment: 1.?Type 2 diabetes mellitus with diabetic polyneuropathy - E11.42 (Primary)???2.?Tinea unguium - B35.1???3.?Xerosis of skin - L85.3???Specify :Acute problem, Uncomplicated (3),Rx Management (4) Response to treatment - Unresolved Nonadherent to recommendations? Plan: * Treatment: * Procedures:?Debride Nail 6-10:?Nail debridement?Due to the [...] use of a nail nipper and/or dremel-type cutter grinder, to a more viable healthy nail [...] to maintain effectiveness in symptomatic relief - 08635.?Keratoma Treatment:?Parring or Cutting of Benign Hyperkeratotic Lesion(s)?(-57) [...] instrumentation by the physician of record - 96813.? * Procedure Codes:?61777 DEBRI DE NAIL, 6 OR MORE, Modifiers: XS 25267 TRIM SKIN LESIONS, OVER 4, Modifiers: XS [...] patient to call the office.?Xerosis:?The patient was AGAIN, counseled on the diagnosis, potential etiologies, and [...] interspaces while paying special attention to the heels.? ??Screening/Special Tests:?Fall Risk?Screening:?No falls in the past year ?FALLS: Screening for Future Fall Risk?Have you had any falls with injury in the past year??No * Follow Up:?prn * Images: * Sign off status: Completed true * Provider:?David Thao DPM Date:?2024 Generated for Darion cain/Mandy/Avi on:?04/03/2025 07:46 AM EDT History and Physical Notes * HPI (History of Present Illness) Category Sub-Category Detail Notes Category Not es Skin problems Nature: dryness , scaling Location: B/L Treatments: medication ( AM Lact in ), admits intermittent adherence to recommended application At Risk footcare Pt States Last PCP [...] , B/L , Plantar, Heel(s) , B/L , Skin shows approximately 10 percent LESS, sign(s) of, dryness, scaling, in a stocking fashion, no fissure(s) present, B/L Nails NAILS are: Elongated, overg rown, dystrophic, lytic, greater than 3mm thick, discolored and friable with crumbly malodorous subungual debris , TA, T1, T2, T3, T4, T5, T6, T7, T8, T9
[2025-04-03 09:25] LABS: Glucose Fasting 77 mg/dL (60-99)
[2025-04-04 07:33] LABS: C Peptide 2.03 ng/mL (0.80-3.85)
== END 2025-04-03 07:45 | disposition home or self-care (01) ==
LOC: HO.LAB 07:44
PROVIDERS: Visit Provider Physician Assistant
DX: E11.9 Type 2 diabetes mellitus without complications (principal)
CPT/HCPCS: 36415; 82947; 84681

== ENCOUNTER 2025-04-23 09:44 | Outpatient (AMB) | payer MEDICARE, SELFPAY ==
--- NOTE | 2025-04-23 09:53 | MHC.OFFVIS ---
Intake Visit Reasons: fistula bleed Intake Note: Patient presents for fistula bleed. He has no pain. Accompanied by: Family/Other Allergies brompheniramine [From DIMETAPP DM COLD-COUGH (PE)] Allergy (Intermediate, Verified 04/23/25 09:54) NAUSEA & VOMITING dextromethorphan [From DIMETAPP DM COLD-COUGH (PE)] Allergy (Intermediate, Verified 04/23/25 09:54) NAUSEA & VOMITING Penicillins Allergy (Intermediate, Verified 04/23/25 09:54) Unknown phenylephrine [From DIMETAPP DM COLD-COUGH (PE)] Allergy (Intermediate, Verified 04/23/25 09:54) NAUSEA & VOMITING HPI HPI fistula bleed: Details: The patient is a 79-year-old male presenting with follow-up concerns for his left upper extremity arteriovenous fistula, 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 He describes symptoms of pressure and discomfort at the fistula site, previously managed with balloon angioplasty in November. The patient has been undergoing hemodialysis for nearly a year, attending sessions three times weekly. He is on a Sunday regimen. Performed a [place] [facility] [place] on 2nd shift. [facility] Medical History CKD (chronic kidney disease) stage 5, GFR less than 15 ml/min [place] (hard of hearing) Elevated cholesterol Back pain IDDM (insulin dependent diabetes mellitus) Asthma On beta robert at home CAD (coronary artery disease) HTN (hypertension) Surgical History Hx of right cataract extraction Hx of left cataract extraction History of blepharoplasty History of nasal surgery S/P triple vessel bypass Social History Are you a primary animal care specialist to a significant other at home: No Do you presently have visiting nurse or other home services: No Alcohol intake: never Patient Tobacco Use Status: Never used Tobacco Review of Systems Const All systems reviewed & are unremarkable except as noted in HPI and below Reports no additional complaints ENT Reports Normal hearing present Card Denies chest pain, Denies chest pain at rest, Denies chest pain with activity and Denies pedal edema Resp Denies cough GI Denies abdominal pain Musc Denies abnormal gait, Denies muscle cramps and Denies radiating pain into limb Skin/Breast Denies skin ulcer and Denies wounds Neuro Reports Normal hearing present and Denies abnormal gait Psych Reports no additional complaints Physical Exam Const General: cooperative, healthy appearing and comfortable Orientation/consciousness: oriented to person, oriented to place and oriented to time HEENT Head: Yes normal to inspection Neck Neck: Yes normal visual inspection Carotids: no bruits Chest Chest palpation & inspection: normal inspection of the chest Resp Effort & Inspection: normal respiratory effort and able to speak in complete sentences Auscultation: clear to auscultation bilaterally, no crackles, no rales, no rhonchi and no wheezes Cardio Rate: regular rate Rhythm: regular rhythm Heart sounds: S1 normal heart sound present and S2 normal heart sound present Bruits: no carotid bruits Peripheral pulses: Peripheral pulses 2+ throughout GI Inspection: Yes normal to inspection Skin Wounds: no wounds Hair: normal Neuro General: oriented to person, oriented to place and oriented to time Cranial nerves: Yes CN's II-XII intact bilaterally and Yes Normal hearing present Cognition (Neuro): normal cognition Motor exam (neuro): 5/5 motor strength present throughout Extrem Other: Left upper extremity fistula appears to be more pulsatile in nature. General: No clubbing, No cyanosis and No edema Psych Appearance: grossly normal Mental Status: mental status grossly normal Speech and movement: Normal speech and movement present Assessment & Plan Assessment & Plan (1) ESRD (end stage renal disease): Code(s): N18.6 - End stage renal disease Category: Medical Plan: In short patient has bleeding from fistula post dialysis. The concern is more of central venous stenosis. The patient will require left upper extremity fistulogram. I discussed with the patient the necessity of repeating the balloon angioplasty for the arteriovenous fistula stenosis to manage his symptoms and maintain dialysis access. I explained the procedure, its benefits, and the increased analgesia to be administered to address his previous discomfort. We also discussed scheduling the procedure on a Sunday to avoid interfering with his regular dialysis sessions. The patient consented to the plan, understanding the importance of the intervention and the care required post-procedure. Plan Patient was informed and verbally consented to the use of an ambient scribe for clinic note documentation during this visit. Patient Instructions: - You will have a procedure next Sunday to fix the fistula. - Pain medicine will be given to help with discomfort during the procedure. - Continue regular dialysis sessions on Sunday, Sunday, and Sunday. - Contact if you experience increased pain, pressure, or bleeding at the fistula site. Coding Level of Care Code Est Pt Level 4 (44533) Complex EM visit Add On G2211 Diagnoses ESRD (end stage renal disease) N18.6
--- OUTSIDE RECORDS SUMMARY | 2025-04-23 10:03 | XMS_ITS ---
Author Organization [facility] Address [address] [place] [address] Care Team Providers Care Butter Wrapper Name Role Phone Hudson Silva Primary Care Provider UnavailDavid Blake Unavailable [phone] Murray MONTILLA, Delon Unavailable Unavailable REASON FOR VISIT Seen Sooner Encounters Encounter Location Date Provider Diagnosis [address] [address] 04/21/2025 David Thao Plan Of Treatment Next Appt Details Provider Name:David Thao , 06/30/2025 01:00:00 PM, [address] [place] [address], [address], Progress Notes * Jordan SOLORZANO VDOB:1945 (79 yo M)Acc No.[id number]:04/21/2025 Progress Note Patient:?Jordan SOLORZANO V Provider:?David Thao DPM :1945???Age:79 Y???Sex:Male Osmin e:04/21/2025 Address:[address] [place] [address] Pcp:Hudson Silva Subjective: * Chief Complaints: * ???1. Seen Sooner. * Medical History:? Objective: * Vitals:? Assessment: Plan: * Treatment: * Images: * The named appointment provid er may or may not be the originator of this progress note, and it is not deemed complete until electronically signed by the appointment provider. Sign off status: Pending * Provider:Alda Thao DPM Date:?2024 Generated for Darion cain/Mandy/Avi on:?04/23/2025 10:02 AM EDT
== END 2025-04-23 10:12 | disposition home or self-care (01) ==
LOC: HO.HVS 09:44
PROVIDERS: PCP Physician Assistant; Visit Provider Surgery Vascular Surgery
DX: N18.6 End stage renal disease (principal)
CPT/HCPCS: 99214; G2211

== ENCOUNTER → 2025-04-23 09:44 | Outpatient (BNVA) | payer MEDICARE, SELFPAY | PROVIDERS: PCP Physician Assistant; Visit Provider Surgery Vascular Surgery | DX: N18.6 End stage renal disease (principal) | CPT/HCPCS: 99212 ==

== ENCOUNTER 2025-04-28 06:24 | Day surgery (SDC) | payer MEDICARE, SELFPAY ==
[2025-04-28] VITALS (14 sets, daily range): BP systolic 151–182; BP diastolic 62–84; PULSE 59–66; RESP 16–23; TEMP 36.2–37.1; O2SAT 93–99; BMI 25.3
[2025-04-28 07:01] LABS: MANUAL DIFF FLAG NO
[2025-04-28 07:02] LABS: Basophils Percent Auto 0.4 % (0-2); Eosinophils Absolute Auto 0.2 X10*3/uL (0.0-0.4); Eosinophils Percent Auto 2.2 % (0-4); Hematocrit 33.2 % (42.0-52.0); Hemoglobin 10.5 g/dl (14.0-18.0); Imm Gran Abs Auto 0.02 X10*3/uL (0.00-0.03); Imm Gran Pct Auto 0.2 % (0.0-0.4); Lymphocytes Absolute Auto 1.4 X10*3/uL (1.2-4.9); Lymphocytes Percent Auto 16.9 % (20-40); Mean Corpuscular HGB Conc 31.6 g/dl (31.0-36.0); Mean Corpuscular Hemoglobin 30.5 pg (27.0-33.0); Mean Corpuscular Volume 96.5 fL (80.0-98.0); Monocytes Absolute Auto 0.7 X10*3/uL (0.1-1.2); Monocytes Percent Auto 8.8 % (2-11); Neutrophils Absolute Auto 5.8 x10*3/uL (2.0-8.3); Neutrophils Percent Auto 71.5 % (45-73); Platelet Count 111 X10*3/uL (160-400); Red Blood Count 3.44 X10*6/uL (4.60-5.80); Red Cell Distribution Width 14.8 % (11.0-16.0); White Blood Count 8.1 X10*3/uL (4.8-10.8)
[2025-04-28] MEDS: 0.9 % Sodium Chloride 1,000 ML 100 ML IVCONT (07:14)
[2025-04-28 07:24] LABS: Blood Urea Nitrogen 33 mg/dL (9-16); Creatinine Clr Calc Pharmacy 12.8; Estimated Glomerular Filt Rate 13
--- NOTE | 2025-04-28 07:29 | PC.NURSE ---
Patient reports he gets dialysis 3 times per week: Sunday, Sunday, and Sunday.
[2025-04-28] MEDS: fentaNYL citrate/PF 100 MCG/2 ML VIAL 25 MCG IVPUSH (08:38)
[2025-04-28] MEDS: Midazolam HCl 2 MG/2 ML VIAL 0.5 MG IVPUSH (08:38)
--- NOTE | 2025-04-28 09:35 | W.PM.OPN ---
Operative Note Operative Note Date of Service: 04/28/25 Narrative: Angiogram report from [facility] Preoperative diagnosis: End-stage renal disease with poorly functioning fistula Postoperative diagnosis: Same Procedure: 1. Left upper extremity fistula access 2. Fistulogram 3. Outflow venous tract plasty Surgeon:Clay Cosme M.D., FACS, RPVI Public Health Educator:None Anesthesia: Local with moderate conscious sedation. Total intraservice moderate sedation time was 35 minutes. I monitored the patient's level of consciousness and physiologic status continuously throughout the procedure. Specimens:none Drains:none Estimated blood loss: Less than 10 ml Radiation Dose: 23.9 mGy Implant: Medtronic Impact DCB 7 x 40, 7 x 60 Indications: 79-year-old gentleman with left upper extremity brachiocephalic fistula had excessive bleeding times post dialysis. He now presents for fistulogram with possible intervention The patient has signed the informed consent after reviewing risks, complications, benefits, and alternatives previously discussed with the patient. The patient was given the opportunity to ask any additional questions or voice any concerns. All questions were answered to the patient's satisfaction. Procedure in detail: Patient was brought to the angiography suite prior to which a time-out was called for patient identification and site verification. Left arm was prepped and draped in the standard surgical fashion. Left upper extremity fistula was punctured with micro puncture needle and wire. Subsequently a precision 5 Slovak sheath was then placed. Bentson wire was advanced to the level of the superior vena cava. We subsequently exchanged out for a short 6 Slovak sheath and glidewire advantage. Over this the more central stenosis was initially plasty did with a 7 x 40 balloon and subsequently a 7 x 40 drug coated balloon. More proximally there was another lesion in the mid fistula this was plasty did with a 7 x 40 balloon and followed by a 7 x 60 drug coated balloon. In both cases drug coated balloons were brought into position in under 3 minutes and insufflated for a total of 3 minutes in duration. At the conclusion fistulogram demonstrated excellent result. Pursestring suture was placed at the puncture site and closed. Patient tolerated the procedure well and returned to recovery with stable vitals. Interpretation of films: 1. Fistulogram demonstrated 2 focal areas of stenosis 2. Completion fistulogram post plasty demonstrated resolution of outflow tract. Conclusion: 1. Successful angioplasty of left upper extremity fistula. 2. Anticoagulation status: No change This note is constructed using voice recognition software. While every effort has been made to ensure accuracy, pension adviser errors may have been included. Thank you for allowing me to participate in the care of your patient. Yours sincerely, Clay Cosme MD, FACS, R.P.V.I.
== END 2025-04-28 10:01 | disposition home or self-care (01) ==
PROVIDERS: Visit Provider Surgery Vascular Surgery
DX: T82.838A Hemorrhage due to vascular prosthetic devices, implants and grafts, initial encounter (principal); I12.0 Hypertensive chronic kidney disease with stage 5 chronic kidney disease or end stage renal disease; E11.22 Type 2 diabetes mellitus with diabetic chronic kidney disease; N18.6 End stage renal disease; Z99.2 Dependence on renal dialysis; I25.10 Atherosclerotic heart disease of native coronary artery without angina pectoris; Z95.1 Presence of aortocoronary bypass graft; Z79.899 Other long term (current) drug therapy; Z79.4 Long term (current) use of insulin; Y79.2 Prosthetic and other implants, materials and accessory orthopedic devices associated with adverse incidents
CPT/HCPCS: 36415; 36902; 82565; 84520; 85025; 99152; 99153; C1725; C1769; C1894; C2623; J1644; J2250; J3010; Q9967

== ENCOUNTER → 2025-04-28 06:24 | Outpatient (BNV) | payer MEDICARE, SELFPAY | PROVIDERS: Visit Provider Surgery Vascular Surgery | DX: N18.6 End stage renal disease (principal); T82.590A Other mechanical complication of surgically created arteriovenous fistula, initial encounter | CPT/HCPCS: 36902; 99152 ==

== ENCOUNTER 2025-05-14 11:37 | Outpatient (AMB) | payer MEDICARE, SELFPAY ==
--- OUTSIDE RECORDS SUMMARY | 2025-04-21 09:45 | XMS_ITS ---
Author Organization [facility] Address [address] [place] [address] Care Team Providers Care Preschool Teacher Assistant Name Role Phone Hudson Silva Primary Care Provider Unavailabl David Keys Unavailable [phone] Murray MONTILLA, Delon Unavailable Unavailable REASON FOR VISIT Seen Sooner Encounters Encounter Location Date Provider Diagnosis [address] [address] 04/21/2025 David Thao Plan Of Treatment Next Appt Details Provider Name:David Thao , 06/30/2025 01:00:00 PM, [address] [place], [address], Progress Notes * Jordan SOLORZANO VDOB:1945 (79 yo M)Acc No.[id number]:04/21/2025 Progress Note Patient: Jordan SORENSON V Provider: Raphael Thao DPM :1945 A ge:79 Y S ex:Male Date:04/21/2025 Address:[address] [place] [address] Pcp:Hudson Silva Subjective: * Chief Complaints: * 1 . Seen Sooner. * Medical History: Objective: * Vitals: Assessment: Plan: * Treatment: * Images: * The named appointment provid er may or may not be the originator of this progress note, and it is not deemed complete until electronically signed by the appointment provider. Sign off status: Pending * Provider: Rapahel Thao DPM Date: 0 04/21/2025 Generated for Darion Guillaume on: 05/14/2025 01:08 PM EDT
--- NOTE | 2025-05-14 11:37 | MHC.OFFVIS ---
Intake Visit Reasons: 2 week follow up L arm fistula Intake Note: follow up Left ARm fistulagram 04/28/25, pt states its no longer having issues with bleeding Oracle Application Consultant Required: No Accompanied by: Self / Same As Patient Allergies brompheniramine (From DIMETAPP DM COLD-COUGH (PE)) Allergy (Intermediate, Verified 05/14/25 11:40) NAUSEA & VOMITING dextromethorphan (From DIMETAPP DM COLD-COUGH (PE)) Allergy (Intermediate, Verified 05/14/25 11:40) NAUSEA & VOMITING Penicillins Allergy (Intermediate, Verified 05/14/25 11:40) Unknown phenylephrine (From DIMETAPP DM COLD-COUGH (PE)) Allergy (Intermediate, Verified 05/14/25 11:40) NAUSEA & VOMITING HPI HPI 2 week follow up L arm fistula: Details: Jordan is presenting today as a follow up to fistulogram, performed by Dr Cosme on 04/28. He states that dialysis has been using the fistula without any issues, bleeding, or discharge. He denies any pain at the site. He has no new concerns today. [facility] Medical History CKD (chronic kidney disease) stage 5, GFR less than 15 ml/min SUN'AQ (hard of hearing) Elevated cholesterol Back pain IDDM (insulin dependent diabetes mellitus) Asthma On beta robert at home CAD (coronary artery disease) HTN (hypertension) Surgical History History of surgery of head Hx of right cataract extraction Hx of left cataract extraction History of blepharoplasty History of nasal surgery S/P triple vessel bypass Social History Are you a primary career development director to a significant other at home: No Do you presently have visiting nurse or other home services: No Alcohol intake: never Patient Tobacco Use Status: Never used Tobacco Review of Systems ENT Reports Normal hearing present Neuro Reports Normal hearing present and Denies Sensory deficit (Neuro) Physical Exam Const General: healthy appearing and no acute distress Orientation/consciousness: patient oriented x3 HEENT Head: Yes normal to inspection Ears: hearing grossly normal bilaterally Mouth: Normal oral and palatal mucosa present Resp Effort & Inspection: normal respiratory effort and able to speak in complete sentences Auscultation: clear to auscultation bilaterally Cardio Jugular venous distension: no JVD Rate: regular rate Rhythm: regular rhythm Heart sounds: S1 normal heart sound present and S2 normal heart sound present Bruits: no abdominal aortic bruits, no carotid bruits, no femoral bruits and no renal bruits Peripheral pulses: Peripheral pulses 2+ throughout GI Inspection: Yes normal to inspection Palpation (GI): No Abdominal aortic bruit present Skin General skin exam: no rashes or lesions noted Wounds: no wounds Hair: normal Neuro General: patient oriented x3 Cranial nerves: Yes CN's II-XII intact bilaterally and Yes Normal hearing present Cognition (Neuro): normal cognition Gait exam (Neuro): Normal gait present Motor exam (neuro): 5/5 motor strength present throughout Sensory Exam: No Sensory deficit (Neuro) Extrem Other: Left upper extremity: pulsatile feeling over the site with slight thrill felt higher up the arm/fistula. Sutures intact, easily removed with forceps and scissors. No bleeding or discharge noted. General: Yes normal to inspection, Yes full ROM, Yes capillary refill normal and Yes normal gait Assessment & Plan Assessment & Plan (1) ESRD (end stage renal disease): Code(s): N18.6 - End stage renal disease Category: Medical Plan: Jordan is presenting today on a follow up to fistulogram, performed on 04/28. He states that there have been no problems with his dialysis on MWF. He denies any bleeding or pain in the fistula. The sutures were removed without difficulty. He has a follow up scheduled in 6m, and we will see him them. I did discuss with him that if anything came up in the meantime, to reach out to us. Thank you for allowing us to participate in the patient's care. If there are any questions or concerns, please do not hesitate to reach out to us. Coding Level of Care Code Est Pt Level 4 (08981) Diagnoses ESRD (end stage renal disease) N18.6
== END 2025-05-14 11:47 | disposition home or self-care (01) ==
LOC: HO.HVS 11:37
PROVIDERS: Visit Provider Physician Assistant Surgical
DX: N18.6 End stage renal disease (principal)
CPT/HCPCS: 99214

== ENCOUNTER → 2025-05-14 11:37 | Outpatient (BNVA) | payer MEDICARE, SELFPAY | PROVIDERS: Visit Provider Physician Assistant Surgical | DX: N18.6 End stage renal disease (principal) | CPT/HCPCS: 99212 ==

== ENCOUNTER 2025-08-25 10:49 | Outpatient (AMB) | payer MEDICARE, SELFPAY ==
--- OUTSIDE RECORDS SUMMARY | 2025-04-21 09:45 | XMS_ITS ---
Author Organization [facility] Address [address] [place] [address] Care Team Providers Care Fish And Wildlife Biologist Name Role Phone Hudson Silva Primary Care Provider Unavailabl David Keys Unavailable [phone] Murray MONTILLA, Delon Unavailable Unavailable REASON FOR VISIT Seen Sooner Encounters Encounter Location Date Provider Diagnosis [address] [address] 04/21/2025 David Thao Plan Of Treatment Next Appt Details Provider Name:David Thao , 10/20/2025 09:30:00 AM, [address] [place], [address], Progress Notes * Jordan SOLORZANO VDOB:1945 (79 yo M)Acc No.[id number]:04/21/2025 Progress Note Patient: Jordan SORENSON V Provider: Raphael Thao DPM :1945 A ge:79 Y S ex:Male Date:04/21/2025 Address:[address] [place] [address] Pcp:Hudson Silva Subjective: * Chief Complaints: * [...] 0 04/21/2025 Generated for Darion Guillaume on: 0 08/25/2025 12:09 PM EDT
--- OUTSIDE RECORDS SUMMARY | 2025-08-20 09:00 | XMS_ITS | Encounter Summary ---
Author Organization [facility] Address [address] [place] [id number] Phone Care Team Providers Care Dairy And Food Laboratory Assistant Name Role Phone Delon Gao MD Primary Care Provider Haresh Trinidad MD Unavailable [phone] Cori Sequeira CNP Unavailable Reason for Referral * - Authorized Specialty Diagnoses / Procedures Referred By Geraldine t Referred To Contact Radiology Diagnoses Lymphoma of testis Procedures Case Request Interventional Radiology: PORT A CATH INSERTION (IR) Haresh Trinidad MD [address] [place] [address] Phone: tel: fax: mailto:[email or web address] Referral ID Status Reason Start Date Expiration Date V isits Requested Visits Authorized [id number] Authorized 08/20/2025 1 1 * Outpatient Procedure - Authorized Specialty Diagnoses / Procedures Referred By Geraldine rico Referred To Contact Diagnoses Examination prior to chemotherapy Procedures Adult Echo TTE Haresh Trinidad MD [address] [place] [address] Phone: tel: fax: mailto:[email or web address] Referral ID Status Reason Start Date Expiration Date V isits Requested Visits Authorized [id number] Authorized 08/20/2025 08/20/2026 1 1 Reason for Visit * Reason Comments Follow Up Visit Encounter Details Date Type Department Care Team (Late st Contact Info) Description 08/20/2025 9:00 AM EDT Office Visit [facility] at [address] [address] Haresh Trinidad MD [address] [place] [phone] [email or web address] Squamous cell carcinoma of tonsil (Primary Dx); Lymphoma of testis; Examination prior to chemotherapy Social History Tobacco Use Types Packs/Day Years Used Date Smoking Tobacco: Never Smokeless Tobacco: Never Alcohol Use Standard Drinks/Week Comments Never 0 (1 standard drink = 0.6 oz pur e alcohol) Home Health Assessment: Transportation Answer Date Recorded Lack of Transportation (Medical) No 05/20/2024 Lack of Transportation (Non-Medical) No 05/20/2024 Patient Unable or Declines to Respond No 05/20/2024 Education Answer Date Recorded Are you interested in more education? Not on claus e 03/22/2023 Are you concerned about learning? Not on file 03/22/2023 No 03/22/2023 No 03/22/2023 Digital Access Answer Date Recorded No 04/24/2023 No 04/24/2023 Reliable internet access at home? Not on file 04/24/2023 Device with a working camera? 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 Not on file Not on file [employer] [place] during war Not on file Not on fi le Not on file documented as of this encounter Last Filed Vital Signs Vital Sign Reading Time Taken Comments Blood Pressure 140/63 08/20/2025 9:03 AM EDT Pulse 54 08/20/2025 9:03 AM EDT Temperature 36.6 C (97.8 F) 08/20/2025 9:03 AM EDT Respiratory Rate - - Oxygen Saturation 95% 08/20/2025 9:03 AM EDT Inhaled Oxygen Concentration - - Weight 67 kg (147 lb 9.6 oz) 08/20/2025 9:03 AM EDT Height 162 cm (5' 3.78 ) 08/20/2025 9:03 AM EDT Body Mass Index 25.51 08/20/2025 9:03 AM EDT documented in this encounter Progress Notes * Haresh Trinidad MD - 08/20/2025 9:00 AM EDT Images from the original note were not included. Hematology/ Medical Oncology Progress Note [facility] Jordan Orozco 1945 [id number] MEDICAL ONCOLOGIST: Haresh Trinidad MD PATIENT IDENTIFICATION: Jordan Orozco is a 79 y.o. 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 ID: Cancer Staging Squamous cell carcinoma of tonsil Staging form: Pharynx - HPV-Mediated Oropharynx, AJCC 8th Edition - Clinical stage from 05/04/2022: Stage II (cT3, cN2, cM0) - Signed by Leobardo Mario MD on 05/09/2022 Oncology History Overview Note 02/21/2022: Pt c/o difficulty swallowing for the past 2 months (Dr Jt Noriega). Indirect laryngoscopy incomplete. Normal exam via fiberoptic scoping through left nostril. 04/04/2022: Barium swallow ([facility]) reveals normal esophageal motility, no mass or stricture. 04/11/2022: Fiberoptic scoping (Dr Jt Noriega) shows a possible right tonsillar lesion. 04/14/2022: CT soft tissue neck ([facility]) shows a 3.3 x 2.8 x 4 cm lobulated soft tissue mass within the right-sided oral pharynx. There is also significant lymphadenopathy, worse on the right, whichsuggests metastatic lymphadenopathy. 04/18/2022: Laryngoscopy (Dr Cristiano Hendrickson)) shows a mass filling vallecula, involving right BOT. Right tonsil biopsy performed. Pathology shows squamous cell carcinoma, P16+. Squamous cell carcinoma of tonsil 04/18/2022 Initial Diagnosis Squamous cell carcinoma of tonsil 05/04/2022 - Cancer Staged Staging form: Pharynx - HPV-Mediated Oropharynx, AJCC 8th Edition - Clinical stage from 05/04/2022: Stage II (cT3, cN2, cM0) - Signed by Leobardo Mario MD on 05/09/2022 05/04/2022 Other PET/CT: 3 cm hypermetabolic right-sided oropharyngeal mass consistent with clinical history of squamous cell carcinoma. This extends inferiorly into the right vallecula and involves the right base of tongue.The maximum SUV is 10.9. There are bilateral level 2A hypermetabolic lymph nodes, the largest of which is on the right side and measures 3 cm. This has SUV max of 7.6. There is a 2 cm hypermetabolic right sided level 2B lymph node. There is a 1.4 cm right-sided level 1B lymph node with an SUV max of 6.9. There is a 1 cm right sided level 1A lymph node with SUV max of 4.39. Mention was made of right-sided gynecomastia. There are no lung nodules. There were no focal liver lesions. There was a hypermetabolic left-sidedadrenal nodule with SUV max of 4.2. 05/15/2022 - 05/15/2022 Systemic Therapy Curative; CETUXIMAB 250 MG/M2 WEEKLY Haresh Trinidad MD 05/24/2022 - 07/18/2022 Radiation Treatment Summary: Rad Oncology - Course: 1 with Cetuximab Treatment Site Current Dose Modality From To Elapsed Days Fx. R Oropharynx & Upper Bilateral Neck 7,000 cGy 6MV 05/24/22 07/18/22 55 35 R Low Neck 5950 5,950 cGy 6MV 05/24/22 07/18/22 55 35 L Low Neck 5425 5,425 cGy 6MV 05/24/22 07/18/22 55 35 7000 cGy to Primary and PET positive LNs: 05/30/2022 - 07/11/2022 Systemic Therapy Curative; CARBOPLATIN/PACLITAXEL WEEKLY WITH XRT-7 WEEK CYCLE Haresh Trinidad MD 04/09/2023 - 05/28/2023 Systemic Therapy Control; Pembrolizumab 200 mg every 3 weeks Haresh Trinidad MD Lymphoma of testis 08/11/2025 Initial Diagnosis Lymphoma of testis 08/27/2025 - Systemic Therapy Curative; B-[id number] (IV/SC) /CYCLOPHOSPHAMIDE/DOXORUBICIN/ VINCRISTINE/PREDNISONE Haresh Trinidad MD INTERVAL HISTORY: Jordan returns today for follow-up. Accompanied by his . He met with the team [facility]. They recommended R-CHOP. Probable initial dose reductions. They recommended foregoing high-dose methotrexate and foregoing intrathecal methotrexate. They are assessing the tumor for a double hit, but did not feel this would private branch exchange operator, as they felt R-EPOCH would be too toxic. Jordan was comfortable with the visit and with the plan. He has no new complaints. REVIEW OF SYSTEMS: Remainder of review of symptoms otherwise unremarkable and unchanged. PHYSICAL EXAM: ECO- Restricted in physically strenuous activity but ambulatory and able to carry out work of alight or sedentary nature, e.g., light house work, office work Weight: 67 kg (147 lb 9.6 oz) Height: 162 cm (5' 3.78 ) Temperature: 36.6 ??C (97.8 ??F) Heart Rate: (!) 54 BP: (!) 140/63 Respiratory Rate: 16 SpO2: 95 % Physical Exam Constitutional: General: He is not in acute distress. Appearance: He is well-developed. He is not diaphoretic. HENT: Head: Normocephalic and atraumatic. Nose: Nose normal. Eyes: General: No scleral icterus. Cardiovascular: Rate and Rhythm: Normal rate and regular rhythm. Pulmonary: Effort: Pulmonary effort is normal. No respiratory distress. Musculoskeletal: General: No deformity. Normal range of motion. Cervical back: Normal range of motion. Skin: General: Skin is warm and dry. Coloration: Skin is not pale. Findings: No erythema or rash. Neurological: Mental Status: He is alert and oriented to person, place, and time. Psychiatric: Behavior: Behavior normal. Thought Content: Thought content normal. Judgment: Judgment normal. RADIOLOGY: No results found. Radiology results were reviewed personally. Recent lab tests were reviewed personally, discussed with the patient, and are notable for None ASSESSMENT AND PLAN: Jordan Orozco is a 79 y.o. 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 New testicular diffuse large B-cell lymphoma. Because of hemodialysis he was sent to [place] for thebest opinion on how to treat this. Recommendation was R- CHOP. Initial dose reductions as felt appropriate, followed by an attempted escalation to standard dosing. Foregoing IT or intravenous methotrexate because of end-stage renal disease and prohibitive toxicity concerns. We discussed the side effects of this regimen in detail today. We discussed the interactions between this and his renal insufficiency. We discussed the need to forego high-dose methotrexate. He and Idiscussed side effects in detail, he signed informed consent, and he will be proceeding with a chemotherapy teaching appointment. He will need a port and an echocardiogram. Venous access was a problem with his head and neck treatment, and will certainly be a problem with this. He also has a fistula in the left arm. He will return next week to begin urgent start R-CHOP. I have dose modified the Adriamycin down to 25 mg/m?? and the Cytoxan down to 600 mg/m?? for his first cycle. We will decide what to do based ontolerance for cycle #2. He will call with any additional problems or concerns. I have maintained a long-term, longitudinal relationship with this patient, overseeing care of chronic conditions, including high-grade lymphoma and head and neck cancer. This care relationship has significantly influenced my decision-making and treatment plans during today's encounter. Problem List Items Addressed This Visit Hematology and Oncology Squamous cell carcinoma of tonsil - Primary Lymphoma of testis Relevant Orders Case Request Interventional Radiology: PORT A CATH INSERTION (IR) (Completed) Other Visit Diagnoses Examination prior to chemotherapy Relevant Orders Adult Echo TTE I personally spent 45 minutes preparing for this encounter, caring for the patient ([id number] and [id number]-face), and finalizing the visit for this patient, including completion of records, note and telephone order dispatcher. Jordan will return in 1 week for follow-up visit. He knows to contact me if anything should change in the interim. Haresh Trinidad MD [facility] at [address] [address] documented in this encounter Plan of Treatment Upcoming Encounters Date Type Department Care Team (Latest Contact Info) Description 08/27/2025 9:[address] [facility] at [address] [address] Haresh Trinidad MD [address] [place] [address] Maryan Chow RN [address] [place] [phone] 09/01/2025 Procedure Pass [facility] Cardiovascular And Interventional Radiology [address] [place] [address] 09/01/2025 1:00 PM EDT Hospital Encounter [facility] Cardiovascular And Interventional Radiology [address] [place] [address] Fermin Barbour MD [address] [place] [address] [email or web address] 09/01/2025 1:00 PM EDT - 09/01/2025 2:25 PM EDT Surgery [facility] Cardiovascular And Interventional Radiology [address] [place] [address] Fermin Barbour MD [address] [place] [phone] [email or web address] PORT A CATH INSERTION (IR) 09/01/2025 2:10 PM EDT Appointment [facility] Laboratory [address] [place] [address] Haresh Trinidad MD [address] [place] [address] 09/01/2025 3:40 PM EDT Office Visit [facility] at [address] [address] aHresh Trinidad MD [address] [place] [address] 09/03/2025 8:40 AM EDT Infusion [facility] at [address] [address] Haresh Trinidad MD [address] [place] [address] Jorge Alberto Mendosa RN [address] [place] [phone] [email or web address] 09/24/2025 9:10 AM EDT Appointment [facility] Laboratory [address] [place] [address] Haresh Trinidad MD [address] [place] [address] 09/24/2025 10:20 AM EDT Office Visit [facility] at [address] [address] Haresh Trinidad MD [address] [place] [address] 09/24/2025 11:20 AM EDT Infusion [facility] at [address] [address] Haresh Trinidad MD [address] [place] [phone] Chandni Vivas, LAUREN [address] [place] [phone] [email or web address] 10/13/2025 1:50 PM EST Appointment [facility] Laboratory [address] [place] [address] Haresh Trinidad MD [address] [place] [address] 10/13/2025 3:00 PM EST Office Visit [facility] at [address] [address] Haresh Trinidad MD [address] [place] [phone] 10/15/2025 8:00 AM EST Infusion [facility] at [address] [address] Haresh Trinidad MD [address] [place] [address] Cori Loyd RN [address] [place] [phone] [email or web address] 11/03/2025 8:10 AM EST Appointment [facility] [address] [place] [address] Haresh Trinidad MD [address] [place] [phone] 11/03/2025 9:30 AM EST Office Visit [facility] at [address] [address] Ally Cheney FNP [address] [place] [address] 11/05/2025 8:40 AM EST Infusion [facility] at [address] [address] Haersh Trinidad MD [address] [place] [phone] Jackie Freeman, RN [address] [place] [phone] Scheduled Orders Name Type Priority Associated Diagnoses Orde r Schedule Adult Echo TTE Echocardiography Routine Examination prior to chemotherapy Expected: 08/21/2025 (Approximate), Expires: 11/19/2025 documented as of this encounter Visit Diagnoses Diagnosis Squamous cell carcinoma of tonsil- Primary Lymphoma of testis Examination prior to chemotherapy Other specified pre-operative examination Lymphoma of testis Lymphoma of testis documented in this encounter Care Teams Dairy And Food Laboratory Assistant Relationship Specialty Start Date End Date Delon Gao MD [address] [place] [phone] PCP - General Endocrinology 04/25/22 Haresh Trinidad MD [address] [place] [address] Primary Oncologist Medical Oncology 04/26/22 Cori Sequeira CNP [address] [place] [phone] [email or web address] Nurse Practitioner Medical Oncology 05/02/22 documented as of this encounter Additional Source Comments The information contained in this document represents components of the legal health record. It is not the complete legal health record[facility]
--- NOTE | 2025-08-25 10:52 | MHC.OFFVIS ---
Intake Visit Reasons: PRN for bleeding fistula per LUCERO Intake Note: Patient presents for bleeding fistula. No pain or other complaints. Accompanied by: Spouse Allergies brompheniramine (From DIMETAPP DM COLD-COUGH (PE)) Allergy (Intermediate, Verified 08/25/25 10:53) NAUSEA & VOMITING dextromethorphan (From DIMETAPP DM COLD-COUGH (PE)) Allergy (Intermediate, Verified 08/25/25 10:53) NAUSEA & VOMITING Penicillins Allergy (Intermediate, Verified 08/25/25 10:53) Unknown phenylephrine (From DIMETAPP DM COLD-COUGH (PE)) Allergy (Intermediate, Verified 08/25/25 10:53) NAUSEA & VOMITING HPI HPI PRN for bleeding fistula per LUCERO: Details: The patient is a 79-year-old male presenting with follow-up regarding his fistula. He had a fistulogram on April 28, which revealed two focal areas of stenosis on the outflow track. These areas were treated with a 7 x 40 drug-coated balloon and a 7 x 60 drug-coated balloon. The patient's dialysis regimen is scheduled for Sunday, Sunday, and Sunday. The initial fistulogram was performed on December 09, 2024, following the creation of a brachiocephalic fistula on February 25, 2024. Of note in the interim he has been diagnosed with testicular cancer and is currently being worked up and will undergo hemodialysis regimen at [facility]. He now presents for follow-up. [facility] Medical History CKD (chronic kidney disease) stage 5, GFR less than 15 ml/min SENECA (hard of hearing) Elevated cholesterol Back pain IDDM (insulin dependent diabetes mellitus) Asthma On beta robert at home CAD (coronary artery disease) HTN (hypertension) Surgical History History of surgery of head Hx of right cataract extraction Hx of left cataract extraction History of blepharoplasty History of nasal surgery S/P triple vessel bypass Social History Are you a primary hemodialysis patient care specialist to a significant other at home: No Do you presently have visiting nurse or other home services: No Alcohol intake: never Patient Tobacco Use Status: Never used Tobacco Review of Systems Const All systems reviewed & are unremarkable except as noted in HPI and below Reports no additional complaints ENT Reports Normal hearing present Card Denies chest pain, Denies chest pain at rest, Denies chest pain with activity and Denies pedal edema Resp Denies cough GI Denies abdominal pain Musc Denies abnormal gait, Denies muscle cramps and Denies radiating pain into limb Skin/Breast Denies skin ulcer and Denies wounds Neuro Reports Normal hearing present and Denies abnormal gait Psych Reports no additional complaints Physical Exam Const General: cooperative, healthy appearing and comfortable Orientation/consciousness: oriented to person, oriented to place and oriented to time HEENT Head: Yes normal to inspection Neck Neck: Yes normal visual inspection Carotids: no bruits Chest Chest palpation & inspection: normal inspection of the chest Resp Effort & Inspection: normal respiratory effort and able to speak in complete sentences Auscultation: clear to auscultation bilaterally, no crackles, no rales, no rhonchi and no wheezes Cardio Rate: regular rate Rhythm: regular rhythm Heart sounds: S1 normal heart sound present and S2 normal heart sound present Bruits: no carotid bruits Peripheral pulses: Peripheral pulses 2+ throughout GI Inspection: Yes normal to inspection Skin Wounds: no wounds Hair: normal Neuro General: oriented to person, oriented to place and oriented to time Cranial nerves: Yes CN's II-XII intact bilaterally and Yes Normal hearing present Cognition (Neuro): normal cognition Motor exam (neuro): 5/5 motor strength present throughout Extrem Other: Left upper extremity fistula pulsatile flow General: No clubbing, No cyanosis and Yes edema Psych Appearance: grossly normal Mental Status: mental status grossly normal Speech and movement: Normal speech and movement present Assessment & Plan Assessment & Plan (1) ESRD (end stage renal disease): Comment: 02/25/2024 - left upper extremity brachiocephalic fistula creation 12/09/2024 - fistulogram and plasty 04/28/2025 - fistulogram and plasty Code(s): N18.6 - End stage renal disease Category: Medical Plan: Patient is dialysis dependent end-stage renal disease.. He has increased bleeding times post dialysis in addition to pulsatile flow in the fistula.. the patient would benefit from a left arm fistulogram with possible angioplasty, stent, and/or atherectomy. This has been discussed in detail with the patient along with risks, benefits, and complications. This includes but is not limited to bleeding, infection, heart attack, need for emergent surgical repair, limb ischemia, blood vessel damage, bleeding, puncture, kidney injury, bruising, allergic reaction, and skin reaction. The patient demonstrates a clear understanding. We will schedule for the next appropriate time. Thank you for allowing us to assist in this patient's care. Coding Level of Care Code Est Pt Level 4 (54820) Complex EM visit Add On G2211 Diagnoses ESRD (end stage renal disease) N18.6
--- OUTSIDE RECORDS SUMMARY | 2025-08-25 12:08 | XMS_ITS | Encounter Summary ---
Author Organization [facility] Address [address] [place] [address] [place] [address] Phone Care Team Providers Care Paving Foreman Name Role Phone Delon Gao MD Primary Care Provider Haresh Trinidad MD Unavailable [phone] Cori Sequeira CNP Unavailable Denice Roberts SWATCH MAKER Unavailable Leslye Tolentino MBBS Unavailable Encounter Details Date Type Department Care Team (Late st Contact Info) Description 05/17/2022 Procedure Pass [facility] Cardiovascular And Interventional Radiology [address] [place] [address] Social History Tobacco Use Types Packs/Day Years [...] Not 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 Wish to be (Past 1 Month) No 022 3:44 PM EDT May Oviedo RN 2. Non-Specific Active Suici jeny Thoughts (Past 1 Month) No 05/17/2022 3:44 PM EDT May Oviedo RN 6. Suicidal Behavior (Lifetime) No 3:44 PM EDT May Oviedo RN documented as of this encounter Plan of Treatment Upcoming Encounters Date Type Department Care Team (Latest Contact Info) Description 08/27/2025 9:30 AM EDT [facility] at [address] [address] Haresh Trinidad MD [address] [place] [address] Maryan Chow RN [address] [place] [address] 09/01/2025 Procedure Pass [facility] Cardiovascular And Interventional Radiology [address] [place] [address] 09/01/2025 1:00 PM EDT Hospital Encounter [facility] Cardiovascular And Interventional Radiology [address] [place] [address] Fermin Barbour MD [address] [place] [address] [email or web address] 09/01/2025 1:00 PM EDT - 09/01/2025 2:25 PM EDT Surgery [facility] Cardiovascular And Interventional Radiology [address] [place] [address] Fermin Barbour MD [address] [place] [address] [email or web address] PORT A CATH INSERTION (IR) 09/01/2025 2:10 PM EDT Appointment [facility] Laboratory [address] [place] [address] Haresh Trinidad MD [address] [place] [address] 09/01/2025 3:40 PM EDT Office Visit [facility] at [address] [address] Haresh Trinidad MD [address] [place] [address] 09/03/2025 8:40 AM EDT Infusion [facility] at [address] [address] Haresh Trinidad MD [address] [place] [address] Jorge Alberto Mendosa RN [address] [place] [address] [email or web address] 09/24/2025 9:10 AM EDT Appointment [facility] Laboratory [address] [place] [address] Haresh Trinidad MD [address] [place] [address] 09/24/2025 10:20 AM EDT Office Visit [facility] at [address] [address] Haresh Trinidad MD [address] [place] [address] 09/24/2025 11:20 AM EDT Infusion [facility] at [address] [address] Haresh Trinidad MD [address] [place] [address] Chandni Vivas RN [address] [place] [address] [email or web address] 10/13/2025 1:50 PM EST Appointment [facility] Laboratory [address] [place] [address] Haresh Trinidad MD [address] [place] [address] 10/13/2025 3:00 PM EST Office Visit [facility] at [address] [address] Haresh Trinidad MD [address] [place] [address] 10/15/2025 8:00 AM EST Infusion [facility] at [address] [address] Haresh Trinidad MD [address] [place] [address] Cori Loyd, LAUREN [address] [place] [address] [email or web address] 11/03/2025 8:10 AM EST Appointment [facility] Laboratory [address] [place] [address] Haresh Trinidad MD [address] [place] [address] 11/03/2025 9:30 AM EST Office Visit [facility] at [address] [address] Ally Cheney FNP [address] [place] [address] 11/05/2025 8:40 AM EST Infusion [facility] [place] [address] [place] [address] Haresh Trinidad MD [address] [place] [address] Jackie Freeman, LAUREN [address] [place] [address] [email or web address] documented as of this encounter Visit Diagnoses Not on filedocumented in this encounter Care Teams Paving Foreman Relationship Specialty Start Date End Date Delon Gao MD [address] [place] [address] PCP - General Endocrinology 04/25/22 Haresh Trinidad MD [address] [place] [address] Primary Oncologist Medical Oncology 04/26/22 Cori Sequeira CNP [address] [place] [address] [email or web address] Nurse Practitioner Medical Oncology 05/02/22 Denice Roberts FNP [address] [place] [address] [email or web address] Nurse Practitioner Medical Oncology 05/19/22 03/04/25 Leslye Tolentino MBBS [address] [place] [address] [email or web address] Primary Oncologist Hematology and Oncology 10/11/23 documented as of this encounter Additional Source Comments The information contained in this document represents components of the legal health record. It is not the complete legal health record.[facility]
--- OUTSIDE RECORDS SUMMARY | 2025-08-25 12:08 | XMS_ITS | Encounter Summary ---
Author Organization [facility] Address [address] [place] [address] Phone Care Team Providers Care Front Maker Name Role Phone Delon Gao MD Primary Care Provider [phone] Haresh Trinidad MD Unavailable [phone] Cori Sequeira CNP Unavailable Denice Roberts HEATING ELEMENT BUILDER Unavailable Leslye Tolentino MBBS Unavailable Encounter Details Date Type Department Care Team (Late st Contact Info) Description 07/17/2022 Procedure Pass [facility] Cardiovascular And Interventional Radiology [address] [place] [address] Social History Tobacco Use Types Packs/Day Years [...] Not on file 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 at [address] [address] Haresh Trinidad MD [address] [place] [address] Maryan Chow RN [address] [place] [address] 09/01/2025 Procedure Pass [facility] Cardiovascular And Interventional Radiology [address] [place] [address] 09/01/2025 1:00 PM EDT Hospital Encounter [facility] Cardiovascular And Interventional Radiology [address] [place] [address] Fermin Barbour MD [address] [place] [address] [email or web address] 09/01/2025 1:00 PM EDT - 09/01/2025 2:25 PM EDT Surgery [facility] Cardiovascular And Interventional Radiology [address] [place] [address] Fermin Barbour MD [address] [place] [address] [email or web address] PORT A CATH INSERTION (IR) 09/01/2025 2:10 PM EDT Appointment [facility] Laboratory [address] [place] [address] Haresh Trinidad MD [address] [place] [address] 09/01/2025 3:40 PM EDT Office Visit [facility] at [address] [address] Haresh Trinidad MD [address] [place] [address] 09/03/2025 8:40 AM EDT Infusion [facility] at [address] [address] Haresh Trinidad MD [address] [place] [address] Jorge Alberto Mendosa RN [address] [place] [address] [email or web address] 09/24/2025 9:10 AM EDT Appointment [facility] Laboratory [address] [place] [address] Haresh Trinidad MD [address] [place] [address] 09/24/2025 10:20 AM EDT Office Visit [facility] at [address] [address] Haresh Trinidad MD [address] [place] [address] 09/24/2025 11:[address] [facility] at [address] [address] Haresh Trinidad MD [address] [place] [address] Chandni Vivas RN [address] [place] [address] [email or web address] 10/13/2025 1:50 PM EST Appointment [facility] Laboratory [address] [place] [address] Haresh Trinidad MD [address] [place] [address] 10/13/2025 3:00 PM EST Office Visit [facility] at [address] [address] Haresh Trinidad MD [address] [place] [address] 10/15/2025 8:00 AM EST Infusion [facility] at [address] [address] Haresh Trinidad MD [address] [place] [address] Cori Loyd RN [address] [place] [address] [email or web address] 11/03/2025 8:10 AM EST Appointment [facility] [address] [place] [address] Haresh Trinidad MD [address] [place] [address] 11/03/2025 9:30 AM EST Office Visit [facility] at [address] [address] Ally Cheney FNP [address] [place] [address] 11/05/2025 8:40 AM EST Infusion [facility] at [address] [address] Haresh Trinidad MD [address] [place] [address] Jackie Freeman, RN [address] [place] [address] documented as of this encounter Visit Diagnoses Not on filedocumented in this encounter Care Teams Front Maker Relationship Specialty Start Date End Date Delon Gao MD [address] [place] [address] PCP - General Endocrinology 04/25/22 Haresh Trinidad MD [address] [place] [address] Primary Oncologist Medical Oncology 04/26/22 Cori Seuqeira CNP [address] [place] [address] maria Nurse Practitioner Medical Oncology 05/02/22 Denice Roberts FNP [address] [place] [address] Nurse Practitioner Medical Oncology 05/19/22 03/04/25 Leslye Tolentino MBBS [address] [place] [address] [email or web address] Primary Oncologist Hematology and Oncology 10/11/23 documented as of this encounter Additional Source Comments The information contained in this document represents components of the legal health record. It is not the complete legal health record.[facility]
--- OUTSIDE RECORDS SUMMARY | 2025-08-25 12:08 | XMS_ITS | Encounter Summary ---
Author Organization [facility] Address [address] [place] [address] Phone Care Team Providers Care Construction Foreman Name Role Phone Delon Gao MD Primary Care Provider Haresh Trinidad MD Unavailable [phone] Cori Sequeira CNP Unavailable Denice Roberts CIRCULATION REPRESENTATIVE Unavailable Leslye Tolentino MBBS Unavailable Encounter Details Date Type Department Care Team (Late st Contact Info) Description 05/05/2022 Procedure Pass [facility] Cardiovascular And Interventional Radiology [address] [place] [address] Social History Tobacco Use Types Packs/Day Years [...] Not on file 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 on file Not on file Red beret [place] during war Not on file Not on fi le Not on file documented as of this encounter Plan of Treatment Upcoming Encounters Date Type Department Care Team (Latest Contact Info) Description 08/27/2025 9:30 AM EDT Infusion [facility] at [address] [address] Haresh Trinidad MD [address] [place] [address] Maryan Chow RN [address] [place] [address] 09/01/2025 Procedure Pass [facility] Cardiovascular And Interventional Radiology [address] [place] [address] 09/01/2025 1:00 PM EDT Hospital Encounter [facility] Cardiovascular And Interventional Radiology [address] [place] [address] Fermin Barbour MD [address] [place] [address] [email or web address] 09/01/2025 1:00 PM EDT - 09/01/2025 2:25 PM EDT Surgery [facility] Cardiovascular And Interventional Radiology [address] [place] [address] Fermin Barbour MD [address] [place] [address] [email or web address] PORT A CATH INSERTION (IR) 09/01/2025 2:10 PM EDT Appointment [facility] Laboratory [address] [place] [address] Haresh Trinidad MD [address] [place] [address] 09/01/2025 3:40 PM EDT Office Visit [facility] at [address] [address] Haresh Trinidad MD [address] [place] [address] 09/03/2025 8:40 AM EDT Infusion [facility] at [address] [address] Haresh Trinidad MD [address] [place] [address] Jorge Alberto Mendosa RN [address] [place] [address] [email or web address] 09/24/2025 9:10 AM EDT Appointment [facility] Laboratory [address] [place] [address] Haresh Trinidad MD [address] [place] [address] 09/24/2025 10:20 AM EDT Office Visit [facility] at [address] [address] Haresh Trinidad MD [address] [place] [address] 09/24/2025 11:20 AM EDT Infusion [facility] at [address] [address] Haresh Trinidad MD [address] [place] [address] Chandni Vivas RN [address] [place] [address] [email or web address] 10/13/2025 1:50 PM EST Appointment [facility] Laboratory [address] [place] [address] Haresh Trinidad MD [address] [place] [address] 10/13/2025 3:00 PM EST Office Visit [facility] at [address] [address] Haresh Trinidad MD [address] [place] [address] 10/15/2025 8:00 AM EST Infusion [facility] at [address] [address] Haresh Trinidad MD [address] [place] [address] Cori Loyd RN [address] [place] [address] [email or web address] 11/03/2025 8:10 AM EST Appointment [facility] [address] [place] [address] Haresh Trinidad MD [address] [place] [address] 11/03/2025 9:30 AM EST Office Visit [facility] at [address] [address] Ally Cheney FNP [address] [place] [address] 11/05/2025 8:40 AM EST Infusion [facility] at [address] [address] Haresh Trinidad MD [address] [place] [address]696 Jackie Freeman, RN [address] [place] [address] documented as of this encounter Visit Diagnoses Not on filedocumented in this encounter Care Teams Construction Foreman Relationship Specialty Start Date End Date Delon Gao MD [address] [place] [address] PCP - General Endocrinology 04/25/22 Haresh Trinidad MD [address] [place] [address] Primary Oncologist Medical Oncology 04/26/22 Cori Sequeira CNP [address] [place] [address] maria Nurse Practitioner Medical Oncology 05/02/22 Denice Roberts FNP [address] [place] [address] Nurse Practitioner Medical Oncology 05/19/22 03/04/25 Leslye Tolentino MBBS [address] [place] [address] [email or web address] Primary Oncologist Hematology and Oncology 10/11/23 documented as of this encounter Additional Source Comments The information contained in this document represents components of the legal health record. It is not the complete legal health record.[facility]
--- OUTSIDE RECORDS SUMMARY | 2025-08-25 12:09 | XMS_ITS | Encounter Summary ---
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 on file Not on file [place] during war Not on file Not on fi le Not on file documented as of this encounter Plan of Treatment Upcoming Encounters Date Type Department Care Team (Latest Contact Info) Description 08/27/2025 9:30 AM EDT Infusion [facility] at [address] [address] Haresh Trinidad MD [address] [place] [address] Maryan Chow RN [address] [place] [address] 09/01/2025 Procedure Pass [facility] Cardiovascular And Interventional Radiology [address] [place] [address] 09/01/2025 1:00 PM EDT Hospital Encounter [facility] Cardiovascular And Interventional Radiology [address] [place] [address] Fermin Barbour MD [address] [place] [address] [email or web address] 09/01/2025 1:00 PM EDT - 09/01/2025 2:25 PM EDT Surgery [facility] Cardiovascular And Interventional Radiology [address] [place] [address] Fermin Barbour MD [address] [place] [phone] [email or web address] PORT A CATH INSERTION (IR) 09/01/2025 2:10 PM EDT Appointment [facility] Laboratory [address] [place] [address] Haresh Trinidad MD [address] [place] [address] 09/01/2025 3:40 PM EDT Office Visit [facility] at [address] [address] Haresh Trinidad MD [address] [place] [address] 09/03/2025 8:40 AM EDT Infusion [facility] at [address] [address] Haresh Trinidad MD [address] [place] [address] Jorge Alberto Mendosa RN [address] [place] [address] [email or web address] 09/24/2025 9:10 AM EDT Appointment [facility] Laboratory [address] [place] [address] Haresh Trinidad MD [address] [place] [address] 09/24/2025 10:20 AM EDT Office Visit [facility] at [address] [address] Haresh Trinidad MD [address] [place] [address] 09/24/2025 11:20 AM EDT Infusion [facility] at [address] [address] Haresh Trinidad MD [address] [place] [address] Chandni Vivas RN [address] [place] [phone] [email or web address] 10/13/2025 1:50 PM EST Appointment [facility] Laboratory [address] [place] [address] Haresh Trinidad MD [address] [place] [phone] 10/13/2025 3:00 PM EST Office Visit [facility] at [address] [address] Haresh Trinidad MD [address] [place] [address] 10/15/2025 8:00 AM EST Infusion [facility] [place] at [address] [address] Haresh Trinidad MD [address] [place] [address] 412[address] Cori Loyd RN [address] [place] [phone] [email or web address] 11/03/2025 8:10 AM EST Appointment [facility] [address] [place] [address] Haresh Trinidad MD [address] [place] [address] 11/03/2025 9:30 AM EST Office Visit [facility] at [address] [address] Ally Cheney FNP [address] [place] [address] 11/05/2025 8:40 AM EST Infusion [facility] [place] at [address] [address] Haresh Trinidad MD [address] [place] [address] Jackie Freeman, RN [address] [place] [address] documented as of this encounter Visit Diagnoses Not on filedocumented in this encounter Care Teams Apricot Washer Relationship Specialty Start Date End Date Delon Gao MD [address] [place] [phone] PCP - General Endocrinology 04/25/22 Haresh Trinidad MD [address] [place] [address] Primary Oncologist Medical Oncology 04/26/22 Cori Sequeira CNP [address] [place] [address] maria Nurse Practitioner Medical Oncology 05/02/22 Denice Roberts FNP [address] [place] [address]86 Nurse Practitioner Medical Oncology 05/19/22 03/04/25 Leslye Tolentino MBBS [address] [place] [phone] [email or web address] Primary Oncologist Hematology and Oncology 10/11/23 documented as of this encounter Additional Source Comments The information contained in this document represents components of the legal health record. It is not the complete legal health record.[facility]
--- OUTSIDE RECORDS SUMMARY | 2025-08-25 12:09 | XMS_ITS | Clinical Summary ---
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 90 tablet 5 3 Active atorvastatin (LIPITOR) 40 MG tablet Take 40 mg by mouth 1 (one) time each day 3 Active amLODIPine (NORVASC) 5 MG tablet Take 5 mg by mouth 1 (one) time each day Active furosemide (Lasix) 40 MG tablet Take 40 mg by mouth 4 Active Lantus SoloStar 100 UNIT/ML injection Inject 10 Units under the skin 4 Active B-D UF III MINI PEN NEEDLES 31G X 5 MM [facility] USE TO INJECT INSULIN FOUR TIMES A DAY 4 Active Cholecalciferol 25 MCG (1000 UT) chewable tablet Chew Active nitroglycerin (NITROSTAT) 0.[address] 0.4 mg under the tongue every 5 (five) minutes if needed for chest pain Active [place]-3 Fatty Acids (Fish Oil) 1000 MG capsule delayed-release Take by mouth Active losartan (Cozaar) 50 MG tablet Take 1 tablet (50 mg total) by mouth 1 (one) time each day 90 tablet 3 5 05/27/20 26 Active sulfamethoxazol e-trimethoprim (BACTRIM,SEPTRA ) 400-80 MG per tablet Take 1 tablet by mouth 1 (one) time each day 7 tablet 5 Active calcium acetate (PHOSLO) 667 MG tablet Take 1 tablet (667 mg total) by mouth in the morning and 1 tablet (667 mg total) at noon and 1 tablet (667 mg total) in the evening. Take with meals. 270 tablet 3 4 08/01/20 25 Active Problems Problem Noted Date Diagnosed Date [...] Encounters Date Type Department Care Team Description 08/17/2025 Treatment [facility] [address] [facility] [address] [place] [address] Jun Harris MD End stage renal disease; Dependence on renal dialysis 08/12/2025 Treatment [facility] [address] [facility] [address] [place] [address] Jun Harris MD End stage renal disease; Dependence on renal dialysis 08/05/2025 [facility] [address] [phone] Jun Harris MD End stage renal disease; Dependence on renal dialysis 08/03/2025 [facility] [address] [address] Jun Harris MD End stage renal disease; Dependence on renal dialysis 07/13/2025 Orders Only [facility] [address] [facility] [address] [place] [address] Unique Guzman RN 07/08/2025 Treatment [facility] [address] [address] Jun Harris MD End stage renal disease; Dependence on renal dialysis 07/01/2025 Treatment [facility] [address] [phone] Jun Harris MD End stage renal disease; Dependence on renal dialysis 06/26/2025 Treatment [facility] [address] [address] Jun Harris MD End stage renal disease; Dependence on renal dialysis 06/17/2025 Treatment [facility] [address] [address] Jun Harris MD End stage renal disease; Dependence on renal dialysis 06/10/2025 Treatment [facility] [address] [phone] Jun Harris MD End stage renal disease; Dependence on renal dialysis 06/03/2025 Treatment [facility] [address] [phone] Jun Harris MD End stage renal disease; Dependence on renal dialysis 05/27/2025 Treatment [facility] [address] [place] [address] Jun Harris MD End stage renal disease; Dependence on renal dialysis 05/27/2025 Orders Only [facility] [address] [place] [phone] Unique Guzman RN from Last 3 Months Immunizations Immunization Administration [...] Visual Foot Exam 12/26/2020 Influenza Vaccine (#1) 2025 4, 08/02/2024, 09/07/2021, Additional history exists Diabetes: Hemoglobin A1C 08/27/2025 025, 02/25/2025, 12/03/2024, Additional history exists Pneumococcal Vaccine: Peds ( 0 to 5 Years) and At-Risk Patients (6 to 49 Years) Discontinued 09/14/2016, 10/29/2013 Procedures Procedure Name Priority Date/Time Associated Diagnosis Comments HEMOGLOBIN Routine 08/12/2025 3:00 AM EDT COLLECTION DATE (HC) Routine 08/05/2025 3:00 AM EDT KT/V NATURAL LOG, URR (HC) Routine 08/05/2025 3:00 AM EDT LIH (HC) Routine 08/05/2025 3:00 AM EDT HEPATITIS B SURFACE ANTIGEN W/REFL CONFIRM Routine 07/29/2025 3:00 AM EDT TRANSFERRIN SATURATION Routine 3:00 AM EDT PROTEIN, TOTAL, SERUM Routine 07/29/2025 3:00 AM EDT MAGNESIUM Routine 07/29/2025 3:00 AM EDT ELECTROLYTE PANEL Routine 07/29/2025 3:0 0 AM EDT LIH (HC) Routine 07/29/2025 3:00 AM EDT LACTATE DEHYDROGENASE Routine 07/29/2025 3:00 AM EDT GLUCOSE, RANDOM Routine 07/29/2025 3:00 AM EDT BUN/CREATININE RATIO Routine 07/29/2025 3:00 AM EDT CREATININE, SERUM Routine 07/29/2025 3:0 0 AM EDT AST Routine 07/29/2025 3:00 AM EDT BILIRUBIN, TOTAL Routine 07/29/2025 3:00 AM EDT ALKALINE PHOSPHATASE Routine 07/29/2025 3:00 AM EDT ALT Routine 07/29/2025 3:00 AM EDT CALCIUM PHOSPHORUS PRODUCT, ADJUSTED (HC) Routine 07/29/2025 3:00 AM EDT FERRITIN Routine 07/29/2025 3:00 AM EDT KT/V NATURAL LOG, URR (HC) Routine 07/29/2025 3:00 AM EDT CBC AND DIFFERENTIAL Routine 07/29/2025 3:00 AM EDT FERRITIN Routine 07/01/2025 3:00 AM EDT HEPATITIS B SURFACE ANTIGEN W/REFL CONFIRM Routine 07/01/2025 3:00 AM EDT TRANSFERRIN SATURATION Routine 3:00 AM EDT PROTEIN, TOTAL, SERUM Routine 07/01/2025 3:00 AM EDT MAGNESIUM Routine 07/01/2025 3:00 AM EDT ELECTROLYTE PANEL Routine 07/01/2025 3:0 0 AM EDT LIH (HC) Routine 07/01/2025 3:00 AM EDT GLUCOSE, RANDOM Routine 07/01/2025 3:00 AM EDT LACTATE DEHYDROGENASE Routine 07/01/2025 3:00 AM EDT CREATININE, SERUM Routine 07/01/2025 3:0 0 AM EDT BILIRUBIN, TOTAL Routine 07/01/2025 3:00 AM EDT AST Routine 07/01/2025 3:00 AM EDT BUN/CREATININE RATIO Routine 07/01/2025 3:00 AM EDT ALT Routine 07/01/2025 3:00 AM EDT CALCIUM PHOSPHORUS PRODUCT, ADJUSTED (HC) Routine 07/01/2025 3:00 AM EDT ALKALINE PHOSPHATASE Routine 07/01/2025 3:00 AM EDT KT/V NATURAL LOG, URR (HC) Routine 07/01/2025 3:00 AM EDT CBC AND DIFFERENTIAL Routine 07/01/2025 3:00 AM EDT HEMOGLOBIN Routine 06/10/2025 3:00 AM EDT VITAMIN D 25 HYDROXY Routine 06/03/2025 3:00 AM EDT HEPATITIS B SURFACE ANTIGEN W/REFL CONFIRM Routine 05/27/2025 3:00 AM EDT FERRITIN Routine 05/27/2025 3:00 AM EDT PTH, INTACT Routine 05/27/2025 3:00 AM EDT TRANSFERRIN SATURATION Routine 3:00 AM EDT PROTEIN, TOTAL, SERUM Routine 05/27/2025 3:00 AM EDT MAGNESIUM Routine 05/27/2025 3:00 AM EDT LIPID PANEL Routine 05/27/2025 3:00 AM EDT ELECTROLYTE PANEL Routine 05/27/2025 3:0 0 AM EDT LIH (HC) Routine 05/27/2025 3:00 AM EDT LACTATE DEHYDROGENASE Routine 05/27/2025 3:00 AM EDT BUN/CREATININE RATIO Routine 05/27/2025 3:00 AM EDT GLUCOSE, RANDOM Routine 05/27/2025 3:00 AM EDT BILIRUBIN, TOTAL Routine 05/27/2025 3:00 AM EDT CREATININE, SERUM Routine 05/27/2025 3:0 0 AM EDT AST Routine 05/27/2025 3:00 AM EDT ALT Routine 05/27/2025 3:00 AM EDT CALCIUM PHOSPHORUS PRODUCT, ADJUSTED (HC) Routine 05/27/2025 3:00 AM EDT ALKALINE PHOSPHATASE Routine 05/27/2025 3:00 AM EDT HEMOGLOBIN A1C Routine 05/27/2025 3:00 AM EDT CBC AND DIFFERENTIAL Routine 05/27/2025 3:00 AM EDT KT/V NATURAL LOG, URR (HC) Routine 05/27/2025 3:00 AM EDT from Last 3 Months Results * (ABNORMAL) Hemoglobin (08/12/2025 3:00 AM EDT) Only the most recent of2 resultswithin the time period is included. Hgb 10.7(L) 13.7 - 17.5 g/dL [facility] Hemoglobin x 3 32.1(L) 41.1 - 52.5 g/dL [facility] 08/12/2025 3:00 AM EDT 08/14/2025 12:54 PM EDT us Khoa Carmichael MD LAB BLOOD ORDERABLES Final Resul t Performing Organization Address [facility] de Phone Number [facility] [address] [place] [address] * Collection Date (08/05/2025 3:00 AM EDT) Collection Date See Comment [facility] Comment: Patient sample received may exceed specimen stability, based on the collection date electronically provided. When reviewing patient results, verify collection information and consider specimen stability before acting on any critical or panic results. 08/05/2025 3:00 AM EDT us Khoa Carmichael MD LAB [id number] ICITED RESULTS Final Result Performing Organization Address [facility] de Phone Number [facility] [address] [place] [address] * LIH (08/05/2025 3:00 AM EDT) Only the most recent of4 resultswithin the time period is included. Lipemia Normal Normal [facility] Icterus Normal Normal [facility] Hemolysis Normal Normal [facility] 08/05/2025 3:00 AM EDT 08/06/2025 2:05 PM EDT us Khoa Carmichael MD LAB [id number] ICITED RESULTS Final Result Performing Organization Address [facility] de Phone Number [facility] [address] [place] [address] * (ABNORMAL) Kt/V Natural Log, URR (08/05/2025 3:00 AM EDT) Only the most recent of4 resultswithin the time period is included. BUN 43(H) 7 - 25 mg/dL [facility] Treatment Time 211 min [facility] Pre-Weight, lb 70.2 kg [facility] Post-Weight, lb 67.4 kg [facility] Ultrafiltration Rate 12 <=13 mL/kg/hr [facility] Comment: Recommend achieving Ultrafiltration Rate (UFR) <=10 mL/kg/hr References: Slim HARMON et al. Kidney Int. 2010; 79(2):250-257 BUN Post Dialysis 11 7 - 25 mg/dL [facility] UREA REDUCTION RATIO (%) 74 >=65 % [facility] Kt/V Natural Log 1.61 >=1.2 [facility] 08/05/2025 3:00 AM EDT 08/06/2025 2:05 PM EDT Khoa Carmichael MD LAB [id number] ICITED RESULTS Final Result Performing Organization Address [facility] de Phone Number [facility] [address] [place] [address] * Calcium Phosphorus Product, Adjusted (07/29/2025 3:00 AM EDT) Only the most recent of3 resultswithin the time period is included. Albumin 4.1 3.6 - 5.4 g/dL [facility] Calcium 9.2 8.6 - 10.3 mg/dL [facility] Phosphorus, Serum 4.6 2.5 - 5.0 mg/dL [facility] Ca*PO4 42.3 <55.0 mg2/dL2 [facility] Calcium, Adjusted Total 9.2 8.6 - 10.3 mg/dL [facility] CA*PO4 CORRCTD 42.3 <55.0 mg2/dL2 [facility] 07/29/2025 3:00 AM EDT 07/30/2025 7:31 PM EDT us Khoa Carmichael MD LAB [id number] ICITED RESULTS Final Result Performing Organization Address [facility] de Phone Number [facility] [address] [place] [address] * Hepatitis B Surface Ag w/Reflex Confirmation (07/29/2025 3:00 AM EDT) Only the most recent of3 resultswithin the time period is included. Hep B Surface Antigen Negative Negative [facility] 07/29/2025 3:00 AM EDT 07/30/2025 7:31 PM EDT us Khoa Carmichael MD LAB BLOOD ORDERABLES Final Resul t Performing Organization Address [facility] de Phone Number [facility] [address] [place] [address] * BUN/CREATININE RATIO (07/29/2025 3:00 AM EDT) Only the most recent of3 resultswithin the time period is included. BUN/Creatinine Ratio 9.0 <=23.0 [facility] 07/29/2025 3:00 AM EDT 07/30/2025 7:31 PM EDT us Khoa Carmichael MD LAB [id number] ICITED RESULTS Final Result Performing Organization Address [facility] de Phone Number [facility] [address] [place] [address] * (ABNORMAL) TSAT (07/29/2025 3:00 AM EDT) Only the most recent of3 resultswithin the time period is included. Iron 38(L) 65 - 175 ug/dL [facility] Transferrin 236 215 - 365 mg/dL [facility] TIBC 330 211 - 406 ug/dL [facility] Iron Saturation (TSat) 12(L) 22 - 52 % [facility] 07/29/2025 3:00 AM EDT 07/30/2025 7:31 PM EDT us Khoa Carmichael MD LAB BLOOD ORDERABLES Final Resul t Performing Organization Address [facility] de Phone Number [facility] [address] [place] [address] * (ABNORMAL) CBC and Differential (07/29/2025 3:00 AM EDT) Only the most recent of3 resultswithin the time period is included. DIFFERENTIAL MANUAL, 2 Not Indicated [facility] White Blood Cells 8.4 4.2 - 9.1 K/uL [facility] RBC 3.00(L) 4.63 - 6.08 M/uL [facility] Hgb 9.8(L) 13.7 - 17.5 g/dL [facility] Hemoglobin x 3 29.4(L) 41.1 - 52.5 g/dL [facility] Hematocrit 31.4(L) 40.1 - 51.0 % [facility] MCV 104.7(H) 79.0 - 92.2 fL [facility] MCH 32.7(H) 25.7 - 32.2 pg [facility] MCHC 31.2(L) 32.3 - 36.5 g/dL [facility] RDW 14.8(H) 11.6 - 14.4 % [facility] Platelets 144(L) 163 - 337 K/uL [facility] MPV 11.6 9.1 - 13.0 fL [facility] Neutrophils Relative 75.3(H) 34.0 - 67.9 % [facility] Lymphocytes Relative 13.5(L) 21.8 - 53.1 % [facility] Monocytes 9.4 5.3 - 12.2 % [facility] Eosinophils Relative 1.2 0.8 - 7.0 % [facility] Basophils Relative 0.2 0.2 - 1.2 % [facility] Immature Granulocytes 0.4 0.0 - 1.0 % [facility] 07/29/2025 3:00 AM EDT 07/30/2025 5:02 PM EDT Khoa Carmichael MD LAB BLOOD ORDERABLES Final Resul t [facility] [address] [place] [address] * (ABNORMAL) ALT (07/29/2025 3:00 AM EDT) Only the most recent of3 resultswithin the time period is included. ALT (SGPT) 8(L) 10 - 49 U/L [facility] 07/29/2025 3:00 AM EDT 07/30/2025 7:31 PM EDT us Khoa Carmichael MD LAB BLOOD ORDERABLES Final Resul t Performing Organization Address [facility] de Phone Number [facility] [address] [place] [address] * (ABNORMAL) AST (07/29/2025 3:00 AM EDT) Only the most recent of3 resultswithin the time period is included. AST (SGOT) 35(H) <34 U/L [facility] 07/29/2025 3:00 AM EDT 07/30/2025 7:31 PM EDT us Khoa Carmichael MD LAB BLOOD ORDERABLES Final Resul t Performing Organization Address [facility] de Phone Number [facility] [address] [place] [address] * Protein, total (07/29/2025 3:00 AM EDT) Only the most recent of3 resultswithin the time period is included. Total Protein 7.6 6.4 - 8.9 g/dL [facility] 07/29/2025 3:00 AM EDT 07/30/2025 7:31 PM EDT us Khoa Carmichael MD LAB BLOOD ORDERABLES Final Resul t Performing Organization Address [facility] de Phone Number [facility] [address] [place] [address] * Alkaline phosphatase (07/29/2025 3:00 AM EDT) Only the most recent of3 resultswithin the time period is included. Alkaline Phosphatase 56 46 - 116 U/L [facility] 07/29/2025 3:00 AM EDT 07/30/2025 7:31 PM EDT us Khoa Carmichael MD LAB BLOOD ORDERABLES Final Resul t Performing Organization Address [facility] de Phone Number [facility] [address] [place] [address] * Magnesium (07/29/2025 3:00 AM EDT) Only the most recent of3 resultswithin the time period is included. Magnesium 2.3 1.9 - 2.7 mg/dL [facility] 07/29/2025 3:00 AM EDT 07/30/2025 7:31 PM EDT us Khoa Carmichael MD LAB BLOOD ORDERABLES Final Resul t Performing Organization Address [facility] de Phone Number [facility] [address] [place] [address] * (ABNORMAL) Lactate dehydrogenase (07/29/2025 3:00 AM EDT) Only the most recent of3 resultswithin the time period is included. LDH 416(H) 120 - 246 U/L [facility] 07/29/2025 3:00 AM EDT 07/30/2025 7:31 PM EDT us Khoa Carmichael MD LAB BLOOD ORDERABLES Final Resul t Performing Organization Address [facility] de Phone Number [facility] [address] [place] [address] * (ABNORMAL) Glucose, random (07/29/2025 3:00 AM EDT) Only the most recent of3 resultswithin the time period is included. Glucose 138(H) 70 - 99 mg/dL [facility] Comment: ADA guidelines outline the following fasting glucose ranges: Normal: <100 Prediabetes: 100-125 Diabetes: >125 07/29/2025 3:00 AM EDT 07/30/2025 7:31 PM EDT us Khoa Carmichael MD LAB BLOOD ORDERABLES Final Resul t Performing Organization Address [facility] de Phone Number [facility] [address] [place] [address] * (ABNORMAL) Ferritin (07/29/2025 3:00 AM EDT) Only the most recent of3 resultswithin the time period is included. Ferritin 2,088(H) 22 - 322 ng/mL [facility] 07/29/2025 3:00 AM EDT 07/30/2025 7:31 PM EDT us Khoa Carmichael MD LAB BLOOD ORDERABLES Final Resul t Performing Organization Address [facility] de Phone Number [facility] [address] [place] [address] * (ABNORMAL) Creatinine, serum (07/29/2025 3:00 AM EDT) Only the most recent of3 resultswithin the time period is included. Creatinine 4.57(H) 0.70 - 1.30 mg/dL [facility] 07/29/2025 3:00 AM EDT 07/30/2025 7:31 PM EDT us Khoa Carmichael MD LAB BLOOD ORDERABLES Final Resul t Performing Organization Address [facility] de Phone Number [facility] [address] [place] [address] * (ABNORMAL) Bilirubin, total (07/29/2025 3:00 AM EDT) Only the most recent of3 resultswithin the time period is included. Total Bilirubin 0.2(L) 0.3 - 1.2 mg/dL [facility] 07/29/2025 3:00 AM EDT 07/30/2025 7:31 PM EDT us Khoa Carmichael MD LAB BLOOD ORDERABLES Final Resul t Performing Organization Address [facility] de Phone Number [facility] [address] [place] [address] * (ABNORMAL) Electrolyte panel (07/29/2025 3:00 AM EDT) Only the most recent of3 resultswithin the time period is included. Sodium 142 136 - 145 mEq/L [facility] Potassium 5.2(H) 3.4 - 5.0 mEq/L [facility] Chloride 97(L) 98 - 107 mEq/L [facility] Bicarbonate (CO2) 30 21 - 31 mEq/L [facility] Anion Gap 15(H) 3 - 14 mEq/L [facility] 07/29/2025 3:00 AM EDT 07/30/2025 7:31 PM EDT us Khoa Carmichael MD LAB BLOOD ORDERABLES Final Resul t Performing Organization Address [facility] de Phone Number [facility] [address] [place] [address] * Vitamin D 25 Hydroxy (06/03/2025 3:00 AM EDT) Vitamin D, 25-Hydroxy 38 30 - 100 ng/mL [facility] Comment: Status Adult Pediatric Deficient: <20 <15 Insufficient: 20-29 15-19 Sufficient: 30-100 20-100 06/03/2025 3:00 AM EDT 06/04/2025 1:08 PM EDT us Khoa Carmichael MD LAB BLOOD ORDERABLES Final Resul t Performing Organization Address [facility] de Phone Number [facility] [address] [place] [address] * PTH, Intact (05/27/2025 3:00 AM EDT) PTH, Intact 232 160 - 721 pg/mL [facility] Comment: Suggested (KDIGO) ESRD maintenance range is two to nine times the upper normal limit (80.1 pg/mL) for the laboratory. 05/27/2025 3:00 AM EDT 05/28/2025 1:28 PM EDT us Khoa Carmichael MD LAB BLOOD ORDERABLES Final Resul t Performing Organization Address [facility] de Phone Number [facility] [address] [place] [address] * (ABNORMAL) Hemoglobin A1c (05/27/2025 3:00 AM EDT) Hemoglobin A1C 6.1(H) <5.7 % [facility] Comment: Methodology: Enzymatic Normal: <5.7% Prediabetes: 5.7-6.4% Diabetes: >6.4% Diabetic Glucose Control Evaluation: Therapeutic action suggested at >8.0% ADA recommends a glycemic goal of <7.0% 05/27/2025 3:00 AM EDT 05/28/2025 1:44 PM EDT Khoa Carmichael MD LAB BLOOD ORDERABLES Final Resul t Performing Organization Address [facility] de Phone Number [facility] [address] [place] [address] * (ABNORMAL) Lipid panel (05/27/2025 3:00 AM EDT) Cholesterol 65 mg/dL [facility] Comment: Optimal: <200 Borderline: 200-239 High Risk: >239 Triglycerides 114 mg/dL [facility] Comment: Optimal: <150 Borderline: 150-200 High Risk: >200 HDL 31(L) mg/dL [facility] Comment: Optimal: >59 Borderline: 40-59 High Risk: <40 LDL-Calc 11 mg/dL [facility] Comment: Optimal: <100 Borderline: 100-159 High Risk: >159 VLDL Cholesterol Vic 23 mg/dL [facility] Comment: Optimal: <30 Borderline: 30-40 High Risk: >40 Chol/HDL Ratio 2.1 [facility] Comment: Optimal: <3.3 High Risk: >6.2 05/27/2025 3:00 AM EDT 05/28/2025 1:28 PM EDT Khoa Carmichael MD LAB BLOOD ORDERABLES Final Resul t Performing Organization Address [facility] de Phone Number [facility] [address] [place] [address] from Last 3 Months Insurance Medicare [facility] Medicare [facility]
--- OUTSIDE RECORDS SUMMARY | 2025-08-25 12:09 | XMS_ITS | Encounter Summary ---
Author Organization [facility] Address [address] [place] [address] Phone Care Team Providers Care Wheelchair Van Driver Name Role Phone Delon Gao MD Primary Care Provider Haresh Trinidad MD Unavailable [phone] Cori Sequeira CNP Unavailable Denice Roberts RANCH COOK Unavailable Leslye Tolentino MBBS Unavailable Reason for Visit * Reason Comments Medication Refill Encounter Details Date Type Department Care Team (Late st Contact Info) Description 02/03/2023 Refill [facility] At [facility] Rad Onc [address] [place] [address] 82879 Leobardo Mario MD [address] [place] [address]38 [email or web address] [email or web address] Refill Social History Tobacco Use Types Packs/Day Years [...] Not on file 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 Not on file Not on file Red beret [place] during war Not on file Not on fi le Not on file documented as of this encounter Plan of Treatment Upcoming Encounters Date Type Department Care Team (Latest Contact Info) Description 08/27/2025 9:30 AM EDT Infusion [facility] [address] [place] [address] Haresh Trinidad MD [address] [place] [address] 72649 Maryan Chow RN [address] [place] [address] 08017 09/01/2025 Procedure Pass [facility] Cardiovascular And Interventional Radiology [address] [place] [address] 83742 09/01/2025 1:00 PM EDT Hospital Encounter [facility] Cardiovascular And Interventional Radiology [address] [place] [address] 53663 Fermin Barbour MD [address] [place] [address] 75788 [email or web address] 09/01/2025 1:00 PM EDT - 09/01/2025 2:25 PM EDT Surgery [facility] Cardiovascular And Interventional Radiology [address] [place] [address] 58926 Fermin Barbour MD [address] [place] [address] 15667 [email or web address] PORT A CATH INSERTION (IR) 09/01/2025 2:10 PM EDT Appointment [facility] Laboratory [address] [place] [address] 59409 Haresh Trinidad MD [address] [place] [address] 58608 09/01/2025 3:40 PM EDT Office Visit [facility] at [address] [address] Haresh Trinidad MD [address] [place] [address] 95109 09/03/2025 8:40 AM EDT Infusion [facility] at [address] [address] Haresh Trinidad MD [address] [place] [address] 09178 Jorge Alberto Mendosa RN [address] [place] [address] 54200 [email or web address] 09/24/2025 9:10 AM EDT Appointment [facility] [address] [place] [address] 72517 Haresh Trinidad MD [address] [place] [address] 08563 09/24/2025 10:20 AM EDT Office Visit [facility] at [address] [address] Haresh Trinidad MD [address] [place] [address] 70123 09/24/2025 11:20 AM EDT Infusion [facility] at [address] [address] Haresh Trinidad MD [address] [place] [address] 20450 Chandni Vivas RN [address] [place] [address] 67512 [email or web address] 10/13/2025 1:50 PM EST Appointment [facility] [address] [place] [address] 31302 Haresh Trinidad MD [address] [place] [address] 87465 10/13/2025 3:00 PM EST Office Visit [facility] at [address] [address] Haresh Trinidad MD [address] [place] [address] 47972 10/15/2025 8:00 AM EST Infusion [facility] at [address] [address] Haresh Trinidad MD [address] [place] [address] 68047 Cori Loyd, LAUREN [address] [place] [address] 56912 [email or web address] 11/03/2025 8:10 AM EST Appointment [facility] Laboratory [address] [place] [address] 83082 Haresh Trinidad MD [address] [place] [address] 66641 11/03/2025 9:30 AM EST Office Visit [facility] at [address] [address] Ally Cheney FNP [address] [place] [address] 69790 11/05/2025 8:40 AM EST Infusion [facility] at [address] [address] Haresh Trinidad MD [address] [place] [address] 99130 Jackie Freeman, LAUREN [address] [place] [address] 22815 documented as of this encounter Visit Diagnoses Not on filedocumented in this encounter Care Teams Wheelchair Van Driver Relationship Specialty Start Date End Date Delon Gao MD [address] [place] [address] 42028 PCP - General Endocrinology 04/25/22 Haresh Trinidad MD [address] [place] [address] 25228 Primary Oncologist Medical Oncology 04/26/22 Cori Sequeira CNP [address] [place] [address] 16280 [email or web address] Nurse Practitioner Medical Oncology 05/02/22 Denice Roberts FNP [address] [place] [address] 44645 Nurse Practitioner Medical Oncology 05/19/22 03/04/25 Leslye Tolentino MBBS [address] [place] [address] 74286 [email or web address] Primary Oncologist Hematology and Oncology 10/11/23 documented as of this encounter Additional Source Comments The information contained in this document represents components of the legal health record. It is not the complete legal health record.[facility]
--- OUTSIDE RECORDS SUMMARY | 2025-08-25 12:09 | XMS_ITS | Encounter Summary ---
Author Organization [facility] Address [address] [place] [address] Phone Care Team Providers Care Social Work Professor Name Role Phone Delon Gao MD Primary Care Provider Haresh Trinidad MD Unavailable [phone] Cori Sequeira CNP Unavailable Denice Roberts RADIO SURVEY WORKER Unavailable [phone] Leslye Tolentino MBBS Unavailable Encounter Details Date Type Department Care Team (Late st Contact Info) Description 06/28/2022 Procedure Pass [facility]ovascular [facility] Interventional Radiology [address] [place] [address] Social History Tobacco Use Types Packs/Day Years [...] Not on file 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 Not on file Red beret [place] during war Not on file Not on fi le Not on file documented as of this encounter Plan of Treatment Upcoming Encounters Date Type Department Care Team (Latest Contact Info) Description 08/27/2025 9:30 AM EDT Infusion [facility] at [address] [address] Haresh Trinidad MD [address] [place] [address] 18495 Maryan Chow RN [address] [place] [address] 09/01/2025 Procedure Pass [facility] Cardiovascular And Interventional Radiology [address] [place] [address] 35888 09/01/2025 1:00 PM EDT Hospital Encounter [facility] Cardiovascular And Interventional Radiology [address] [place] [address] 30084 Fermin Barbour MD [address] [place] [address] 78274 [email or web address] 09/01/2025 1:00 PM EDT - 09/01/2025 2:25 PM EDT Surgery [facility] Cardiovascular And Interventional Radiology [address] [place] [address] 05285 Fermin Barbour MD [address] [place] [address] 39869 [email or web address] PORT A CATH INSERTION (IR) 09/01/2025 2:10 PM EDT Appointment [facility] Laboratory [address] [place] [address] 567[address] Haresh Trinidad MD [address] [place] [address] 20751 09/01/2025 3:40 PM EDT Office Visit [facility] at [address] [address] Haresh Trinidad MD [address] [place] [address] 79398 09/03/2025 8:40 AM EDT Infusion [facility] at [address] [address] Haresh Trinidad MD [address] [place] [address] 92021 Jorge Alberto Mendosa RN [address] [place] [address] 56387 [email or web address] 09/24/2025 9:10 AM EDT Appointment [facility] Laboratory [address] [place] [address] 625[address] Haresh Trinidad MD [address] [place] [address] 38528 09/24/2025 10:20 AM EDT Office Visit [facility] at [address] [address] Haresh Trinidad MD [address] [place] [address] 16329 09/24/2025 11:20 AM EDT Infusion [facility] at [address] [address] Haresh Trinidad MD [address] [place] [address] 25553 Chandni Vivas RN [address] [place] [address] 94682 [email or web address] 10/13/2025 1:50 PM EST Appointment [facility] Laboratory [address] [place] [address] 48431 Haresh Trinidad MD [address] [place] [address] 49710 10/13/2025 3:00 PM EST Office Visit [facility] at [address] [address] Haresh Trinidad MD [address] [place] [address] 03639 10/15/2025 8:00 AM EST Infusion [facility] [place] at [address] [address] Haresh Trinidad MD [address] [place] [address] 15233 Cori Loyd RN [address] [place] [address] 36381 [email or web address] 11/03/2025 8:10 AM EST Appointment [facility] [address] [place] [address] 57883 Haresh Trinidad MD [address] [place] [address] 10316 11/03/2025 9:30 AM EST Office Visit [facility] at [address] [address] Ally Cheney FNP [address] [place] [address] 95839 11/05/2025 8:40 AM EST Infusion [facility] [place] at [address] [address] Haresh Trinidad MD [address] [place] [address] 68671 Jackie Freeman, RN [address] [place] [address] 20202 documented as of this encounter Visit Diagnoses Not on filedocumented in this encounter Care Teams Social Work Professor Relationship Specialty Start Date End Date Delon Gao MD [address] [place] [address] 66838 PCP - General Endocrinology 04/25/22 Haresh Trinidad MD [address] [place] [address] 27589 Primary Oncologist Medical Oncology 04/26/22 Cori Sequeira CNP [address] [place] [address] 07141 maria Nurse Practitioner Medical Oncology 05/02/22 Denice Roberts FNP [address] [place] [address] 76328 Nurse Practitioner Medical Oncology 05/19/22 03/04/25 Leslye Tolentino MBBS [address] [place] [address] 12243 [email or web address] Primary Oncologist Hematology and Oncology 10/11/23 documented as of this encounter Additional Source Comments The information contained in this document represents components of the legal health record. It is not the complete legal health record.[facility]
--- OUTSIDE RECORDS SUMMARY | 2025-08-25 12:09 | XMS_ITS | Encounter Summary ---
Author Organization [facility] Address [address] [place] [address] 19647 Phone Care Team Providers Care Shelving Supervisor Name Role Phone Delon Gao MD Primary Care Provider Haresh Trinidad MD Unavailable [phone] Cori Sequeira CNP Unavailable Denice Roberts OPERATOR AUTOMATED PROCESS Unavailable [phone] Leslye Tolentino MBBS Unavailable Encounter Details Date Type Department Care Team (Late st Contact Info) Description 01/04/2023 Procedure Pass [facility] Cardiovascular And Interventional Radiology [address] [place] [address] Social History Tobacco Use Types Packs/Day Years [...] 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 Red 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 [place] during war Not on file Not on fi le Not on file documented as of this encounter Plan of Treatment Upcoming Encounters Date Type Department Care Team (Latest Contact Info) Description 08/27/2025 9:30 AM EDT Infusion [facility] at [address] [address] Haresh Trinidad MD [address] [place] [address] 97659 Maryan Chow RN 30 [place] [address] 09/01/2025 Procedure Pass [facility] Cardiovascular And Interventional Radiology [address] [place] [address] 93046 09/01/2025 1:00 PM EDT Hospital Encounter [facility] Cardiovascular And Interventional Radiology [address] [place] [address] 74008 Fermin Barbour MD [address] [place] [address] 21073 [email or web address] 09/01/2025 1:00 PM EDT - 09/01/2025 2:25 PM EDT Surgery [facility] Cardiovascular And Interventional Radiology [address] [place] [address] 06226 Fermin Barbour MD [address] [place] [address] 33823 [email or web address] PORT A CATH INSERTION (IR) 09/01/2025 2:10 PM EDT Appointment [facility] Laboratory [address] [place] [address] 78660 Haresh Trinidad MD [address] [place] [address] 87660 09/01/2025 3:40 PM EDT Office Visit [facility] at [address] [address] Haresh Trinidad MD [address] [place] [address] 97460 09/03/2025 8:40 AM EDT Infusion [facility] at [address] [address] Haresh Trinidad MD [address] [place] [address] 03180 Jorge Alberto Mendosa RN [address] [place] [address] 73978 [email or web address] 09/24/2025 9:10 AM EDT Appointment [facility] Laboratory [address] [place] [address] 80536 Haresh Trinidad MD [address] [place] [address] 44844 09/24/2025 10:20 AM EDT Office Visit [facility] at [address] [address] Haresh Trinidad MD [address] [place] [address] 63725 09/24/2025 11:20 AM EDT Infusion [facility] at [address] [address] Haresh Trinidad MD [address] [place] [address] 74967 Chandni Vivas RN [address] [place] [address] 71678 [email or web address] 10/13/2025 1:50 PM EST Appointment [facility] Laboratory [address] [place] [address] 57629 Haresh Trinidad MD [address] [place] [address] 14964 10/13/2025 3:00 PM EST Office Visit [facility] at [address] [address] Haresh Trinidad MD [address] [place] [address] 15295 10/15/2025 8:00 AM EST Infusion [facility] [place] at [address] [address] Haresh Trinidad MD [address] [place] [address] 92741 Cori Loyd RN [address] [place] [address] 92066 [email or web address] 11/03/2025 8:10 AM EST Appointment [facility] [address] [place] [address] 70294 Haresh Trinidad MD [address] [place] [address] 87823 11/03/2025 9:30 AM EST Office Visit [facility] at [address] [address] Ally Cheney FNP [address] [place] [address] 09034 11/05/2025 8:40 AM EST Infusion [facility] [place] at [address] [address] Haresh Tirnidad MD [address] [place] [address] 12393 Jackie Freeman, RN [address] [place] [address] 75630 documented as of this encounter Visit Diagnoses Not on filedocumented in this encounter Care Teams Shelving Supervisor Relationship Specialty Start Date End Date Delon Gao MD [address] [place] [address] 51803 PCP - General Endocrinology 04/25/22 Haresh Trinidad MD [address] [place] [address] 52783 Primary Oncologist Medical Oncology 04/26/22 Cori Sequeira CNP [address] [place] [address] 74464 maria Nurse Practitioner Medical Oncology 05/02/22 Denice Roberts FNP [address] [place] [address] 16846 Nurse Practitioner Medical Oncology 05/19/22 03/04/25 Leslye Tolentino MBBS [address] [place] [address] 11262 [email or web address] Primary Oncologist Hematology and Oncology 10/11/23 documented as of this encounter Additional Source Comments The information contained in this document represents components of the legal health record. It is not the complete legal health record.[facility]
--- OUTSIDE RECORDS SUMMARY | 2025-08-25 12:09 | XMS_ITS | Encounter Summary ---
Author Organization [facility] Address [address] [place] [address]71 Phone Care Team Providers Care Human Service Technician Name Role Phone Delon Gao MD Primary Care Provider Haresh Trinidad MD Unavailable [phone] Cori Sequeira CNP Unavailable Denice Roberts THREAD WINDER AUTOMATIC Unavailable Leslye Tolentino MBBS Unavailable Encounter Details Date Type Department Care Team (Late st Contact Info) Description 01/08/2023 Procedure Pass [facility] Cardiovascular And Interventional Radiology [address] [place] [address] Social History Tobacco Use Types Packs/Day Years [...] Not on file 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 on 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 Not on file Red beret [place] during war Not on file Not on fi le Not on file documented as of this encounter Plan of Treatment Upcoming Encounters Date Type Department Care Team (Latest Contact Info) Description 08/27/2025 9:30 AM EDT Infusion [facility] at [address] [address] Haresh Trinidad MD [address] [place] [address] 03426 Maryan Chow RN 30 [place] [address] 09/01/2025 Procedure Pass [facility] Cardiovascular And Interventional Radiology [address] [place] [address] 93781 09/01/2025 1:00 PM EDT Hospital Encounter [facility] Cardiovascular And Interventional Radiology [address] [place] [address] 06693 Fermin Barbour MD [address] [place] [address] 08982 [email or web address] 09/01/2025 1:00 PM EDT - 09/01/2025 2:25 PM EDT Surgery [facility] Cardiovascular And Interventional Radiology [address] [place] [address] 05111 Fermin Barbour MD [address] [place] [address] 78116 [email or web address] PORT A CATH INSERTION (IR) 09/01/2025 2:10 PM EDT Appointment [facility] Laboratory [address] [place] [address] 53662 Haresh Trinidad MD [address] [place] [address] 81537 09/01/2025 3:40 PM EDT Office Visit [facility] at [address] [address] Haresh Trinidad MD [address] [place] [address] 73496 09/03/2025 8:40 AM EDT Infusion [facility] at [address] [address] Haresh Trinidad MD [address] [place] [address] 25231 Jorge Alberto Mendosa RN [address] [place] [address] 18805 [email or web address] 09/24/2025 9:10 AM EDT Appointment [facility] Laboratory [address] [place] [address] 45643 Haresh Trinidad MD [address] [place] [address] 07444 09/24/2025 10:20 AM EDT Office Visit [facility] at [address] [address] Haresh Trinidad MD [address] [place] [address] 21700 09/24/2025 11:20 AM EDT Infusion [facility] at [address] [address] Haresh Trinidad MD [address] [place] [address] 82467 Chandni Vivas RN [address] [place] [address] 05444 [email or web address] 10/13/2025 1:50 PM EST Appointment [facility] Laboratory [address] [place] [address] 22720 Haresh Trinidad MD [address] [place] [address] 30579 10/13/2025 3:00 PM EST Office Visit [facility] at [address] [address] Haresh Trinidad MD [address] [place] [address] 19996 10/15/2025 8:00 AM EST Infusion [facility] at [address] [address] Haresh Trinidad MD [address] [place] [address] 04893 Cori Loyd RN [address] [place] [address]859 [email or web address] 11/03/2025 8:10 AM EST Appointment [facility] [address] [place] [address] Haresh Trinidad MD [address] [place] [address] 75514 11/03/2025 9:30 AM EST Office Visit [facility] at [address] [address] Ally Cheney FNP [address] [place] [address] 35399 11/05/2025 8:40 AM EST Infusion [facility] at [address] [address] Haresh Trinidad MD [address] [place] [address] 96295 Jackie Freeman, RN [address] [place] [address] 55277 documented as of this encounter Visit Diagnoses Not on filedocumented in this encounter Care Teams Human Service Technician Relationship Specialty Start Date End Date Delon Gao MD [address] [place] [address] 66946 PCP - General Endocrinology 04/25/22 Haresh Trinidad MD [address] [place] [address] 80115 Primary Oncologist Medical Oncology 04/26/22 Cori Sequeira CNP [address] [place] [address] 90438 maria Nurse Practitioner Medical Oncology 05/02/22 Denice Roberts FNP [address] [place] [address] 06790 Nurse Practitioner Medical Oncology 05/19/22 03/04/25 Leslye Tolentino MBBS [address] [place] [address] 74305 [email or web address] Primary Oncologist Hematology and Oncology 10/11/23 documented as of this encounter Additional Source Comments The information contained in this document represents components of the legal health record. It is not the complete legal health record.[facility]
--- OUTSIDE RECORDS SUMMARY | 2025-08-25 12:09 | XMS_ITS | Encounter Summary ---
Author Organization Formerly [facility] Address [address] [place] [address] Phone Care Team Providers Care Permit Technician Name Role Phone Delon Gao MD Primary Care Provider Haresh Trinidad MD Unavailable [phone] Cori Sequeira CNP Unavailable Denice Roberts WET MACHINE OPERATOR Unavailable Leslye Tolentino MBBS Unavailable Encounter Details Date Type Department Care Team (Late st Contact Info) Description 12/26/2022 Procedure Pass [facility] [address] [place] [address] Social History Tobacco Use Types Packs/Day Years [...] Not on file 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 Not on file Red 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 in [place] during war Not on file Not on fi le Not on file documented as of this encounter Plan of Treatment Upcoming Encounters Date Type Department Care Team (Latest Contact Info) Description 08/27/2025 9:30 AM EDT Infusion [facility] at [address] [address] Haresh Trinidad MD [address] [place] [address] 60062 Maryan Chow RN [address] [place] [address] 09/01/2025 Procedure Pass [facility] Cardiovascular And Interventional Radiology [address] [place] [address] 704[address] 09/01/2025 1:00 PM EDT Hospital Encounter [facility] Cardiovascular And Interventional Radiology [address] [place] [address] 97131 Fermin Barbour MD [address] [place] [address] [email or web address] 09/01/2025 1:00 PM EDT - 09/01/2025 2:25 PM EDT Surgery [facility] Cardiovascular And Interventional Radiology [address] [place] [address] Fermin Barbour MD [address] [place] [address] [email or web address] PORT A CATH INSERTION (IR) 09/01/2025 2:10 PM EDT Appointment [facility] Laboratory [address] [place] [address] Haresh Trinidad MD [address] [place] [address] 41111 09/01/2025 3:40 PM EDT Office Visit [facility] at [address] [address] Haresh Trinidad MD [address] [place] [address] 27952 09/03/2025 8:40 AM EDT Infusion [facility] at [address] [address] Haresh Trinidad MD [address] [place] [address] 67461 Jorge Alberto Mendosa RN [address] [place] [address] 158[address] [email or web address] 09/24/2025 9:10 AM EDT Appointment [facility] [address] [place] [address] Haresh Trinidad MD [address] [place] [address] 09/24/2025 10:20 AM EDT Office Visit [facility] at [address] [address] Haresh Trinidad MD [address] [place] [address] 41242 09/24/2025 11:20 AM EDT Infusion [facility] at [address] [address] Haresh Trinidad MD [address] [place] [address] 31947 Chandni Vivas RN [address] [place] [address] 14017 [email or web address] 10/13/2025 1:50 PM EST Appointment [facility] Laboratory [address] [place] [address] Haresh Trinidad MD [address] [place] [address] 75920 10/13/2025 3:00 PM EST Office Visit [facility] at [address] [address] Haresh Trinidad MD [address] [place] [address] 45932 10/15/2025 8:00 AM EST Infusion [facility] at [address] [address] Haresh Trinidad MD [address] [place] [address] 04187 Cori Loyd RN [address] [place] [address] [email or web address] 11/03/2025 8:10 AM EST Appointment [facility] [address] [place] [address] Haresh Trinidad MD [address] [place] [address] 93004 11/03/2025 9:30 AM EST Office Visit [facility] at [address] [address] Ally Cheney FNP [address] [place] [address] 29225 11/05/2025 8:40 AM EST Infusion [facility] at [address] [address] Haresh Trinidad MD [address] [place] [address] 18602 Jackie Freeman, RN [address] [place] [address] 66554 documented as of this encounter Visit Diagnoses Not on filedocumented in this encounter Care Teams Permit Technician Relationship Specialty Start Date End Date Delon Gao MD [address] [place] [address]52 PCP - General Endocrinology 04/25/22 Haresh Trinidad MD [address] [place] [address] 89425 Primary Oncologist Medical Oncology 04/26/22 Cori Sequeira CNP [address] [place] [address] 27893 maria Nurse Practitioner Medical Oncology 05/02/22 Denice Roberts FNP [address] [place] [address] 03930 Nurse Practitioner Medical Oncology 05/19/22 03/04/25 Leslye Tolentino MBBS [address] [place] [address] [email or web address] Primary Oncologist Hematology and Oncology 10/11/23 documented as of this encounter Additional Source Comments The information contained in this document represents components of the legal health record. It is not the complete legal health record.[facility]
--- OUTSIDE RECORDS SUMMARY | 2025-08-25 12:09 | XMS_ITS | Encounter Summary ---
Author Organization 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 Not on file Red beret [place] during war Not on file Not on fi le Not on file documented as of this encounter Plan of Treatment Upcoming Encounters Date Type Department Care Team (Latest Contact Info) Description 08/27/2025 9:30 AM EDT Infusion [facility] at [address] [address] Haresh Trinidad MD [address] [place] [address] Maryan Chow RN 30 [place] [address] 09/01/2025 Procedure Pass [facility] Cardiovascular And Interventional Radiology [address] [place] [address] 09/01/2025 1:00 PM EDT Hospital Encounter [facility] Cardiovascular And Interventional Radiology [address] [place] [address] Fermin Barbour MD [address] [place] [address] [email or web address] 09/01/2025 1:00 PM EDT - 09/01/2025 2:25 PM EDT Surgery [facility] Cardiovascular And Interventional Radiology [address] [place] [address] Fermin Barbour MD [address] [place] [address] 21862 [email or web address] PORT A CATH INSERTION (IR) 09/01/2025 2:10 PM EDT Appointment [facility] Laboratory [address] [place] [address] 226[address] Haresh Trinidad MD [address] [place] [address] 89590 09/01/2025 3:40 PM EDT Office Visit [facility] at [address] [address] Haresh Trinidad MD [address] [place] [address] 62436 09/03/2025 8:40 AM EDT Infusion [facility] at [address] [address] Haresh Trinidad MD [address] [place] [address] 29[address] Jorge Alberto Mendosa RN [address] [place] [address] 39144 [email or web address] 09/24/2025 9:10 AM EDT Appointment [facility] Laboratory [address] [place] [address] Haresh Trinidad MD [address] [place] [address] 93948 09/24/2025 10:20 AM EDT Office Visit [facility] at [address] [address] Haresh Trinidad MD [address] [place] [address] 83570 09/24/2025 11:20 AM EDT Infusion [facility] at [address] [address] Haresh Trinidad MD [address] [place] [address] 12373 Chandni Vivas RN [address] [place] [address] 34831 [email or web address] 10/13/2025 1:50 PM EST Appointment [facility] Laboratory [address] [place] [address] Haresh Trinidad MD [address] [place] [address] 22827 10/13/2025 3:00 PM EST Office Visit [facility] at [address] [address] Haresh Trinidad MD [address] [place] [address] 33352 10/15/2025 8:00 AM EST Infusion [facility] at [address] [address] Haresh Trinidad MD [address] [place] [address] 95561 Cori Loyd RN [address] [place] [address] [email or web address] 11/03/2025 8:10 AM EST Appointment [facility] [address] [place] [address] Haresh Trinidad MD [address] [place] [address] 60[address] 11/03/2025 9:30 AM EST Office Visit [facility] at [address] [address] Ally Cheney FNP [address] [place] [address] 37813 11/05/2025 8:40 AM EST Infusion [facility] at [address] [address] Haresh Trinidad MD [address] [place] [address] 02343 Jackie Freeman, RN [address] [place] [address] 65992 documented as of this encounter Visit Diagnoses Not on filedocumented in this encounter Care Teams Weight Loss Physician Relationship Specialty Start Date End Date Delon Gao MD [address] [place] [address] PCP - General Endocrinology 04/25/22 Haresh Trinidad MD [address] [place] [address] Primary Oncologist Medical Oncology 04/26/22 Cori Sequeira CNP [address] [place] [address] 48166 maria Nurse Practitioner Medical Oncology 05/02/22 Denice Roberts FNP [address] [place] [address] 12605 Nurse Practitioner Medical Oncology 05/19/22 03/04/25 Leslye Tolentino MBBS [address] [place] [address]16 [email or web address] Primary Oncologist Hematology and Oncology 10/11/23 documented as of this encounter Additional Source Comments The information contained in this document represents components of the legal health record. It is not the complete legal health record.[facility]
--- OUTSIDE RECORDS SUMMARY | 2025-08-25 12:09 | XMS_ITS ---
Author Organization [facility] Address [address] [place] [address] Phone Care Team Providers Care Secondary School Registrar Name Role Phone Delon Gao MD Primary Care Provider Haresh Trinidad MD Unavailable [phone] Cori Sequeira CNP Unavailable Active Problems Patient Care Coordination No te Formatting of this note migh t be different from the original. 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 History of [...] discomfort. Tylenol available. -Antiemetic available if needed Gastroesophageal reflux disease 05/17/2022 Coronary artery disease 05/17/2022 Overview (05/17/2022): [facility] cardiology Assessment & Plan (05/17/2022 2:44 PM EDT): History of coronary artery disease, followed by [facility] cardiology. History of CABG. Chart notes not available. Medical regimen includes metoprolol tartrate, pravastatin, fenofibrate, valsartan, Lasix, sublingual nitroglycerin as needed. -Home medical regimen continued except for Lasix which the patient refused, as he was told to hold perioperatively. Chronic kidney disease (CKD) 05/17/2022 Assessment & Plan (05/17/2022 2:44 PM EDT): History of chronic kidney disease, stage III. No prior BMP in chart. Baseline ordered for today. Avoid nephrotoxic agents. Asthma 05/17/2022 Assessment & Plan (05/17/2022 2:39 PM EDT): No current symptoms of acute exacerbation. Patient does have home inhalers with albuterol, Advair Diskus, rarely. Flonase as needed. Home medical regimen ordered as needed. Arthritis 05/17/2022 Assessment & Plan (05/17/2022 2:37 PM EDT): Tylenol 50 mg available every 6 hours as needed. Encounter for preoperative s creening laboratory testing for COVID-19 virus 05/17/2022 Diabetes mellitus 05/05/2022 Assessment & Plan (05/17/2022 2:42 PM EDT): Patient does have an insulin pump which he reports delivers continuous basal insulin, with boluses delivered by the patient with meals depending on carbohydrate intake. Glucose at the time of admission 79. He is concerned about hypoglycemia. -D5-NS 50 cc/hr ordered for 4 hours until his dinnertime meal. -Patient may use his own pump and deliver insulin on his own schedule. Discussed with the pharmacy. 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 Patient was receiving pembrolizumab immunotherapy which was held because of worsening renal insufficiency and there was a question of a this secondary to immunotherapy toxicity. Patient also has other risk factors for renal insufficiency. He is following with nephrology closely in this regard. I discussed most recent PET scan which showed no evidence of PET positive disease in the head and neck area. It showed a stable PET positive adrenal nodule of unclear etiology. I reassured him about this. I discussed the case with his primary oncologist. Consensus is to continue chemotherapy holiday at this time. RECOMMENDATIONS: Restaging/surveillance PET scan in 3 months. Patient cannot undergo CT scan because of ongoing renal insufficiency issues He will maintain close follow-up with nephrology Return for follow-up in 3 months with labs and to see Dr. Trinidad Thank you very much for allowing to participate in this patient's care Current Treatment and Therapy Plans P-ARSR-VHODVBGUF (IV/SC) /CYCLOPHOSPHAMIDE/DOXORUBICIN/ VINCRISTINE/PREDNISONE* Plan Start Date:08/27/2025 Plan Provider:Haresh Trinidad MD Linked Problems Lymphoma of testis Treatment Medications Current Day (Day 1 , Cycle 1 - Planned for 08/27/2025) Next Day (Day 1, Cycle 2 - Planned for 09/17/2025) cycloPHOSphamide (CYTOXAN)DOXOrubicin (ADRIAMYCIN)riTUXimabvinCRI Henri (VINCASAR PFS) IVPB {1 mg/mL vial} cycloPHOSphamide (CYTOXAN) 1,040 mg in sodium chloride 0.9% 275.2 mL infusionDOXOrubicin (ADRIAMYCIN) injection 43 mgriTUXimab-abbs (TRUXIMA) 375 mg/m2 = 645 mg in sodium chloride 0.9% 250 mL IVPBvinCRIStine (VINCASAR PFS) 2 mg in sodium chloride 0.9% 62 mL IVPB cycloPHOSphamide (CYTOXAN) 1,040 mg in sodium chloride 0.9% 275.2 mL infusionDOXOrubicin (ADRIAMYCIN) injection 43 mgvinCRIStine (VINCASAR PFS) 2 mg in sodium chloride 0.9% 62 mL IVPB Past Treatment and Therapy Plans TREATMENT PLAN Plan Name Start Date Discontinue Date Treatment Medications Discontinue Reason Plan Provider Cycles Pembrolizumab 200 mg every 3 weeks 04/09/20 23 05/31/2025 pembrolizumab (KEYTRUDA)pembr olizumab (KEYTRUDA) IVPB Bag a. Therapy Complete Haresh Trinidad MD 4 of 4 cycles started CARBOPLATIN/PACL ITAXEL WEEKLY WITH XRT-7 WEEK CYCLE 2 08/01/2022 PACLitaxel (TAXOL)PACLitax el (TAXOL) IVPB in 250 mL (Doses >85 mg to 199 mg) a. Therapy Complete Haresh Trinidad MD 1 of 1 cycle started CETUXIMAB 250 MG/M2 WEEKLY 05/15/20 22 05/30/2022 cetuximab (ERBITUX) e. Reapplying Amended Protocol / Plan Haresh Trinidad MD Treatment not started Lifetime Dose Tracking * Chemical Lifetime Dose Automatic Entry Manual Entr y Invasive Cardiology Radiatio n Exposure 73 mGy 0 mGy 73 mGy 2. DAP 1,014.19 uGy-m2 0 uGy-m2 1,014.19 uGy -m2
--- OUTSIDE RECORDS SUMMARY | 2025-08-25 12:09 | XMS_ITS | Encounter Summary ---
Author Organization [facility] Address [address] [place] [address] [place] [address] Phone Care Team Providers Care Kerfer Machine Operator Name Role Phone Delon Gao MD Primary Care Provider Haresh Trinidad MD Unavailable [phone] Cori Sequeira CNP Unavailable Denice Roberts SOFTWARE SUPPORT SPECIALIST Unavailable Leslye Tolentino MBBS Unavailable Encounter Details Date Type Department Care Team (Late st Contact Info) Description 12/20/2022 Procedure Pass [facility] Scan - [address] [address] Social History Tobacco Use Types Packs/Day Years [...] Not on file 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 Not on file Not on file Red beret [place] during war Not on file Not on fi le Not on file documented as of this encounter Plan of Treatment Upcoming Encounters Date Type Department Care Team (Latest Contact Info) Description 08/27/2025 9:30 AM EDT Infusion [facility] at [address] [address] Haresh Trinidad MD [address] [place] [address]85 Maryan Chow RN [address] [place] [address] 09/01/2025 Procedure Pass [facility] Cardiovascular And Interventional Radiology [address] [place] [address] 8[address] 09/01/2025 1:00 PM EDT Hospital Encounter [facility] Cardiovascular And Interventional Radiology [address] [place] [address] 48682 Fermin Barbour MD [address] [place] [address] 15547 [email or web address] 09/01/2025 1:00 PM EDT - 09/01/2025 2:25 PM EDT Surgery [facility] Cardiovascular And Interventional Radiology [address] [place] [address] 14952 Fermin Barbour MD [address] [place] [address] 39415 [email or web address] PORT A CATH INSERTION (IR) 09/01/2025 2:10 PM EDT Appointment [facility] Laboratory [address] [place] [address] Haresh Trinidad MD [address] [place] [address] 58890 09/01/2025 3:40 PM EDT Office Visit [facility] at [facility] [address] [place] [address] Haresh Trinidad MD [address] [place] [address]648 09/03/2025 8:40 AM EDT Infusion [facility] at [address] [address] Haresh Trinidad MD [address] [place] [address] 11544 Jorge Alberto Mendosa RN [address] [place] [address] 7[address]64 [email or web address] 09/24/2025 9:10 AM EDT Appointment [facility] Laboratory [address] [place] [address]45 Haresh Trinidad MD [address] [place] [address] 41772 09/24/2025 10:20 AM EDT Office Visit [facility] at [address] [address] Haresh Trinidad MD [address] [place] [address] 50991 09/24/2025 11:20 AM EDT Infusion [facility] at [address] [address] Haresh Trinidad MD [address] [place] [address] 84447 Chandni Vivas RN [address] [place] [address] 39276 [email or web address] 10/13/2025 1:50 PM EST Appointment [facility] Laboratory [address] [place] [address] Haresh Trinidad MD [address] [place] [address] 35995 10/13/2025 3:00 PM EST Office Visit [facility] at [address] [address] Haresh Trinidad MD [address] [place] [address] 79697 10/15/2025 8:00 AM EST Infusion [facility] at [address] [address] Haresh Trinidad MD [address] [place] [address] 37790 Cori Loyd RN [address] [place] [address] 32789 [email or web address] 11/03/2025 8:10 AM EST Appointment [facility] [address] [place] [address]681 Haresh Trinidad MD [address] [place] [address] 07891 11/03/2025 9:30 AM EST Office Visit [facility] at [address] [address] Ally Cheney FNP [address] [place] [address] 91075 11/05/2025 8:40 AM EST Infusion [facility] at [address] [address] Haresh Trinidad MD [address] [place] [address]335 Jackie Freeman, LAUREN [address] [place] [address] 19937 documented as of this encounter Visit Diagnoses Not on filedocumented in this encounter Care Teams Kerfer Machine Operator Relationship Specialty Start Date End Date Delon Gao MD [address] [place] [address]703 PCP - General Endocrinology 04/25/22 Haresh Trinidad MD [address] [place] [address] 7[address]69 Primary Oncologist Medical Oncology 04/26/22 Cori Sequeira CNP [address] [place] [address] 92796 maria Nurse Practitioner Medical Oncology 05/02/22 Denice Roberts FNP [address] [place] [address] 18519 Nurse Practitioner Medical Oncology 05/19/22 03/04/25 Leslye Tolentino MBBS [address] [place] [address] 9[address]22 [email or web address] Primary Oncologist Hematology and Oncology 10/11/23 documented as of this encounter Additional Source Comments The information contained in this document represents components of the legal health record. It is not the complete legal health record.[facility]
--- OUTSIDE RECORDS SUMMARY | 2025-08-25 12:09 | XMS_ITS | Encounter Summary ---
Author Organization [facility] Address [address] [place] [address] Phone Care Team Providers Care Manager Nicu Name Role Phone Delon Gao MD Primary Care Provider Haresh Trinidad MD Unavailable [phone] Cori Sequeira CNP Unavailable Denice Roberts PILING CUTTER Unavailable [phone] Leslye Tolentino MBBS Unavailable Encounter Details Date Type Department Care Team (Late st Contact Info) Description 07/13/2022 Procedure Pass [facility] Cardiovascular And Interventional Radiology [address] [place] [address] Social History Tobacco Use Types Packs/Day Years [...] Not on file Not on file 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 Not on file Not on file Red beret in [place] during war Not on file Not on fi le Not on file documented as of this encounter Plan of Treatment Upcoming Encounters Date Type Department Care Team (Latest Contact Info) Description 08/27/2025 9:30 AM EDT Infusion [facility] at [address] [address] Haresh Trinidad MD [address] [place] [address] Maryan Chow RN [address] [place] [address] 09/01/2025 Procedure Pass [facility] Cardiovascular And Interventional Radiology [address] [place] [address] 09/01/2025 1:00 PM EDT Hospital Encounter [facility] Cardiovascular And Interventional Radiology [address] [place] [address] Fermin Barbour MD [address] [place] [address] [email or web address] 09/01/2025 1:00 PM EDT - 09/01/2025 2:25 PM EDT Surgery [facility] Cardiovascular And Interventional Radiology [address] [place] [address] 9[address]21 Fermin Barbour MD [address] [place] [address] 13964 [email or web address] PORT A CATH INSERTION (IR) 09/01/2025 2:10 PM EDT Appointment [facility] Laboratory [address] [place] [address] Haresh Trinidad MD [address] [place] [address] 368[address] 09/01/2025 3:40 PM EDT Office Visit [facility] at [address] [address] Haresh Trinidad MD [address] [place] [address] 51256 09/03/2025 8:40 AM EDT Infusion [facility] at [address] [address] Haresh Trinidad MD [address] [place] [address] 29614 Jorge Alberto Mendosa RN [address] [place] [address] 60847 [email or web address] 09/24/2025 9:10 AM EDT Appointment [facility] Laboratory [address] [place] [address] Haresh Trinidad MD [address] [place] [address] 09/24/2025 10:20 AM EDT Office Visit [facility] at [address] [address] Haresh Trinidad MD [address] [place] [address] 065[address] 09/24/2025 11:20 AM EDT Infusion [facility] at [address] [address] Haresh Trinidad MD [address] [place] [address] 74[address] Chandni Vivas RN [address] [place] [address]04 [email or web address] 10/13/2025 1:50 PM EST Appointment [facility] Laboratory [address] [place] [address] Haresh Trinidad MD [address] [place] [address] 02098 10/13/2025 3:00 PM EST Office Visit [facility] at [address] [address] Haresh Trinidad MD [address] [place] [address] 68641 10/15/2025 8:00 AM EST Infusion [facility] [place] at [address] [address] Haresh Trinidad MD [address] [place] [address] 18675 Cori Loyd RN [address] [place] [address] [email or web address] 11/03/2025 8:10 AM EST Appointment [facility] Laboratory [address] [place] [address] Haresh Trinidad MD [address] [place] [address] 89194 11/03/2025 9:30 AM EST Office Visit [facility] at [address] [address] Ally Cheney FNP [address] [place] [address] 15526 11/05/2025 8:40 AM EST Infusion [facility] [place] at [address] [address] Haresh Trinidad MD [address] [place] [address] 19365 Jackie Freeman, RN [address] [place] [address] 15183 documented as of this encounter Visit Diagnoses Not on filedocumented in this encounter Care Teams Manager Nicu Relationship Specialty Start Date End Date Delon Gao MD [address] [place] [address]67 PCP - General Endocrinology 04/25/22 Haresh Trinidad MD [address] [place] [address] 24[address] Primary Oncologist Medical Oncology 04/26/22 Cori Sequeira CNP [address] [place] [address] 27335 maria Nurse Practitioner Medical Oncology 05/02/22 Denice Roberts FNP [address] [place] [address] 33072 Nurse Practitioner Medical Oncology 05/19/22 03/04/25 Leslye Tolentino MBBS [address] [place] [address] [email or web address] Primary Oncologist Hematology and Oncology 10/11/23 documented as of this encounter Additional Source Comments The information contained in this document represents components of the legal health record. It is not the complete legal health record.[facility]
--- OUTSIDE RECORDS SUMMARY | 2025-08-25 12:10 | XMS_ITS | Clinical Summary ---
Author Organization [facility] Address [address] [place] [address] Phone Care Team Providers Care Steel Worker Name Role Phone Delon Gao MD Primary Care Provider Encounters Date Type Department Care Team Description 06/16/2025 3:23 PM EDT - 06/16/2025 11:59 PM EDT Hospital Encounter [facility] Ultrasound [address] [place] [address] Pain Discharge Disposition: Home or Self Care from Last 3 Months Immunizations Immunization Administration Dates Next Due Pfizer SARS-CoV-2 COVID-19, mRNA, LNP-S, preservative free 08/31/2021,02/27/2021,02/06/2021 Social History Tobacco Use Types Packs/Day Years Used Date Smoking Tobacco: Never Smokeless Tobacco: Never Alcohol Use Standard Drinks/Week Comments Never 0 (1 standard drink = 0.6 oz pur e alcohol) Sex and Gender Information Value Date Recorded Sex Assigned at Not on file Legal Sex Male 1:41 AM EST Gender Identity Not on file Sexual Orientation Not on file Obstetrics History Last Filed Vital Signs Vital Sign Reading Time Taken Comments Blood Pressure 136/60 09/22/2022 9:41 AM EDT Sit ting R Arm Pulse 57 09/22/2022 9:41 AM EDT Temperature - - Respiratory Rate - - Oxygen Saturation - - Inhaled Oxygen Concentration - - Weight 74.8 kg (165 lb) 09/22/2022 9:41 AM EDT Height 165.1 cm (5' 5 ) 09/22/2022 9:41 AM EDT Body Mass Index 27.46 09/22/2022 9:41 AM EDT Plan of Treatment Health Maintenance Due Date Last Done Comments Diabetes: Annual Foot Exam 1957 Diabetes: Annual Retina Eye Exam 1955 DTaP,Tdap,and Td Vaccines (1 - Tdap) 1966 Zoster Vaccines (1 of 2) 1966 Pneumococcal Vaccine: 50+ Years (3 of 3 - PCV) 09/14/2017 09/14/2016, 10/29/2013 Falls Risk Assessment 10/29/2022 Hepatitis C Screening 10/29/2022 Medicare Annual Wellness Visit 10/29/2022 Social Influencers of Health Screening 10/29/2022 Depression Screening 11/26/2024 Diabetes: Annual Urine Albumin-Creatinine Ratio (uACR) 06/17/2025 COVID-19 Vaccine (9 - Pfizer risk season) 2025 08/02/2024, 08/31/2023, 06/25/2023, Additional history exists Influenza Vaccine (#1) 2025 , 08/08/2023, 09/06/2022, Additional history exists Diabetes: Blood Sugar Control Test (HGBA1C) 11/27/2025 05/27/2025, 05/27/2025, 02/25/2025, Additional history exists Diabetes: Annual GFR (Glomerular Filtration Rate) 04/02/2026 04/02/2025, 11/27/2024, 08/21/2024, Additional history exists Hypertension/CHF/CAD Annual BMP Blood Test 04/02/2026 04/02/2025, 11/27/2024, 08/21/2024, Additional history exists Cholesterol Screening (Lipid Panel) 05/27/2030 05/27/2025 RSV Immunization Adult Patients Completed 08/31/2023 HIB Vaccines Aged Out No longer eligi ble based on patient's age to complete this topic HPV Vaccines Aged Out No longer eligi ble based on patient's age to complete this topic Hepatitis A Vaccines Aged Out No long er eligible based on patient's age to complete this topic Hepatitis B Vaccines Aged Out No long er eligible based on patient's age to complete this topic IPV Vaccines Aged Out No longer eligi ble based on patient's age to complete this topic MMR Vaccines Aged Out No longer eligi ble based on patient's age to complete this topic Meningococcal ACWY Vaccine Aged Out N o longer eligible based on patient's age to complete this topic Meningococcal B Vaccine Aged Out No l onger eligible based on patient's age to complete this topic RSV Immunization Patients Under 20 months Aged Out No longer eligible based on patient's age to complete this topic Varicella Vaccines Aged Out No longer eligible based on patient's age to complete this topic Procedures Procedure Name Priority Date/Time Associated Diagnosis Comments US SCROTUM AND CONTENTS Routine 06/16/2025 4:00 PM EDT Pain from Last 3 Months Results * US Scrotum and Contents (06/16/2025 4:00 PM EDT) Anatomical Region Laterality Modality Body Ultrasound 06/16/2025 4:28 PM EDT Impressions 06/16/2025 4:46 PM EDT Highly concerning heterogeneous expansile mass replacing the upper and mid left testicle. Malignancy strongly suspected. -------- FINAL REPORT -------- Dictated By: Bobby Wheat Dictated Date: 06/16/2025 16:28 ET Assigned Physician: Bobby Wheat Reviewed and Electronically Signed By: Bobby Wheat Signed Date: 06/16/2025 16:46 ET Workstation ID: [id number] Transcribed By: Self Edit Transcribed Date: 06/16/2025 16:28 ET Narrative 06/16/2025 4:46 PM EDT EXAM: SCROTAL ULTRASOUND HISTORY: Pain. TECHNIQUE: Clinical concern for torsion or hydrocele. COMPARISON: None FINDINGS: QUALITY: Adequate RIGHT TESTICLE: No focal abnormality of the testicle. Contour is smooth. Echotexture is homogeneous. Size:? 4.2 x 1.6 x 2.7 cm Right vascularity: Normal Right echogenicity: Homogeneous Right extratesticular: No suspicious abnormality. The epididymis is not enlarged. There is no peristalsing bowel Right scrotal fluid:? No significant scrotal fluid LEFT TESTICLE: The left testicle is grossly abnormal. There is a heterogeneous hypoechoic solid mass replacing most of the upper and interpolar left testicle which expands the contour and is hypervascular. This is highly concerning for malignancy. 06/16/25-3.6 x 2.8 x 4.2 cm Size:? 5.0 x 3.1 x 4.2 cm Left vascularity: Hypervascular mass with abnormal color signal. Left echogenicity: Heterogeneous mass. There is no convincing calcifications. There is no convincing evidence of extra testicular extension. Left extratesticular: The head of the left epididymis is not definitely identified. Left scrotal fluid:? There is some nonspecific left scrotal fluid. ADDITIONAL: No peristalsing bowel demonstrated Procedure Note Bobby Wheat MD - 06/16/2025 EXAM: SCROTAL ULTRASOUND HISTORY: Pain. TECHNIQUE: Clinical concern for torsion or hydrocele. COMPARISON: None FINDINGS: QUALITY: Adequate RIGHT TESTICLE: No focal abnormality of the testicle. Contour is smooth.Echotexture is homogeneous. Size:? 4.2 x 1.6 x 2.7 cm Right vascularity: Normal Right echogenicity: Homogeneous Right extratesticular: No suspicious abnormality. The epididymis is notenlarged. There is no peristalsing bowel Right scrotal fluid:? No significant scrotal fluid LEFT TESTICLE: The left testicle is grossly abnormal. There is aheterogeneous hypoechoic solid mass replacing most of the upper andinterpolar left testicle which expands the contour and is hypervascular.This is highly concerning for malignancy. 06/16/25-3.6 x 2.8 x 4.2 cm Size:? 5.0 x 3.1 x 4.2 cm Left vascularity: Hypervascular mass with abnormal color signal. Left echogenicity: Heterogeneous mass. There is no convincingcalcifications. There is no convincing evidence of extra testicularextension. Left extratesticular: The head of the left epididymis is not definitelyidentified. Left scrotal fluid:? There is some nonspecific left scrotal fluid. ADDITIONAL: No peristalsing bowel demonstrated IMPRESSION: Highly concerning heterogeneous expansile mass replacing the upper and midleft testicle. Malignancy strongly suspected. -------- FINAL REPORT -------- Dictated By: Bobby Wheat Dictated Date: 06/16/2025 16:28 ET Assigned Physician: Bobby Wheat Reviewed and Electronically Signed By: Bobby Wheat Signed Date: 06/16/2025 16:46 ET Workstation ID: [id number] Transcribed By: Self Edit Transcribed Date: 06/16/2025 16:28 ET us Cori TAN IMG US PROCEDURES Fi nal Result from Last 3 Months Insurance MEDICARE [facility] Care Teams Steel Worker Relationship Specialty Start Date End Date Delon Gao MD [address] [place] [address] [address] [place], [place] PCP - General 03/27/13
--- OUTSIDE RECORDS SUMMARY | 2025-08-25 12:10 | XMS_ITS | Encounter Summary ---
Author Organization [facility] Address [address] [place] [address] Phone Care Team Providers Care Carpet Floor Layer Apprentice Name Role Phone Delon Gao MD Primary Care Provider [phone] Haresh Trinidad MD Unavailable [phone] Cori Sequeira CNP Unavailable Reason for Visit * Reason Onset Date Comments Initiate Treatment 08/20/2025 Encounter Details Date Type Department Care Team (Late st Contact Info) Description 08/20/2025 Telephone [facility] at [address] [address] Haresh Trinidad MD [address] [place] [address] [phone] [email or web address] Initiate Treatment Social History Tobacco Use Types Packs/Day Years [...] Not on file 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 Port. In person visit in one week for urgent start R-CHOP. CBC/CMP/LDH then. Echo prior (do not delay start). R-CHOP then Scheduled pt for teach on 08/27/25 @ 930 am documented in this encounter Plan of Treatment Upcoming Encounters Date Type Department Care Team (Latest Contact Info) Description 08/27/2025 9:30 AM EDT Infusion [facility] at [address] [address] Haresh Trinidad MD [address] [place] [address] Maryan Chow RN [address] [place] [address]60 09/01/2025 Procedure Pass [facility] Cardiovascular And Interventional Radiology [address] [place] [address] 09/01/2025 1:00 PM EDT Hospital Encounter [facility] Cardiovascular And Interventional Radiology [address] [place] [address]257 Fermin Barbour MD [address] [place] [address] [email or web address] 09/01/2025 1:00 PM EDT - 09/01/2025 2:25 PM EDT Surgery [facility] Cardiovascular And Interventional Radiology [address] [place] [address] Fermin Barbour MD [address] [place] [address]40 [email or web address] PORT A CATH INSERTION (IR) 09/01/2025 2:10 PM EDT Appointment [facility] Laboratory [address] [place] [address] Haresh Trinidad MD [address] [place] [address] 95769 09/01/2025 3:40 PM EDT Office Visit [facility] at [address] [address] Haresh Trinidad MD [address] [place] [address] 09964 09/03/2025 8:40 AM EDT Infusion [facility] at [address] [address] Haresh Trinidad MD [address] [place] [address] 8[address]29 Jorge Alberto Mendosa RN [address] [place] [address] [email or web address] 09/24/2025 9:10 AM EDT Appointment [facility] Laboratory [address] [place] [address] Haresh Trinidad MD [address] [place] [address] 86180 09/24/2025 10:20 AM EDT Office Visit [facility] at [address] [address] Haresh Trinidad MD [address] [place] [address] 33237 09/24/2025 11:20 AM EDT Infusion [facility] at [address] [address] Haresh Trinidad MD [address] [place] [address] 43929 Chandni Vivas RN [address] [place] [address] 367[address] [email or web address] 10/13/2025 1:50 PM EST Appointment [facility] [address] [place] [address] Haresh Trinidad MD [address] [place] [address] 56680 10/13/2025 3:00 PM EST Office Visit [facility] at [address] [address] Haresh Trinidad MD [address] [place] [address] 54347 10/15/2025 8:00 AM EST Infusion [facility] at [address] [address] Haresh Trinidad MD [address] [place] [address] Cori Loyd, LAUREN [address] [place] [address]17 [email or web address] 11/03/2025 8:10 AM EST Appointment [facility] Laboratory [address] [place] [address] Haresh Trinidad MD [address] [place] [address] 91067 11/03/2025 9:30 AM EST Office Visit [facility] at [address] [address] Ally Cheney FNP [address] [place] [address] 41729 11/05/2025 8:[address] [facility] at [address] [address] Haresh Trinidad MD [address] [place] [address] Jackie Freeman, RN [address] [place] [address] 24572 documented as of this encounter Visit Diagnoses Not on filedocumented in this encounter Care Teams Carpet Floor Layer Apprentice Relationship Specialty Start Date End Date Delon Gao MD [address] [place] [address]12 PCP - General Endocrinology 04/25/22 Haresh Trinidad MD [address] [place] [address] 36014 Primary Oncologist Medical Oncology 04/26/22 Cori Sequeira CNP [address] [place] [address] 128[address] [email or web address] Nurse Practitioner Medical Oncology 05/02/22 documented as of this encounter Additional Source Comments The information contained in this document represents components of the legal health record. It is not the complete legal health record.[facility]
--- OUTSIDE RECORDS SUMMARY | 2025-08-25 12:10 | XMS_ITS | Encounter Summary ---
Author Organization [facility] Address [address] [place] [address] [place] [address] Phone Care Team Providers Care Economic Research Analyst Name Role Phone Delon Gao MD Primary Care Provider Haresh Trinidad MD Unavailable [phone] Cori Sequeira CNP Unavailable Denice Roberts SALES SERVICE TECHNICIAN Unavailable Leslye Tolentino MBBS Unavailable Encounter Details Date Type Department Care Team (Late st Contact Info) Description 04/26/2022 Ancillary Orders [facility],Outside Imaging [address] [place], [place] [id number] System, Provider Not In, [facility] [address] [address] Social History Tobacco Use Types Packs/Day Years Used Date Smoking Tobacco: Never Assessed Sex and Gender Information Value Date Recorded Sex Assigned at Not on file Legal Sex Male 3:03 PM EDT Gender Identity Not on file Sexual Orientation Not on file documented as of this encounter Plan of Treatment Upcoming Encounters Date Type Department Care Team (Latest Contact Info) Description 08/27/2025 9:30 AM EDT Infusion [facility] at [facility] [address] [place], [place] [phone] Haresh Trinidad MD [address] [place] [address] Maryan Chow RN [address] [place] [address] 980[address] 09/01/2025 Procedure Pass [facility] Cardiovascular And Interventional Radiology [address] [place] [address]39 09/01/2025 1:00 PM EDT Hospital Encounter [facility] Cardiovascular And Interventional Radiology [address] [place] [address]47 Fermin Barbour MD [address] [place] [address] [email or web address] 09/01/2025 1:00 PM EDT - 09/01/2025 2:25 PM EDT Surgery [facility] Cardiovascular And Interventional Radiology [address] [place] [address] Fermin Barbour MD [address] [place] [address] [email or web address] PORT A CATH INSERTION (IR) 09/01/2025 2:10 PM EDT Appointment [facility] Laboratory [address] [place] [address] Haresh Trinidad MD [address] [place] [address] 09/01/2025 3:40 PM EDT Office Visit [facility] at [address] [address] Haresh Trinidad MD [address] [place] [address] 09/03/2025 8:40 AM EDT Infusion [facility] at [address] [address] Haresh Trinidad MD [address] [place] [address] 437[address] Jorge Alberto Mendosa RN [address] [place] [address] [email or web address] 09/24/2025 9:10 AM EDT Appointment [facility] Laboratory [address] [place] [address] Haresh Trinidad MD [address] [place] [address] 79104 09/24/2025 10:20 AM EDT Office Visit [facility] at [address] [address] Haresh Trinidad MD [address] [place] [address] 6[address] 09/24/2025 11:20 AM EDT Infusion [facility] at [address] [address] Haresh Trinidad MD [address] [place] [address] 61279 Chandni Vivas RN [address] [place] [address] 78084 [email or web address] 10/13/2025 1:50 PM EST Appointment [facility] Laboratory [address] [place] [address] Haresh Trinidad MD [address] [place] [address] 348[address] 10/13/2025 3:00 PM EST Office Visit [facility] at [address] [address] Haresh Trinidad MD [address] [place] [address] 54685 10/15/2025 8:00 AM EST Infusion [facility] at [address] [address] Haresh Trinidad MD [address] [place] [address] Cori Loyd, LAUREN [address] [place] [address]86 [email or web address] 11/03/2025 8:10 AM EST Appointment [facility] [address] [place] [address] Haresh Trinidad MD [address] [place] [address] 11/03/2025 9:30 AM EST Office Visit [facility] [place] at [address] [address] Ally Cheney FNP [address] [place] [address]357 11/05/2025 8:40 AM EST Infusion [facility] at [address] [address] Haresh Trinidad MD [address] [place] [address] Jackie Freeman, LAUREN [address] [place] [address] documented as of this encounter Results * CT Neck Outside (No Interpretation) (04/14/2022 12:00 AM EDT) Narrative SYSTEMGENERATED, DOCUMENTATION - 04/26/2022 2:33 PM EDT This study is for PACS storage only and not for interpretation. us Provider Not In System PhD IMG OUTSIDE IMAGING W /OUT INTERPRETATION Final Result documented in this encounter Visit Diagnoses Not on filedocumented in this encounter Care Teams Economic Research Analyst Relationship Specialty Start Date End Date Delon Gao MD [address] [place] [address] PCP - General Endocrinology 04/25/22 Haresh Trinidad MD [address] [place] [address] [email or web address] Primary Oncologist Medical Oncology 04/26/22 Cori Sequeira CNP [address] [place] [address] [email or web address] Nurse Practitioner Medical Oncology 05/02/22 Denice Roberts FNP [address] [place] [address] Nurse Practitioner Medical Oncology 05/19/22 03/04/25 Leslye Tolentino MBBS [address] [place] [address] [email or web address] Primary Oncologist Hematology and Oncology 10/11/23 documented as of this encounter Additional Source Comments The information contained in this document represents components of the legal health record. It is not the complete legal health record.[facility]
--- OUTSIDE RECORDS SUMMARY | 2025-08-25 12:10 | XMS_ITS | Encounter Summary ---
Author Organization [facility] Address [address] [place] [address] Phone Care Team Providers Care Sap Data Architect Name Role Phone Delon Gao MD Primary Care Provider Haresh Trinidad MD Unavailable [phone] Cori Sequeira CNP Unavailable Leslye TolentinoBS Unavailable [phone] Encounter Details Date Type Department Care Team (Late st Contact Info) Description 08/13/2025 Orders Only [facility] at [address] [address] Provider, MD Jessica [address] [place] [address] Social History Tobacco Use Types Packs/Day Years [...] Not 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 at [address] [address] Haresh Trinidad MD [address] [place] [address] Maryan Chow RN [address] [place] [address] 0[address]65 09/01/2025 Procedure Pass [facility] [address] [place] [address] 41686 09/01/2025 1:00 PM EDT Hospital Encounter [facility] [address] [place] [address] 06758 Fermin Barbour MD [address] [place] [address]162 [email or web address] 09/01/2025 1:00 PM EDT - 09/01/2025 2:25 PM EDT Surgery [facility] Cardiovascular And Interventional Radiology [address] [place] [address] 95634 Fermin Barbour MD [address] [place] [address] [email or web address] PORT A CATH INSERTION (IR) 09/01/2025 2:10 PM EDT Appointment [facility] Laboratory [address] [place] [address] 8[address]64 Haresh Trinidad MD [address] [place] [address] 77613 09/01/2025 3:40 PM EDT Office Visit [facility] at [address] [address] Haresh Trinidad MD [address] [place] [address] 080[address] 09/03/2025 8:[address] [facility] at [address] [address] Haresh Trinidad MD [address] [place] [address] 93696 Jorge Alberto Mendosa RN [address] [place] [address] [email or web address] 09/24/2025 9:10 AM EDT Appointment [facility] [address] [place] [address] 49[address] Haresh Trinidad MD [address] [place] [address] 18505 09/24/2025 10:20 AM EDT Office Visit [facility] at [address] [address] Haresh Trinidad MD [address] [place] [address] 45345 09/24/2025 11:[address] [facility] at [address] [address] Haresh Trinidad MD [address] [place] [address] 84491 Chandni Vivas RN [address] [place] [address]287 [email or web address] 10/13/2025 1:50 PM EST Appointment [facility] [address] [place] [address] Haresh Trinidad MD [address] [place] [address] 30830 10/13/2025 3:00 PM EST Office Visit [facility] at [address] [address] Haresh Trinidad MD [address] [place] [address] 68589 10/15/2025 8:00 AM EST Infusion [facility] at [address] [address] Haresh Trinidad MD [address] [place] [address] 38031 Cori Loyd RN [address] [place] [address]121 [email or web address] 11/03/2025 8:10 AM EST Appointment [facility] [address] [place] [address] 9[address] Haresh Trinidad MD [address] [place] [address] 34994 11/03/2025 9:30 AM EST Office Visit [facility] at [address] [address] Ally Cheney FNP [address] [place] [address] 11/05/2025 8:40 AM EST Infusion [facility] at [place] [facility] [place] [address] [place] [address] Haresh Trinidad MD [address] [place] [address] 08471 Jackie Freeman, LAUREN [address] [place] [address] 24271 documented as of this encounter Procedures Procedure Name Priority Date/Time Associated Diagnosis Comments OUTSIDE PATHOLOGY Routine 08/13/2025 9:04 AM EDT documented in this encounter Results * Outside Pathology (08/13/2025 9:04 AM EDT) us Historical Provider PATHOLOGY ORDERABLES Jammie l Result documented in this encounter Visit Diagnoses Not on filedocumented in this encounter Care Teams Sap Data Architect Relationship Specialty Start Date End Date Delon Gao MD [address] [place] [address] 23988 PCP - General Endocrinology 04/25/22 Haresh Trinidad MD [address] [place] [address] 20218 Primary Oncologist Medical Oncology 04/26/22 Cori Sequeira CNP [address] [place] [address] 41585 maria Nurse Practitioner Medical Oncology 05/02/22 Leslye Tolentino MBBS [address] [place] [address] [email or web address] Primary Oncologist Hematology and Oncology 10/11/23 documented as of this encounter Additional Source Comments The information contained in this document represents components of the legal health record. It is not the complete legal health record.[facility]
--- OUTSIDE RECORDS SUMMARY | 2025-08-25 12:10 | XMS_ITS | Encounter Summary ---
Author Organization [facility] Address [address] [place] [address] [place] [place] [address] Phone Care Team Providers Care Public Administration Teacher Name Role Phone Delon Gao MD Primary Care Provider Haresh Trinidad MD Unavailable [phone] Cori Sequeira CNP Unavailable Encounter Details Date Type Department Care Team (Late st Contact Info) Description 08/20/2025 Telephone [facility] at [address] [phone] Haresh Trinidad MD [address] [place] [address] [phone] [email or web address] Social History Tobacco Use Types Packs/Day Years [...] 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 I understand pt has dialysis on but wanted to try this date documented in this encounter Plan of Treatment Upcoming Encounters Date Type Department Care Team (Latest Contact Info) Description 08/27/2025 9:30 AM EDT [facility] at [address] [address] Haresh Trinidad MD [address] [place] [address] 14736 Maryan Chow RN [address] [place] [address] 81166 09/01/2025 Procedure Pass [facility] [address] [place] [address] 6[address] 09/01/2025 1:00 PM EDT Hospital Encounter [facility] [address] [place] [address] 14023 Fermin Barbour MD [address] [place] [address] [email or web address] 09/01/2025 1:00 PM EDT - 09/01/2025 2:25 PM EDT Surgery [facility] Cardiovascular And Interventional Radiology [address] [place] [address] Fermin Barbour MD [address] [place] [address] [email or web address] PORT A CATH INSERTION (IR) 09/01/2025 2:10 PM EDT Appointment [facility] Laboratory [address] [place] [address] Haresh Trinidad MD [address] [place] [address] 54533 09/01/2025 3:40 PM EDT Office Visit [facility] at [address] [address] Haresh Trinidad MD [address] [place] [address] 41630 09/03/2025 8:40 AM EDT Infusion [facility] at [address] [address] Haresh Trinidad MD [address] [place] [address] 54929 Jorge Alberto Mendosa RN [address] [place] [address] [email or web address] 09/24/2025 9:10 AM EDT Appointment [facility] Laboratory [address] [place] [address] Haresh Trinidad MD [address] [place] [address] 8[address] 09/24/2025 10:20 AM EDT Office Visit [facility] at [address] [address] Haresh Trinidad MD [address] [place] [address] 44[address] 09/24/2025 11:20 AM EDT Infusion [facility] at [address] [address] Haresh Trinidad MD [address] [place] [address] 60764 Chandni Vivas RN [address] [place] [address] 13345 [email or web address] 10/13/2025 1:50 PM EST Appointment [facility] Laboratory [address] [place] [address] 666[address] Haresh Trinidad MD [address] [place] [address] 701[address] 10/13/2025 3:00 PM EST Office Visit [facility] at [address] [address] Haresh Trinidad MD [address] [place] [address] 15760 10/15/2025 8:00 AM EST Infusion [facility] at [address] [address] Haresh Trinidad MD [address] [place] [address] Cori Loyd, LAUREN [address] [place] [address] [email or web address] 11/03/2025 8:10 AM EST Appointment [facility] Laboratory [address] [place] [address] Haresh Trinidad MD [address] [place] [address] 11/03/2025 9:30 AM EST Office Visit [facility] at [address] [address] Ally Cheney FNP [address] [place] [address] 73[address] 11/05/2025 8:40 AM EST Infusion [facility] at [address] [address] Haresh Trinidad MD [address] [place] [address] 09491 Jackie Freeman, LAUREN [address] [place] [address] 34[address] documented as of this encounter Visit Diagnoses Not on filedocumented in this encounter Care Teams Public Administration Teacher Relationship Specialty Start Date End Date Delon Gao MD [address] [place] [address] PCP - General Endocrinology 04/25/22 Haresh Trinidad MD [address] [place] [address] 53476 Primary Oncologist Medical Oncology 04/26/22 Cori Sequeira CNP [address] [place] [address] 37030 maria Nurse Practitioner Medical Oncology 05/02/22 documented as of this encounter Additional Source Comments The information contained in this document represents components of the legal health record. It is not the complete legal health record.[facility]
--- OUTSIDE RECORDS SUMMARY | 2025-08-25 12:10 | XMS_ITS | Encounter Summary ---
Author Organization [facility] Address [address] [place] [address] Phone Care Team Providers Care Screen Cutter And Trimmer Name Role Phone Delon Gao MD Primary Care Provider [phone] Haresh Trinidad MD Unavailable [phone] Cori Sequeira CNP Unavailable Denice Roberts LADLE LINER Unavailable Leslye Tolentino MBBS Unavailable Encounter Details Date Type Department Care Team (Late st Contact Info) Description 11/16/2022 Procedure Pass [facility] [address] [place] [address] Social History Tobacco Use Types Packs/Day Years [...] Not 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 Not on file Red beret [place] during war Not on file Not on fi le Not on file documented as of this encounter Plan of Treatment Upcoming Encounters Date Type Department Care Team (Latest Contact Info) Description 08/27/2025 9:30 AM EDT Infusion [facility] at [address] [address] Haresh Trinidad MD [address] [place] [address] Maryan Chow RN [address] [place] [address] 09/01/2025 Procedure Pass [facility] Cardiovascular And Interventional Radiology [address] [place] [address] 38[address] 09/01/2025 1:00 PM EDT Hospital Encounter [facility] Cardiovascular And Interventional Radiology [address] [place] [address] 87[address] Fermin Barbour MD [address] [place] [address] [email or web address] 09/01/2025 1:00 PM EDT - 09/01/2025 2:25 PM EDT Surgery [facility] Cardiovascular And Interventional Radiology [address] [place] [address] 21431 Fermin Barbour MD [address] [place] [address]61 [email or web address] PORT A CATH INSERTION (IR) 09/01/2025 2:10 PM EDT Appointment [facility] Laboratory [address] [place] [address] 04283 Haresh Trinidad MD [address] [place] [address] 09/01/2025 3:40 PM EDT Office Visit [facility] at [address] [address] Haresh Trinidad MD [address] [place] [address] 99632 09/03/2025 8:40 AM EDT Infusion [facility] at [address] [address] Haresh Trinidad MD [address] [place] [address] 9[address] Jorge Alberto Mendosa RN [address] [place] [address] [email or web address] 09/24/2025 9:10 AM EDT Appointment [facility] Laboratory [address] [place] [address] 07178 Haresh Trinidad MD [address] [place] [address] 120[address] 09/24/2025 10:20 AM EDT Office Visit [facility] at [address] [address] Haresh Trinidad MD [address] [place] [address] 25[address] 09/24/2025 11:20 AM EDT Infusion [facility] at [address] [address] Haresh Trinidad MD [address] [place] [address] 0[address] Chandni Vivas RN [address] [place] [address] [email or web address] 10/13/2025 1:50 PM EST Appointment [facility] Laboratory [address] [place] [address] 17[address] Haresh Trinidad MD [address] [place] [address] 75[address] 10/13/2025 3:00 PM EST Office Visit [facility] at [address] [address] Haresh Trinidad MD [address] [place] [address] 10/15/2025 8:00 AM EST Infusion [facility] [place] at [address] [address] Haresh Trinidad MD [address] [place] [address] Cori Loyd RN [address] [place] [address] [email or web address] 11/03/2025 8:10 AM EST Appointment [facility] [address] [place] [address] Haresh Trinidad MD [address] [place] [address] 97[address] 11/03/2025 9:30 AM EST Office Visit [facility] at [address] [address] Ally Cheney FNP [address] [place] [address] 137[address] 11/05/2025 8:40 AM EST Infusion [facility] [place] at [address] [address] Haresh Trinidad MD [address] [place] [address] Jackie Freeman, RN [address] [place] [address] 268[address] documented as of this encounter Visit Diagnoses Not on filedocumented in this encounter Care Teams Screen Cutter And Trimmer Relationship Specialty Start Date End Date Delon Gao MD [address] [place] [address] PCP - General Endocrinology 04/25/22 Haresh Trinidad MD [address] [place] [address] Primary Oncologist Medical Oncology 04/26/22 Cori Sequeira CNP [address] [place] [address] 27781 maria Nurse Practitioner Medical Oncology 05/02/22 Denice Roberts FNP [address] [place] [address] 45469 Nurse Practitioner Medical Oncology 05/19/22 03/04/25 Leslye Tolentino MBBS [address] [place] [address] [email or web address] Primary Oncologist Hematology and Oncology 10/11/23 documented as of this encounter Additional Source Comments The information contained in this document represents components of the legal health record. It is not the complete legal health record.[facility]
--- OUTSIDE RECORDS SUMMARY | 2025-08-25 12:10 | XMS_ITS | Patient Health Record ---
Author Organization [facility] [place] Address [address] [place] [address] Care Team Providers Care Stock Control Clerk Name Role Phone Shira Hudson Primary Care Provider UnavailDavid Blake Unavailable [phone] Murray MONTILLA, Delon Unavailable Unavailable Cori Waddell Unavailable [phone] Allergies Allergen (clinical drug ingredient) Drug/Non Drug [...] Duration) Notes Start Date End Date Status Insulin Pump Syringe [place] Active NovoLOG Active Fluticasone Propionate 50 MCG/ACT SPRAY 1 SPRAY INTO EACH NOSTRIL TWICE A DAY Nasal; Duration: 90 Days Active Pravastatin Sodium 40 MG Orally Not-Taking Fenofibrate 145 MG TAKE 1 TABLET BY WALTER TH EVERY DAY Oral; Duration: 90 Days Active Metoprolol Succinate 50 MG Orally Not-Taking Nitroglycerin 0.4 MG as directed Sublingual 2022 Active HumaLOG Not-Taking Furosemide 20 MG TAKE 1 TABLET BY WALTER TH EVERY DAY DIRECTED Oral; Duration: 90 Days Active Lyrica 75 MG Orally Once a day Not-Taking hydrALAZINE HCl 50 MG TAKE 1 TABLET BY M [facility] THREE TIMES A DAY DIRECTED Oral; Duration: 90 Days Not-Taking Ammonium Lactate 12 % USE 1 APPLICATION EXTERNALLY TO AFFECTED AREAS OF DRY SKIN TO FEET EXCEPT FOR BETWEEN THE TOES TWICE A DAY 30 DAYS; Duration: 30 Active Extra Depth Orthopedic Shoes (1 Pair) with Customized Heat Molded Multidensity Innersoles (3 Pair) as directed Dx: NIDDM/Polyneuropathy (E11.42), Hammertoe Foot Deformity (M20.41,M20.42), Preulcerative Skin Lesion(s) (L85.1 Active Pregabalin 100 MG TAKE 1 CAPSULE BY [facility] TWICE A DAY Oral; Duration: 90 Days Active Diovan 320 MG Orally Not-[place] Metoprolol Tartrate 50 MG Oral; Duration: 90 Days Acti ve Aspirin 81 MG Orally Not-[facility] Immunizations Vaccine Route Administration Date Status Comme nts Influenza Unknown 08/26/2018 Administered Influenza Unknown 08/26/2019 Administered Influenza Unknown 08/27/2024 Administered Social History Tobacco Use: Social History [...] Problem Acquired hammer toe of right foot (0139479369746402 ) Other hammer toe(s) (acquired), right foot (M20.41) Active confirmed Problem Acquired hammer toe of left foot (7079326713298134 ) Other hammer toe(s) (acquired), left foot (M20.42) Active confirmed Problem Polyneuropathy due to type 2 diabetes mellitus (545524369) Type 2 diabetes mellitus with diabetic polyneuropathy (E11.42) Active confirmed Vital Signs Blood pressure diastolic 65 mm Hg 06/30/2025 Height 5 ft 5 in in 06/30/2025 Blood pressure systolic 128 mm Hg 06/30/2025 Weight 153 lbs 06/30/2025 BMI 25.46 kg/m2 06/30/2025 Procedures Procedure Date Ordered Date Performed Result Body Sit e 58454-RNSGMZG NAIL, 6 OR MORE 10/07/2024 N/A 53439-UGRV SKIN LESIONS, OVER 4 10/07/2024 N/A 71291-OTLCBNW NAIL, 6 OR MORE 01/06/2025 N/A 02012-RPEX SKIN LESIONS, OVER 4 01/06/2025 N/A 58560-QEJUTTF NAIL, 6 OR MORE 03/31/2025 N/A 51652-CAXR SKIN LESIONS, OVER 4 03/31/2025 N/A 40183-XWPVTCT NAIL, 6 OR MORE 06/30/2025 N/A 10316-ZBZX SKIN LESIONS, OVER 4 06/30/2025 N/A Encounters Encounter Location Date Provider Diagnosis [address] [address] 10/07/2024 David Thao Type 2 diabetes mellitus with diabetic polyneuropathy E11.42 ; Tinea unguium B35.1 and Xerosis of skin L85.[address] [address] 01/06/2025 David Thao Type 2 diabetes mellitus with diabetic polyneuropathy E11.42 ; Tinea unguium B35.1 and Xerosis of skin L85.[address] [address] 03/31/2025 Davidjuan Thao Type 2 diabetes mellitus with diabetic polyneuropathy E11.42 ; Tinea unguium B35.1 ; Pain in right toe(s) M79.674 and Contusion of lesser toe of right foot without damage to nail, initial encounter S90.121A [address] [address] 06/30/2025 Davidjuan Thao Type 2 diabetes mellitus with diabetic polyneuropathy E11.42 ; Tinea unguium B35.1 ; Other hammer toe(s) (acquired), right foot M20.41 and Other hammer toe(s) (acquired), left foot M20.42 [facility] [place] [address] [place] [address] 03/28/2025 Cori Waddell Assessments Encounter Date Diagnosis [...] E11.42) 03/31/2025 Tinea unguium (ICD-10 - B35.1) 06/30/2025 Type 2 diabetes mellitus with diabetic polyneuropathy (ICD-10 - E11.42) 06/30/2025 Tinea unguium (ICD-10 - B35.1) 06/30/2025 Other hammer toe(s) (acquired), right foot (ICD-10 - M20.41) Patient Educated with: DIABETIC FOOT CARE INSTRUCTIONS. pdf (DIABETIC FOOT CARE INSTRUCTIONS. pdf) 03/31/2025 Pain in right toe(s) (ICD-10 - M79.674) 01/06/2025 Xerosis of skin (ICD-10 - L85.3) 10/07/2024 Xerosis of skin (ICD-10 - L85.3) 03/31/2025 Contusion of lesser toe of right foot without damage to nail, initial encounter (ICD-10 - S90.121A) 06/30/2025 Other hammer toe(s) (acquired), left foot (ICD-10 - M20.42) 10/07/2024 Other 01/06/2025 Other Plan Of Treatment Pending Test Test Name Order Date X ray : Foot, left 3V 12/04/2018 X ray : Foot, left 3V 12/22/2019 X ray : Foot, right 3V 03/31/2025 70449-KIUIYXP NAIL, 6 OR MORE 03/31/2025 65655-BVKJMHA NAIL, 6 OR MORE 10/07/2024 23333-ZGENHOW NAIL, 6 OR MORE 01/06/2025 43515-LRKCJHT NAIL, 6 OR MORE 12/14/2023 77552-SAQUMKD NAIL, 6 OR MORE 07/08/2024 76050-UEGIIAJ NAIL, 6 OR MORE 06/30/2025 18618-Xujvvdtf Plate 07/08/2024 83199-TKXZ SKIN LESIONS, OVER 4 03/31/20 21195-MDGX SKIN LESIONS, OVER 4 01/06/20 11910-LRNM SKIN LESIONS, OVER 4 10/07/20 44618-WCYD SKIN LESIONS, OVER 4 07/08/20 96048-OVKP SKIN LESIONS, OVER 4 12/14/19 35406-SPIY SKIN LESIONS, OVER 4 12/22/19 31851-YUZM SKIN LESIONS, OVER 4 03/25/20 09801-INMZ SKIN LESIONS, OVER 4 06/26/20 10791-WVID SKIN LESIONS, OVER 4 09/25/20 01143-NOAG SKIN LESIONS, OVER 4 06/30/20 Next Appt Details Provider Name:David Thao , 10/20/2025 09:30:00 AM, [address] [facility], [place], [address], Insurance Providers Payer Name Payer Address Payer Phone Subscriber Number Group Number Insured Name Patient Relationship to Insured Coverage Start Date Coverage End Date Medicare National [employer]t [employer] [address] [place] [address] [id number] Jordan Orozco Self - patient is the insured [employer] [address] [place] [address] [phone] [id number] Jordan Orozco Self - patient is the insured Medical (General) History Medical History History ICD Code Diabetic Chicken pox Heart disease Cancer Cataracts High blood pressure Kidney disease Numbness Reflux ( GERD) Warts Measles Surgical History Surgery Date(Month/Year) triple bypass 2004 eye surgery 05/2020
--- OUTSIDE RECORDS SUMMARY | 2025-08-25 12:10 | XMS_ITS | Clinical Summary ---
Author Organization [facility] Address [address] [place] [phone] Phone Care Team Providers Care Stone Rigger Name Role Phone Delon Gao MD Primary Care Provider Haresh Trinidad MD Unavailable [phone] Cori Sequeira CNP Unavailable Allergies Active Allergy Reactions Criticality Noted Date Comments Ztuwthxjvcgx-Qbp-Nvelgcdbesu en 05/02/2022 Brompheniramine-Phenylephrin e 01/30/2022 [place] Sneezing Medium 05/05/2022 Penicillins Other (See Comments),Rash Low 1 Medications albuterol 90 mcg/actuation inhaler Inhale 1 puff into the lungs every 6 (six) hours as needed for shortness of breath/dyspnea or wheezing. 2 Active cholecalcifero l, vitamin D3, 25 mcg (1,000 unit) capsule Take 25 mcg by mouth. 2 Active fenofibrate (TRICOR) 145 MG tablet Take 145 mg by mouth nightly at bedtime. 2 Active fluticasone propion-salmet Pretty (ADVAIR DISKUS) 100-50 mcg/dose DISKUS 2 Active fluticasone propionate (FLONASE) 50 mcg/actuation nasal spray SHAKE LIQUID AND USE 1 SPRAY IN EACH NOSTRIL TWICE DAILY NEEDED 2 Active hydrALAZINE (APRESOLINE) 50 MG tablet Take 50 mg by mouth 3 (three) times a day. 2 Active pravastatin (PRAVACHOL) 40 MG tablet Take 1 tablet by mouth. Active nitroglycerin (NITROSTAT) 0.[address] 0.4 mg under the tongue. As need it 2 Active metoprolol tartrate (LOPRESSOR) 50 MG tablet Take 25 mg by mouth 2 (two) times a day. 4 Active insulin aspart U-100 (NOVOLOG) 100 unit/mL (3 mL) injection pen Inject as directed. Active igwoziqr-qnb-r errous gluconate (CENTRUM WITH IRON) 9 mg iron/15 mL Liqd Take 15 mL by mouth daily. taking centrum silver tablet 2 Active omega 0-cdo-ngn-fish oil 1,000 mg (120 mg-180 mg) Cap Take 1 capsule by mouth daily. Active acetaminophen (TYLENOL) 325 mg tablet Take 2 tablets (650 mg total) by mouth every 6 (six) hours as needed for mild pain or fever. 0 2 Active ipratropium (ATROVENT) 21 mcg (0.03 %) nasal spray 2 Active dapagliflozin (FARXIGA) 5 mg tablet Take by mouth. 3 Active NOVOLOG U-100 INSULIN ASPART 100 unit/mL injection vial INJECT 240 UNITS WITH INSULIN PUMP DAILY DIRECTED. 3 Active nut.tx.gluc.in jeffrey,lac-free,s oy (GLUCERNA) Liqd Take 237 mL (1 Can total) by mouth 4 (four) times a day. 74324 mL 3 3 Active Additional Information Patient not taking.Reported on 08/20/2025 pregabalin (LYRICA) 100 MG capsule Take 1 capsule by mouth daily. 3 Active furosemide (LASIX) 20 MG tablet Take 20 mg by mouth daily. 3 Active acetaminophen- codeine (TYLENOL #3) 300-30 mg per tablet TAKE 1 TAB BY MOUTH EVERY 4-6 HOURS NEDED PAIN 3 Active torsemide (DEMADEX) 20 MG tablet Take 40 mg by mouth daily. 3 Active bumetanide (BUMEX) 2 MG tablet Take 4 mg by mouth daily. 4 Active amLODIPine (NORVASC) 5 MG tablet Take 5 mg by mouth daily. stopped per pcp 4 Active atorvastatin (LIPITOR) 40 MG tablet Take 40 mg by mouth daily. 4 Active calcium acetate (CALPHRON) 668 mg (169 mg elemental) tablet Take 667 mg by mouth 3 (three) times a day with meals. 4 Active insulin glargine 100 unit/mL (3 mL) InPn injection pen Inject 10 Units under the skin nightly at bedtime. 4 Active aspirin 81 MG EC tablet Orally Active losartan (COZAAR) 25 MG tablet Take by mouth. 4 Active oxyCODONE (ROXICODONE) 5 mg/5 mL solution Take by mouth. 4 Active rosuvastatin (CRESTOR) 10 MG tablet Take by mouth. 5 Active sevelamer carbonate (RENVELA) 800 mg tablet Take by mouth. Activ e benzonatate (TESSALON) 100 MG capsule Take 1 capsule (100 mg total) by mouth 3 (three) times a day as needed for cough. 40 capsule 1 5 Active valsartan (DIOVAN) 320 MG tablet Take 320 mg by mouth nightly at bedtime. 2 10/01/20 23 Discontin ued(Stop Taking at Discharge ) Active Problems Patient Care Coordination No te [...] 05/17/2022 Coronary artery disease 05/17/2022 Overview (05/17/2022): [facility] cardiology Assessment & Plan (05/17/2022 2:44 PM EDT): History of coronary artery disease, followed by [facility] cardiology. History of CABG. Chart notes [...] allowing to participate in this patient's care Encounters Date Type Department Care Team Description 08/20/2025 9:00 AM EDT Office Visit [facility] at [address] [address] Haresh Trinidad MD Squamous cell carcinoma of tonsil (Primary Dx); Lymphoma of testis; Examination prior to chemotherapy 08/20/2025 Telephone [facility] at [address] [address] Haresh Trinidad MD 08/20/2025 Telephone [facility] at [address] [address] Haresh Trinidad MD Initiate Treatment 08/18/2025 2:00 PM EDT Office Visit [facility] [address] [place] [address], [address] Floor, [address] [place] [address] Rebecca Hutton MD, PhD Lymphoma of testis (Primary Dx) 08/13/2025 Orders Only [facility] at [address] [address] Jessica Meier MD 08/11/2025 8:20 AM EDT Office Visit [facility] at [address] [address] Haresh Trinidad MD Squamous cell carcinoma of tonsil (Primary Dx); Lymphoma of testis 08/11/2025 Telephone [facility] at [address] [address] Haresh Trinidad MD 07/09/2025 11:00 AM EDT Office Visit [facility] at [address] [address] Haresh Trinidad MD Squamous cell carcinoma of tonsil (Primary Dx) 07/09/2025 9:53 AM EDT - 07/09/2025 11:59 PM EDT Hospital Encounter [facility] [address] [place] [address] Haresh Trinidad MD Discharge Disposition: Home or Self Care 07/06/2025 Orders Only [facility] at [address] [address] Jessica Meier MD 07/02/2025 2:59 PM EDT - 07/02/2025 11:59 PM EDT Hospital Encounter [facility] - [address] [address] Haresh Trinidad MD Discharge Disposition: Home or Self Care 07/02/2025 Orders Only [facility] at [address] [address] [place] AKI Squamous cell carcinoma of tonsil (Primary Dx) 06/25/2025 Telephone [facility] at [address] [address] Haresh Trinidad MD from Last 3 Months Immunizations Immunization Administration Dates Next Due COVID-19 (Pre-09/17) Pfizer Vaccine, mRNA, PF 08/31/2021,02/27/2021,02/06/2021 INFLUENZA, SPLIT VIRUS, TRIV ALENT W/ PRESERVATIVE IM 09/07/2021,11/18/2012,08/07/2011,08/30 Influenza High-Dose Quadriva lent Preservative Free IM 08/08/2023,09/06/2022,07/29/2020 Influenza High-Dose Trivalen t Preservative Free IM 10/01/2017,09/14/2016 Influenza Quadrivalent Adjuv anted Preservative Free IM 09/07/2021 Influenza Quadrivalent Prese rvative Free IM 09/20/2013 Influenza Trivalent Adjuvant ed Preservative free IM 08/02/2024 Pneumococcal polysaccharide PPSV23 09/14/2016, RSV Vaccine (bivalent) 08/31/2023 Family History Medical History Relation Comments Diabetes Brother Osteosarcoma Daughter Cancer Maternal Uncle Cancer Mother Diabetes Sister Neoplasm of parotid gland Son Relation Status Comments Brother Daughter Alive Maternal Uncle Mother Sister Son Alive Social History Tobacco Use Types Packs/Day Years Used Date Smoking Tobacco: Never Smokeless Tobacco: Never Tobacco Cessation:Counseling Given: Not Answered Alcohol Use Standard Drinks/Week Comments Never 0 [...] Not on file 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 on file Not on file [employer] beret in [place] during war Not on file Not on fi le Not on file Last Filed Vital Signs Vital Sign Reading Time Taken Comments Blood Pressure 140/63 08/20/2025 9:03 AM EDT Pulse 54 08/20/2025 9:03 AM EDT Temperature 36.6 C (97.8 F) 08/20/2025 9:03 AM EDT Respiratory Rate 16 08/18/2025 1:54 PM EDT Oxygen Saturation 95% 08/20/2025 9:03 AM EDT Inhaled Oxygen Concentration - - Weight 67 kg (147 lb 9.6 oz) 08/20/2025 9:03 AM EDT Height 162 cm (5' 3.78 ) 08/20/2025 9:03 AM EDT Body Mass Index 25.51 08/20/2025 9:03 AM EDT Plan of Treatment Upcoming Encounters Date Type Department Care Team (Latest Contact Info) Description 08/27/2025 9:30 AM EDT Infusion [facility] at [address] [address] Haresh Trinidad MD [address] [place] [phone] Maryan Chow RN [address] [place] [phone] 09/01/2025 Procedure Pass [facility] [address] [place] [address] 09/01/2025 1:00 PM EDT Hospital Encounter [facility] Cardiovascular And Interventional Radiology [address] [place] [address] Fermin Barbour MD [address] [place] [phone] [email or web address] 09/01/2025 1:00 PM EDT - 09/01/2025 2:[address] [facility] Cardiovascular And Interventional Radiology [address] [place] [address] Fermin Barbour MD [address] [place] [phone] [email or web address] PORT A CATH INSERTION (IR) 09/01/2025 2:[address] [facility] [address] [place] [address] Haresh Trinidad MD [address] [place] [address] 09/01/2025 3:40 PM EDT Office Visit [facility] at [address] [address] Haresh Trinidad MD [address] [place] [phone] 09/03/2025 8:40 AM EDT Infusion [facility] at [address] [address] Haresh Trinidad MD [address] [place] [address] Jorge Alberto Mendosa RN [address] [place] [phone] [email or web address] 09/24/2025 9:[address] [facility] [address] [place] [address] Haresh Trinidad MD [address] [place] [address] 09/24/2025 10:20 AM EDT Office Visit [facility] at [address] [address] Haresh Trinidad MD [address] [place] [address] 09/24/2025 11:20 AM EDT Infusion [facility] at [address] [address] Haresh Trinidad MD [address] [place] [address] Chandni Vivas RN [address] [place] [phone] [email or web address] 10/13/2025 1:[address] [facility] [address] [place] [address] Haresh Trinidad MD [address] [place] [address] 10/13/2025 3:00 PM EST Office Visit [facility] at [address] [address] Haresh Trinidad MD [address] [place] [phone] 10/15/2025 8:00 AM EST Infusion [facility] at [address] [address] Haresh Trinidad MD [address] [place] [phone] Cori Loyd, LAUREN [address] [place] [address] [email or web address] 11/03/2025 8:10 AM EST Appointment [facility] [address] [place] [address] Haresh Trinidad MD [address] [place] [address] 11/03/2025 9:30 AM EST Office Visit [facility] at [address] [address] Ally Cheney FNP [address] [place] [address] 11/05/2025 8:40 AM EST Infusion [facility] at [address] [address] Haresh Trinidad MD [address] [place] [address] Jackie Freeman, LAUREN [address] [place] [phone] Health Maintenance Due Date Last Done Comments Adult Td,Tdap Booster 1945 DEPRESSION SCREENING 1959 ZOSTER VACCINES (1 of 2) 1966 PNEUMOCOCCAL VACCINES (50+ years) (3 of 3 - PCV) 09/14/2017 09/14/2016, 10/29/2013 DIABETIC EYE EXAM 05/05/2022 HEMOGLOBIN A1C 11/27/2025 05/27/2025, 07/0 12/2024, 02/25/2025, Additional history exists BLOOD PRESSURE 02/17/2026 08/20/2025 POTASSIUM LEVEL 07/09/2026 07/09/2025, 05/0 06/2025, 11/27/2024, Additional history exists CREATININE LEVEL 07/29/2026 07/29/2025, , 07/01/2025, Additional history exists RSV VACCINE Completed 08/31/2023 HEPATITIS C SCREENING Completed 12/03/2024 COVID-19 VACCINE Completed 08/16/2025, 05/2024, 08/31/2023, Additional history exists INFLUENZA VACCINE Completed 08/16/2025, , 08/08/2023, Additional history exists SMOKING STATUS SCREENING (Once After 26 Yrs) Completed 08/20/2025 HEPATITIS A VACCINES Aged Out No long er eligible based on patient's age to complete this topic HIB VACCINES Aged Out No longer eligi ble based on patient's age to complete this topic MENINGOCOCCAL VACCINES (ACWY) Aged Out No longer eligible based on patient's age to complete this topic MENINGOCOCCAL VACCINES (B) Aged Out N o longer eligible based on patient's age to complete this topic Medical Devices Implanted Type Area Eeg Technologist Device Identifier Shelf Expiration Date Model / Serial / Lot Lens Lens Metal In Left Side Of Head From War Procedures Procedure Name Priority Date/Time Associated Diagnosis Comments OUTSIDE PATHOLOGY Routine 08/13/2025 9:0 4 AM EDT LDH Routine 07/09/2025 9:53 AM EDT HCG (TUMOR MARKER) Routine 07/09/2025 9: 53 AM EDT TSH Routine 07/09/2025 9:53 AM EDT Squamous cell carcinoma of tonsil COMPREHENSIVE METABOLIC PANEL Routine 07/09/2025 9:53 AM EDT Squamous cell carcinoma of tonsil CBC AND DIFFERENTIAL Routine 07/09/2025 9:53 AM EDT Squamous cell carcinoma of tonsil OUTSIDE IMAGING Routine 07/06/2025 10:08 AM EDT NM PET [address] SKULL BASE TO MID THIGHS Routine 07/02/2025 4:49 PM EDT Squamous cell carcinoma of tonsil from Last 3 Months Results * Outside Pathology (08/13/2025 9:04 AM EDT) us Historical Provider MD PATHOLOGY ORDERABLES Jammie l Result * (ABNORMAL) LDH (07/09/2025 9:53 AM EDT) LDH 296(H) 118 - 273 U/L [facility] 07/09/2025 9:53 AM EDT 07/09/2025 10:00 AM EDT Leslye FARAH LAB BLOOD ORDERABLES Final Result [facility] [address] [place] [address] * (ABNORMAL) Comprehensive metabolic panel (07/09/2025 9:53 AM EDT) SODIUM 139 133 - 146 mmol/L [facility] POTASSIUM 4.5 3.3 - 5.1 mmol/L [facility] CHLORIDE 99 96 - 108 mmol/L [facility] CO2 28 21 - 35 mmol/L [facility] BUN 25(H) 6 - 19 mg/dL [facility] CREATININE 4.30(H) 0.5 - 1.5 mg/dL [facility] GLUCOSE 98 70 - 99 mg/dL [facility] ALBUMIN 4.1 3.9 - 4.8 g/dL [facility] TOTAL PROTEIN 7.6 6.5 - 8.0 g/dL [facility] CALCIUM 9.0 8.4 - 10.3 mg/dL [facility] ALKALINE PHOSPHATASE 49 39 - 117 U/L [facility] TOTAL BILIRUBIN 0.5 0.0 - 1.2 mg/dL [facility] AST 29 0 - 37 U/L [facility] ALT 12 0 - 40 U/L [facility] GLOBULIN 3.5 1 - 4.8 g/dL [facility] EGFR 13(L) >59 mL/min/1.7 3m2 [facility] Comment:Estimated glomerular filtration rate calculated using the CKD-EPI refit equation. ANION GAP 17 10 - 20 mmol/L [facility] Blood 07/09/2025 9:53 AM EDT 07/09/2025 10:00 AM EDT [facility] Bridgett DuranTolentino [facility] LAB BLOOD ORDERABLES Final Result Performing Organization Address City/[facility]/ZIP Co de Phone Number [address] [address] * HCG (tumor marker) (07/09/2025 9:53 AM EDT) [facility] HCG BETA 0.8 mIU/mL [facility] Comment: Interpretation: MALE: Less than 5 mIU/ml. Test Methodology [employer] e801 Patient results determined by assays using different manufacturers or methods may not be comparable. 07/09/2025 9:53 AM EDT 07/09/2025 10:00 AM EDT [facility] BLOOD ORDERABLES Final Result Performing Organization Address City/[facility] Co de Phone Number [address] [address] * (ABNORMAL) CBC and differential (07/09/2025 9:53 AM EDT) [facility] WBC 5.98 4.00 - 11.00 K/uL [facility] RBC 3.45(L) 4.50 - 5.90 M/uL [facility] HGB 11.1(L) 13.5 - 17.5 g/dL [facility] HCT 35.8(L) 41.0 - 53.0 % [facility] PLT 123(L) 150 - 450 K/uL [facility] MCV 103.8(H) 80.0 - 100.0 fL [facility] MCH 32.2(H) 27.0 - 31.0 pg [facility] MCHC 31.0(L) 32.0 - 36.0 g/dL [facility] RDW 16.1(H) 11.5 - 14.5 % [facility] MPV 11.2 8.4 - 12.0 fL [facility] NRBC 0.00 0.00 /100 WBCs [facility] ABSOLUTE NRBC 0.00 0.00 K/uL [facility] DIFF METHOD Auto [facility] NEUTS 72.4 48.0 - 76.0 % [facility] LYMPHS 15.1(L) 18.0 - 41.0 % [facility] MONOS 10.5 4.0 - 11.0 % [facility] EOS 1.2 0.0 - 5.0 % [facility] BASOS 0.3 0.0 - 1.5 % [facility] Granulocytes, immature (%) 0.5 0.0 - 0.9 % [facility] ABSOLUTE NEUTS 4.33 1.92 - 7.60 K/uL [facility] ABSOLUTE LYMPHS 0.90 0.72 - 4.10 K/uL [facility] ABSOLUTE MONOS 0.63 0.16 - 1.10 K/uL [facility] ABSOLUTE EOS 0.07 0.00 - 0.50 K/uL [facility] ABSOLUTE BASOS 0.02 0.00 - 0.15 K/uL [facility] Granulocytes, immature 0.03 0.00 - 0.09 K/uL [facility] Blood 07/09/2025 9:53 AM EDT 07/09/2025 10:00 AM EDT us Ahmad D [facility] LAB BLOOD ORDERABLES Final Result Performing Organization Address City/[facility]/ZIP Co de Phone Number [address] [address] * TSH (07/09/2025 9:53 AM EDT) TSH 3.56 0.27 - 4.20 uIU/mL [facility] Blood 07/09/2025 9:53 AM EDT 07/09/2025 10:00 AM EDT us Ahmad D [place] [facility] LAB BLOOD ORDERABLES Final Result Performing Organization Address City/[facility]/ZIP Co de Phone Number [address] [address] * Outside Imaging Report Only (07/06/2025 10:08 AM EDT) Historical Provider MD ANDRADE XR CHEST Final Res ult * NM PET CT Skull Base to Mid Thighs (07/02/2025 4:49 PM EDT) Anatomical Region Laterality Modality Positron Emissio n Tomography (PET) Narrative 07/02/2025 3:01 PM EDT MACK PETCT Haresh MCMILLANG NM PET Final Result from Last 3 Months Insurance MEDICARE PART A & B [place] MEDEX [facility] [address] [place] [address] MEDICARE PART A & B [employer] MEDEX SUPPLEMENT MEDICARE PART A & B MEDICARE PART A & B MEDICARE PART A & B MEDEX SUPPLEMENT MEDICARE PART A & B MEDICARE PART A & B [employer] MEDEX SUPPLEMENT MEDICARE PART A & B [employer] MEDEX SUPPLEMENT MEDICARE PART A & B [facility] MEDEX SUPPLEMENT Advance Directives For more information, please contact: [phone] (9AM - 5PM [facility], Sunday-Sunday) Documents on File Type Date Recorded 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 Plant 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 Expl 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 Healthcare Proxy 06/13/2022 SIGNED 06/13 * Full Code (Latest Code Status on File) Date Activated Date Inactivated Comments 05/17/2022 2:32 PM Question Answer Comments Code Status Confirmed With: Patient Care Teams Stone Rigger Relationship Specialty Start Date End Date Delon Gao MD [address] [place] [id number] PCP - General Endocrinology 04/25/22 Haresh Trinidad MD [address] [place] [phone] [email or web address] Primary Oncologist Medical Oncology 04/26/22 Cori Sequeira CNP [address] [place] [phone] [email or web address] Nurse Practitioner Medical Oncology 05/02/22 Additional Source Comments The information contained in this document represents components of the legal health record. It is not the complete legal health record.[facility]
== END 2025-08-25 11:31 | disposition home or self-care (01) ==
LOC: HO.HVS 10:49
PROVIDERS: Visit Provider Surgery Vascular Surgery
DX: N18.6 End stage renal disease (principal)
CPT/HCPCS: 99214; G2211

== ENCOUNTER → 2025-08-25 10:49 | Outpatient (BNVA) | payer MEDICARE, SELFPAY | PROVIDERS: Visit Provider Surgery Vascular Surgery | DX: I77.0 Arteriovenous fistula, acquired (principal); N18.6 End stage renal disease; C62.90 Malignant neoplasm of unspecified testis, unspecified whether descended or undescended | CPT/HCPCS: 99212 ==

== ENCOUNTER 2025-08-27 06:37 | Day surgery (SDC) | payer MEDICARE, SELFPAY ==
--- OUTSIDE RECORDS SUMMARY | 2025-04-21 09:45 | XMS_ITS ---
Author Organization [facility] Address [address] [place] [address] Care Team Providers Care Federal Java Developer Name Role Phone Hudson Silva Primary Care Provider Unavailabl David Keys Unavailable [phone] Murray MONTILLA, Delon Unavailable Unavailable REASON FOR VISIT Seen Sooner Encounters Encounter Location Date Provider Diagnosis [address] [address] 04/21/2025 David Thao Plan Of Treatment Next Appt Details Provider Name:David Thao , 10/20/2025 09:30:00 AM, [address] [place], [address], Progress Notes * Jordan SOLORZANO VDOB:1945 (79 yo M)Acc No.[id number]:04/21/2025 Progress Note Patient: Jordan SORENSON V Provider: Raphael Thao DPM :1945 A ge:79 Y S ex:Male Date:04/21/2025 Address:[address] [place] [address] Pcp:Hudson Silva Subjective: * Chief Complaints: * [...] 0 04/21/2025 Generated for Darion Guillaume on: 09:51 AM EDT
--- OUTSIDE RECORDS SUMMARY | 2025-08-26 09:49 | XMS_ITS | Encounter Summary ---
Author Organization [facility] Address [address] [place] [address] [place] [address] Phone Care Team Providers Care Clinical Specialty Rep Name Role Phone Delon Gao MD Primary Care Provider Haresh Trinidad MD Unavailable [phone] Cori Sequeira CNP Unavailable Denice Roberts ENVIRONMENTAL HEALTH SAFETY MANAGER Unavailable Leslye Tolentino MBBS Unavailable Encounter Details Date Type Department Care Team (Late st Contact Info) Description 05/17/2022 Procedure Pass [facility] Cardiovascular And Interventional Radiology [address] [place] [address] Social History Tobacco Use Types Packs/Day Years [...] Not on file 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 file Not on file Red beret in [place] during war Not on file Not on fi le Not on file documented as of this encounter Functional Status * Calculated C-SSRS Risk Score (Lifetime/Recent) Answer Date of Assessment Author No Risk Indicated 05/17/2022 3:44 PM EDT May Oviedo RN * [place] Suicide Severity Rating Scale (Screener/Recent Self-Report) Question [...] Department Care Team (Latest Contact Info) Description 08/28/2025 8:00 AM EDT [facility] Center at [address] [address] Haresh Trinidad MD [address] [place] [address] 19409 Maryan Chow RN [address] [place] [address] 09/01/2025 Procedure Pass [facility] Cardiovascular And Interventional Radiology [address] [place] [address] 47098 09/01/2025 1:00 PM EDT Hospital Encounter [facility] Cardiovascular And Interventional Radiology [address] [place] [address] 17894 Fermin Barbour MD [address] [place] [address] [email or web address] 09/01/2025 1:00 PM EDT - 09/01/2025 2:25 PM EDT Surgery [facility] Cardiovascular And Interventional Radiology [address] [place] [address] 31590 Fermin Barbour MD [address] [place] [address] [email or web address] PORT A CATH INSERTION (IR) 09/01/2025 2:10 PM EDT Appointment [facility] Laboratory [address] [place] [address] Haresh Trinidad MD [address] [place] [address] 65[address] 09/01/2025 3:40 PM EDT Office Visit [facility] at [address] [address] Haresh Trinidad MD [address] [place] [address] 60354 09/03/2025 8:40 AM EDT Infusion [facility] at [address] [address] Haresh Trinidad MD [address] [place] [address] 54061 Jorge Alberto Mendosa RN [address] [place] [address] [email or web address] 09/24/2025 9:10 AM EDT Appointment [facility] Laboratory [address] [place] [address] Haresh Trinidad MD [address] [place] [address] 20[address] 09/24/2025 10:20 AM EDT Office Visit [facility] at [address] [address] Haresh Trinidad MD [address] [place] [address] 20977 09/24/2025 11:20 AM EDT Infusion [facility] Center at [address] [address] Haresh Trinidad MD [address] [place] [address] 14976 Chandni Vivas RN [address] [place] [address] [email or web address] 10/13/2025 1:50 PM EST Appointment [facility] Laboratory [address] [place] [address] Haresh Trinidad MD [address] [place] [address] 38[address] 10/13/2025 3:00 PM EST Office Visit [facility] at [address] [address] Haresh Trinidad MD [address] [place] [address] 48686 10/15/2025 8:00 AM EST Infusion [facility] at [address] [address] Haresh Trinidad MD [address] [place] [address] 757[address] Cori Loyd, LAUREN [address] [place] [address] 21588 [email or web address] 11/03/2025 8:10 AM EST Appointment [facility] Laboratory [address] [place] [address] Haresh Trinidad MD [address] [place] [address] 49000 11/03/2025 9:30 AM EST Office Visit [facility] at [address] [address] Ally Cheney FNP 30 [place] [address] 11/05/2025 8:40 AM EST Infusion [facility] at Armas Summers [address] [place] [address] Haresh Trinidad MD 30 [place] [address] Jackie Freeman, LAUREN [address] [place] [address] [email or web address] documented as of this encounter Visit Diagnoses Not on filedocumented in this encounter Care Teams Clinical Specialty Rep Relationship Specialty Start Date End Date Delon Gao MD [address] [place] [address]01 PCP - General Endocrinology 04/25/22 Haresh Trinidad MD [address] [place] [address] 22029 Primary Oncologist Medical Oncology 04/26/22 Cori Sequeira CNP [address] [place] [address] 36[address] [email or web address] Nurse Practitioner Medical Oncology 05/02/22 Denice Roberts FNP [address] [place] [address] 108[address] [email or web address] Nurse Practitioner Medical Oncology 05/19/22 03/04/25 Leslye Tolentino MBBS [address] [place] [address] [email or web address] Primary Oncologist Hematology and Oncology 10/11/23 documented as of this encounter Additional Source Comments The information contained in this document represents components of the legal health record. It is not the complete legal health record.[facility]
--- OUTSIDE RECORDS SUMMARY | 2025-08-26 09:49 | XMS_ITS | Encounter Summary ---
Author Organization [facility] Address [address] [place] [address] Phone Care Team Providers Care Automotive Paint Technician Name Role Phone Delon Gao MD Primary Care Provider [phone] Haresh Trinidad MD Unavailable [phone] Coir Sequeira CNP Unavailable Denice Roberts ROTOR WINDER Unavailable [phone] Leslye Tolentino MBBS Unavailable Encounter Details Date Type Department Care Team (Late st Contact Info) Description 07/17/2022 Procedure Pass [facility] Cardiovascular And Interventional Radiology 30 [place] [address] Social History Tobacco Use Types Packs/Day Years [...] Not on file 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 file Not on file Red beret [place] during war Not on file Not on fi le Not on file documented as of this encounter Plan of Treatment Upcoming Encounters Date Type Department Care Team (Latest Contact Info) Description 08/28/2025 8:00 AM EDT Infusion [facility] at [address] [address] Haresh Trinidad MD [address] [place] [address] Maryan Chow RN 30 [place] [address] 09/01/2025 Procedure Pass [facility] Cardiovascular And Interventional Radiology [address] [place] [address] 326[address] 09/01/2025 1:00 PM EDT Hospital Encounter [facility] Cardiovascular And Interventional Radiology [address] [place] [address] 61724 Fermin Barbour MD [address] [place] [address] 16036 [email or web address] 09/01/2025 1:00 PM EDT - 09/01/2025 2:25 PM EDT Surgery [facility] Cardiovascular And Interventional Radiology [address] [place] [address] 78773 Fermin Barbour MD [address] [place] [address] [email or web address] PORT A CATH INSERTION (IR) 09/01/2025 2:10 PM EDT Appointment [facility] Laboratory [address] [place] [address] 98261 Haresh Trinidad MD [address] [place] [address] 09/01/2025 3:40 PM EDT Office Visit [facility] at [address] [address] Haresh Trinidad MD [address] [place] [address] 628[address] 09/03/2025 8:40 AM EDT Infusion [facility] at [address] [address] Haresh Trinidad MD [address] [place] [address] Jorge Alberto Mendosa RN [address] [place] [address] [email or web address] 09/24/2025 9:10 AM EDT Appointment [facility] Laboratory [address] [place] [address] 43021 Haresh Trinidad MD [address] [place] [address] 549[address] 09/24/2025 10:20 AM EDT Office Visit [facility] at [address] [address] Haresh Trinidad MD [address] [place] [address] 09/24/2025 11:20 AM EDT Infusion [facility] at [address] [address] Haresh Trinidad MD [address] [place] [address] 42072 Chandni Vivas RN [address] [place] [address] 387[address] [email or web address] 10/13/2025 1:50 PM EST Appointment [facility] Laboratory [address] [place] [address] 16093 Haresh Trinidad MD [address] [place] [address] 98186 10/13/2025 3:00 PM EST Office Visit [facility] at [address] [address] Haresh Trinidad MD [address] [place] [address] 10/15/2025 8:00 AM EST Infusion [facility] [place] at [address] [address] Haresh Trinidad MD [address] [place] [address]71 Cori Loyd RN [address] [place] [address] [email or web address] 11/03/2025 8:10 AM EST Appointment [facility] Laboratory [address] [place] [address] 28[address] Haresh Trinidad MD [address] [place] [address] 24816 11/03/2025 9:30 AM EST Office Visit [facility] at [address] [address] Ally Cheney FNP [address] [place] [address] 11/05/2025 8:40 AM EST Infusion [facility] [place] at [address] [address] Haresh Trinidad MD [address] [place] [address] Jackie Freeman, RN [address] [place] [address] documented as of this encounter Visit Diagnoses Not on filedocumented in this encounter Care Teams Automotive Paint Technician Relationship Specialty Start Date End Date Delon Gao MD [address] [place] [address] PCP - General Endocrinology 04/25/22 Haresh Trinidad MD [address] [place] [address] 19[address] Primary Oncologist Medical Oncology 04/26/22 Cori Sequeira CNP [address] [place] [address] maria Nurse Practitioner Medical Oncology 05/02/22 Denice Roberts FNP [address] [place] [address] Nurse Practitioner Medical Oncology 05/19/22 03/04/25 Leslye Tolentino MBBS [address] [place] [address] [email or web address] Primary Oncologist Hematology and Oncology 10/11/23 documented as of this encounter Additional Source Comments The information contained in this document represents components of the legal health record. It is not the complete legal health record.[facility]
--- OUTSIDE RECORDS SUMMARY | 2025-08-26 09:49 | XMS_ITS | Encounter Summary ---
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 Not on file Red beret [place] during war Not on file Not on fi le Not on file documented as of this encounter Plan of Treatment Upcoming Encounters Date Type Department Care Team (Latest Contact Info) Description 08/28/2025 8:00 AM EDT Infusion [facility] at [address] [address] Haresh Trinidad MD [address] [place] [address] Maryan Chow RN 30 [place] [address] 09/01/2025 Procedure Pass [facility] Cardiovascular And Interventional Radiology [address] [place] [address] 09/01/2025 1:00 PM EDT Hospital Encounter [facility] Cardiovascular And Interventional Radiology [address] [place] [address] 25785 Fermin Barbour MD [address] [place] [address] 15891 [email or web address] 09/01/2025 1:00 PM EDT - 09/01/2025 2:25 PM EDT Surgery [facility] Cardiovascular And Interventional Radiology [address] [place] [address] 35152 Fermin Barbour MD [address] [place] [address] 44561 [email or web address] PORT A CATH INSERTION (IR) 09/01/2025 2:10 PM EDT Appointment [facility] Laboratory [address] [place] [address] 78254 Haresh Trinidad MD [address] [place] [address] 27405 09/01/2025 3:40 PM EDT Office Visit [facility] at [address] [address] Haresh Trinidad MD [address] [place] [address] 28352 09/03/2025 8:40 AM EDT Infusion [facility] at [address] [address] Haresh Trinidad MD [address] [place] [address] 14827 Jorge Alberto Mendosa RN [address] [place] [address] 14673 [email or web address] 09/24/2025 9:10 AM EDT Appointment [facility] Laboratory [address] [place] [address] 61737 Haresh Trinidad MD [address] [place] [address] 59901 09/24/2025 10:20 AM EDT Office Visit [facility] at [address] [address] Haresh Trinidad MD [address] [place] [address] 74874 09/24/2025 11:20 AM EDT Infusion [facility] at [address] [address] Haresh Trinidad MD [address] [place] [address] 79299 Chandni Vivas RN [address] [place] [address] 33318 [email or web address] 10/13/2025 1:50 PM EST Appointment [facility] Laboratory [address] [place] [address] 8[address]20 Haresh Trinidad MD [address] [place] [address]1959 10/13/2025 3:00 PM EST Office Visit [facility] at [address] [address] Haresh Trinidad MD [address] [place] [address] 65149 10/15/2025 8:00 AM EST Infusion [facility] [place] at [address] [address] Haresh Trinidad MD [address] [place] [address] 73777 Cori Loyd RN [address] [place] [address] 38723 [email or web address] 11/03/2025 8:10 AM EST Appointment [facility] [address] [place] [address] 31246 Haresh Trinidad MD [address] [place] [address] 75896 11/03/2025 9:30 AM EST Office Visit [facility] at [address] [address] Ally Cheney FNP [address] [place] [address] 36555 11/05/2025 8:40 AM EST Infusion [facility] [place] at [address] [address] Haresh Trinidad MD [address] [place] [address] 75162 Jackie Freeman, RN [address] [place] [address] 37653 documented as of this encounter Visit Diagnoses Not on filedocumented in this encounter Care Teams Presser First Relationship Specialty Start Date End Date Delon Gao MD [address] [place] [address]2522 PCP - General Endocrinology 04/25/22 Haresh Trinidad MD [address] [place] [address] 96072 Primary Oncologist Medical Oncology 04/26/22 Cori Sequeira CNP [address] [place] [address] 92170 maria Nurse Practitioner Medical Oncology 05/02/22 Denice Roberts FNP [address] [place] [address]1712 Nurse Practitioner Medical Oncology 05/19/22 03/04/25 Leslye Tolentino MBBS [address] [place] [address] 93[address] [email or web address] Primary Oncologist Hematology and Oncology 10/11/23 documented as of this encounter Additional Source Comments The information contained in this document represents components of the legal health record. It is not the complete legal health record.[facility]
--- OUTSIDE RECORDS SUMMARY | 2025-08-26 09:49 | XMS_ITS | Encounter Summary ---
Author Organization [facility] Address [address] [place] [address] Phone Care Team Providers Care Printed Circuit Boards Inspector Name Role Phone Delon Gao MD Primary Care Provider Haresh Trinidad MD Unavailable [phone] Cori Sequeira CNP Unavailable Denice Roberts PROMOTIONS ASSISTANT Unavailable Leslye Tolentino MBBS Unavailable Encounter Details Date Type Department Care Team (Late st Contact Info) Description 05/05/2022 Procedure Pass [facility] Cardiovascular And Interventional Radiology 30 [place] [address] Social History Tobacco Use Types Packs/Day Years [...] Info) Description 08/28/2025 8:00 AM EDT Infusion [facility] at [address] [address] Haresh Trinidad MD [address] [place] [address] 46712 Maryan Chow RN 30 [place] [address] 09/01/2025 Procedure Pass [facility] Cardiovascular And Interventional Radiology [address] [place] [address] 96781 09/01/2025 1:00 PM EDT Hospital Encounter [facility] Cardiovascular And Interventional Radiology [address] [place] [address] 74104 Fermin Barbour MD [address] [place] [address] 80334 [email or web address] 09/01/2025 1:00 PM EDT - 09/01/2025 2:25 PM EDT Surgery [facility] Cardiovascular And Interventional Radiology [address] [place] [address] Fermin Barbour MD [address] [place] [address] 53220 [email or web address] PORT A CATH INSERTION (IR) 09/01/2025 2:10 PM EDT Appointment [facility] Laboratory [address] [place] [address] 27675 Haresh Trinidad MD [address] [place] [address] 94841 09/01/2025 3:40 PM EDT Office Visit [facility] at [address] [address] Haresh Trinidad MD [address] [place] [address] 10595 09/03/2025 8:40 AM EDT Infusion [facility] at [address] [address] Haresh Trinidad MD [address] [place] [address] 91563 Jorge Alberto Mendosa RN [address] [place] [address] 77688 [email or web address] 09/24/2025 9:10 AM EDT Appointment [facility] Laboratory [address] [place] [address] Haresh Trinidad MD [address] [place] [address] 39295 09/24/2025 10:20 AM EDT Office Visit [facility] at [address] [address] Haresh Trinidad MD [address] [place] [address] 13289 09/24/2025 11:20 AM EDT Infusion [facility] at [address] [address] Haresh Trinidad MD [address] [place] [address] 77020 Chandni Vivas RN [address] [place] [address] 94778 [email or web address] 10/13/2025 1:50 PM EST Appointment [facility] Laboratory [address] [place] [address] 25826 Haresh Trinidad MD [address] [place] [address] 97069 10/13/2025 3:00 PM EST Office Visit [facility] at [address] [address] Haresh Trinidad MD [address] [place] [address] 98048 10/15/2025 8:00 AM EST Infusion [facility] [place] at [address] [address] Haresh Trinidad MD [address] [place] [address] 04240 Cori Loyd RN [address] [place] [address] 67250 [email or web address] 11/03/2025 8:10 AM EST Appointment [facility] [address] [place] [address] 55[address] Haresh Trinidad MD [address] [place] [address] 40298 11/03/2025 9:30 AM EST Office Visit [facility] at [address] [address] Ally Cheney FNP [address] [place] [address] 78396 11/05/2025 8:40 AM EST Infusion [facility] [place] at [address] [address] Haresh Trinidad MD [address] [place] [address] 01766 Jackie Freeman, RN [address] [place] [address] 20577 documented as of this encounter Visit Diagnoses Not on filedocumented in this encounter Care Teams Printed Circuit Boards Inspector Relationship Specialty Start Date End Date Delon Gao MD [address] [place] [address] PCP - General Endocrinology 04/25/22 Haresh Trinidad MD [address] [place] [address] Primary Oncologist Medical Oncology 04/26/22 Cori Sequeira CNP [address] [place] [address] 14333 maria Nurse Practitioner Medical Oncology 05/02/22 Denice Roberts FNP [address] [place] [address] 52082 Nurse Practitioner Medical Oncology 05/19/22 03/04/25 Leslye Tolentino MBBS [address] [place] [address] 13573 [email or web address] Primary Oncologist Hematology and Oncology 10/11/23 documented as of this encounter Additional Source Comments The information contained in this document represents components of the legal health record. It is not the complete legal health record.[facility]
--- OUTSIDE RECORDS SUMMARY | 2025-08-26 09:49 | XMS_ITS | Encounter Summary ---
Author Organization [facility] Address [address] [place] [address] Phone Care Team Providers Care Housing Grant Analyst Name Role Phone Delon Gao MD Primary Care Provider Haresh Trinidad MD Unavailable Cori Sequeira CNP Unavailable Denice Roberts CUSTOMS COMPLIANCE MANAGER Unavailable Leslye Tolentino MBBS Unavailable Encounter Details Date Type Department Care Team (Late st Contact Info) Description 07/13/2022 Procedure Pass [facility] Cardiovascular And Interventional Radiology [address] [place] [address] Social History Tobacco Use Types Packs/Day Years [...] Not on file 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 on 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 Not on file Red 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 [place] during war Not on file Not on fi le Not on file documented as of this encounter Plan of Treatment Upcoming Encounters Date Type Department Care Team (Latest Contact Info) Description 08/28/2025 8:00 AM EDT Infusion [facility] at [address] [address] Haresh Trinidad MD [address] [place] [address] 38539 Maryan Chow RN 30 [place] [address] 09/01/2025 Procedure Pass [facility] Cardiovascular And Interventional Radiology [address] [place] [address] 57026 09/01/2025 1:00 PM EDT Hospital Encounter [facility] Cardiovascular And Interventional Radiology [address] [place] [address] 53957 Fermin Barbour MD [address] [place] [address] 82903 [email or web address] 09/01/2025 1:00 PM EDT - 09/01/2025 2:25 PM EDT Surgery [facility] Cardiovascular And Interventional Radiology [address] [place] [address] 76112 Fermin Barbour MD [address] [place] [address] 84357 [email or web address] PORT A CATH INSERTION (IR) 09/01/2025 2:10 PM EDT Appointment [facility] Laboratory [address] [place] [address] 33268 Haresh Trinidad MD [address] [place] [address] 98818 09/01/2025 3:40 PM EDT Office Visit [facility] at [address] [address] Haresh Trinidad MD [address] [place] [address] 49896 09/03/2025 8:40 AM EDT Infusion [facility] at [address] [address] Haresh Trinidad MD [address] [place] [address] 28843 Jorge Alberto Mendosa RN [address] [place] [address] [email or web address] 09/24/2025 9:10 AM EDT Appointment [facility] Laboratory [address] [place] [address] 45549 Haresh Trinidad MD [address] [place] [address] 77551 09/24/2025 10:20 AM EDT Office Visit [facility] at [address] [address] Haresh Trinidad MD [address] [place] [address] 48929 09/24/2025 11:20 AM EDT Infusion [facility] at [address] [address] Haresh Trinidad MD [address] [place] [address] 46453 Chandni Vivas RN [address] [place] [address] 69012 [email or web address] 10/13/2025 1:50 PM EST Appointment [facility] Laboratory [address] [place] [address] 65384 Haresh Trinidad MD [address] [place] [address] 70462 10/13/2025 3:00 PM EST Office Visit [facility] at [address] [address] Haresh Trinidad MD [address] [place] [address] 64279 10/15/2025 8:00 AM EST Infusion [facility] [place] at [address] [address] Haresh Trinidad MD [address] [place] [address] 42148 Cori Loyd RN [address] [place] [address] 97846 [email or web address] 11/03/2025 8:10 AM EST Appointment [facility] [address] [place] [address] 83573 Haresh Trinidad MD [address] [place] [address] 60446 11/03/2025 9:30 AM EST Office Visit [facility] at [address] [address] Ally Cheney FNP [address] [place] [address] 95510 11/05/2025 8:40 AM EST Infusion [facility] [place] at [address] [address] Haresh Trinidad MD [address] [place] [address] 75425 Jackie Freeman, RN [address] [place] [address] 04973 documented as of this encounter Visit Diagnoses Not on filedocumented in this encounter Care Teams Housing Grant Analyst Relationship Specialty Start Date End Date Delon Gao MD [address] [place] [address] 80725 PCP - General Endocrinology 04/25/22 Haresh Trinidad MD [address] [place] [address] 12094 Primary Oncologist Medical Oncology 04/26/22 Cori Sequeira CNP [address] [place] [address] 83169 maria Nurse Practitioner Medical Oncology 05/02/22 Denice Roberts FNP [address] [place] [address] 74247 Nurse Practitioner Medical Oncology 05/19/22 03/04/25 Leslye Tolentino MBBS [address] [place] [address] 40060 [email or web address] Primary Oncologist Hematology and Oncology 10/11/23 documented as of this encounter Additional Source Comments The information contained in this document represents components of the legal health record. It is not the complete legal health record.[facility]
--- OUTSIDE RECORDS SUMMARY | 2025-08-26 09:49 | XMS_ITS | Encounter Summary ---
Author Organization [facility] Address [address] [place] [address] Phone Care Team Providers Care Web Development Director Name Role Phone Delon Gao MD Primary Care Provider Haresh Trinidad MD Unavailable [phone] Coir Sequeira CNP Unavailable Denice Roberts SYSTEMS ENGINEER Unavailable Leslye Tolentino MBBS Unavailable Encounter Details Date Type Department Care Team (Late st Contact Info) Description 01/04/2023 Procedure Pass [facility] Cardiovascular And Interventional Radiology 30 [place] [address] Social History Tobacco Use Types Packs/Day Years [...] Not on file 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 on file Not on file Red beret [place] during war Not on file Not on fi le Not on file documented as of this encounter Plan of Treatment Upcoming Encounters Date Type Department Care Team (Latest Contact Info) Description 08/28/2025 8:00 AM EDT Infusion [facility] at [address] [address] Haresh Trinidad MD [address] [place] [address] 44998 Maryan Chow RN 30 [place] [address] 09/01/2025 Procedure Pass [facility] Cardiovascular And Interventional Radiology [address] [place] [address] 77096 09/01/2025 1:00 PM EDT Hospital Encounter [facility] Cardiovascular And Interventional Radiology [address] [place] [address] 32883 Fermin Barbour MD [address] [place] [address] 62549 [email or web address] 09/01/2025 1:00 PM EDT - 09/01/2025 2:25 PM EDT Surgery [facility] Cardiovascular And Interventional Radiology [address] [place] [address] 06970 Fermin Barbour MD [address] [place] [address] 03845 [email or web address] PORT A CATH INSERTION (IR) 09/01/2025 2:10 PM EDT Appointment [facility] Laboratory [address] [place] [address] 8[address]66 Haresh Trinidad MD [address] [place] [address] 36573 09/01/2025 3:40 PM EDT Office Visit [facility] at [address] [address] Haresh Trinidad MD [address] [place] [address] 10885 09/03/2025 8:40 AM EDT Infusion [facility] at [address] [address] Haresh Trinidad MD [address] [place] [address] 96062 Jorge Alberto Mendosa RN [address] [place] [address] 29519 [email or web address] 09/24/2025 9:10 AM EDT Appointment [facility] Laboratory [address] [place] [address] 42822 Haresh Trinidad MD [address] [place] [address] 21305 09/24/2025 10:20 AM EDT Office Visit [facility] at [address] [address] Haresh Trinidad MD [address] [place] [address] 46856 09/24/2025 11:20 AM EDT Infusion [facility] at [address] [address] Haresh Trinidad MD [address] [place] [address] 33867 Chandni Vivas RN [address] [place] [address] 90496 [email or web address] 10/13/2025 1:50 PM EST Appointment [facility] Laboratory [address] [place] [address] 09015 Haresh Trinidad MD [address] [place] [address] 42789 10/13/2025 3:00 PM EST Office Visit [facility] at [address] [address] Haresh Trinidad MD [address] [place] [address] 80486 10/15/2025 8:00 AM EST Infusion [facility] [place] at [address] [address] Haresh Trinidad MD [address] [place] [address] 38081 Cori Loyd RN [address] [place] [address] 19826 [email or web address] 11/03/2025 8:10 AM EST Appointment [facility] [address] [place] [address] 62114 Haresh Trinidad MD [address] [place] [address] 25767 11/03/2025 9:30 AM EST Office Visit [facility] at [address] [address] Ally Cheney FNP [address] [place] [address] 95105 11/05/2025 8:40 AM EST Infusion [facility] [place] at [address] [address] Haresh Trinidad MD [address] [place] [address] 59855 Jackie Freeman, RN [address] [place] [address] 31952 documented as of this encounter Visit Diagnoses Not on filedocumented in this encounter Care Teams Web Development Director Relationship Specialty Start Date End Date Delon Gao MD [address] [place] [address] 40859 PCP - General Endocrinology 04/25/22 Haresh Trinidad MD [address] [place] [address] 92152 Primary Oncologist Medical Oncology 04/26/22 Cori Sequeira CNP [address] [place] [address] 34604 maria Nurse Practitioner Medical Oncology 05/02/22 Denice Roberts FNP [address] [place] [address] 54886 Nurse Practitioner Medical Oncology 05/19/22 03/04/25 Leslye Tolentino MBBS [address] [place] [address] 43913 [email or web address] Primary Oncologist Hematology and Oncology 10/11/23 documented as of this encounter Additional Source Comments The information contained in this document represents components of the legal health record. It is not the complete legal health record.[facility]
--- OUTSIDE RECORDS SUMMARY | 2025-08-26 09:49 | XMS_ITS | Encounter Summary ---
Author Organization [facility] Address [address] [place] [address] Phone Care Team Providers Care Coiler Name Role Phone Delon Gao MD Primary Care Provider Haresh Trinidad MD Unavailable [phone] Cori Sequeira CNP Unavailable Denice Roberts LANCE CREWMEMBER/MLRS SERGEANT Unavailable Leslye Tolentino MBBS Unavailable Encounter Details Date Type Department Care Team (Late st Contact Info) Description 06/28/2022 Procedure Pass [facility] Cardiovascular And Interventional Radiology [address] [place] [address] Social History Tobacco Use Types Packs/Day Years [...] Not on file 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 Not on file Red beret [place] during war Not on file Not on fi le Not on file documented as of this encounter Plan of Treatment Upcoming Encounters Date Type Department Care Team (Latest Contact Info) Description 08/28/2025 8:00 AM EDT Infusion [facility] at [address] [address] Haresh Trinidad MD [address] [place] [address] 60820 Maryan Chow RN 30 [place] [address] 09/01/2025 Procedure Pass [facility] Cardiovascular And Interventional Radiology [address] [place] [address] 40717 09/01/2025 1:00 PM EDT Hospital Encounter [facility] Cardiovascular And Interventional Radiology [address] [place] [address] 22455 Fermin Barbour MD [address] [place] [address] 79699 [email or web address] 09/01/2025 1:00 PM EDT - 09/01/2025 2:25 PM EDT Surgery [facility] Cardiovascular And Interventional Radiology [address] [place] [address] 71580 Fermin Barbour MD [address] [place] [address] 10990 [email or web address] PORT A CATH INSERTION (IR) 09/01/2025 2:10 PM EDT Appointment [facility] Laboratory [address] [place] [address] 54415 Haresh Trinidad MD [address] [place] [address] 87078 09/01/2025 3:40 PM EDT Office Visit [facility] at [address] [address] Haresh Trinidad MD [address] [place] [address] 45451 09/03/2025 8:40 AM EDT Infusion [facility] at [address] [address] Haresh Trinidad MD [address] [place] [address] 26945 Jorge Alberto Mendosa RN [address] [place] [address] 02824 [email or web address] 09/24/2025 9:10 AM EDT Appointment [facility] Laboratory [address] [place] [address] 10521 Haresh Trinidad MD [address] [place] [address] 61565 09/24/2025 10:20 AM EDT Office Visit [facility] at [address] [address] Haresh Trinidad MD [address] [place] [address] 34336 09/24/2025 11:20 AM EDT Infusion [facility] at [address] [address] Haresh Trinidad MD [address] [place] [address] 66415 Chandni Vivas RN [address] [place] [address] 50834 [email or web address] 10/13/2025 1:50 PM EST Appointment [facility] Laboratory [address] [place] [address] 38196 Haersh Trinidad MD [address] [place] [address] 97353 10/13/2025 3:00 PM EST Office Visit [facility] at [address] [address] Haresh Trinidad MD [address] [place] [address] 80319 10/15/2025 8:00 AM EST Infusion [facility] [place] at [address] [address] Haresh Trinidad MD [address] [place] [address] 58355 Cori Loyd RN [address] [place] [address] 96032 [email or web address] 11/03/2025 8:10 AM EST Appointment [facility] [address] [place] [address] 58063 Haresh Trinidad MD [address] [place] [address] 32838 11/03/2025 9:30 AM EST Office Visit [facility] at [address] [address] Ally Cheney FNP [address] [place] [address] 72751 11/05/2025 8:40 AM EST Infusion [facility] [place] at [address] [address] Haresh Trinidad MD [address] [place] [address] 47122 Jackie Freeman, RN [address] [place] [address] 34539 documented as of this encounter Visit Diagnoses Not on filedocumented in this encounter Care Teams Coiler Relationship Specialty Start Date End Date Delon Gao MD [address] [place] [address] 48926 PCP - General Endocrinology 04/25/22 Haresh Trinidad MD [address] [place] [address] 83903 Primary Oncologist Medical Oncology 04/26/22 Cori Sequeira CNP [address] [place] [address] 11240 maria Nurse Practitioner Medical Oncology 05/02/22 Denice Roberts FNP [address] [place] [address] 60086 Nurse Practitioner Medical Oncology 05/19/22 03/04/25 Leslye Tolentino MBBS [address] [place] [address] 03316 [email or web address] Primary Oncologist Hematology and Oncology 10/11/23 documented as of this encounter Additional Source Comments The information contained in this document represents components of the legal health record. It is not the complete legal health record.[facility]
--- OUTSIDE RECORDS SUMMARY | 2025-08-26 09:51 | XMS_ITS | Encounter Summary ---
Author Organization [facility] Address [address] [place] [address] Phone Care Team Providers Care Bar Pointer Name Role Phone Delon Gao MD Primary Care Provider Haresh Trinidad MD Unavailable [phone] Cori Sequeira CNP Unavailable Denice Roberts TRENCH DIGGER Unavailable Leslye Tolentino MBBS Unavailable Reason for Visit * Reason Comments Medication Refill Encounter Details Date Type Department Care Team (Late st Contact Info) Description 02/03/2023 Refill [facility] Rad Onc [address] [place] [address] 23500 Leobardo Mario MD [address] [place] [address]15 [email or web address] Refill Social History Tobacco Use [...] 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 on file Red 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[place] during war Not on file Not on fi le Not on file documented as of this encounter Plan of Treatment Upcoming Encounters Date Type Department Care Team (Latest Contact Info) Description 08/28/2025 8:00 AM EDT Infusion [facility] [address] [place] [address] Haresh Trinidad MD [address] [place] [address] 98128 Maryan Chow RN [address] [place] [address] 47916 09/01/2025 Procedure Pass [facility] Cardiovascular And Interventional Radiology [address] [place] [address] 44196 09/01/2025 1:00 PM EDT Hospital Encounter [facility] Cardiovascular And Interventional Radiology [address] [place] [address] 19435 Fermin Barbour MD [address] [place] [address] 58262 [email or web address] 09/01/2025 1:00 PM EDT - 09/01/2025 2:25 PM EDT Surgery [facility] Cardiovascular And Interventional Radiology [address] [place] [address] 59687 Fermin Barbour MD [address] [place] [address] 12467 [email or web address] PORT A CATH INSERTION (IR) 09/01/2025 2:10 PM EDT Appointment [facility] Laboratory [address] [place] [address] 17756 Haresh Trinidad MD [address] [place] [address] 24262 09/01/2025 3:40 PM EDT Office Visit [facility] at [address] [address] Haresh Trinidad MD [address] [place] [address] 48414 09/03/2025 8:40 AM EDT Infusion [facility] at [address] [address] Haresh Trinidad MD [address] [place] [address] 74426 Jorge Alberto Mendosa RN [address] [place] [address] 97250 [email or web address] 09/24/2025 9:10 AM EDT Appointment [facility] [address] [place] [address] 08169 Haresh Trinidad MD [address] [place] [address] 93026 09/24/2025 10:20 AM EDT Office Visit [facility] at [address] [address] Haresh Trinidad MD [address] [place] [address] 70462 09/24/2025 11:20 AM EDT Infusion [facility] at [address] [address] Haresh Trinidad MD [address] [place] [address] 96827 Chandni Vivas RN [address] [place] [address] 11785 [email or web address] 10/13/2025 1:50 PM EST Appointment [facility] [address] [place] [address] 91869 Haresh Trinidad MD [address] [place] [address] 88538 10/13/2025 3:00 PM EST Office Visit [facility] at [address] [address] Haresh Trinidad MD [address] [place] [address] 49671 10/15/2025 8:00 AM EST Infusion [facility] at [address] [address] Haresh Trinidad MD [address] [place] [address] 27823 Cori Loyd, LAUREN [address] [place] [address] 12172 [email or web address] 11/03/2025 8:10 AM EST Appointment [facility] [address] [place] [address] 93980 Haresh Trinidad MD [address] [place] [address] 68563 11/03/2025 9:30 AM EST Office Visit [facility] [place] at [address] [address] Ally Cheney FNP [address] [place] [address] 22736 11/05/2025 8:40 AM EST Infusion [facility] at [address] [address] Haresh Trinidad MD [address] [place] [address] 43679 Jackie Fremean, LAUREN [address] [place] [address] 76030 documented as of this encounter Visit Diagnoses Not on filedocumented in this encounter Care Teams Bar Pointer Relationship Specialty Start Date End Date Delon Gao MD [address] [place] [address] 63235 PCP - General Endocrinology 04/25/22 Haresh Trinidad MD [address] [place] [address] 58374 Primary Oncologist Medical Oncology 04/26/22 Cori Sequeira CNP [address] [place] [address] 27297 [email or web address] [email or web address] Nurse Practitioner Medical Oncology 05/02/22 Denice Roberts FNP [address] [place] [address] 07952 Nurse Practitioner Medical Oncology 05/19/22 03/04/25 Leslye Tolentino MBBS [address] [place] [address] 05961 [email or web address] Primary Oncologist Hematology and Oncology 10/11/23 documented as of this encounter Additional Source Comments The information contained in this document represents components of the legal health record. It is not the complete legal health record.[facility]
--- OUTSIDE RECORDS SUMMARY | 2025-08-26 09:51 | XMS_ITS | Clinical Summary ---
Author Organization [facility] Address [address] [place] [address] Phone Care Team Providers Care Medicaid Service Coordinator Name Role Phone Delon Gao MD Primary Care Provider Haresh Trinidad MD Unavailable [phone] Cori Sequeira CNP Unavailable Allergies Active Allergy Reactions Criticality Noted Date Comments Zfhyqumrkbnm-Ugx-Nvblselzdib en 05/02/2022 Brompheniramine-Phenylephrin e 01/30/2022 [place] Sneezing [...] mL) injection pen Inject as directed. Active vpxnkqdl-awg-p errous gluconate (CENTRUM WITH IRON) 9 mg iron/15 mL Liqd Take 15 mL by mouth daily. taking centrum silver tablet 2 Active omega 7-net-mgn-fish oil 1,000 mg (120 mg-180 mg) Cap [...] by mouth 4 (four) times a day. 05491 mL 3 3 Active Additional Information Patient [...] 05/17/2022 Coronary artery disease 05/17/2022 Overview (05/17/2022): [facility] cardiology Assessment & Plan (05/17/2022 2:44 PM EDT): History of coronary artery disease, followed by [facility] cardiology. History of CABG. 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 08/20/2025 Telephone [facility] at [address] [address] Haresh Trinidad MD 08/20/2025 Telephone [facility] at [address] [address] Haresh Trinidad MD Initiate Treatment 08/18/2025 2:00 PM EDT Office Visit [facility] [address] [place] [address], 9th Floor, [address] [place] [address] Rebecca Hutton MD, PhD Lymphoma of testis (Primary Dx) 08/13/2025 Orders Only [facility] at [address] [address] Jessica Meier MD 08/11/2025 8:20 AM EDT Office Visit [facility] [address] [address] Haresh Trinidad MD Squamous cell carcinoma of tonsil (Primary Dx); Lymphoma of testis 08/11/2025 Telephone [facility] [address] [address] Haresh Trinidad MD 07/09/2025 11:00 AM EDT Office Visit [facility] [address] [address] Haresh Trinidad MD Squamous cell carcinoma of tonsil (Primary Dx) 07/09/2025 9:53 AM EDT - 07/09/2025 11:59 PM EDT Hospital Encounter [address] [address] Haresh Trinidad MD Discharge Disposition: Home or Self Care 07/06/2025 Orders Only [facility] [address] [address] ProviderJessica MD 07/02/2025 2:59 PM EDT - 07/02/2025 11:59 PM EDT Hospital Encounter [facility] - [address] [address] Haresh Trinidad MD Discharge Disposition: Home or Self Care 07/02/2025 Orders Only [facility] at [address] [address] Que Cárdenas, TUNNEL 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 OPERATOR 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 Squamous cell carcinoma of tonsil (Primary Dx) 06/25/2025 Telephone [facility] [address] [address] Haresh Trinidad MD from Last 3 Months [...] Influenza Trivalent Adjuvant ed Preservative free IM 08/16/2025,08/02/2024 Pneumococcal polysaccharide PPSV23 09/14/2016, RSV Vaccine (bivalent) [...] Not on file 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 on file Not [...] Info) Description 08/28/2025 8:00 AM EDT Infusion [facility] at [address] [address] Haresh Trinidad MD [address] [place] [address] Maryan Chow RN [address] [place] [address] 09/01/2025 Procedure Pass [facility] Cardiovascular And Interventional Radiology [address] [place] [address] 09/01/2025 1:00 PM EDT Hospital Encounter [facility] Cardiovascular And Interventional Radiology [address] [place] [address] Fermin Barbour MD [address] [place] [address] [email or web address] 09/01/2025 1:00 PM EDT - 09/01/2025 2:25 PM EDT Surgery [facility] Cardiovascular And Interventional Radiology [address] [place] [address] Fermin Barbour MD [address] [place] [address] [email or web address] PORT A CATH INSERTION (IR) 09/01/2025 2:10 PM EDT Appointment [facility] Laboratory [address] [place] [address] Haresh Trniidad MD [address] [place] [address] 09/01/2025 3:40 PM EDT Office Visit [facility] [address] [address] Haresh Trinidad MD [address] [place] [address] 09/03/2025 8:40 AM EDT Infusion [facility] at [address] [address] Haresh Trinidad MD [address] [place] [address] Jorge Alberto Mendosa RN [address] [place] [address] [email or web address] 09/24/2025 9:10 AM EDT Appointment [facility] Laboratory [address] [place] [address] Haresh Trinidad MD [address] [place] [address] 09/24/2025 10:20 AM EDT Office Visit [facility] at [address] [address] Haresh Trinidad MD [address] [place] [address] 09/24/2025 11:20 AM EDT Infusion [facility] at [address] [address] Haresh Trinidad MD [address] [place] [address] Chandni Vivas RN [address] [place] [address] [email or web address] 10/13/2025 1:50 PM EST Appointment [facility] Laboratory [address] [place] [address] Haresh Trinidad MD [address] [place] [address] 10/13/2025 3:00 PM EST Office Visit [facility] at [address] [address] Haresh Trinidad MD [address] [place] [address] 10/15/2025 8:00 AM EST Infusion [facility] at [address] [address] Haresh Trinidad MD [address] [place] [address] Cori Loyd RN [address] [place] [address] [email or web address] 11/03/2025 8:10 AM EST Appointment [facility] [address] [place] [address] Haresh Trinidad MD [address] [place] [address] 11/03/2025 9:30 AM EST Office Visit [facility] at [address] [address] Ally Cheney FNP [address] [place] [address] 11/05/2025 8:40 AM EST Infusion [facility] at [address] [address] Haresh Trinidad MD [address] [place] [address] Jackie Freeman, LAUREN [address] [place] [address] Health Maintenance Due Date Last Done Comments [...] this topic Medical Devices Implanted Type Area Glass Bead Maker Device Identifier Shelf Expiration Date Model / [...] EDT) LDH 296(H) 118 - 273 U/L [facility] 07/09/2025 9:53 AM EDT 07/09/2025 10:00 AM EDT us Leslye FARAH LAB BLOOD ORDERABLES Final Result Performing Organization Address City/State/[facility] Co de Phone Number [address] [phone] * (ABNORMAL) Comprehensive metabolic panel (07/09/2025 9:53 AM EDT) SODIUM 139 133 - 146 mmol/L [facility] POTASSIUM 4.5 3.3 - 5.1 mmol/L [facility] CHLORIDE 99 96 - 108 mmol/L [facility] CO2 28 21 - 35 mmol/L [facility] BUN 25(H) 6 - 19 mg/dL [facility] CREATININE 4.30(H) 0.5 - 1.5 mg/dL [facility] GLUCOSE 98 70 - 99 mg/dL [facility] ALBUMIN 4.1 3.9 - 4.8 g/dL [facility] TOTAL PROTEIN 7.6 6.5 - 8.0 g/dL [facility] CALCIUM 9.0 8.4 - 10.3 mg/dL [facility] ALKALINE PHOSPHATASE 49 39 - 117 U/L [facility] TOTAL BILIRUBIN 0.5 0.0 - 1.2 mg/dL [facility] AST 29 0 - 37 U/L [facility] ALT 12 0 - 40 U/L [facility] GLOBULIN 3.5 1 - 4.8 g/dL [facility] EGFR 13(L) >59 mL/min/1.7 3m2 [facility] Comment:Estimated glomerular filtration rate calculated using the CKD-EPI refit equation. ANION GAP 17 10 - 20 mmol/L [facility] Blood 07/09/2025 9:53 AM EDT 07/09/2025 10:00 AM EDT [facility] BLOOD ORDERABLES Final Result Performing Organization Address City/[facility] Co de Phone Number [address] [address] * HCG (tumor marker) (07/09/2025 9:53 AM EDT) [facility] HCG BETA 0.8 mIU/mL [facility] Comment: Interpretation: MALE: Less than 5 mIU/ml. Test Methodology Gino [id number] Patient results determined by assays using different manufacturers or methods may not be comparable. 07/09/2025 9:53 AM EDT 07/09/2025 10:00 AM EDT [facility] LAB BLOOD ORDERABLES Final Result Performing Organization Address [facility] de Phone Number [address] [address] * (ABNORMAL) CBC and differential (07/09/2025 9:53 AM EDT) [facility] WBC 5.98 4.00 - 11.00 K/uL [facility] RBC 3.45(L) 4.50 - 5.90 M/uL [facility] HGB 11.1(L) 13.5 - 17.5 g/dL [facility] HCT 35.8(L) 41.0 - 53.0 % [facility] PLT 123(L) 150 - 450 K/uL [facility] MCV 103.8(H) 80.0 - 100.0 fL [facility] MCH 32.2(H) 27.0 - 31.0 pg [facility] MCHC 31.0(L) 32.0 - 36.0 g/dL [facility] RDW 16.1(H) 11.5 - 14.5 % [facility] MPV 11.2 8.4 - 12.0 fL [facility] NRBC 0.00 0.00 /100 WBCs [facility] ABSOLUTE NRBC 0.00 0.00 K/uL [facility] DIFF METHOD Auto [facility] NEUTS 72.4 48.0 - 76.0 % [facility] LYMPHS 15.1(L) 18.0 - 41.0 % [facility] MONOS 10.5 4.0 - 11.0 % [facility] EOS 1.2 0.0 - 5.0 % [facility] BASOS 0.3 0.0 - 1.5 % [facility] Granulocytes, immature (%) 0.5 0.0 - 0.9 % [facility] ABSOLUTE NEUTS 4.33 1.92 - 7.60 K/uL [facility] ABSOLUTE LYMPHS 0.90 0.72 - 4.10 K/uL [facility] ABSOLUTE MONOS 0.63 0.16 - 1.10 K/uL [facility] ABSOLUTE EOS 0.07 0.00 - 0.50 K/uL [facility] ABSOLUTE BASOS 0.02 0.00 - 0.15 K/uL [facility] Granulocytes, immature 0.03 0.00 - 0.09 K/uL [facility] Blood 07/09/2025 9:53 AM EDT 07/09/2025 10:00 AM EDT us Leslye Tolentino [facility] LAB BLOOD ORDERABLES Final Result [facility] [address] [place] [address] * TSH (07/09/2025 9:53 AM EDT) TSH 3.56 0.27 - 4.20 uIU/mL [facility] Blood 07/09/2025 9:53 AM EDT 07/09/2025 10:00 AM EDT us Leslye FARAH LAB BLOOD ORDERABLES Final Result [address] [address] * Outside Imaging Report Only (07/06/2025 10:08 AM EDT) us Historical Provider MD ANDRADE XR CHEST Final Res ult * NM PET CT Skull Base to Mid Thighs (07/02/2025 4:49 PM EDT) Anatomical Region Laterality Modality Positron Emissio n Tomography (PET) Narrative 07/02/2025 3:01 PM EDT [facility] PETCT us Haresh Trinidad MD IMG NM PET Final Result from Last 3 Months Insurance MEDICARE PART A & B [employer] MEDEX SUPPLEMENT MEDICARE PART A & B [facility] MEDEX SUPPLEMENT MEDICARE PART A & B MEDICARE PART A & B MEDICARE PART A & B MED[employer] SUPPLEMENT MEDICARE PART A & B MEDICARE PART A & B MEDEX SUPPLEMENT MEDICARE PART A & B [employer] MEDEX SUPPLEMENT MEDICARE PART A & B [employer] MEDEX SUPPLEMENT Advance Directives For more information, please contact: [phone] (9AM - 5PM [facility], Sunday-Sunday) Documents on File Type Date Recorded Patient Alteration Inspector Expl anation Healthcare Proxy 06/13/2022 SIGNED 06/13 * Full Code (Latest Code Status on File) Date Activated Date Inactivated Comments 05/17/2022 2:32 PM Question Answer Comments Code Status Confirmed With: Patient Care Teams Medicaid Service Coordinator Relationship Specialty Start Date End Date Delon Gao MD [address] [place] [address] PCP - General Endocrinology 04/25/22 Haresh Trinidad MD [address] [place] [address] [email or web address] Primary Oncologist Medical Oncology 04/26/22 Cori Sequeira CNP [address] [place] [address] [email or web address] Nurse Practitioner Medical Oncology 05/02/22 Additional Source Comments The information contained in this document represents components of the legal health record. It is not the complete legal health record.[facility]
--- OUTSIDE RECORDS SUMMARY | 2025-08-26 09:51 | XMS_ITS | Encounter Summary ---
Author Organization [facility] Address [address] [place] [address] Phone Care Team Providers Care Girl Friday Name Role Phone Delon Gao MD Primary Care Provider Haresh Trinidad MD Unavailable [phone] Cori Sequeira CNP Unavailable Denice Roberts BOILER TUBE REAMER Unavailable [phone] Leslye Tolentino MBBS Unavailable Encounter Details Date Type Department Care Team (Late st Contact Info) Description 12/25/2022 Procedure Pass [facility] Interventional Radiology [address] [place] [address] Social History Tobacco Use Types Packs/Day Years [...] Not on file 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 Not on file Red beret in [place] during war Not on file Not on fi le Not on file documented as of this encounter Plan of Treatment Upcoming Encounters Date Type Department Care Team (Latest Contact Info) Description 08/28/2025 8:00 AM EDT Infusion [facility] at [address] [address] Haresh Trinidad MD [address] [place] [address] Maryan Chow RN [address] [place] [address] 09/01/2025 Procedure Pass [facility] Cardiovascular And Interventional Radiology [address] [place] [address] 09/01/2025 1:00 PM EDT Hospital Encounter [facility] Cardiovascular And Interventional Radiology [address] [place] [address] Fermin Barbour MD [address] [place] [address] [email or web address] 09/01/2025 1:00 PM EDT - 09/01/2025 2:25 PM EDT Surgery [facility] Cardiovascular And Interventional Radiology [address] [place] [address] Fermin Barbour MD [address] [place] [address] [email or web address] PORT A CATH INSERTION (IR) 09/01/2025 2:10 PM EDT Appointment [facility] Laboratory [address] [place] [address] Haresh Trinidad MD [address] [place] [address] 09/01/2025 3:40 PM EDT Office Visit [facility] at [address] [address] Haresh Trinidad MD [address] [place] [address] 09/03/2025 8:40 AM EDT Infusion [facility] at [address] [address] Haresh Trinidad MD [address] [place] [address] Jorge Alberto Mendosa RN [address] [place] [address] [email or web address] 09/24/2025 9:10 AM EDT Appointment [facility] Laboratory [address] [place] [address] Haresh Trinidad MD [address] [place] [address] 09/24/2025 10:20 AM EDT Office Visit [facility] at [address] [address] Haresh Trinidad MD [address] [place] [address] 09/24/2025 11:20 AM EDT Infusion [facility] at [address] [address] Haresh Trinidad MD [address] [place] [address] Chandni Vivas RN [address] [place] [address] [email or web address] 10/13/2025 1:50 PM EST Appointment [facility] Laboratory [address] [place] [address] Haresh Trinidad MD [address] [place] [address] 10/13/2025 3:00 PM EST Office Visit [facility] at [address] [address] Haresh Trinidad MD [address] [place] [address] 10/15/2025 8:00 AM EST Infusion [facility] at [address] [address] Haresh Trinidad MD [address] [place] [address] Cori Loyd RN [address] [place] [address] [email or web address] 11/03/2025 8:10 AM EST Appointment [facility] [address] [place] [address] Haresh Trinidad MD [address] [place] [address] 11/03/2025 9:30 AM EST Office Visit [facility] at [address] [address] Ally Cheney FNP [address] [place] [address] 11/05/2025 8:40 AM EST Infusion [facility] at [address] [address] Haresh Trinidad MD [address] [place] [address] Jackie Freeman, RN [address] [place] [address] documented as of this encounter Visit Diagnoses Not on filedocumented in this encounter Care Teams Girl Friday Relationship Specialty Start Date End Date Delon Gao MD [address] [place] [address] PCP - General Endocrinology 04/25/22 Haresh Trinidad MD [address] [place] [address] Primary Oncologist Medical Oncology 04/26/22 Cori Sequeira CNP [address] [place] [address] maria Nurse Practitioner Medical Oncology 05/02/22 Denice Roberts FNP [address] [place] [address] Nurse Practitioner Medical Oncology 05/19/22 03/04/25 Leslye Tolentino MBBS [address] [place] [address] [email or web address] Primary Oncologist Hematology and Oncology 10/11/23 documented as of this encounter Additional Source Comments The information contained in this document represents components of the legal health record. It is not the complete legal health record.[facility]
--- OUTSIDE RECORDS SUMMARY | 2025-08-26 09:51 | XMS_ITS | Encounter Summary ---
Author Organization [facility] Address [address] [place] [address] Phone Care Team Providers Care Groundskeeper Name Role Phone Delon Gao MD Primary Care Provider Haresh Trinidad MD Unavailable [phone] Cori Sequeira CNP Unavailable Denice Roberts METALIZING SUPERVISOR Unavailable Leslye Tolentino MBBS Unavailable Encounter Details Date Type Department Care Team (Late st Contact Info) Description 11/16/2022 Procedure Pass [facility]ovascular And Interventional Radiology [address] [place] [address] Social History Tobacco Use Types Packs/Day Years [...] Not on file 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 Not on file Red beret in [place] during war Not on file Not on fi le Not on file documented as of this encounter Plan of Treatment Upcoming Encounters Date Type Department Care Team (Latest Contact Info) Description 08/28/2025 8:00 AM EDT Infusion [facility] at [address] [address] Haresh Trinidad MD [address] [place] [address] Maryan Chow RN [address] [place] [address] 09/01/2025 Procedure Pass [facility] Cardiovascular And Interventional Radiology [address] [place] [address] 09/01/2025 1:00 PM EDT Hospital Encounter [facility] Cardiovascular And Interventional Radiology [address] [place] [address] Fermin Barbour MD [address] [place] [address] [email or web address] 09/01/2025 1:00 PM EDT - 09/01/2025 2:25 PM EDT Surgery [facility] Cardiovascular And Interventional Radiology [address] [place] [address] Fermin Barbour MD [address] [place] [address] [email or web address] PORT A CATH INSERTION (IR) 09/01/2025 2:10 PM EDT Appointment [facility] Laboratory [address] [place] [address] Haresh Trinidad MD [address] [place] [address] 09/01/2025 3:40 PM EDT Office Visit [facility] at [address] [address] Haresh Trinidad MD [address] [place] [address] 09/03/2025 8:40 AM EDT Infusion [facility] at [address] [address] Haresh Trinidad MD [address] [place] [address] Jorge Alberto Mendosa RN [address] [place] [address] [email or web address] 09/24/2025 9:10 AM EDT Appointment [facility] Laboratory [address] [place] [address] Haresh Trinidad MD [address] [place] [address] 09/24/2025 10:20 AM EDT Office Visit [facility] at [address] [address] Haresh Trinidad MD [address] [place] [address] 09/24/2025 11:20 AM EDT Infusion [facility] at [address] [address] Haresh Trinidad MD [address] [place] [address] Chandni Vivas RN [address] [place] [address] [email or web address] 10/13/2025 1:50 PM EST Appointment [facility] Laboratory [address] [place] [address] Haresh Trinidad MD [address] [place] [address] 10/13/2025 3:00 PM EST Office Visit [facility] at [address] [address] Haresh Trinidad MD [address] [place] [address] 10/15/2025 8:00 AM EST Infusion [facility] at [address] [address] Haresh Trinidad MD [address] [place] [address] Cori Loyd RN [address] [place] [address] [email or web address] 11/03/2025 8:10 AM EST Appointment [facility] [address] [place] [address] Haresh Trinidad MD [address] [place] [address] 11/03/2025 9:30 AM EST Office Visit [facility] at [address] [address] Ally Cheney FNP [address] [place] [address] 11/05/2025 8:40 AM EST Infusion [facility] at [address] [address] Haresh Trinidad MD [address] [place] [address] Jackie Freeman, RN [address] [place] [address] documented as of this encounter Visit Diagnoses Not on filedocumented in this encounter Care Teams Groundskeeper Relationship Specialty Start Date End Date Delon Gao MD [address] [place] [address] PCP - General Endocrinology 04/25/22 Haresh Trinidad MD [address] [place] [address] Primary Oncologist Medical Oncology 04/26/22 Cori Sequeira CNP [address] [place] [address] maria Nurse Practitioner Medical Oncology 05/02/22 Denice Roberts FNP [address] [place] [address] Nurse Practitioner Medical Oncology 05/19/22 03/04/25 Leslye Tolentino MBBS [address] [place] [address] [email or web address] Primary Oncologist Hematology and Oncology 10/11/23 documented as of this encounter Additional Source Comments The information contained in this document represents components of the legal health record. It is not the complete legal health record.[facility]
--- OUTSIDE RECORDS SUMMARY | 2025-08-26 09:51 | XMS_ITS | Clinical Summary ---
Author Organization [facility] Address [address] [place] [address] Phone Care Team Providers Care Cell Maker Name Role Phone Unavailable Primary Care Provider [...] MINI PEN NEEDLES 31G X 5 MM [facility] USE TO INJECT INSULIN FOUR TIMES A DAY 4 Active Cholecalciferol 25 MCG (1000 UT) chewable tablet Chew Active nitroglycerin (NITROSTAT) 0.[address] 0.4 mg under the tongue every 5 (five) minutes if needed for chest pain Active [place]-3 Fatty Acids (Fish Oil) 1000 MG capsule [...] 08/17/2025 Treatment [facility] [address] [facility] [address] [place] [address] Jun Harris MD End stage renal disease; Dependence on renal dialysis 08/12/2025 Treatment [facility] [address] [facility] [address] [place] [address] Jun Harris MD End stage renal disease; Dependence on renal dialysis 08/05/2025 Treatment [facility] [address] [address] Jun Harris MD End stage renal disease; Dependence on renal dialysis 08/03/2025 Treatment [facility] [address] [address] Jun Harris MD End stage renal disease; Dependence on renal dialysis 07/13/2025 Orders Only [facility] [address] [facility] [address] [place] [address] Unique Guzman RN 07/08/2025 Treatment [facility] [address] [address] Jun Harris MD End stage renal disease; Dependence on renal dialysis 07/01/2025 Treatment [facility] [address] [phone] Jun Harris MD End stage renal disease; Dependence on renal dialysis 06/26/2025 Treatment [facility] [address] [address] Jun Harris MD End stage renal disease; Dependence on renal dialysis 06/17/2025 Treatment [facility] [address] [address] Jun Harris MD End stage renal disease; Dependence on renal dialysis 06/10/2025 Treatment [facility] [address] [address] Jun Harris MD End stage renal disease; Dependence on renal dialysis 06/03/2025 Treatment [facility] [address] [address] Jun Harris MD End stage renal disease; Dependence on renal dialysis 05/27/2025 Treatment [facility] [address] [place] [address] Jun Harris MD End stage renal disease; Dependence on renal dialysis 05/27/2025 Orders Only [facility] [address] [place] [phone] Unique Guzman RN from Last 3 Months [...] ORDERABLES Final Resul t Performing Organization Address [facility] Co de Phone Number [facility] [address] [place] [address] * Collection Date (08/05/2025 3:00 AM EDT) Collection Date See Comment [facility] Comment: Patient sample received may exceed specimen stability, based on the collection date electronically provided. When reviewing patient results, verify collection information and consider specimen stability before acting on any critical or panic results. 08/05/2025 3:00 AM EDT us Khoa Carmichael MD LAB [id number] ICITED RESULTS Final Result Performing Organization Address [facility] de Phone Number [facility] [address] [place] [address] * LIH (08/05/2025 3:00 AM EDT) Only the most recent of4 resultswithin the time period is included. Lipemia Normal Normal [facility] Icterus Normal Normal [facility] Hemolysis Normal Normal [facility] 08/05/2025 3:00 AM EDT 08/06/2025 2:05 PM EDT us Khoa Carmichael MD LAB [id number] ICITED RESULTS Final Result Performing Organization Address [facility] Co de Phone Number [facility] [address] [place] [address] * (ABNORMAL) Kt/V Natural Log, URR (08/05/2025 [...] 2:05 PM EDT Khoa Carmichael MD LAB [id number] ICITED RESULTS Final Result Performing Organization Address [facility] de Phone Number [facility] [address] [place] [address] * Calcium Phosphorus Product, Adjusted (07/29/2025 3:00 [...] PM EDT us Khoa Carmichael MD LAB [id number] ICITED RESULTS Final Result Performing Organization Address [facility] Co de Phone Number [facility] [address] [place] [address] * Hepatitis B Surface Ag w/Reflex Confirmation (07/29/2025 3:00 AM EDT) Only the most recent of3 resultswithin the time period is included. Hep B Surface Antigen Negative Negative [facility] 07/29/2025 3:00 AM EDT 07/30/2025 7:31 PM EDT us Khoa Carmichael MD LAB BLOOD ORDERABLES Final Resul t Performing Organization Address [facility] Co de Phone Number [facility] [address] [place] [address] * BUN/CREATININE RATIO (07/29/2025 3:00 AM EDT) Only the most recent of3 resultswithin the time period is included. BUN/Creatinine Ratio 9.0 <=23.0 [facility] 07/29/2025 3:00 AM EDT 07/30/2025 7:31 PM EDT us Khoa Carmichael MD LAB [id number] ICITED RESULTS Final Result Performing Organization Address [facility] de Phone Number [facility] [address] [place] [address] * (ABNORMAL) TSAT (07/29/2025 3:00 AM EDT) [...] ORDERABLES Final Resul t Performing Organization Address [facility] Co de Phone Number [facility] [address] [place] [address] * (ABNORMAL) CBC and Differential (07/29/2025 3:00 [...] Final Resul t [facility] [address] [place] [address] * (ABNORMAL) ALT (07/29/2025 3:00 AM EDT) Only the most recent of3 resultswithin the time period is included. ALT (SGPT) 8(L) 10 - 49 U/L [facility] 07/29/2025 3:00 AM EDT 07/30/2025 7:31 PM EDT us Khoa Carmichael MD LAB BLOOD ORDERABLES Final Resul t Performing Organization Address [facility] Co de Phone Number [facility] [address] [place] [address] * (ABNORMAL) AST (07/29/2025 3:00 AM EDT) Only the most recent of3 resultswithin the time period is included. AST (SGOT) 35(H) <34 U/L [facility] 07/29/2025 3:00 AM EDT 07/30/2025 7:31 PM EDT us Khoa Carmichael MD LAB BLOOD ORDERABLES Final Resul t Performing Organization Address [facility] de Phone Number [facility] [address] [place] [address] * Protein, total (07/29/2025 3:00 AM EDT) Only the most recent of3 resultswithin the time period is included. Total Protein 7.6 6.4 - 8.9 g/dL [facility] 07/29/2025 3:00 AM EDT 07/30/2025 7:31 PM EDT us Khoa Carmichael MD LAB BLOOD ORDERABLES Final Resul t Performing Organization Address [facility] de Phone Number [facility] [address] [place] [address] * Alkaline phosphatase (07/29/2025 3:00 AM EDT) Only the most recent of3 resultswithin the time period is included. Alkaline Phosphatase 56 46 - 116 U/L [facility] 07/29/2025 3:00 AM EDT 07/30/2025 7:31 PM EDT us Khoa Carmichael MD LAB BLOOD ORDERABLES Final Resul t Performing Organization Address [facility] Co de Phone Number [facility] [address] [place] [address] * Magnesium (07/29/2025 3:00 AM EDT) Only the most recent of3 resultswithin the time period is included. Magnesium 2.3 1.9 - 2.7 mg/dL [facility] 07/29/2025 3:00 AM EDT 07/30/2025 7:31 PM EDT us Khoa Carmichael MD LAB BLOOD ORDERABLES Final Resul t Performing Organization Address [facility] Co de Phone Number [facility] [address] [place] [address] * (ABNORMAL) Lactate dehydrogenase (07/29/2025 3:00 AM EDT) Only the most recent of3 resultswithin the time period is included. LDH 416(H) 120 - 246 U/L [facility] 07/29/2025 3:00 AM EDT 07/30/2025 7:31 PM EDT us Khoa Carmichael MD LAB BLOOD ORDERABLES Final Resul t Performing Organization Address [facility] de Phone Number [facility] [address] [place] [address] * (ABNORMAL) Glucose, random (07/29/2025 3:00 AM EDT) Only the most recent of3 resultswithin the time period is included. Glucose 138(H) 70 - 99 mg/dL [facility] Comment: ADA guidelines outline the following fasting glucose ranges: Normal: <100 Prediabetes: 100-125 Diabetes: >125 07/29/2025 3:00 AM EDT 07/30/2025 7:31 PM EDT us Khoa Carmichael MD LAB BLOOD ORDERABLES Final Resul t Performing Organization Address [facility] de Phone Number [facility] [address] [place] [address] * (ABNORMAL) Ferritin (07/29/2025 3:00 AM EDT) Only the most recent of3 resultswithin the time period is included. Ferritin 2,088(H) 22 - 322 ng/mL [facility] 07/29/2025 3:00 AM EDT 07/30/2025 7:31 PM EDT us Khoa Carmichael MD LAB BLOOD ORDERABLES Final Resul t Performing Organization Address [facility] de Phone Number [facility] [address] [place] [address] * (ABNORMAL) Creatinine, serum (07/29/2025 3:00 AM EDT) Only the most recent of3 resultswithin the time period is included. Creatinine 4.57(H) 0.70 - 1.30 mg/dL [facility] 07/29/2025 3:00 AM EDT 07/30/2025 7:31 PM EDT us Khoa Carmichael MD LAB BLOOD ORDERABLES Final Resul t Performing Organization Address [facility] de Phone Number [facility] [address] [place] [address] * (ABNORMAL) Bilirubin, total (07/29/2025 3:00 AM EDT) Only the most recent of3 resultswithin the time period is included. Total Bilirubin 0.2(L) 0.3 - 1.2 mg/dL [facility] 07/29/2025 3:00 AM EDT 07/30/2025 7:31 PM EDT us Khoa Carmichael MD LAB BLOOD ORDERABLES Final Resul t Performing Organization Address [facility] de Phone Number [facility] [address] [place] [address] * (ABNORMAL) Electrolyte panel (07/29/2025 3:00 AM [...] ORDERABLES Final Resul t Performing Organization Address [facility] Co de Phone Number [facility] [address] [place] [address] * Vitamin D 25 Hydroxy (06/03/2025 3:00 AM EDT) Vitamin D, 25-Hydroxy 38 30 - 100 ng/mL [facility] Comment: Status Adult Pediatric Deficient: <20 <15 Insufficient: 20-29 15-19 Sufficient: 30-100 20-100 06/03/2025 3:00 AM EDT 06/04/2025 1:08 PM EDT us Khoa Carmichael MD LAB BLOOD ORDERABLES Final Resul t Performing Organization Address [facility] de Phone Number [facility] [address] [place] [address] * PTH, Intact (05/27/2025 3:00 AM EDT) PTH, Intact 232 160 - 721 pg/mL [facility] Comment: Suggested (KDIGO) ESRD maintenance range is two to nine times the upper normal limit (80.1 pg/mL) for the laboratory. 05/27/2025 3:00 AM EDT 05/28/2025 1:28 PM EDT us Khoa Carmichael MD LAB BLOOD ORDERABLES Final Resul t Performing Organization Address [facility] de Phone Number [facility] [address] [place] [address] * (ABNORMAL) Hemoglobin A1c (05/27/2025 3:00 AM EDT) Hemoglobin A1C 6.1(H) <5.7 % [facility] Comment: Methodology: Enzymatic Normal: <5.7% Prediabetes: 5.7-6.4% Diabetes: >6.4% Diabetic Glucose Control Evaluation: Therapeutic action suggested at >8.0% ADA recommends a glycemic goal of <7.0% 05/27/2025 3:00 AM EDT 05/28/2025 1:44 PM EDT Khoa Carmichael MD LAB BLOOD ORDERABLES Final Resul t Performing Organization Address [facility] de Phone Number [facility] [address] [place] [address] * (ABNORMAL) Lipid panel (05/27/2025 3:00 AM [...] ORDERABLES Final Resul t Performing Organization Address [facility] Co de Phone Number [facility] [address] [place] [address] from Last 3 Months Insurance Medicare [facility] Medicare [facility]
--- OUTSIDE RECORDS SUMMARY | 2025-08-26 09:51 | XMS_ITS | Encounter Summary ---
Author Organization [facility] Address [address] [place] [address] [address] Phone Care Team Providers Care Vp Care Management Name Role Phone Deoln Gao MD Primary Care Provider Haresh Trinidad MD Unavailable [phone] Cori Sequeira CNP Unavailable Denice Roberts DAMPENER OPERATOR Unavailable Leslye Tolentino MBBS Unavailable Encounter Details Date Type Department Care Team (Late st Contact Info) Description 12/20/2022 Procedure Pass [facility] Scan - [address] [address] Social History Tobacco Use Types Packs/Day Years [...] 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 Not on file [place] during war Not on file Not on fi le Not on file documented as of this encounter Plan of Treatment Upcoming Encounters Date Type Department Care Team (Latest Contact Info) Description 08/28/2025 8:00 AM EDT Infusion [facility] at [address] [address] Haresh Trinidad MD [address] [place] [address] Maryan Chow RN [address] [place] [address] 09/01/2025 Procedure Pass [facility] Cardiovascular And Interventional Radiology [address] [place] [address] 09/01/2025 1:00 PM EDT Hospital Encounter [facility] Cardiovascular And Interventional Radiology [address] [place] [address] Fermin Barbour MD [address] [place] [address] [email or web address] 09/01/2025 1:00 PM EDT - 09/01/2025 2:25 PM EDT Surgery [facility] Cardiovascular And Interventional Radiology [address] [place] [address] Fermin Barbour MD [address] [place] [address] [email or web address] PORT A CATH INSERTION (IR) 09/01/2025 2:10 PM EDT Appointment [facility] Laboratory [address] [place] [address] Haresh Trinidad MD [address] [place] [address] 09/01/2025 3:40 PM EDT Office Visit [facility] at [facility] [address] [place] [address] Haresh Trinidad MD [address] [place] [address] 09/03/2025 8:40 AM EDT Infusion [facility] at [address] [address] Haresh Trinidad MD [address] [place] [address] Jorge Alberto Mendosa RN [address] [place] [address] [email or web address] 09/24/2025 9:10 AM EDT Appointment [facility] Laboratory [address] [place] [address] Haresh Trinidad MD [address] [place] [address] 09/24/2025 10:20 AM EDT Office Visit [facility] at [address] [address] Haresh Trinidad MD [address] [place] [address] 09/24/2025 11:20 AM EDT Infusion [facility] at [address] [address] Haresh Trinidad MD [address] [place] [address] Chandni Vivas RN [address] [place] [address] [email or web address] 10/13/2025 1:50 PM EST Appointment [facility] Laboratory [address] [place] [address] Haresh Trinidad MD [address] [place] [address] 10/13/2025 3:00 PM EST Office Visit [facility] at [address] [address] Haresh Trinidad MD [address] [place] [address] 10/15/2025 8:00 AM EST Infusion [facility] at [address] [address] Haresh Trinidad MD [address] [place] [address] Cori Loyd RN [address] [place] [address] [email or web address] 11/03/2025 8:10 AM EST Appointment [facility] Laboratory [address] [place] [address] Haresh Trinidad MD [address] [place] [address] 11/03/2025 9:30 AM EST Office Visit [facility] at [address] [address] Ally Cheney FNP [address] [place] [address] 11/05/2025 8:40 AM EST Infusion [facility] at [address] [address] Haresh Trinidad MD [address] [place] [address] Jackie Freeman, LAUREN [address] [place] [address] documented as of this encounter Visit Diagnoses Not on filedocumented in this encounter Care Teams Vp Care Management Relationship Specialty Start Date End Date Delon Gao MD [address] [place] [address] PCP - General Endocrinology 04/25/22 Haresh Trinidad MD [address] [place] [address] Primary Oncologist Medical Oncology 04/26/22 Cori Sequeira CNP [address] [place] [address] maria Nurse Practitioner Medical Oncology 05/02/22 Denice Roberts FNP [address] [place] [address] Nurse Practitioner Medical Oncology 05/19/22 03/04/25 Leslye Tolentino MBBS [address] [place] [address] [email or web address] Primary Oncologist Hematology and Oncology 10/11/23 documented as of this encounter Additional Source Comments The information contained in this document represents components of the legal health record. It is not the complete legal health record.[facility]
--- OUTSIDE RECORDS SUMMARY | 2025-08-26 09:51 | XMS_ITS ---
Author Organization [facility] Address [address] [place] [address] Phone Care Team Providers Care Can Slider Name Role Phone Delon Gao MD Primary Care Provider [phone] Haresh Trinidad MD Unavailable [phone] Cori Sequeira CNP Unavailable Active Problems [...] 05/17/2022 Coronary artery disease 05/17/2022 Overview (05/17/2022): [facility] cardiology Assessment & Plan (05/17/2022 2:44 PM EDT): History of coronary artery disease, followed by [facility] cardiology. History of CABG. Chart notes [...] patient's care Current Treatment and Therapy Plans [id number] (IV/SC) /CYCLOPHOSPHAMIDE/DOXORUBICIN/ VINCRISTINE/PREDNISONE* Plan Start Date:08/27/2025 Plan [...]
--- OUTSIDE RECORDS SUMMARY | 2025-08-26 09:51 | XMS_ITS | Encounter Summary ---
Author Organization [facility] Address [address] [place] [address] Phone Care Team Providers Care Glove Wrapper Name Role Phone Delon Gao MD Primary Care Provider Haresh Trinidad MD Unavailable [phone] Cori Sequeira CNP Unavailable Denice Roberts TIE LOADER Unavailable [phone] Leslye Tolentino MBBS Unavailable Encounter Details Date Type Department Care Team (Late st Contact Info) Description 12/26/2022 Procedure Pass [facility] Cardiovascular And Interventional Radiology [address] [place] [address] Social History Tobacco Use Types Packs/Day Years [...] Not on file 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 Not on file Not on file Red beret [place] during war Not on file Not on fi le Not on file documented as of this encounter Plan of Treatment Upcoming Encounters Date Type Department Care Team (Latest Contact Info) Description 08/28/2025 8:00 AM EDT Infusion [facility] at [address] [address] Haresh Trinidad MD [address] [place] [address] Maryan Chow RN [address] [place] [address] 09/01/2025 Procedure Pass [facility] Cardiovascular And Interventional Radiology [address] [place] [address] 09/01/2025 1:00 PM EDT Hospital Encounter [facility] Cardiovascular And Interventional Radiology [address] [place] [address] Fermin Barbour MD [address] [place] [address] [email or web address] 09/01/2025 1:00 PM EDT - 09/01/2025 2:25 PM EDT Surgery [facility] Cardiovascular And Interventional Radiology [address] [place] [address] Fermin Barbour MD [address] [place] [address] [email or web address] PORT A CATH INSERTION (IR) 09/01/2025 2:10 PM EDT Appointment [facility] Laboratory [address] [place] [address] Haresh Trinidad MD [address] [place] [address] 09/01/2025 3:40 PM EDT Office Visit [facility] at [address] [address] Haresh Trinidad MD [address] [place] [address] 09/03/2025 8:40 AM EDT Infusion [facility] at [address] [address] Haresh Trinidad MD [address] [place] [address] Jorge Alberto Mendosa RN [address] [place] [address] [email or web address] 09/24/2025 9:10 AM EDT Appointment [facility] Laboratory [address] [place] [address] Haresh Trinidad MD [address] [place] [address] 09/24/2025 10:20 AM EDT Office Visit [facility] at [address] [address] Haresh Trinidad MD [address] [place] [address] 09/24/2025 11:20 AM EDT Infusion [facility] at [address] [address] Haresh Trinidad MD [address] [place] [address] Chandni Vivas RN [address] [place] [address] [email or web address] 10/13/2025 1:50 PM EST Appointment [facility] Laboratory [address] [place] [address] Haresh Trinidad MD [address] [place] [address] 10/13/2025 3:00 PM EST Office Visit [facility] at [address] [address] Haresh Trinidad MD [address] [place] [address] 10/15/2025 8:00 AM EST Infusion [facility] [place] at [address] [address] Haresh Trinidad MD [address] [place] [address] Cori Loyd RN [address] [place] [address] [email or web address] 11/03/2025 8:10 AM EST Appointment [facility] [address] [place] [address] Haresh Trinidad MD [address] [place] [address] 11/03/2025 9:30 AM EST Office Visit [facility] at [address] [address] Ally Cheney FNP [address] [place] [address] 11/05/2025 8:40 AM EST Infusion [facility] [place] at [address] [address] Haresh Trinidad MD [address] [place] [address] Jackie Freeman, RN [address] [place] [address] documented as of this encounter Visit Diagnoses Not on filedocumented in this encounter Care Teams Glove Wrapper Relationship Specialty Start Date End Date Delon Gao MD [address] [place] [address] PCP - General Endocrinology 04/25/22 Haresh Trinidad MD [address] [place] [address] Primary Oncologist Medical Oncology 04/26/22 Cori Sequeira CNP [address] [place] [address] maria Nurse Practitioner Medical Oncology 05/02/22 Denice Roberts FNP [address] [place] [address] Nurse Practitioner Medical Oncology 05/19/22 03/04/25 Leslye Tolentino MBBS [address] [place] [address] [email or web address] Primary Oncologist Hematology and Oncology 10/11/23 documented as of this encounter Additional Source Comments The information contained in this document represents components of the legal health record. It is not the complete legal health record.[facility]
--- OUTSIDE RECORDS SUMMARY | 2025-08-26 09:51 | XMS_ITS | Encounter Summary ---
Author Organization [facility] Address [address] [place] [address] Phone Care Team Providers Care Storage Facility Housekeeper Name Role Phone Delon Gao MD Primary Care Provider Haresh Trinidad MD Unavailable [phone] Cori Sequeira CNP Unavailable Denice Roberts JOB HONER Unavailable Leslye Tolentino MBBS Unavailable Encounter Details Date Type Department Care Team (Late st Contact Info) Description 11/24/2022 Procedure Pass [facility]ovascular And Interventional Radiology [address] [place] [address] Social History Tobacco Use Types Packs/Day Years [...] Not on file 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 Not on file Not on file Red beret [place] during war Not on file Not on fi le Not on file documented as of this encounter Plan of Treatment Upcoming Encounters Date Type Department Care Team (Latest Contact Info) Description 08/28/2025 8:00 AM EDT Infusion [facility] at [address] [address] Haresh Trinidad MD [address] [place] [address] 15561 Maryan Chow RN 30 [place] [address] 09/01/2025 Procedure Pass [facility] Cardiovascular And Interventional Radiology [address] [place] [address] 65[address] 09/01/2025 1:00 PM EDT Hospital Encounter [facility] Cardiovascular And Interventional Radiology [address] [place] [address] 51246 Fermin Barbour MD [address] [place] [address] 15253 [email or web address] 09/01/2025 1:00 PM EDT - 09/01/2025 2:25 PM EDT Surgery [facility] Cardiovascular And Interventional Radiology [address] [place] [address] 78367 Fermin Barbour MD [address] [place] [address] [email or web address] PORT A CATH INSERTION (IR) 09/01/2025 2:10 PM EDT Appointment [facility] Laboratory [address] [place] [address] 9[address] Haresh Trinidad MD [address] [place] [address] 09/01/2025 3:40 PM EDT Office Visit [facility] at [address] [address] Haresh Trinidad MD [address] [place] [address] 99968 09/03/2025 8:40 AM EDT Infusion [facility] at [address] [address] Haresh Trinidad MD [address] [place] [address] 00582 Jorge Alberto Mendosa RN [address] [place] [address] 20919 [email or web address] 09/24/2025 9:10 AM EDT Appointment [facility] Laboratory [address] [place] [address] 78[address] Haresh Trinidad MD [address] [place] [address] 09397 09/24/2025 10:20 AM EDT Office Visit [facility] at [address] [address] Haresh Trinidad MD [address] [place] [address] 72796 09/24/2025 11:20 AM EDT Infusion [facility] at [address] [address] Haresh Trinidad MD [address] [place] [address] 12902 Chandni Vivas RN [address] [place] [address] 50126 [email or web address] 10/13/2025 1:50 PM EST Appointment [facility] Laboratory [address] [place] [address] 93[address] Haresh Trinidad MD [address] [place] [address] 50209 10/13/2025 3:00 PM EST Office Visit [facility] at [address] [address] Haresh Trinidad MD [address] [place] [address] 10947 10/15/2025 8:00 AM EST Infusion [facility] [place] at [address] [address] Haresh Trinidad MD [address] [place] [address] 94587 Cori Loyd RN [address] [place] [address] [email or web address] 11/03/2025 8:10 AM EST Appointment [facility] Laboratory [address] [place] [address] 07906 Haresh Trinidad MD [address] [place] [address] 49979 11/03/2025 9:30 AM EST Office Visit [facility] at [address] [address] Ally Cheney FNP [address] [place] [address] 49180 11/05/2025 8:40 AM EST Infusion [facility] [place] at [address] [address] Haresh Trinidad MD [address] [place] [address] 17209 Jackie Freeman, RN [address] [place] [address] 6[address]19 documented as of this encounter Visit Diagnoses Not on filedocumented in this encounter Care Teams Storage Facility Housekeeper Relationship Specialty Start Date End Date Delon Gao MD [address] [place] [address] 31108 PCP - General Endocrinology 04/25/22 Haresh Trinidad MD [address] [place] [address]57 Primary Oncologist Medical Oncology 04/26/22 Cori Sequeira CNP [address] [place] [address] 49569 maria Nurse Practitioner Medical Oncology 05/02/22 Denice Roberts FNP [address] [place] [address] 57373 Nurse Practitioner Medical Oncology 05/19/22 03/04/25 Leslye Tolentino MBBS [address] [place] [address]555 [email or web address] Primary Oncologist Hematology and Oncology 10/11/23 documented as of this encounter Additional Source Comments The information contained in this document represents components of the legal health record. It is not the complete legal health record.[facility]
--- OUTSIDE RECORDS SUMMARY | 2025-08-26 09:52 | XMS_ITS | Encounter Summary ---
Author Organization [facility] Address [address] [place] [address] [place] [address] Phone Care Team Providers Care Stock Manager Name Role Phone Delon Gao MD Primary Care Provider Haresh Trinidad MD Unavailable [phone] Cori Sequeira CNP Unavailable Encounter Details Date Type Department Care Team (Late st Contact Info) Description 08/25/2025 Orders Only [facility] at [address] [address] [address] [facility] [address] [place] [address] Squamous cell carcinoma of tonsil (Primary Dx) Social History Tobacco Use Types Packs/Day Years [...] Not on file 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 on 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 Not on file Not on file Red beret [place] during war Not on file Not on fi le Not on file documented as of this encounter Plan of Treatment Upcoming Encounters Date Type Department Care Team (Latest Contact Info) Description 08/28/2025 8:00 AM EDT Infusion [facility] at [address] [address] Haresh Trinidad MD [address] [place] [address] 65764 Maryan Chow RN [address] [place] [address] 33308 09/01/2025 Procedure Pass [facility]ovascular [facility] Interventional Radiology [address] [place] [address] 45033 09/01/2025 1:00 PM EDT Hospital Encounter [facility]ovascular And Interventional Radiology [address] [place] [address] 21314 Fermin Barbour MD [address] [place] [address] 8[address]15 [email or web address] 09/01/2025 1:00 PM EDT - 09/01/2025 2:25 PM EDT Surgery [facility] Cardiovascular And Interventional Radiology [address] [place] [address] 89863 Fermin Barbour MD [address] [place] [address] [email or web address] PORT A CATH INSERTION (IR) 09/01/2025 2:10 PM EDT Appointment [facility] Laboratory [address] [place] [address] Hraesh Trinidad MD [address] [place] [address] 79676 09/01/2025 3:40 PM EDT Office Visit [facility] at [address] [address] Haresh Trinidad MD [address] [place] [address] 27383 09/03/2025 8:40 AM EDT Infusion [facility] at [address] [address] Haresh Trinidad MD [address] [place] [address] 60[address] Jorge Alberto Mendosa RN [address] [place] [address] 76734 [email or web address] 09/24/2025 9:10 AM EDT Appointment [facility] Laboratory [address] [place] [address] Haresh Trinidad MD [address] [place] [address] 60066 09/24/2025 10:20 AM EDT Office Visit [facility] at [address] [address] Haresh Trinidad MD [address] [place] [address] 98424 09/24/2025 11:20 AM EDT Infusion [facility] at [address] [address] Haresh Trinidad MD [address] [place] [address] 78652 Chandni Vivas RN [address] [place] [address] 53847 [email or web address] 10/13/2025 1:50 PM EST Appointment [facility] Laboratory [address] [place] [address] Haresh Trinidad MD [address] [place] [address] 25896 10/13/2025 3:00 PM EST Office Visit [facility] at [address] [address] Haresh Trinidad MD [address] [place] [address] 45243 10/15/2025 8:00 AM EST Infusion [facility] at [address] [address] Haresh Trinidad MD [address] [place] [address] 42696 [email or web address] Cori Loyd RN [address] [place] [address] 17957 [email or web address] 11/03/2025 8:10 AM EST Appointment [facility] Laboratory [address] [place] [address] Haresh Trinidad MD [address] [place] [address] 88705 11/03/2025 9:30 AM EST Office Visit [facility] at [address] [address] Ally Cheney FNP [address] [place] [address] 11/05/2025 8:40 AM EST Infusion [facility] at [facility] [address] [place] [address] Haresh Trinidad MD [address] [place] [address] Jackie Freeman, LAUREN [address] [place] [address]457 Scheduled Orders Name Type Priority Associated Diagnoses Orde r Schedule CBC and differential Lab Routine Squamous cell carcinoma of tonsil Expected: 08/25/2025, Expires: 08/25/2026 Comprehensive metabolic panel Lab Routine Squamous cell carcinoma of tonsil Expected: 08/25/2025, Expires: 08/25/2026 [facility] Lab Routine Squamous cell carcinoma of tonsil Expected: 08/25/2025, Expires: 08/25/2026 documented as of this encounter Visit Diagnoses Diagnosis 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 It is not the complete legal health record.[facility]
--- OUTSIDE RECORDS SUMMARY | 2025-08-26 09:52 | XMS_ITS | Patient Health Record ---
Author Organization [facility] l[facility] Address [address] [facility] [place] [address] Care Team Providers Care Antisque[place] Applier Name Role Phone Shira Hudson Primary Care Provider UnavailDavid Blake Unavailable [phone] Murray MONTILLA, Delon Unavailable Unavailable Cori Waddell Unavailable [phone] Allergies Allergen (clinical drug ingredient) Drug/Non Drug [...] Date End Date Status Insulin Pump Syringe Talala Active NovoLOG Active Fluticasone Propionate 50 MCG/ACT [...] 50 MG TAKE 1 TABLET BY M [facility] THREE TIMES A DAY DIRECTED Oral; Duration: [...] 100 MG TAKE 1 CAPSULE BY MO [facility] TWICE A DAY Oral; Duration: 90 Days Active Diovan 320 MG Orally Not-Ta cami Metoprolol Tartrate 50 MG Oral; Duration: 90 Days Acti ve Aspirin 81 MG Orally Not-[facility] Immunizations Vaccine Route Administration Date [...] Problem Acquired hammer toe of right foot (7577169748782179 ) Other hammer toe(s) (acquired), right foot (M20.41) Active confirmed Problem Acquired hammer toe of left foot ([id number] ) Other hammer toe(s) (acquired), left foot (M20.42) Active confirmed Problem Polyneuropathy due to type 2 diabetes mellitus (736902843) Type 2 diabetes mellitus with diabetic polyneuropathy (E11.42) Active confirmed Vital Signs Blood pressure diastolic 65 mm Hg 06/30/2025 Height 5 ft 5 in in 06/30/2025 Blood pressure systolic 128 mm Hg 06/30/2025 Weight 153 lbs 06/30/2025 BMI 25.46 kg/m2 06/30/2025 Procedures Procedure Date Ordered Date Performed Result Body Sit e 56805-GPIZHCI NAIL, 6 OR MORE 10/07/2024 N/A 93413-BHTZ SKIN LESIONS, OVER 4 10/07/2024 N/A 47116-LXDTJHG NAIL, 6 OR MORE 01/06/2025 N/A 75871-VRKU SKIN LESIONS, OVER 4 01/06/2025 N/A 34993-VKCCHBD NAIL, 6 OR MORE 03/31/2025 N/A 43123-AKLK SKIN LESIONS, OVER 4 03/31/2025 N/A 35421-UDDUJTQ NAIL, 6 OR MORE 06/30/2025 N/A 01767-EUME SKIN LESIONS, OVER 4 06/30/2025 N/A Encounters Encounter Location Date Provider Diagnosis [address] [address] 10/07/2024 David Thao Type 2 diabetes mellitus with diabetic polyneuropathy E11.42 ; Tinea unguium B35.1 and Xerosis of skin L85.[address] [address] 01/06/2025 David Thao Type 2 diabetes mellitus with diabetic polyneuropathy E11.42 ; Tinea unguium B35.1 and Xerosis of skin L85.[address] [address] 03/31/2025 Davidjuan Thao Type 2 diabetes mellitus with diabetic polyneuropathy E11.42 ; Tinea unguium B35.1 ; Pain in right toe(s) M79.674 and Contusion of lesser toe of right foot without damage to nail, initial encounter S90.121A [address] [address] 06/30/2025 Davidjuan Thao Type 2 diabetes mellitus with diabetic polyneuropathy E11.42 ; Tinea unguium B35.1 ; Other hammer toe(s) (acquired), right foot M20.41 and Other hammer toe(s) (acquired), left foot M20.42 [facility] [address] [place] [address] 03/28/2025 Cori Waddell Assessments Encounter Date Diagnosis [...] X ray : Foot, right 3V 03/31/2025 21691-PVIEWDH NAIL, 6 OR MORE 03/31/2025 55792-GIMPASI NAIL, 6 OR MORE 10/07/2024 19954-BZWLXWP NAIL, 6 OR MORE 01/06/2025 18674-ACHDHQG NAIL, 6 OR MORE 12/14/2023 08996-TGIZBIG NAIL, 6 OR MORE 07/08/2024 28142-BZKMOBW NAIL, 6 OR MORE 06/30/2025 49404-Qayghbpg Plate 07/08/2024 05028-AOID SKIN LESIONS, OVER 4 03/31/20 68856-BKXB SKIN LESIONS, OVER 4 01/06/20 27149-IRTI SKIN LESIONS, OVER 4 10/07/20 09742-HGII SKIN LESIONS, OVER 4 07/08/20 80330-WWLF SKIN LESIONS, OVER 4 12/14/19 40547-HZMU SKIN LESIONS, OVER 4 12/22/19 66979-AOAS SKIN LESIONS, OVER 4 03/25/20 33316-OABX SKIN LESIONS, OVER 4 06/26/20 42534-KDXJ SKIN LESIONS, OVER 4 09/25/20 44386-JFGT SKIN LESIONS, OVER 4 06/30/20 Next Appt Details Provider Name:David Thao , 10/20/2025 09:30:00 AM, [address] [facility], [place], [address], Insurance Providers Payer Name Payer Address Payer Phone Subscriber Number Group Number Insured Name Patient Relationship to Insured Coverage Start Date Coverage End Date Medicare National Govt S[employer] [address] [place] [address] [id number] Jordan Orozco Self - patient is the insured [employer] [address] [place] [address] [id number] Jordan Orozco Self - patient is the insured Medical (General) History Medical History History ICD Code Diabetic Chicken pox Heart disease Cancer Cataracts High blood pressure Kidney disease Numbness Reflux ( GERD) Warts Measles Surgical History Surgery Date(Month/Year) triple bypass 2004 eye surgery 05/2020
--- OUTSIDE RECORDS SUMMARY | 2025-08-26 09:52 | XMS_ITS | Clinical Summary ---
Author Organization [facility] Address [address] [place] [address] Phone Care Team Providers Care Equine Dentist Name Role Phone Delon Gao MD Primary Care Provider Encounters Date Type Department Care Team Description 06/16/2025 3:23 PM EDT - 06/16/2025 11:59 PM EDT Hospital Encounter [facility] Ultrasound [address] [place] [address] Pain Discharge Disposition: Home or [...] Signed Date: 06/16/2025 16:46 ET Workstation ID: [id number] Transcribed By: Self Edit Transcribed Date: 06/16/2025 [...] Signed Date: 06/16/2025 16:46 ET Workstation ID: [id number] Transcribed By: Self Edit Transcribed Date: 06/16/2025 16:28 ET us Cori TAN IMG US PROCEDURES Fi nal Result from Last 3 Months Insurance MEDICARE [facility] Care Teams Equine Dentist Relationship Specialty Start Date End Date Delon Gao MD [address] [place] [address] [address] [place], [place] PCP - General 03/27/13
--- OUTSIDE RECORDS SUMMARY | 2025-08-26 09:52 | XMS_ITS | Encounter Summary ---
Author Organization [facility] Address [address] [place] [address] Phone Care Team Providers Care Cuff Setter Name Role Phone Delon Gao MD Primary Care Provider Haresh Trinidad MD Unavailable [phone] Cori Sequeira CNP Unavailable Denice Roberts WRAPPER CASER Unavailable Leslye Tolentino MBBS Unavailable Encounter Details Date Type Department Care Team (Late st Contact Info) Description 04/26/2022 Ancillary Orders [facility],Outside Imaging [address] [place], [place] [id number] System, Provider Not In, [facility] [address] [address] Social History Tobacco Use Types Packs/Day Years [...] Info) Description 08/28/2025 8:00 AM EDT Infusion [facility] at [facility] [address] [place], [place] [phone] Haresh Trinidad MD [address] [place] [address] Maryan Chow RN [address] [place] [address]772 09/01/2025 Procedure Pass [facility] [place] [facility] Cardiovascular And Interventional Radiology [address] [place] [address] 09/01/2025 1:00 PM EDT Hospital Encounter [facility] [place] [facility] Cardiovascular And Interventional Radiology [address] [place] [address] 98728 Fermin Barbour MD [address] [place] [address] [email or web address] 09/01/2025 1:00 PM EDT - 09/01/2025 2:25 PM EDT Surgery [facility] Cardiovascular And Interventional Radiology [address] [place] [address] Fermin Barbour MD [address] [place] [address] [email or web address] PORT A CATH INSERTION (IR) 09/01/2025 2:10 PM EDT Appointment [facility] Laboratory [address] [place] [address] Haresh Trinidad MD [address] [place] [address] 91127 09/01/2025 3:40 PM EDT Office Visit [facility] at [address] [address] Haresh Trinidad MD [address] [place] [address] 24766 09/03/2025 8:[address] [facility] at [address] [address] Haresh Trinidad MD [address] [place] [address] Jorge Alberto Mendosa RN [address] [place] [address] 9[address] [email or web address] 09/24/2025 9:10 AM EDT Appointment [facility] Laboratory [address] [place] [address] Haresh Trinidad MD [address] [place] [address] 15972 09/24/2025 10:20 AM EDT Office Visit [facility] at [address] [address] Haresh Trinidad MD [address] [place] [address] 09/24/2025 11:[address] [facility] at [address] [address] Haresh Trinidad MD [address] [place] [address] Chandni Vivas RN [address] [place] [address] 28298 [email or web address] 10/13/2025 1:50 PM EST Appointment [facility] Laboratory [address] [place] [address] Haresh Trinidad MD [address] [place] [address] 85566 10/13/2025 3:00 PM EST Office Visit [facility] at [address] [address] Haresh Trinidad MD [address] [place] [address] 01268 10/15/2025 8:00 AM EST Infusion [facility] at [address] [address] Haresh Trinidad MD [address] [place] [address] Cori Loyd, LAUREN [address] [place] [address] 23281 [email or web address] 11/03/2025 8:10 AM EST Appointment [facility] [address] [place] [address] Haresh Trinidad MD [address] [place] [address] 74970 11/03/2025 9:30 AM EST Office Visit [facility] [place] at [address] [address] Ally Cheney FNP [address] [place] [address] 16279 11/05/2025 8:[address] [facility] at [address] [address] Haresh Trinidad MD [address] [place] [address] Jackie Freeman, LAUREN [address] [place] [address] 81690 documented as of this encounter Results * CT Neck Outside (No Interpretation) (04/14/2022 12:00 AM EDT) Narrative SYSTEMGENERATED, DOCUMENTATION - 04/26/2022 2:33 PM EDT This study is for PACS storage only and not for interpretation. us Provider Not In System PhD IMG OUTSIDE IMAGING W /OUT INTERPRETATION Final Result documented in this encounter Visit Diagnoses Not on filedocumented in this encounter Care Teams Cuff Setter Relationship Specialty Start Date End Date Delon Gao MD [address] [place] [address] PCP - General Endocrinology 04/25/22 Haresh Trinidad MD [address] [place] [address] [email or web address] Primary Oncologist Medical Oncology 04/26/22 Cori Sequeira CNP [address] [place] [address] [email or web address] Nurse Practitioner Medical Oncology 05/02/22 Denice Roberts FNP [address] [place] [address] 23683 Nurse Practitioner Medical Oncology 05/19/22 03/04/25 Leslye Tolentino MBBS [address] [place] [address] [email or web address] Primary Oncologist Hematology and Oncology 10/11/23 documented as of this encounter Additional Source Comments The information contained in this document represents components of the legal health record. It is not the complete legal health record.[facility]
[2025-08-27 06:49] VITALS: BMI 25.2
[2025-08-27 07:00] VITALS: BP 154/65; PULSE 60; RESP 16; TEMP 36.1; O2SAT 96
--- NOTE | 2025-08-27 07:04 | PC.NURSE ---
+ bruit and thrill to fistula located in left arm.
[2025-08-27 07:21] LABS: MANUAL DIFF FLAG NO
[2025-08-27 07:30] LABS: Hematocrit 34.1 % (42.0-52.0); Hemoglobin 10.7 g/dl (14.0-18.0); Imm Gran Abs Auto 0.01 X10*3/uL (0.00-0.03); Imm Gran Pct Auto 0.2 % (0.0-0.4); Lymphocytes Absolute Auto 0.7 X10*3/uL (1.2-4.9); Mean Corpuscular HGB Conc 31.4 g/dl (31.0-36.0); Mean Corpuscular Hemoglobin 31.8 pg (27.0-33.0); Mean Corpuscular Volume 101.2 fL (80.0-98.0); NRBC Abs Auto 0.000 X10*3/uL (0.0-0.012); NRBC Pct Auto 0.0 /100WBC (0.0-0.2); Platelet Count 145 X10*3/uL (160-400); Red Blood Count 3.37 X10*6/uL (4.60-5.80); White Blood Count 4.6 X10*3/uL (4.8-10.8)
--- NOTE | 2025-08-27 07:38 | PC.NURSE ---
labs not back prior to patient going into procedure room. IR nurses Lulu and Eli poole as well as Dr. Cosme.
[2025-08-27 07:40] VITALS: BP 171/81; PULSE 61; RESP 16; O2SAT 94
[2025-08-27 07:41] LABS: Anion Gap 10 (12-20); Blood Urea Nitrogen 23 mg/dL (9-16); Calcium 9.0 mg/dL (8.4-10.2); Carbon Dioxide 35 mmol/L (22-29); Chloride 102 mmol/L (96-108); Creatinine Clr Calc Pharmacy 16.2; Estimated Glomerular Filt Rate 19; Potassium 4.5 mmol/L (3.3-5.1); Sodium 142 mmol/L (135-145)
[2025-08-27 07:45] VITALS: BP 170/68; PULSE 59; RESP 15; O2SAT 96
[2025-08-27 08:00] VITALS: BP 174/79; PULSE 56; RESP 15; O2SAT 95
[2025-08-27] MEDS: Heparin Sodium,Porcine 10,000 UNIT/10 ML VIAL 3000 UNIT IVPUSH (08:02)
[2025-08-27 08:15] VITALS: BP 176/85; PULSE 61; RESP 16; O2SAT 95
[2025-08-27 08:30] VITALS: BP 158/62; PULSE 17; RESP 16; TEMP 36.3; O2SAT 97
--- NOTE | 2025-08-27 09:05 | W.PM.OPN ---
Operative Note Operative Note Date of Service: 08/27/25 Narrative: Angiogram report from [facility] Preoperative diagnosis: End-stage renal disease Postoperative diagnosis: Same Procedure: 1. Ultrasound-guided left arm fistula access 2. Fistulogram 3. Outflow tract plasty Surgeon:Clay Cosme M.D., FACS, RPVI Mechanical Oxidizer:None Anesthesia: Local only Specimens:none Drains:none Estimated blood loss: Less than 10 ml Radiation Dose: 22.3 mGy Implant: Medtronic Impact DCB 7 x 40 Indications: 79-year-old gentleman with left upper extremity brachiocephalic fistula. He had prolonged bleeding times and was concerned about the fistula. He now presents for endovascular intervention. The patient has signed the informed consent after reviewing risks, complications, benefits, and alternatives previously discussed with the patient. The patient was given the opportunity to ask any additional questions or voice any concerns. All questions were answered to the patient's satisfaction. Procedure in detail: Patient was brought to the angiography suite prior to which a time-out was called for patient identification and site verification. Left arm was prepped and draped in standard surgical fashion under ultrasound guidance the fistula was accessed using micropuncture needle wire and 5 Armenian sheath. Through the precision 5 Armenian sheath fistulogram was undertaken. There was noted a central venous stenosis of the cephalic vein as a curved in 2 the more central veins. At this time 3000 units of systemic heparin was administered after 5 minutes of circulation time we upsized to a 7 Armenian sheath and a Glidewire advantage was advanced centrally. Once this was accomplished we initially plasty this area with a 6 x 40 regular balloon at the bend and into the more central veins. We then subsequently followed this with a 7 x 40 drug coated balloon. This was brought into position in under 3 minutes and insufflated for a total of 3 minutes in duration. At this time completion angiogram demonstrated excellent result catheter wire sheath was removed. A 3-0 nylon pursestring suture was placed. Sterile dressing was applied. Patient tolerated the procedure well returned to recovery with stable vitals. Interpretation of films: 1. Ultrasound demonstrates appropriate fistula access site. . Needle entry was visualized. Image of ultrasound was saved. 2. Fistula demonstrated normal caliber cephalic vein no central venous stenosis at the bend of the cephalic vein into the more central veins there was a stenotic region. 3. Completion fistulogram demonstrated resolution of stenotic site. Conclusion: 1. Plasty of venous outflow tract was successful. 2. Anticoagulation status: No change This note is constructed using voice recognition software. While every effort has been made to ensure accuracy, yard general car supervisor errors may have been included. Thank you for allowing me to participate in the care of your patient. Yours sincerely, Clay Cosme MD, FACS, R.P.V.I.
== END 2025-08-27 09:22 | disposition home or self-care (01) ==
PROVIDERS: PCP Internal Medicine Endocrinology, Diabetes & Metabolism; Visit Provider Surgery Vascular Surgery
DX: I77.0 Arteriovenous fistula, acquired (principal); N18.6 End stage renal disease; Z96.41 Presence of insulin pump (external) (internal); E11.22 Type 2 diabetes mellitus with diabetic chronic kidney disease; I25.10 Atherosclerotic heart disease of native coronary artery without angina pectoris; I12.0 Hypertensive chronic kidney disease with stage 5 chronic kidney disease or end stage renal disease; E78.00 Pure hypercholesterolemia, unspecified; Z79.4 Long term (current) use of insulin; Z79.899 Other long term (current) drug therapy; Z88.0 Allergy status to penicillin; Z88.8 Allergy status to other drugs, medicaments and biological substances
CPT/HCPCS: 36415; 36902; 76937; 80048; 85025; C1725; C1769; C1894; C2623; J1644; J2250; J3010; Q9967

== ENCOUNTER → 2025-08-27 06:37 | Outpatient (BNV) | payer MEDICARE, SELFPAY | PROVIDERS: PCP Internal Medicine Endocrinology, Diabetes & Metabolism; Visit Provider Surgery Vascular Surgery | DX: N18.6 End stage renal disease (principal) | CPT/HCPCS: 36902; 36907 ==

== ENCOUNTER 2025-10-08 08:14 | Outpatient (REF) | payer MEDICARE, SELFPAY ==
--- OUTSIDE RECORDS SUMMARY | 2024-04-18 07:30 | XMS_ITS ---
Author Organization [facility] Address [address] [place] [address] Care Team Providers Care Repossessor Name Role Phone Hudson Silva Primary Care Provider Unavailabl David Keys Unavailable [phone] Murray MONTILLA, Delon Unavailable Unavailable REASON FOR VISIT Dr Lambert Encounters Encounter Location Date Provider Diagnosis [address] [address] 04/18/2024 David Thao Plan Of Treatment Next Appt Details Provider Name:David Thao , 11/17/2025 10:15:00 AM, [address] [place], [phone], Progress Notes * Jordan SOLORZANO VDOB:1945 (79 yo M)Acc No.[id number]:04/18/2024 Progress Note Patient: Jordan SORENSON V Provider: Anthony Thao DPM :1945 A ge:78 Y S ex:Male Date:04/18/2024 Address:[address] [place] [id number] Pcp:Hudson Silva Subjective: * Chief Complaints: * [address] Lambert[address] * Medical History: Objective: * Vitals: Assessment: Plan: * Treatment: * Images: * The named appointment provid er may or may not be the originator of this progress note, and it is not deemed complete until electronically signed by the appointment provider. Sign off status: Pending * Provider: Anthony Thao DPM Date: 0 04/18/2024 Generated for Darion Guillaume on: 12/08/2024 08:31 AM EST
--- OUTSIDE RECORDS SUMMARY | 2024-06-27 08:00 | XMS_ITS ---
Author Organization [facility] Address [address] [place] [address] Care Team Providers Care Governor Assembler Hydraulic Name Role Phone Hudson Silva Primary Care Provider Unavailabl David Keys Unavailable [phone] Murray MONTILLA, Delon Unavailable Unavailable Encounters Encounter Location Date Provider Diagnosis [address] [address] 06/27/2024 David Thao Plan Of Treatment Next Appt Details Provider Name:David Thao , 11/17/2025 10:15:00 AM, [address] [place] [address], [phone], Progress Notes * Jordan SOLORZANO VDOB:1945 (79 yo M)Acc No.[id number]:06/27/2024 Progress Note Patient: Jordan SORENSON V Provider: Raphael Thao DPM :1945 A ge:78 Y S ex:Male Date:06/27/2024 Address:[address] [place] [id number] Pcp:Hudson Silva Subjective: * Chief Complaints: * * Medical History: Objective: * Vitals: Assessment: Plan: * Treatment: * Images: * The named appointment provid er may or may not be the originator of this progress note, and it is not deemed complete until electronically signed by the appointment provider. Sign off status: Pending * Provider: Raphael Thao DPM Date: 0 06/27/2024 Generated for Darion Guillaume on: 12/08/2024 08:31 AM EST
--- OUTSIDE RECORDS SUMMARY | 2025-04-21 08:45 | XMS_ITS ---
Author Organization [facility] Address [address] [place] [address] Care Team Providers Care Work Checker Name Role Phone Hudson Silva Primary Care Provider Unavailabl David Keys Unavailable [phone] Murray MONTILLA, Delon Unavailable Unavailable REASON FOR VISIT Seen Sooner Encounters Encounter Location Date Provider Diagnosis [address] [address] 04/21/2025 David Thao Plan Of Treatment Next Appt Details Provider Name:David Thao , 11/17/2025 10:15:00 AM, [address] [place], [address], Progress Notes * Jordan SOLORZANO VDOB:1945 (79 yo M)Acc No.[id number]:04/21/2025 Progress Note Patient: Jordan SORENSON V Provider: Raphael Thao DPM :1945 A ge:79 Y S ex:Male Date:04/21/2025 Address:[address] [place] [address] Pcp:Hudson Silva Subjective: * Chief Complaints: * 1 . Seen Sooner. * Medical History: Objective: * Vitals: Assessment: Plan: * Treatment: * Images: * The named appointment provid er may or may not be the originator of this progress note, and it is not deemed complete until electronically signed by the appointment provider. Sign off status: Pending * Provider: Raphael Thao DPM Date: 0 04/21/2025 Generated for Darion Guillaume on: 12/08/2024 08:29 AM EST
--- OUTSIDE RECORDS SUMMARY | 2025-10-08 08:28 | XMS_ITS | Encounter Summary ---
Author Organization [facility] Address [address] [address] Phone Care Team Providers Care Corn Cutter Operator Name Role Phone Unavailable Primary Care Provider Unavailabl e Encounter Details Date Type Department Care Team (Late st Contact Info) Description 10/07/2025 Treatment [facility] [address] [address] Jun Harris MD [address] [address] End stage renal disease; Dependence [...] Dialysis Note - Jun Harris MD - 10/07/2025 12:00 AM EST BASIC NOTE Patient: Jordan Orozco : 1945 Note Author: JUN HARRIS MD Service Date: 10/07/2025 This patient was personally seen [id number] for a basic visit as part of routine monthly dialysis care for end stage renal disease. Attending Group Work Program Director: JUN HARRIS MD Dialysis Location: [facility] Schedule: Shift: 2 OVERVIEW Patient is stable. HOME MEDICATIONS Medications reviewed. Current [facility] Out[facility] Medications acetaminophen (Tylenol 8 Hour) 650 MG 8 hr tablet Take 2 tablets (1,300 mg total) by mouth in the morning and 2 tablets (1,300 mg total) in the evening. Do not crush, chew, or split. Start Date: 09/14/2025 albuterol HFA (PROVENTIL HFA;VENTOLIN HFA) 108 (90 Base) MCG/ACT inhaler Inhale as directed Start Date: amLODIPine (NORVASC) 5 MG tablet Take 5 mg by mouth 1 (one) time each day Start Date: atorvastatin (LIPITOR) 40 MG tablet Take 40 mg by mouth 1 (one) time each day Start Date: 10/22/2023 B-D UF III MINI PEN NEEDLES 31G X 5 MM [place]ee USE TO INJECT INSULIN FOUR TIMES A DAY Start Date: 01/07/2024 Cholecalciferol 25 MCG (1000 UT) chewable tablet Chew Start Date: fenofibrate (TRICOR) 145 MG tablet Take 1 tablet by mouth 1 (one) time each day Start Date: fluticasone-salmeterol (ADVAIR DISKUS) 100-50 MCG/DOSE diskus inhaler Inhale as directed Start Date: furosemide (Lasix) 40 MG tablet Take 40 mg by mouth Start Date: 01/07/2024 hydrALAZINE 50 MG tablet Take 1 tablet (50 mg total) by mouth in the morning and 1 tablet (50 mg total) in the evening and 1 tablet (50 mg total) before bedtime. Start Date: 07/26/2023 insulin aspart (NovoLOG FLEXPEN) 100 UNIT/ML injection 140 Units Start Date: Lantus SoloStar 100 UNIT/ML injection Inject 10 Units under the skin Start Date: 01/07/2024 Lidocaine HCl (Lidocaine Viscous HCl) 2 % solution Use 15 mL in the mouth or throat Start Date: 06/09/2022 losartan (Cozaar) 50 MG tablet Take 1 tablet (50 mg total) by mouth 1 (one) time each day Start Date: 05/27/2025 metoprolol tartrate (LOPRESSOR) 50 MG tablet Take 1 tablet by mouth 2 (two) times a day Start Date: nitroglycerin (NITROSTAT) 0.[address] 0.4 mg under the tongue every 5 (five) minutes if needed for chest pain Start Date: Teague-3 Fatty Acids (Fish Oil) 1000 MG capsule delayed-release Take by mouth Start Date: pregabalin (LYRICA) 100 MG capsule Take 100 mg by mouth 1 (one) time each day Start Date: 03/07/2021 sulfamethoxazole-trimethoprim (BACTRIM,SEPTRA) 400-80 MG per tablet Take 1 tablet by mouth 1 (one) time each day Start Date: 07/13/2025 Current [facility] Allergies Allergen: AMOXICILLIN Reaction: Itching Allergen: Dimetapp Cold-allergy [BROMPHENIRAMINE-PHENYLEPHRINE] Allergen: PENICILLINS Reaction: Other (see comments) ADEQUACY ASSESSMENT Kt/V, Natural Log 1.44 (09/30/25) 1.47 (08/26/25) 1.61 (08/05/25) UREA REDUCTION RATIO (%) 70 (09/30/25) 74 (08/26/25) 74 (08/05/25) BUN 83 (09/30/25) 38 (08/26/25) 43 (08/05/25) BUN Post Dialysis 25 (09/30/25) 10 (08/26/25) 11 (08/05/25) Creatinine 5.52 (09/30/25) 4.53 (08/26/25) 4.57 (07/29/25) Bicarbonate (CO2) 25 (09/30/25) 30 (08/26/25) 30 (07/29/25) Sodium 137 (09/30/25) 143 (08/26/25) 142 (07/29/25) ANEMIA ASSESSMENT Hgb 8.6 (09/30/25) 9.5 (09/25/25) 8.9 (09/23/25) Iron Saturation (TSat) 90 (09/30/25) 14 (08/26/25) 12 (07/29/25) Ferritin 2,762 (09/30/25) 1,874 (08/26/25) 2,088 (07/29/25) Iron 324 (09/30/25) 55 (08/26/25) 38 (07/29/25) TIBC 358 (09/30/25) 398 (08/26/25) 330 (07/29/25) MCV 100.4 (09/30/25) 100.9 (08/26/25) 104.7 (07/29/25) Platelets 110 (09/30/25) 161 (08/26/25) 144 (07/29/25) BMM ASSESSMENT Calcium, Adjusted Total 8.2 09/30/25 9.0 08/26/25 9.2 07/29/25 Calcium 8.2 09/30/25 9.0 08/26/25 9.2 07/29/25 Phosphorus, Serum 7.2 09/30/25 4.2 08/26/25 4.6 07/29/25 Ca*PO4 59.0 09/30/25 37.8 08/26/25 42.3 07/29/25 PTH, Intact 146 08/26/25 232 05/27/25 305 02/25/25 Vitamin D, 25-Hydroxy 38 06/03/25 Magnesium 2.3 09/30/25 2.4 08/26/25 2.3 07/29/25 Alkaline Phosphatase 103 09/30/25 59 08/26/25 56 07/29/25 Aluminum 4 12/03/24 NUTRITION ASSESSMENT Albumin 4.0 09/30/25 4.4 08/26/25 4.1 07/29/25 Potassium 5.8 09/30/25 4.7 08/26/25 5.2 07/29/25 Glucose 173 09/30/25 204 08/26/25 138 07/29/25 Hemoglobin A1C 5.8 08/26/25 6.1 05/27/25 5.8 02/25/25 ADDITIONAL LABS White Blood Cells 16.0 (09/30/25) 5.6 (08/26/25) 8.4 (07/29/25) Cholesterol 66 (08/26/25) 65 (05/27/25) 76 (02/25/25) HDL 25 (08/26/25) 31 (05/27/25) 23 (02/25/25) LDL-Calc 22 (08/26/25) 11 (05/27/25) 20 (02/25/25) Triglycerides 97 (08/26/25) 114 (05/27/25) 163 (02/25/25) Hep B Surface Antibody ?4 (09/09/25) ?4 (12/03/24) Uric Acid 8.7 (12/03/24) Chol/HDL Ratio 2.6 (08/26/25) 2.1 (05/27/25) 3.3 (02/25/25) ALT (SGPT) 16 (09/30/25) 15 (09/08/25) 9 (09/04/25) AST (SGOT) 34 (09/30/25) 36 (09/08/25) 46 (09/04/25) Signed by: JUN HARRIS MD on 10/07/2025 at 02:58:43 PM Transcribed by: JUN HARRIS MD on 10/07/2025 at 02:58:43 PM documented in this encounter Plan of Treatment Not on file documented as of this encounter Visit Diagnoses Diagnosis End stage renal disease Dependence on renal dialysis documented in this encounter
--- OUTSIDE RECORDS SUMMARY | 2025-10-08 08:28 | XMS_ITS | Encounter Summary ---
Author Organization [facility] Address [address] [place] [address] [address] [place] [address] Phone Care Team Providers Care Staffing And Scheduling Coordinator Name Role Phone Delon Gao MD Primary Care Provider Haresh Trinidad MD Unavailable [phone] Cori Sequeira MEDICATION ADMINISTRATION PROFESSIONAL Unavailable Denice Roberts PANTOGRAPH ENGRAVER Unavailable [phone] Leslye Tolentino MBBS Unavailable [phone] Encounter Details Date Type Department Care Team (Late st Contact Info) Description 05/17/2022 Procedure Pass [facility] Cardiovascular And Interventional Radiology [address] [place] [address] Social History Tobacco Use Types Packs/Day Years [...] Not on file 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 Wish to be (Past 1 Month) No 022 3:44 PM EDT May Oviedo, LAUREN 2. Non-Specific Active Suici jeny Thoughts (Past 1 Month) No 05/17/2022 3:44 PM EDT May Oviedo RN 6. Suicidal Behavior (Lifetime) No 3:44 PM EDT May Oviedo RN documented as of this encounter Plan of Treatment Upcoming Encounters Date Type Department Care Team (Late st Contact Info) Description 10/13/2025 1:50 PM EST Blood Draw [facility] [address] [address] Haresh Trinidad MD [address] [place] [address] 10/13/2025 3:00 PM EST Office Visit [facility] at [address] [address] Haresh Trinidad MD [address] [place] [address] 10/15/2025 8:00 AM EST Infusion [facility] at [address] [address] Haresh Trinidad MD [address] [place] [address] Cori Loyd, LAUREN [address] [place] [address] 11/03/2025 8:10 AM EST Blood Draw [facility] [address] [address] Haresh Trinidad MD [address] [place] [address] 11/03/2025 9:30 AM EST Office Visit [facility] at [address] [address] Ally Cheney FNP [address] [place] [address] 11/05/2025 8:40 AM EST Infusion [facility] at [address] [address] Haresh Trinidad MD [address] [place] [address] Jackie Freeman, LAUREN [address] [place] [address] documented as of this encounter Visit Diagnoses Not on filedocumented in this encounter Care Teams Staffing And Scheduling Coordinator Relationship Specialty Start Date End Date Delon Gao MD [address] [place] [address] PCP - General Endocrinology 04/25/22 Haresh Trinidad MD [address] [place] [address] Primary Oncologist Medical Oncology 04/26/22 Cori Sequeira CNP [address] [place] [address] maria Nurse Practitioner Medical Oncology 05/02/22 Denice Roberts NP [address] [place] [address] [email or web address] Nurse Practitioner Medical Oncology 05/19/22 03/04/25 Leslye Tolentino MBBS [address] [place] [address] [email or web address] Primary Oncologist Hematology and Oncology 10/11/23 documented as of this encounter Additional Source Comments The information contained in this document represents components of the legal health record. It is not the complete legal health record.[facility]
--- OUTSIDE RECORDS SUMMARY | 2025-10-08 08:28 | XMS_ITS | Encounter Summary ---
Author Organization [facility] Address [address] [place] [address] [place] [address] Phone Care Team Providers Care Material Planning Analyst Name Role Phone Delon Gao MD Primary Care Provider Haresh Trinidad MD Unavailable [phone] Cori Sequeira LEAD FURNACE OPERATOR Unavailable Denice Roberts JEWELLERY DESIGNER Unavailable [phone] Leslye Tolentino MBBS Unavailable [phone] Encounter Details Date Type Department Care Team (Late st Contact Info) Description 05/05/2022 Procedure Pass [facility] Cardiovascular And Interventional Radiology [address] [place] [address] Social History Tobacco Use Types Packs/Day Years [...] Not on file 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 on 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 Not on file Not on file [place]ret [place] during war Not on file Not on fi le Not on file documented as of this encounter Plan of Treatment Upcoming Encounters Date Type Department Care Team (Late st Contact Info) Description 10/13/2025 1:50 PM EST Blood Draw [facility] [address] [address] Haresh Trinidad MD [address] [place] [address] 10/13/2025 3:00 PM EST Office Visit [facility] at [address] [address] Haresh Trinidad MD [address] [place] [address] 10/15/2025 8:00 AM EST Infusion [facility] at [address] [address] Haresh Trinidad MD [address] [place] [address] Cori Loyd, LAUREN [address] [place] [address] 11/03/2025 8:10 AM EST Blood Draw [facility] [address] [address] Haresh Trinidad MD [address] [place] [address] 11/03/2025 9:30 AM EST Office Visit [facility] at [address] [address] Ally Cheney FNP [address] [place] [address] 11/05/2025 8:40 AM EST Infusion [facility] at [address] [address] [place] [address] [email or web address] Jackie Freeman, LAUREN [address] [place] [address] documented as of this encounter Visit Diagnoses Not on filedocumented in this encounter Care Teams Material Planning Analyst Relationship Specialty Start Date End Date Delon Gao MD [address] [place] [address] PCP - General Endocrinology 04/25/22 Haresh Trinidad MD [address] [place] [address] Primary Oncologist Medical Oncology 04/26/22 Cori Sequeira CNP [address] [place] [address] maria Nurse Practitioner Medical Oncology 05/02/22 Denice Roberts, JEWELLERY DESIGNER [address] [place] [address] Nurse Practitioner Medical Oncology 05/19/22 03/04/25 Leslye Tolentino MBBS [address] [place] [address] [email or web address] Primary Oncologist Hematology and Oncology 10/11/23 documented as of this encounter Additional Source Comments The information contained in this document represents components of the legal health record. It is not the complete legal health record.[facility]
--- OUTSIDE RECORDS SUMMARY | 2025-10-08 08:28 | XMS_ITS | Encounter Summary ---
Author Organization [facility] Address [address] [place] [address] [place] [address] Phone Care Team Providers Care Hyperbaric Nurse Name Role Phone Delon Gao MD Primary Care Provider Haresh Trinidad MD Unavailable [phone] Cori Sequeira CNP Unavailable Encounter Details Date Type Department Care Team (Late st Contact Info) Description 09/04/2025 Orders Only [facility] at [facility] [address] [place] [address] Evy Bruce NP [address] [place] [address] [email or web address] Social History Tobacco Use Types Packs/Day Years [...] with a working camera? Not on file Intimate Partner Violence Answer Date R ecorded Are you denied basic needs s uch as food, clothing, or medical care? No 09/01/2025 In the past 12 months have y ou been in a relationship with a person who hurts, threatens, or tries to control you? No 09/01/2025 Are you denied basic needs s uch as food, clothing, or medical care? No 09/01/2025 In the past 12 months have y ou been in a relationship with a person who hurts, threatens, or tries to control you? 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 [place] during war Not on file Not on fi le Not on file documented as of this encounter Plan of Treatment Upcoming Encounters Date Type Department Care Team (Late st Contact Info) Description 10/13/2025 1:50 PM EST Blood Draw [facility] [address] [address] Haresh Trinidad MD [address] [place] [address] 10/13/2025 3:00 PM EST Office Visit [facility] at [address] [address] Haresh Trinidad MD [address] [place] [address] 10/15/2025 8:00 AM EST Infusion [facility] at [address] [address] Haresh Trinidad MD [address] [place] [address] Cori Loyd, LAUREN [address] [place] [address] 11/03/2025 8:10 AM EST Blood Draw [facility] [address] [address] Haresh Trinidad MD [address] [place] [address] 11/03/2025 9:30 AM EST Office Visit [facility] at [address] [address] Ally Cheney FNP [address] [place] [address] 11/05/2025 8:40 AM EST Infusion [facility] at [address] [address] Haresh Trinidad MD [address] [place] [address] Jackie Freeman, LAUREN [address] [place] [address] documented as of this encounter Visit Diagnoses Not on filedocumented in this encounter Care Teams Hyperbaric Nurse Relationship Specialty Start Date End Date Delon Gao MD [address] [place] [address] PCP - General Endocrinology 04/25/22 Haresh Trinidad MD [address] [place] [address] [email or web address] Primary Oncologist Medical Oncology 04/26/22 Cori Sequeira CNP [address] [place] [address] maria [email or web address] Nurse Practitioner Medical Oncology 05/02/22 documented as of this encounter Additional Source Comments The information contained in this document represents components of the legal health record. It is not the complete legal health record.[facility]
--- OUTSIDE RECORDS SUMMARY | 2025-10-08 08:28 | XMS_ITS | Encounter Summary ---
Author Organization [facility] Address [address] [place] [address] [place] [address] Phone Care Team Providers Care Pipe Jeeper Name Role Phone Delon Gao MD Primary Care Provider [phone] Harehs Trinidad MD Unavailable [phone] Cori Sequeira CNP Unavailable Encounter Details Date Type Department Care Team (Late st Contact Info) Description 09/03/[address] 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 on file Not on file [place]ret [place] during war Not on file Not on fi le Not on file documented as of this encounter Plan of Treatment Upcoming Encounters Date Type Department Care Team (Late st Contact Info) Description 10/13/2025 1:50 PM EST Blood Draw [facility] [address] [address] Haresh Trinidad MD [address] [place] [address] 10/13/2025 3:00 PM EST Office Visit [facility] at [address] [address] Haresh Trinidad MD [address] [place] [address] 10/15/2025 8:00 AM EST Infusion [facility] at [address] [address] Haresh Trinidad MD [address] [place] [address] Cori Loyd RN [address] [place] [address] 11/03/2025 8:10 AM EST Blood Draw [facility] [address] [address] Haresh Trinidad MD [address] [place] [address] 11/03/2025 9:30 AM EST Office Visit [facility] at [address] [address] Ally Cheney FNP [address] [place] [address] 11/05/2025 8:40 AM EST Infusion [facility] at [address] [address] Haresh Trinidad MD [address] [place] [address] Jackie Freeman RN [address] [place] [address] documented as of this encounter Visit Diagnoses Not on filedocumented in this encounter Care Teams Pipe Jeeper Relationship Specialty Start Date End Date Delon Gao MD [address] [place] [address] PCP - General Endocrinology 04/25/22 Haresh Trinidad MD [address] [place] [address] [email or web address] Primary Oncologist Medical Oncology 04/26/22 Cori Sequeira CNP [address] [place] [address] [email or web address] Nurse Practitioner Medical Oncology 05/02/22 documented as of this encounter Additional Source Comments The information contained in this document represents components of the legal health record. It is not the complete legal health record.[facility]
--- OUTSIDE RECORDS SUMMARY | 2025-10-08 08:28 | XMS_ITS | Encounter Summary ---
Author Organization [facility] Address [address] [place] [address] [place] [address] Phone Care Team Providers Care Tile And Mottle Supervisor Name Role Phone Delon Gao MD Primary Care Provider Haresh Trinidad MD Unavailable [phone] Cori Sequeira CNP Unavailable Reason for Visit * Reason Onset Date Comments bone pain 09/11/2025 [place] Encounter Details Date Type Department Care Team (Late st Contact Info) Description 09/11/2025 Telephone [facility] at [address] [address] Haresh Trinidad MD [address] [place] [address] [phone] [email or web address] bone pain ([place]) Social History Tobacco Use Types Packs/Day Years [...] Not on file 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 States he hastried tylenol 500 with little effect. Took oxycodone in the past and is asking for that. Recommended he continue with tylenol 500, 2 tabs, 3 times per day and will speak with provider about oxycodonescript documented in this encounter Plan of Treatment Upcoming Encounters Date Type Department Care Team (Late st Contact Info) Description 10/13/2025 1:50 PM EST Blood Draw [facility] [address] [place] [address] Haresh Trinidad MD 30 [place] [address] 10/13/2025 3:00 PM EST Office Visit [facility] at [address] [address] Haresh Trinidad MD [address] [place] [address] 10/15/2025 8:00 AM EST Infusion [facility] at [address] [address] Haresh Trinidad MD [address] [place] [address] Cori Loyd RN [address] [place] [address] 11/03/2025 8:10 AM EST Blood Draw [facility] [address] [address] Haresh Trinidad MD [address] [place] [address] 11/03/2025 9:30 AM EST Office Visit [facility] at [address] [address] Ally Cheney FNP [address] [place] [address] 11/05/2025 8:40 AM EST Infusion [facility] at [address] [address] Haresh Trinidad MD [address] [place] [address] Jackie Freeman, RN [address] [place] [address] documented as of this encounter Visit Diagnoses Not on filedocumented in this encounter Care Teams Tile And Mottle Supervisor Relationship Specialty Start Date End Date Delon Gao MD [address] [place] [address] PCP - General Endocrinology 04/25/22 Haresh Trinidad MD [address] [place] [address] Primary Oncologist Medical Oncology 04/26/22 Cori Sequeira CNP [address] [place] [address] maria Nurse Practitioner Medical Oncology 05/02/22 documented as of this encounter Additional Source Comments The information contained in this document represents components of the legal health record. It is not the complete legal health record.[facility]
--- OUTSIDE RECORDS SUMMARY | 2025-10-08 08:28 | XMS_ITS | Encounter Summary ---
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 Not on file Not on file [place] be[place] during war Not on file Not on fi le Not on file documented as of this encounter Plan of Treatment Upcoming Encounters Date Type Department Care Team (Late st Contact Info) Description 10/13/2025 1:50 PM EST Blood Draw [facility] [address] [address] Haresh Trinidad MD [address] [place] [address] 10/13/2025 3:00 PM EST Office Visit [facility] at [address] [address] Haresh Trinidad MD [address] [place] [address] 10/15/2025 8:00 AM EST Infusion [facility] at [address] [address] Haresh Trinidad MD [address] [place] [address] Cori Loyd RN [address] [place] [address] 11/03/2025 8:10 AM EST Blood Draw [facility] [address] [address] Haresh Trinidad MD [address] [place] [address] 11/03/2025 9:30 AM EST Office Visit [facility] at [address] [address] Ally Cheney FNP [address] [place] [address] 11/05/2025 8:40 AM EST Infusion [facility] at [address] [address] Haresh Trinidad MD [address] [place] [address] Jackie Freeman, LAUREN [address] [place] [address] [email or web address] documented as of this encounter Visit Diagnoses Not on filedocumented in this encounter Care Teams Used Car Lot Attendant Relationship Specialty Start Date End Date Delon Gao MD [address] [place] [address] PCP - General Endocrinology 04/25/22 Haresh Trinidad MD [address] [place] [address] Primary Oncologist Medical Oncology 04/26/22 Cori Sequeira CNP [address] [place] [address] [email or web address] Nurse Practitioner Medical Oncology 05/02/22 documented as of this encounter Additional Source Comments The information contained in this document represents components of the legal health record. It is not the complete legal health record.[facility]
--- OUTSIDE RECORDS SUMMARY | 2025-10-08 08:28 | XMS_ITS | Encounter Summary ---
Author Organization [facility] Address [address] [place] [address] Phone Care Team Providers Care Mill Work Name Role Phone Delon Gao MD Primary Care Provider Haresh Trinidad MD Unavailable [phone] Cori Sequeira CNP Unavailable Reason for Visit * Reason Onset Date Comments Lidocaine Prilocaine cream 09/09/2025 Encounter Details Date Type Department Care Team (Late st Contact Info) Description 09/09/2025 Telephone [facility] at [address] [address] Haresh Trinidad MD [address] [place] [address] [email or web address] Lidocaine Prilocaine cream Social History Tobacco Use Types Packs/Day Years [...] Not on file 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 Faxed to [facility] with clinicals. Pending a response documented in this encounter Plan of Treatment Upcoming Encounters Date Type Department Care Team (Late st Contact Info) Description 10/13/2025 1:50 PM EST Blood Draw [facility] [address] [place] [address] Haresh Trinidad MD [address] [place] [address] 10/13/2025 3:00 PM EST Office Visit [facility] at [address] [address] Haresh Trinidad MD [address] [place] [address] 10/15/2025 8:00 AM EST Infusion [facility] at [address] [address] Haresh Trinidad MD [address] [place] [address] Cori Loyd RN [address] [place] [address] 11/03/2025 8:10 AM EST Blood Draw [facility] [address] [address] Haresh Trinidad MD [address] [place] [address] 11/03/2025 9:30 AM EST Office Visit [facility] at [address] [address] Ally Cheney FNP [address] [place] [address] 11/05/2025 8:40 AM EST Infusion [facility] at [address] [address] Haresh Trinidad MD [address] [place] [address] Jackie Freeman, RN [address] [place] [address] documented as of this encounter Visit Diagnoses Not on filedocumented in this encounter Care Teams Mill Work Relationship Specialty Start Date End Date Delon Gao MD [address] [place] [address] PCP - General Endocrinology 04/25/22 Haresh Trinidad MD [address] [place] [address] [email or web address] Primary Oncologist Medical Oncology 04/26/22 Cori Sequeira CNP [address] [place] [address] maria [email or web address] Nurse Practitioner Medical Oncology 05/02/22 documented as of this encounter Additional Source Comments The information contained in this document represents components of the legal health record. It is not the complete legal health record.[facility]
--- OUTSIDE RECORDS SUMMARY | 2025-10-08 08:29 | XMS_ITS | Encounter Summary ---
Author Organization [facility] Address [address] [place] [address] [place] [address] Phone Care Team Providers Care Eligibility Manager Name Role Phone Delon Gao MD Primary Care Provider Haresh Trinidad MD Unavailable [phone] Cori Sequeira RIVET FLUNKY Unavailable Denice Roberts DAYCARE PROVIDER Unavailable [phone] Leslye Tolentino MBBS Unavailable [phone] Encounter Details Date Type Department Care Team (Late st Contact Info) Description 07/13/2022 Procedure Pass [facility] Cardiovascular And Interventional Radiology 30 [place] [address] Social History Tobacco Use Types Packs/Day Years [...] file 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 on 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 Not on file Not on file [place] war Not on file Not on fi le Not on file documented as of this encounter Plan of Treatment Upcoming Encounters Date Type Department Care Team (Late st Contact Info) Description 10/13/2025 1:50 PM EST Blood Draw [facility] [address] [address] Haresh Trinidad MD [address] [place] [address] 10/13/2025 3:00 PM EST Office Visit [facility] at [address] [address] Haresh Trinidad MD [address] [place] [address] 10/15/2025 8:00 AM EST Infusion [facility] at [address] [address] Haresh Trinidad MD [address] [place] [address] Cori Loyd, LAUREN [address] [place] [address] 11/03/2025 8:10 AM EST Blood Draw [facility] [address] [address] Haresh Trinidad MD [address] [place] [address] 11/03/2025 9:30 AM EST Office Visit [facility] at [address] [address] Ally Cheney FNP [address] [place] [address] 11/05/2025 8:40 AM EST Infusion [facility] at [address] [address] [place] [address] [email or web address] Jackie Freeman, LAUREN 30 [place] [address] documented as of this encounter Visit Diagnoses Not on filedocumented in this encounter Care Teams Eligibility Manager Relationship Specialty Start Date End Date Delon Gao MD [address] [place] [address] PCP - General Endocrinology 04/25/22 Haresh Trinidad MD [address] [place] [address] Primary Oncologist Medical Oncology 04/26/22 Cori Sequeira CNP [address] [place] [address] maria Nurse Practitioner Medical Oncology 05/02/22 Denice Roberts, DAYCARE PROVIDER [address] [place] [address] Nurse Practitioner Medical Oncology 05/19/22 03/04/25 Leslye Tolentino MBBS [address] [place] [address] [email or web address] Primary Oncologist Hematology and Oncology 10/11/23 documented as of this encounter Additional Source Comments The information contained in this document represents components of the legal health record. It is not the complete legal health record.[facility]
--- OUTSIDE RECORDS SUMMARY | 2025-10-08 08:29 | XMS_ITS ---
Author Organization [facility] Address [address] [place] [address] Phone Care Team Providers Care Desk Interviewer Name Role Phone Delon Gao MD Primary Care Provider Haresh Trinidad MD Unavailable Cori Sequeira CNP Unavailable Active Problems Patient [...] 05/17/2022 Coronary artery disease 05/17/2022 Overview (05/17/2022): [facility] cardiology Assessment & Plan (05/17/2022 2:44 PM EDT): History of coronary artery disease, followed by [facility] cardiology. History of CABG. Chart notes not [...] patient's care Current Treatment and Therapy Plans Q-HEPL-TTETIYYCC (IV/SC) /CYCLOPHOSPHAMIDE/DOXORUBICIN/ VINCRISTINE/PREDNISONE* Plan Start Date:09/03/2025 Plan Provider:Haresh Trinidad MD Linked Problems Lymphoma of testis Treatment Medications Current Day (Day 1 , Cycle 3 - Planned for 10/15/2025) Next Day (Day 1, Cycle 4 - Planned for 11/05/2025) cycloPHOSphamide (CYTOXAN)cycloPHOSphamide (CYTOXAN) infusion 250 mL (liquid vial)DOXOrubicin (ADRIAMYCIN)riTUXimabriTUXi mab-abbs (TRUXIMA) IVPB 250 mL (250 mg - 1000 mg) (QS Base) BagvinCRIStine (VINCASAR PFS) IVPB {1 mg/mL vial} cycloPHOSphamide [...] Lifetime Dose Automatic Entry Manual Entr y doxorubicin 49.855 mg/m2 (86 mg) 49.855 mg/m2 (86 mg) 0 mg/m2 (0 mg) Invasive Cardiology Radiation Exposure 74 mGy 0 mGy 74 mGy 2. DAP 1,033.82 uGy-m2 0 uGy-m2 1,033.82 uGy -m2
--- OUTSIDE RECORDS SUMMARY | 2025-10-08 08:29 | XMS_ITS | Encounter Summary ---
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 file Not on file [place] graham [place] during war Not on file Not on fi le Not on file documented as of this encounter Plan of Treatment Upcoming Encounters Date Type Department Care Team (Late st Contact Info) Description 10/13/2025 1:50 PM EST Blood Draw [facility] [address] [address] Haresh Trinidad MD [address] [place] [address] 10/13/2025 3:00 PM EST Office Visit [facility] at [address] [address] Haresh Trinidad MD [address] [place] [address] 10/15/2025 8:00 AM EST Infusion [facility] at [address] [address] Haresh Trinidad MD [address] [place] [address] Cori Loyd, LAUREN [address] [place] [address] 11/03/2025 8:10 AM EST Blood Draw [facility] [address] [address] Haresh Trinidad MD [address] [place] [address] 11/03/2025 9:30 AM EST Office Visit [facility] at [address] [place] [address] Ally Cheney FNP 30 [place] [address] 11/05/2025 8:40 AM EST Infusion [facility] at [address] [address] Haresh Trinidad MD [address] [place] [address] Jackie Freeman, LAUREN [address] [place] [address] documented as of this encounter Visit Diagnoses Not on filedocumented in this encounter Care Teams Value Engineer Relationship Specialty Start Date End Date Delon Gao MD [address] [place] [address] PCP - General Endocrinology 04/25/22 Haresh Trinidad MD [address] [place] [address] Primary Oncologist Medical Oncology 04/26/22 Cori Sequeira CNP [address] [place] [address] maria Nurse Practitioner Medical Oncology 05/02/22 documented as of this encounter Additional Source Comments The information contained in this document represents components of the legal health record. It is not the complete legal health record.[facility]
--- OUTSIDE RECORDS SUMMARY | 2025-10-08 08:29 | XMS_ITS | Encounter Summary ---
Author Organization [facility] Address [address] [place] [address] [place] [address] Phone Care Team Providers Care Consumer Insights Intern Name Role Phone Delon Gao MD Primary Care Provider Haresh Trinidad MD Unavailable [phone] Cori Sequeira ULTIMATE HOOPS REFEREE Unavailable Denice Roberts OLIVING MACHINE OPERATOR Unavailable Leslye Tolentino MBBS Unavailable [phone] Encounter Details Date Type Department Care Team (Late st Contact Info) Description 12/25/2022 Procedure Pass [facility] Cardiovascular And Interventional Radiology [address] [place] [address] Social History Tobacco Use Types Packs/Day Years [...] Not on file Not on file 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 at [address] [address] Haresh Trinidad MD [address] [place] [address] 10/15/2025 8:[address] [facility] at [address] [address] Haresh Trinidad MD [address] [place] [address] Cori Loyd, LAUREN [address] [place] [address] 11/03/2025 8:10 AM EST Blood Draw [facility] [address] [address] Haresh Trinidad MD [address] [place] [address] 11/03/2025 9:30 AM EST Office Visit [facility] at [address] [address] Ally Cheney FNP [address] [place] [address] 11/05/2025 8:[address] [facility] at [address] [address] [place] [address] [email or web address] Jackie Freeman, LAUREN [address] [place] [address] documented as of this encounter Visit Diagnoses Not on filedocumented in this encounter Care Teams Consumer Insights Intern Relationship Specialty Start Date End Date Delon Gao MD [address] [place] [address] PCP - General Endocrinology 04/25/22 Haresh Trinidad MD [address] [place] [address] Primary Oncologist Medical Oncology 04/26/22 Cori Sequeira CNP [address] [place] [address] maria Nurse Practitioner Medical Oncology 05/02/22 Denice Roberts, OLIVING MACHINE OPERATOR [address] [place] [address] Nurse Practitioner Medical Oncology 05/19/22 03/04/25 Leslye Tolentino MBBS [address] [place] [address] [email or web address] Primary Oncologist Hematology and Oncology 10/11/23 documented as of this encounter Additional Source Comments The information contained in this document represents components of the legal health record. It is not the complete legal health record.[facility]
--- OUTSIDE RECORDS SUMMARY | 2025-10-08 08:29 | XMS_ITS | Encounter Summary ---
Author Organization [facility] Address [address] [place] [address] [place] [address] Phone Care Team Providers Care Citrus Fruit Colorer Name Role Phone Delon Gao MD Primary Care Provider Haresh Trinidad MD Unavailable [phone] Cori Sequeira SOLAR PHOTOVOLTAIC DESIGNER Unavailable Denice Roberts SUPERVISOR COLOR PASTE MIXING Unavailable [phone] Leslye Tolentino MBBS Unavailable [phone] Encounter Details Date Type Department Care Team (Late st Contact Info) Description 01/04/2023 Procedure Pass [facility] Cardiovascular And Interventional Radiology [address] [place] [address] Social History Tobacco Use Types Packs/Day Years [...] Not on file 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 on file Not on file [place] during war Not on file Not on fi le Not on file documented as of this encounter Plan of Treatment Upcoming Encounters Date Type Department Care Team (Late st Contact Info) Description 10/13/2025 1:50 PM EST Blood Draw [facility] [address] [address] Haresh Trinidad MD [address] [place] [address] 10/13/2025 3:00 PM EST Office Visit [facility] at [address] [address] Haresh Trinidad MD [address] [place] [address] 10/15/2025 8:00 AM EST Infusion [facility] at [address] [address] Haresh Trinidad MD [address] [place] [address] Cori Loyd, LAUREN [address] [place] [address] 11/03/2025 8:10 AM EST Blood Draw [facility] [address] [address] Haresh Trinidad MD [address] [place] [address] 11/03/2025 9:30 AM EST Office Visit [facility] at [address] [address] Ally Cheney FNP [address] [place] [address] 11/05/2025 8:40 AM EST Infusion [facility] at [address] [address] [place] [address] [email or web address] Jackie Freeman, LAUREN [address] [place] [address] documented as of this encounter Visit Diagnoses Not on filedocumented in this encounter Care Teams Citrus Fruit Colorer Relationship Specialty Start Date End Date Delon Gao MD [address] [place] [address] PCP - General Endocrinology 04/25/22 Haresh Trinidad MD [address] [place] [address] Primary Oncologist Medical Oncology 04/26/22 Cori Sequeira CNP [address] [place] [address] maria Nurse Practitioner Medical Oncology 05/02/22 Denice Roberts, SUPERVISOR COLOR PASTE MIXING [address] [place] [address] Nurse Practitioner Medical Oncology 05/19/22 03/04/25 Leslye Tolentino MBBS [address] [place] [address] [email or web address] Primary Oncologist Hematology and Oncology 10/11/23 documented as of this encounter Additional Source Comments The information contained in this document represents components of the legal health record. It is not the complete legal health record.[facility]
--- OUTSIDE RECORDS SUMMARY | 2025-10-08 08:29 | XMS_ITS | Encounter Summary ---
Author Organization [facility] Address [address] [place] [address] Phone Care Team Providers Care Wine Steward Name Role Phone Delon Gao MD Primary Care Provider Haresh Trinidad MD Unavailable [phone] Cori Sequeira SUPPORT SERVICES SPECIALIST Unavailable Denice Roberts TALENT SCOUT Unavailable [phone] Leslye Tolentino MBBS Unavailable [phone] Reason for Visit * Reason Comments Medication Refill Encounter Details Date Type Department Care Team (Late st Contact Info) Description 02/03/2023 Refill [facility] Rad Onc [address] [place] [address] Leobardo Mario MD [address] [place] [address] [email or web address] Medication Refill Social History Tobacco Use [...] Not on file Not on file 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 Not on file Not on file Red beret [place] during war Not on file Not on fi le Not on file documented as of this encounter Plan of Treatment Upcoming Encounters Date Type Department Care Team (Late st Contact Info) Description 10/13/2025 1:50 PM EST Blood Draw [facility] [address] [address] Haresh Trinidad MD [address] [place] [address] 10/13/2025 3:00 PM EST Office Visit [facility] at [address] [address] Haresh Trinidad MD [address] [place] [address] 10/15/2025 8:00 AM EST Infusion [facility] at [address] [address] Haresh Trinidad MD [address] [place] [address] Cori Loyd RN [address] [place] [address] 116[address] 11/03/2025 8:10 AM EST Blood Draw [facility] [address] [address] Haresh Trinidad MD [address] [place] [address] 11/03/2025 9:30 AM EST Office Visit [facility] at [address] [address] Ally Cheney FNP [address] [place] [address] 11/05/2025 8:40 AM EST Infusion [facility] [place] [address] [place] [address] Haresh Trinidad MD [address] [place] [address] Jackie Freeman, LAUREN [address] [place] [address] [email or web address] documented as of this encounter Visit Diagnoses Not on filedocumented in this encounter Care Teams Wine Steward Relationship Specialty Start Date End Date Delon Gao MD [address] [place] [address] PCP - General Endocrinology 04/25/22 Haresh Trinidad MD [address] [place] [address] Primary Oncologist Medical Oncology 04/26/22 Cori Sequeira CNP [address] [place] [address] maria Nurse Practitioner Medical Oncology 05/02/22 Denice Roebrts TALENT SCOUT [address] [place] [address] Nurse Practitioner Medical Oncology 05/19/22 03/04/25 Leslye Tolentino MBBS [address] [place] [address] [email or web address] Primary Oncologist Hematology and Oncology 10/11/23 documented as of this encounter Additional Source Comments The information contained in this document represents components of the legal health record. It is not the complete legal health record.[facility]
--- OUTSIDE RECORDS SUMMARY | 2025-10-08 08:29 | XMS_ITS | Encounter Summary ---
Author Organization [facility] Address [address] [place] [address] [place] [address] Phone Care Team Providers Care Sack Repairer Name Role Phone Delon Gao MD Primary Care Provider Haresh Trinidad MD Unavailable [phone] Cori Sequeira HIGH SCHOOL ASSISTANT FOOTBALL COACH Unavailable Denice Roberts SNOWBOARDER Unavailable [phone] Leslye Tolentino MBBS Unavailable [phone] Encounter Details Date Type Department Care Team (Late st Contact Info) Description 07/17/2022 Procedure Pass [facility] 30 [place] [address] Social History Tobacco Use Types Packs/Day Years [...] Not on file 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 on 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 Not on file Not on file Red beret [place] during war Not on file Not on fi le Not on file documented as of this encounter Plan of Treatment Upcoming Encounters Date Type Department Care Team (Late st Contact Info) Description 10/13/2025 1:50 PM EST Blood Draw [facility] [address] [address] Haresh Trinidad MD [address] [place] [address] 10/13/2025 3:00 PM EST Office Visit [facility] at [address] [address] Haresh Trinidad MD [address] [place] [address] 119[address] 10/15/2025 8:00 AM EST Infusion [facility] at [address] [address] Haresh Trinidad MD [address] [place] [address] Cori Loyd, LAUREN [address] [place] [address] 11/03/2025 8:10 AM EST Blood Draw [facility] [address] [address] Haresh Trinidad MD [address] [place] [address] 11/03/2025 9:30 AM EST Office Visit [facility] at [address] [address] Ally Cheney FNP [address] [place] [address] 11/05/2025 8:40 AM EST Infusion [facility] at [address] [address] [place] [address] [email or web address] Jackie Freeman, LAUREN 30 [place] [address] documented as of this encounter Visit Diagnoses Not on filedocumented in this encounter Care Teams Sack Repairer Relationship Specialty Start Date End Date Delon Gao MD [address] [place] [address] PCP - General Endocrinology 04/25/22 Haresh Trinidad MD [address] [place] [address] Primary Oncologist Medical Oncology 04/26/22 Cori Sequeira CNP [address] [place] [address] maria Nurse Practitioner Medical Oncology 05/02/22 Denice Roberts, SNOWBOARDER [address] [place] [address] Nurse Practitioner Medical Oncology 05/19/22 03/04/25 Leslye Tolentino MBBS [address] [place] [address] [email or web address] Primary Oncologist Hematology and Oncology 10/11/23 documented as of this encounter Additional Source Comments The information contained in this document represents components of the legal health record. It is not the complete legal health record.[facility]
--- OUTSIDE RECORDS SUMMARY | 2025-10-08 08:29 | XMS_ITS | Encounter Summary ---
Author Organization [facility] Address [address] [place] [address] [place] [address] Phone Care Team Providers Care Staking Technician Name Role Phone Delon Gao MD Primary Care Provider Haresh Trinidad MD Unavailable [phone] Cori Sequeira CHEF FRENCH Unavailable Denice Roberts RIG HAND Unavailable [phone] Leslye Tolentino MBBS Unavailable [phone] Encounter Details Date Type Department Care Team (Late st Contact Info) Description 06/28/2022 Procedure Pass [facility] [address] [place] [address] Social History Tobacco Use Types Packs/Day Years [...] 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 Red be[place] during war Not on file Not on fi le Not on file documented as of this encounter Plan of Treatment Upcoming Encounters Date Type Department Care Team (Late st Contact Info) Description 10/13/2025 1:50 PM EST Blood Draw [facility] [address] [address] Haresh Trinidad MD [address] [place] [address] 10/13/2025 3:00 PM EST Office Visit [facility] at [address] [address] Haresh Trinidad MD [address] [place] [address] 10/15/2025 8:00 AM EST Infusion [facility] at [address] [address] Haresh Trinidad MD [address] [place] [address] Cori Loyd, LAUREN [address] [place] [address] 11/03/2025 8:10 AM EST Blood Draw [facility] [address] [address] Haresh Trinidad MD [address] [place] [address] 11/03/2025 9:30 AM EST Office Visit [facility] at [address] [address] Ally Cheney FNP [address] [place] [address] 11/05/2025 8:40 AM EST Infusion [facility] at [address] [address] [place] [address] [email or web address] Jackie Freeman, LAUREN 30 [place] [address] documented as of this encounter Visit Diagnoses Not on filedocumented in this encounter Care Teams Staking Technician Relationship Specialty Start Date End Date Delon Gao MD [address] [place] [address] PCP - General Endocrinology 04/25/22 Haresh Trinidad MD [address] [place] [address] Primary Oncologist Medical Oncology 04/26/22 Cori Sequeira CNP [address] [place] [address] maria Nurse Practitioner Medical Oncology 05/02/22 Denice Roberts, RIG HAND [address] [place] [address] Nurse Practitioner Medical Oncology 05/19/22 03/04/25 Leslye Tolentino MBBS [address] [place] [address] [email or web address] Primary Oncologist Hematology and Oncology 10/11/23 documented as of this encounter Additional Source Comments The information contained in this document represents components of the legal health record. It is not the complete legal health record.[facility]
--- OUTSIDE RECORDS SUMMARY | 2025-10-08 08:29 | XMS_ITS | Encounter Summary ---
Author Organization [facility] Address [address] [place] [address] [place] [address] Phone Care Team Providers Care Gas Technician Name Role Phone Delon Gao MD Primary Care Provider Haresh Trinidad MD Unavailable [phone] Cori Sequeira PRE PAROLE COUNSELING AIDE Unavailable Denice Roberts DIRECTOR GRAPHICS Unavailable [phone] Leslye Tolentino MBBS Unavailable [phone] Encounter Details Date Type Department Care Team (Late st Contact Info) Description 01/08/2023 Procedure Pass [facility] Interventional [facility]iology [address] [place] [address] Social History Tobacco Use Types Packs/Day Years [...] 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 Red be[place] during war Not on file Not on fi le Not on file documented as of this encounter Plan of Treatment Upcoming Encounters Date Type Department Care Team (Late st Contact Info) Description 10/13/2025 1:50 PM EST Blood Draw [facility] [address] [address] Haresh Trinidad MD [address] [place] [address] 10/13/2025 3:00 PM EST Office Visit [facility] at [address] [address] Haresh Trinidad MD [address] [place] [address] 10/15/2025 8:00 AM EST Infusion [facility] at [address] [address] Haresh Trinidad MD [address] [place] [address] Cori Loyd, LAUREN [address] [place] [address] 11/03/2025 8:10 AM EST Blood Draw [facility] [address] [address] Haresh Trinidad MD [address] [place] [address] 11/03/2025 9:30 AM EST Office Visit [facility] at [address] [address] Ally Cheney FNP [address] [place] [address] 11/05/2025 8:40 AM EST Infusion [facility] at [address] [address] [place] [address] [email or web address] Jackie Freeman, LAUREN 30 [place] [address] documented as of this encounter Visit Diagnoses Not on filedocumented in this encounter Care Teams Gas Technician Relationship Specialty Start Date End Date Delon Gao MD [address] [place] [address] PCP - General Endocrinology 04/25/22 Haresh Trinidad MD [address] [place] [address] Primary Oncologist Medical Oncology 04/26/22 Cori Sequeira CNP [address] [place] [address] maria Nurse Practitioner Medical Oncology 05/02/22 Denice Roberts, DIRECTOR GRAPHICS [address] [place] [address] Nurse Practitioner Medical Oncology 05/19/22 03/04/25 Leslye Tolentino MBBS [address] [place] [address] [email or web address] Primary Oncologist Hematology and Oncology 10/11/23 documented as of this encounter Additional Source Comments The information contained in this document represents components of the legal health record. It is not the complete legal health record.[facility]
--- OUTSIDE RECORDS SUMMARY | 2025-10-08 08:30 | XMS_ITS | Encounter Summary ---
Author Organization [facility] Address [address] [place] [address] [place] [address] Phone Care Team Providers Care Gas Operation Manager Name Role Phone Delon Gao MD Primary Care Provider [phone] Haresh Trinidad MD Unavailable [phone] Cori Sequeira HUMAN RESOURCE MANAGEMENT INSTRUCTOR Unavailable Denice Roberts FINISHING SUPERVISOR PLASTIC SHEETS Unavailable [phone] Leslye Tolentino MBBS Unavailable [phone] Encounter Details Date Type Department Care Team (Late st Contact Info) Description 12/26/2022 Procedure Pass [facility] Cardiovascular And Interventional Radiology 30 [place] [address] Social History Tobacco Use Types Packs/Day Years [...] 1:50 PM EST Blood Draw [facility] [address] [address] Haresh Trinidad MD [address] [place] [address] 10/13/2025 3:00 PM EST Office Visit [facility] at [address] [address] Haresh Trinidad MD [address] [place] [address] 10/15/2025 8:00 AM EST Infusion [facility] at [address] [address] Haresh Trinidad MD [address] [place] [address] Cori Loyd, LAUREN [address] [place] [address] 11/03/2025 8:10 AM EST Blood Draw [facility] [address] [address] Haresh Trinidad MD [address] [place] [address] 11/03/2025 9:30 AM EST Office Visit [facility] at [address] [address] Ally Cheney FNP [address] [place] [address] 11/05/2025 8:40 AM EST Infusion [facility] at [address] [address] [place] [address] [email or web address] Jackie Freeman, LAUREN [address] [place] [address] documented as of this encounter Visit Diagnoses Not on filedocumented in this encounter Care Teams Gas Operation Manager Relationship Specialty Start Date End Date Delon Gao MD [address] [place] [address] PCP - General Endocrinology 04/25/22 Haresh Trinidad MD [address] [place] [address] Primary Oncologist Medical Oncology 04/26/22 Cori Sequeira CNP [address] [place] [address] maria Nurse Practitioner Medical Oncology 05/02/22 Denice Roberts, FINISHING SUPERVISOR PLASTIC SHEETS [address] [place] [address] Nurse Practitioner Medical Oncology 05/19/22 03/04/25 Leslye oTlentino MBBS [address] [place] [address] [email or web address] Primary Oncologist Hematology and Oncology 10/11/23 documented as of this encounter Additional Source Comments The information contained in this document represents components of the legal health record. It is not the complete legal health record.[facility]
--- OUTSIDE RECORDS SUMMARY | 2025-10-08 08:30 | XMS_ITS | Encounter Summary ---
Author Organization [facility] Address [address] [place] [address] [place] [address] Phone Care Team Providers Care Frog Or Oyster Farmworker Name Role Phone Delon Gao MD Primary Care Provider Haresh Trinidad MD Unavailable [phone] Cori Sequeira BEEKEEPER FARMER Unavailable Denice Roberts SUPERVISOR MAINTENANCE Unavailable [phone] Leslye Tolentino MBBS Unavailable [phone] Encounter Details Date Type Department Care Team (Late st Contact Info) Description 11/24/2022 Procedure Pass [facility] Cardiovascular And Interventional Radiology [address] [place] [address] Social History Tobacco Use Types Packs/Day Years [...] Not on file 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 Not on 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 Red beret [place] during war Not on file Not on fi le Not on file documented as of this encounter Plan of Treatment Upcoming Encounters Date Type Department Care Team (Late st Contact Info) Description 10/13/2025 1:50 PM EST Blood Draw [facility] [address] [address] Haresh Trinidad MD [address] [place] [address] 10/13/2025 3:00 PM EST Office Visit [facility] at [address] [address] Haresh Trinidad MD [address] [place] [address] 10/15/2025 8:00 AM EST Infusion [facility] at [address] [address] Haresh Trinidad MD [address] [place] [address] Cori Loyd, LAUREN [address] [place] [address] 11/03/2025 8:10 AM EST Blood Draw [facility] [address] [address] Haresh Trinidad MD [address] [place] [address] 11/03/2025 9:30 AM EST Office Visit [facility] at [address] [address] Ally Cheney FNP [address] [place] [address] 11/05/2025 8:40 AM EST Infusion [facility] at [address] [address] [place] [address] [email or web address] Jackie Freeman, LAUREN [address] [place] [address] documented as of this encounter Visit Diagnoses Not on filedocumented in this encounter Care Teams Frog Or Oyster Farmworker Relationship Specialty Start Date End Date Delon Gao MD [address] [place] [address] PCP - General Endocrinology 04/25/22 Haresh Trinidad MD [address] [place] [address] Primary Oncologist Medical Oncology 04/26/22 Cori Sequeira CNP [address] [place] [address] maria Nurse Practitioner Medical Oncology 05/02/22 Denice Roberts, SUPERVISOR MAINTENANCE [address] [place] [address] Nurse Practitioner Medical Oncology 05/19/22 03/04/25 Leslye Tolentino MBBS [address] [place] [address] [email or web address] Primary Oncologist Hematology and Oncology 10/11/23 documented as of this encounter Additional Source Comments The information contained in this document represents components of the legal health record. It is not the complete legal health record.[facility]
--- OUTSIDE RECORDS SUMMARY | 2025-10-08 08:30 | XMS_ITS | Encounter Summary ---
Author Organization [facility] Address [address] [place] [address] [place] [address] Phone Care Team Providers Care Garageman Name Role Phone Delon Gao MD Primary Care Provider Haresh Trinidad MD Unavailable [phone] Cori Sequeira INSURANCE COLLECTOR Unavailable Denice Roberts PRINTING PLATE MAKER Unavailable Leslye Tolentino MBBS Unavailable [phone] Encounter Details Date Type Department Care Team (Late st Contact Info) Description 12/20/2022 Procedure Pass [facility], Ct Scan - [address] [address] Social History Tobacco Use Types Packs/Day Years [...] Not on file 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 on 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 Red 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 [place] during war Not on file Not on fi le Not on file documented as of this encounter Plan of Treatment Upcoming Encounters Date Type Department Care Team (Late st Contact Info) Description 10/13/2025 1:50 PM EST Blood Draw [facility] [address] [address] Haresh Trinidad MD [address] [place] [address] 10/13/2025 3:00 PM EST Office Visit [facility] at [address] [address] Haresh Trinidad MD [address] [place] [address] 10/15/2025 8:00 AM EST Infusion [facility] at [address] [address] Haresh Trinidad MD [address] [place] [address] Cori Loyd RN [address] [place] [address] 11/03/2025 8:10 AM EST Blood Draw [facility] [address] [address] Haresh Trinidad MD [address] [place] [address] 11/03/2025 9:30 AM EST Office Visit [facility] at [address] [address] Ally Cheney FNP [address] [place] [address] 11/05/2025 8:40 AM EST Infusion [facility] at [address] [address] Haresh Trinidad MD 30 [place] [address] [email or web address] Jackie Freeman, RN [address] [place] [address] [email or web address] documented as of this encounter Visit Diagnoses Not on filedocumented in this encounter Care Teams Garageman Relationship Specialty Start Date End Date Dleon Gao MD [address] [place] [address] PCP - General Endocrinology 04/25/22 Haresh Trinidad MD [address] [place] [address] Primary Oncologist Medical Oncology 04/26/22 Cori Sequeira CNP [address] [place] [address] [email or web address] Nurse Practitioner Medical Oncology 05/02/22 Denice Roberts NP [address] [place] [address] Nurse Practitioner Medical Oncology 05/19/22 03/04/25 Leslye Tolentino MBBS [address] [place] [address] [email or web address] Primary Oncologist Hematology and Oncology 10/11/23 documented as of this encounter Additional Source Comments The information contained in this document represents components of the legal health record. It is not the complete legal health record.[facility]
--- OUTSIDE RECORDS SUMMARY | 2025-10-08 08:31 | XMS_ITS | Clinical Summary ---
Author Organization [facility] Address [address] [place] [phone] Phone Care Team Providers Care Contract Coordinator Name Role Phone Delon Gao MD Primary Care Provider [phone] Immunizations Immunization Administration Dates Next Due Pfizer [...] Urine Albumin-Creatinine Ratio (uACR) 06/17/2025 COVID-19 Vaccine ( season) 2025 08/02/2024, 08/31/2023, 06/25/2023, Additional history [...] on patient's age to complete this topic Insurance MEDICARE [facility] Care Teams Contract Coordinator Relationship Specialty Start Date End Date Delon Gao MD [address] [place] [address] [address] [place], [place] PCP - General 03/27/13
--- OUTSIDE RECORDS SUMMARY | 2025-10-08 08:31 | XMS_ITS | Clinical Summary ---
Author Organization [facility] Address [address] [place] [address] Phone Care Team Providers Care Critical Care Rn Name Role Phone Unavailable Primary Care Provider [...] MINI PEN NEEDLES 31G X 5 MM [facility] USE TO INJECT INSULIN FOUR TIMES A DAY 01/07/2024 Active Cholecalciferol 25 MCG (1000 UT) chewable tablet Chew Active nitroglycerin (NITROSTAT) 0.[address] 0.4 mg under the tongue every 5 (five) minutes if needed for chest pain Active [place]-3 Fatty Acids (Fish Oil) 1000 MG capsule delayed-release Take by mouth Active losartan (Cozaar) 50 MG tablet Take 1 tablet (50 mg total) by mouth 1 (one) time each day 90 tablet 3 05/27/2025 05/27/20 26 Active sulfamethoxazol e-trimethoprim (BACTRIM,SEPTRA ) 400-80 MG per tablet Take 1 tablet by mouth 1 (one) time each day 7 tablet 07/13/2025 Active acetaminophen (Tylenol 8 Hour) 650 MG 8 hr tablet Take 2 tablets (1,300 mg total) by mouth in the morning and 2 tablets (1,300 mg total) in the evening. Do not crush, chew, or split. 120 tablet 6 09/14/2025 09/14/20 26 Active Active Problems Problem Noted Date Diagnosed [...] Encounters Date Type Department Care Team Description 10/07/2025 Treatment [facility] [address] [place] [address] Jun Harris MD End stage renal disease; Dependence on renal dialysis 09/30/2025 Treatment [facility] [address] [place] [address] Jun Harris MD End stage renal disease; Dependence on renal dialysis 09/14/2025 Treatment [facility] [address] [address] Jun Harris MD End stage renal disease; Dependence on renal dialysis 09/14/2025 Orders Only [facility] [address] [place] [address] Unique Guzman, LAUREN 09/14/2025 Orders Only [facility] [address] [place] [address] Unique Guzman RN 09/09/2025 Treatment [facility] [address] [address] Jun Harris MD End stage renal disease; Dependence on renal dialysis 09/02/2025 Treatment [facility] [address] [address] Jun Harris MD End stage renal disease; Dependence on renal dialysis 08/26/2025 Treatment [facility] [address] [address] Jun Harris MD End stage renal disease; Dependence on renal dialysis 08/17/2025 Treatment [facility] [address] [address] Jun Harris MD End stage renal disease; Dependence on renal dialysis 08/12/2025 Treatment [facility] [address] [address] Jun Harris MD End stage renal disease; Dependence on renal dialysis 08/05/2025 Treatment [facility] [address] [address] Jun Harris MD End stage renal disease; Dependence on renal dialysis 08/03/2025 Treatment [facility] [address] [place] [phone] Jun Harris MD End stage renal disease; Dependence on renal dialysis 07/13/2025 Orders Only [facility] [address] [facility] [address] [place] [phone] Unique Guzman RN 07/08/2025 Treatment [facility] [address] [place] [address] Jun Harris MD End stage renal disease; Dependence on renal dialysis from Last 3 Months Immunizations Immunization Administration [...] Visual Foot Exam 12/26/2020 Diabetes: Hemoglobin A1C 11/26/2025 025, 05/27/2025, 02/25/2025, Additional history exists Pneumococcal Vaccine: Peds ( 0 to 5 Years) and At-Risk Patients (6 to 49 Years) Discontinued 09/14/2016, 10/29/2013 Influenza Vaccine Completed 08/16/2025, , 08/02/2024, Additional history exists Procedures Procedure Name Priority Date/Time Associated Diagnosis Comments MORPHOLOGY REVIEW (HC) Routine 3:00 AM EST HEPATITIS B SURFACE ANTIGEN W/REFL CONFIRM Routine 09/30/2025 3:00 AM EST TRANSFERRIN SATURATION Routine 3:00 AM EST PROTEIN, TOTAL, SERUM Routine 09/30/2025 3:00 AM EST MAGNESIUM Routine 09/30/2025 3:00 AM EST ELECTROLYTE PANEL Routine 09/30/2025 3:0 0 AM EST GLUCOSE, RANDOM Routine 09/30/2025 3:00 AM EST LIH (HC) Routine 09/30/2025 3:00 AM EST CREATININE, SERUM Routine 09/30/2025 3:0 0 AM EST LACTATE DEHYDROGENASE Routine 09/30/2025 3:00 AM EST BUN/CREATININE RATIO Routine 09/30/2025 3:00 AM EST BILIRUBIN, TOTAL Routine 09/30/2025 3:00 AM EST AST Routine 09/30/2025 3:00 AM EST ALT Routine 09/30/2025 3:00 AM EST ALKALINE PHOSPHATASE Routine 09/30/2025 3:00 AM EST CALCIUM PHOSPHORUS PRODUCT, ADJUSTED (HC) Routine 09/30/2025 3:00 AM EST FERRITIN Routine 09/30/2025 3:00 AM EST KT/V NATURAL LOG, URR (HC) Routine 09/30/2025 3:00 AM EST CBC AND DIFFERENTIAL Routine 09/30/2025 3:00 AM EST HEMOGLOBIN Routine 09/25/2025 3:00 AM EDT COLLECTION DATE (HC) Routine 09/25/2025 3:00 AM EDT HEMOGLOBIN Routine 09/23/2025 3:00 AM EDT HEMOGLOBIN Routine 09/16/2025 3:00 AM EDT HEMOGLOBIN Routine 09/09/2025 3:00 AM EDT HEPATITIS B SURFACE ANTIBODY QUANT Routine 09/09/2025 3:00 AM EDT HEMOGLOBIN A1C Routine 08/26/2025 3:00 AM EDT HEPATITIS B SURFACE ANTIGEN W/REFL CONFIRM Routine 08/26/2025 3:00 AM EDT TRANSFERRIN SATURATION Routine 3:00 AM EDT PROTEIN, TOTAL, SERUM Routine 08/26/2025 3:00 AM EDT KT/V NATURAL LOG, URR (HC) Routine 08/26/2025 3:00 AM EDT MAGNESIUM Routine 08/26/2025 3:00 AM EDT ELECTROLYTE PANEL Routine 08/26/2025 3:0 0 AM EDT LIH (HC) Routine 08/26/2025 3:00 AM EDT LIPID PANEL Routine 08/26/2025 3:00 AM EDT CREATININE, SERUM Routine 08/26/2025 3:0 0 AM EDT LACTATE DEHYDROGENASE Routine 08/26/2025 3:00 AM EDT GLUCOSE, RANDOM Routine 08/26/2025 3:00 AM EDT BUN/CREATININE RATIO Routine 08/26/2025 3:00 AM EDT AST Routine 08/26/2025 3:00 AM EDT BILIRUBIN, TOTAL Routine 08/26/2025 3:00 AM EDT ALT Routine 08/26/2025 3:00 AM EDT ALKALINE PHOSPHATASE Routine 08/26/2025 3:00 AM EDT CALCIUM PHOSPHORUS PRODUCT, ADJUSTED (HC) Routine 08/26/2025 3:00 AM EDT PTH, INTACT Routine 08/26/2025 3:00 AM EDT FERRITIN Routine 08/26/2025 3:00 AM EDT CBC AND DIFFERENTIAL Routine 08/26/2025 3:00 AM EDT HEMOGLOBIN Routine 08/12/2025 3:00 AM EDT COLLECTION [...] AND DIFFERENTIAL Routine 07/29/2025 3:00 AM EDT from Last 3 Months Results * Morphology Review (09/30/2025 3:00 AM EST) Morphology Review Normal [facility] 09/30/2025 3:00 AM EST 10/01/2025 2:18 PM EST us Khoa Carmichael MD LAB [id number] ICITED RESULTS Final Result Performing Organization Address [facility] Co de Phone Number [facility]PS [facility] [address] [place] [address] * LIH (09/30/2025 3:00 AM EST) Only the most recent of4 resultswithin the time period is included. Pathologist [facility] Lipemia Normal Normal [facility] Icterus Normal Normal [facility] Hemolysis Normal Normal [facility] 09/30/2025 3:00 AM EST 10/01/2025 1:56 PM EST us Khoa Carmichael MD LAB [id number] ICITED RESULTS Final Result Performing Organization Address [facility] Co de Phone Number [facility] [address] [place] [address] * (ABNORMAL) Kt/V Natural Log, URR (09/30/2025 3:00 AM EST) Only the most recent of4 resultswithin the time period is included. Pathologist [facility] Treatment Time 210 min [facility] Pre-Weight, lb 71.4 kg [facility] Post-Weight, lb 68.2 kg [facility] Ultrafiltration Rate 13 <=13 mL/kg/hr [facility] Comment: Recommend achieving Ultrafiltration Rate (UFR) <=10 mL/kg/hr References: Slim HARMON et al. Kidney Int. 2010; 79(2):250-257 BUN 83(H) 7 - 25 mg/dL [facility] BUN Post Dialysis 25 7 - 25 mg/dL [facility] UREA REDUCTION RATIO (%) 70 >=65 % [facility] Kt/V Natural Log 1.44 >=1.2 [facility] 09/30/2025 3:00 AM EST 10/01/2025 1:56 PM EST us Khoa Carmichael MD LAB [id number] ICITED RESULTS Final Result Performing Organization Address City/[facility]/ZIP Co de Phone Number [facility] [address] [place] [address] * (ABNORMAL) Calcium Phosphorus Product, Adjusted (09/30/2025 3:00 AM EST) Only the most recent of3 resultswithin the time period is included. Albumin 4.0 3.6 - 5.4 g/dL [facility] Calcium 8.2(L) 8.6 - 10.3 mg/dL [facility] Phosphorus, Serum 7.2(H) 2.5 - 5.0 mg/dL [facility] Ca*PO4 59.0(A) <55.0 mg2/dL2 [facility] Calcium, Adjusted Total 8.2(L) 8.6 - 10.3 mg/dL [facility] CA*PO4 CORRCTD 59.0(A) <55.0 mg2/dL2 [facility] 09/30/2025 3:00 AM EST 10/01/2025 1:56 PM EST us Khoa Carmichael MD LAB [id number] ICITED RESULTS Final Result Performing Organization Address City/[facility] Co de Phone Number [facility] [address] [place] [address] * Hepatitis B Surface Ag w/Reflex Confirmation (09/30/2025 3:00 AM EST) Only the most recent of3 resultswithin the time period is included. Hep B Surface Antigen Negative Negative [facility] 09/30/2025 3:00 AM EST 10/01/2025 1:56 PM EST us Khoa Carmichael MD LAB BLOOD ORDERABLES Final Resul t Performing Organization Address [facility] de Phone Number [facility] [address] [place] [address] * BUN/CREATININE RATIO (09/30/2025 3:00 AM EST) Only the most recent of3 resultswithin the time period is included. BUN/Creatinine Ratio 15.0 <=23.0 [facility] 09/30/2025 3:00 AM EST 10/01/2025 1:56 PM EST us Khoa Carmichael MD LAB [id number] ICITED RESULTS Final Result Performing Organization Address [facility] Phone Number [facility] [address] [place] [address] * (ABNORMAL) TSAT (09/30/2025 3:00 AM EST) Only the most recent of3 resultswithin the time period is included. Iron 324(H) 65 - 175 ug/dL [facility] Transferrin 256 215 - 365 mg/dL [facility] TIBC 358 211 - 406 ug/dL [facility] Iron Saturation (TSat) 90(H) 22 - 52 % [facility] 09/30/2025 3:00 AM EST 10/01/2025 1:56 PM EST us Khoa Carmichael MD LAB BLOOD ORDERABLES Final Resul t Performing Organization Address [facility] de Phone Number [facility] [address] [place] [address] * (ABNORMAL) CBC and Differential (09/30/2025 3:00 AM EST) Only the most recent of3 resultswithin the time period is included. DIFFERENTIAL MANUAL, 2 Performed [facility] White Blood Cells 16.0(H) 4.2 - 9.1 K/uL [facility] RBC 2.57(L) 4.63 - 6.08 M/uL [facility] Hgb 8.6(L) 13.7 - 17.5 g/dL [facility] Hemoglobin x 3 25.8(L) 41.1 - 52.5 g/dL [facility] Hematocrit 25.8(L) 40.1 - 51.0 % [facility] MCV 100.4(H) 79.0 - 92.2 fL [facility] MCH 33.5(H) 25.7 - 32.2 pg [facility] MCHC 33.3 32.3 - 36.5 g/dL [facility] RDW 18.2(H) 11.6 - 14.4 % [facility] Platelets 110(L) 163 - 337 K/uL [facility] MPV 12.7 9.1 - 13.0 fL [facility] Neutrophils Relative 86.0(H) 34.0 - 67.9 % [facility] Lymphocytes Relative 5.0(L) 21.8 - 53.1 % [facility] Monocytes 4.0(L) 5.3 - 12.2 % [facility] Eosinophils Relative 0.0(L) 0.8 - 7.0 % [facility] Basophils Relative 0.0(L) 0.2 - 1.2 % [facility] Slide Review Performed [facility] Metamyelocytes % 4.0(H) % [facility] Myelocytes Relative 1.0(H) % [facility] 09/30/2025 3:00 AM EST 10/01/2025 2:18 PM EST Khoa Carmichael MD LAB BLOOD ORDERABLES Final Resul t Performing Organization Address City/[facility]/ZIP Co de Phone Number [facility] [address] [place] [address] * ALT (09/30/2025 3:00 AM EST) Only the most recent of3 resultswithin the time period is included. ALT (SGPT) 16 10 - 49 U/L [facility] 09/30/2025 3:00 AM EST 10/01/2025 1:56 PM EST Khoa Carmichael MD LAB BLOOD ORDERABLES Final Resul t [facility] [address] [place] [address] * (ABNORMAL) AST (09/30/2025 3:00 AM EST) Only the most recent of3 resultswithin the time period is included. AST (SGOT) 34(H) <34 U/L [facility] 09/30/2025 3:00 AM EST 10/01/2025 1:56 PM EST us Khoa Carmichael MD LAB BLOOD ORDERABLES Final Resul t Performing Organization Address [facility] Co de Phone Number [facility] [address] [place] [phone] * Protein, total (09/30/2025 3:00 AM EST) Only the most recent of3 resultswithin the time period is included. Pathologist [facility] Total Protein 6.9 6.4 - 8.9 g/dL [facility] 09/30/2025 3:00 AM EST 10/01/2025 1:56 PM EST us Khoa Carmichael MD LAB BLOOD ORDERABLES Final Resul t Performing Organization Address [facility] Co de Phone Number [facility] [address] [place] [address] * Alkaline phosphatase (09/30/2025 3:00 AM EST) Only the most recent of3 resultswithin the time period is included. Alkaline Phosphatase 103 46 - 116 U/L [facility] 09/30/2025 3:00 AM EST 10/01/2025 1:56 PM EST us Khoa Carmichael MD LAB BLOOD ORDERABLES Final Resul t Performing Organization Address [facility] Co de Phone Number [facility] [address] [place] [address] * Magnesium (09/30/2025 3:00 AM EST) Only the most recent of3 resultswithin the time period is included. Magnesium 2.3 1.9 - 2.7 mg/dL [facility] 09/30/2025 3:00 AM EST 10/01/2025 1:56 PM EST us Khoa Carmichael MD LAB BLOOD ORDERABLES Final Resul t Performing Organization Address [facility] de Phone Number [facility] [address] [place] [address] * (ABNORMAL) Lactate dehydrogenase (09/30/2025 3:00 AM EST) Only the most recent of3 resultswithin the time period is included. LDH 396(H) 120 - 246 U/L [facility] 09/30/2025 3:00 AM EST 10/01/2025 1:56 PM EST us Khoa Carmichael MD LAB BLOOD ORDERABLES Final Resul t Performing Organization Address [facility] Phone Number [facility] [address] [place] [address] * (ABNORMAL) Glucose, random (09/30/2025 3:00 AM EST) Only the most recent of3 resultswithin the time period is included. Glucose 173(H) 70 - 99 mg/dL [facility] Comment: ADA guidelines outline the following fasting glucose ranges: Normal: <100 Prediabetes: 100-125 Diabetes: >125 09/30/2025 3:00 AM EST 10/01/2025 1:56 PM EST us Khoa Carmichael MD LAB BLOOD ORDERABLES Final Resul t Performing Organization Address [facility] de Phone Number [facility] [address] [place] [address] * (ABNORMAL) Ferritin (09/30/2025 3:00 AM EST) Only the most recent of3 resultswithin the time period is included. Ferritin 2,762(H) 22 - 322 ng/mL [facility] 09/30/2025 3:00 AM EST 10/01/2025 1:56 PM EST us Khoa Carmichael MD LAB BLOOD ORDERABLES Final Resul t Performing Organization Address [facility] Co de Phone Number [facility] [address] [place] [address] * (ABNORMAL) Creatinine, serum (09/30/2025 3:00 AM EST) Only the most recent of3 resultswithin the time period is included. Creatinine 5.52(H) 0.70 - 1.30 mg/dL [facility] 09/30/2025 3:00 AM EST 10/01/2025 1:56 PM EST us Khoa Carmichael MD LAB BLOOD ORDERABLES Final Resul t Performing Organization Address [facility] de Phone Number [facility] [address] [place] [address] * Bilirubin, total (09/30/2025 3:00 AM EST) Only the most recent of3 resultswithin the time period is included. Total Bilirubin 0.6 0.3 - 1.2 mg/dL [facility] 09/30/2025 3:00 AM EST 10/01/2025 1:56 PM EST us Khoa Carmichael MD LAB BLOOD ORDERABLES Final Resul t Performing Organization Address [facility] Phone Number [facility] [address] [place] [address] * (ABNORMAL) Electrolyte panel (09/30/2025 3:00 AM EST) Only the most recent of3 resultswithin the time period is included. Sodium 137 136 - 145 mEq/L [facility] Potassium 5.8(H) 3.4 - 5.0 mEq/L [facility] Chloride 97(L) 98 - 107 mEq/L [facility] Bicarbonate (CO2) 25 21 - 31 mEq/L [facility] Anion Gap 15(H) 3 - 14 mEq/L [facility] 09/30/2025 3:00 AM EST 10/01/2025 1:56 PM EST us Khoa Carmichael MD LAB BLOOD ORDERABLES Final Resul t Performing Organization Address [facility] de Phone Number [facility] [address] [place] [address] * Collection Date (09/25/2025 3:00 AM EDT) Only the most recent of2 resultswithin the time period is included. Collection Date See Comment [facility] Comment: Patient sample received may exceed specimen stability, based on the collection date electronically provided. When reviewing patient results, verify collection information and consider specimen stability before acting on any critical or panic results. 09/25/2025 3:00 AM EDT us Khoa Carmichael MD LAB [id number] ICITED RESULTS Final Result Performing Organization Address [facility] Phone Number [facility] [address] [place] [address] * (ABNORMAL) Hemoglobin (09/25/2025 3:00 AM EDT) Only the most recent of5 resultswithin the time period is included. Pathologist [facility] Hgb 9.5(L) 13.7 - 17.5 g/dL [facility] Hemoglobin x 3 28.5(L) 41.1 - 52.5 g/dL [facility] 09/25/2025 3:00 AM EDT 09/28/2025 12:41 PM EST us Khoa Carmichael MD LAB BLOOD ORDERABLES Final Resul t Performing Organization Address [facility] de Phone Number [facility] [address] [place] [address] * (ABNORMAL) Hepatitis B Surface Antibody (09/09/2025 3:00 AM EDT) Pathologist [facility] Hep B Surface Antibody <4(A) mIU/mL [facility] Comment: Interpretation: <10: No Immunity >=10: Probable Immunity 09/09/2025 3:00 AM EDT 09/10/2025 1:33 PM EDT us Khoa Carmichael MD LAB BLOOD ORDERABLES Final Resul t Performing Organization Address [facility] de Phone Number [facility] [address] [place] [address] * (ABNORMAL) PTH, Intact (08/26/2025 3:00 AM EDT) PTH, Intact 146(L) 160 - 721 pg/mL [facility] Comment: Suggested (KDIGO) ESRD maintenance range is two to nine times the upper normal limit (80.1 pg/mL) for the laboratory. 08/26/2025 3:00 AM EDT 08/27/2025 2:18 PM EDT us Khoa Carmichael MD LAB BLOOD ORDERABLES Final Resul t Performing Organization Address [facility] de Phone Number [facility] [address] [place] [address] * (ABNORMAL) Hemoglobin A1c (08/26/2025 3:00 AM EDT) Hemoglobin A1C 5.8(H) <5.7 % [facility] Comment: Methodology: Enzymatic Normal: <5.7% Prediabetes: 5.7-6.4% Diabetes: >6.4% Diabetic Glucose Control Evaluation: Therapeutic action suggested at >8.0% ADA recommends a glycemic goal of <7.0% 08/26/2025 3:00 AM EDT 08/27/2025 2:16 PM EDT us Khoa Carmichael MD LAB BLOOD ORDERABLES Final Resul t Performing Organization Address [facility] de Phone Number [facility] [address] [place] [address] * (ABNORMAL) Lipid panel (08/26/2025 3:00 AM EDT) Cholesterol 66 mg/dL [facility] Comment: Optimal: <200 Borderline: 200-239 High Risk: >239 Triglycerides 97 mg/dL [facility] Comment: Optimal: <150 Borderline: 150-200 High Risk: >200 HDL 25(L) mg/dL [facility] Comment: Optimal: >59 Borderline: 40-59 High Risk: <40 LDL-Calc 22 mg/dL [facility] Comment: Optimal: <100 Borderline: 100-159 High Risk: >159 VLDL Cholesterol Vic 19 mg/dL [facility] Comment: Optimal: <30 Borderline: 30-40 High Risk: >40 Chol/HDL Ratio 2.6 [facility] Comment: Optimal: <3.3 High Risk: >6.2 08/26/2025 3:00 AM EDT 08/27/2025 2:18 PM EDT us Khoa Carmichael MD LAB BLOOD ORDERABLES Final Resul t [facility] [address] [place] [address] from Last 3 Months Insurance Medicare [facility] Medicare [facility]
--- OUTSIDE RECORDS SUMMARY | 2025-10-08 08:31 | XMS_ITS | Patient Health Record ---
Author Organization [facility] Pablo lizz [place] Address [address] [place] [address] Care Team Providers Care Weight Engineer Name Role Phone Shira Hudson Primary Care Provider UnavailDavid Blake Unavailable [phone] Murray MONTILLA, Delon Unavailable Unavailable Cori Waddell Unavailable [phone] Allergies Allergen (clinical drug ingredient) Drug/Non Drug [...] Date End Date Status Insulin Pump Syringe Melbeta Active NovoLOG Active Fluticasone Propionate 50 MCG/ACT [...] 50 MG TAKE 1 TABLET BY M [facility] THREE TIMES A DAY DIRECTED Oral; Duration: [...] 100 MG TAKE 1 CAPSULE BY MO [facility] TWICE A DAY Oral; Duration: 90 Days Active Diovan 320 MG Orally Not-[place] Metoprolol Tartrate 50 MG Oral; Duration: 90 Days Acti ve Aspirin 81 MG Orally Not-[facility] Immunizations Vaccine Route Administration Date [...] Problem Acquired hammer toe of right foot (6299163809415920 ) Other hammer toe(s) (acquired), right foot (M20.41) Active confirmed Problem Acquired hammer toe of left foot (1254850332161419 ) Other hammer toe(s) (acquired), left foot (M20.42) Active confirmed Problem Polyneuropathy due to type 2 diabetes mellitus (450520974) Type 2 diabetes mellitus with diabetic polyneuropathy (E11.42) Active confirmed Vital Signs Blood pressure diastolic 65 mm Hg 06/30/2025 Height 5 ft 5 in in 06/30/2025 Blood pressure systolic 128 mm Hg 06/30/2025 Weight 153 lbs 06/30/2025 BMI 25.46 kg/m2 06/30/2025 Procedures Procedure Date Ordered Date Performed Result Body Sit e 99860-BUUMZBQ NAIL, 6 OR MORE 01/06/2025 N/A 33689-CZCT SKIN LESIONS, OVER 4 01/06/2025 N/A 05987-URTIBQJ NAIL, 6 OR MORE 03/31/2025 N/A 99407-GOCB SKIN LESIONS, OVER 4 03/31/2025 N/A 57055-LRHMGAK NAIL, 6 OR MORE 06/30/2025 N/A 47676-VBRC SKIN LESIONS, OVER 4 06/30/2025 N/A Encounters Encounter Location Date Provider Diagnosis [address] [address] 01/06/2025 David Thao Type 2 diabetes mellitus with diabetic polyneuropathy E11.42 ; Tinea unguium B35.1 and Xerosis of skin L85.[address] [address] 03/31/2025 David Master Type 2 diabetes mellitus with diabetic polyneuropathy E11.42 ; Tinea unguium B35.1 ; Pain in right toe(s) M79.674 and Contusion of lesser toe of right foot without damage to nail, initial encounter S90.121A [address] [address] 06/30/2025 Davidjuan Thao Type 2 diabetes mellitus with diabetic polyneuropathy E11.42 ; Tinea unguium B35.1 ; Other hammer toe(s) (acquired), right foot M20.41 and Other hammer toe(s) (acquired), left foot M20.[address] [address] 03/28/2025 Cori Waddell Assessments Encounter Date Diagnosis [...] 01/06/2025 Xerosis of skin (ICD-10 - L85.3) 03/31/2025 Contusion of lesser toe of right foot without damage to nail, initial encounter (ICD-10 - S90.121A) 06/30/2025 Other hammer toe(s) (acquired), left foot (ICD-10 - M20.42) 01/06/2025 Other Plan Of Treatment Pending Test Test Name Order Date X ray : Foot, left 3V 12/04/2018 X ray : Foot, left 3V 12/22/2019 X ray : Foot, right 3V 03/31/2025 52140-IPWXNDZ NAIL, 6 OR MORE 03/31/2025 03815-GGRKEGI NAIL, 6 OR MORE 10/07/2024 41947-AQOUCEL NAIL, 6 OR MORE 01/06/2025 82552-TRWPVOU NAIL, 6 OR MORE 12/14/2023 96312-ODZRDAK NAIL, 6 OR MORE 07/08/2024 84651-UEZBAUQ NAIL, 6 OR MORE 06/30/2025 77903-Rilnsy[address] Plate 07/08/2024 80778-BVCB SKIN LESIONS, OVER 4 03/31/20 25 74373-SLJN SKIN LESIONS, OVER 4 01/06/20 25 32611-BYIB SKIN LESIONS, OVER 4 10/07/20 24 94627-PYKF SKIN LESIONS, OVER 4 07/08/20 24 12185-DMNM SKIN LESIONS, OVER 4 12/14/19 24 86360-NYHB SKIN LESIONS, OVER 4 12/22/19 20 89078-CMJS SKIN LESIONS, OVER 4 03/25/20 20 43526-ITZM SKIN LESIONS, OVER 4 06/26/20 19 84229-CGKU SKIN LESIONS, OVER 4 09/25/20 19 06324-UQDF SKIN LESIONS, OVER 4 06/30/20 25 Next Appt Details Provider Name:David Thao , 11/17/2025 10:15:00 AM, [address] [place], [address], Insurance Providers Payer Name Payer Address Payer Phone Subscriber Number Group Number Insured Name Patient Relationship to Insured Coverage Start Date Coverage End Date Medicare [employer] [address] [place] [address] [id number] Jordan Orozco Self - patient is the insured [employer] [address] [place] [address] [id number] Jordan Orozco Self - patient is the insured Medical (General) History Medical History History ICD Code Diabetic Chicken pox Heart disease Cancer Cataracts High blood pressure Kidney disease Numbness Reflux ( GERD) Warts Measles Surgical History Surgery Date(Month/Year) triple bypass 2003 eye surgery 05/2020
--- OUTSIDE RECORDS SUMMARY | 2025-10-08 08:31 | XMS_ITS | Clinical Summary ---
Author Organization [facility] Address [address] [place] [phone] Phone Care Team Providers Care Youth Advocate Name Role Phone Delon Gao MD Primary Care Provider [phone] Haresh Trinidad MD Unavailable [phone] Cori Sequeira CNP Unavailable Allergies Active Allergy Reactions Criticality Noted Date Comments Aushfzlrivjd-Uix-Otjudpeaarx en 05/02/2022 Brompheniramine-Phenylephrin e 01/30/2022 [place] Sneezing Medium 05/05/2022 Penicillins Other (See Comments),Rash Low Medications albuterol 90 mcg/actuation inhaler Inhale 1 puff into the lungs every 6 (six) hours as needed for shortness of breath/dyspnea or wheezing. 03/01/20 22 Active cholecalcifero l, vitamin D3, 25 mcg (1,000 unit) capsule Take 25 mcg by mouth. 12/06/19 22 Active fenofibrate (TRICOR) 145 MG tablet Take 145 mg by mouth nightly at bedtime. 04/25/20 22 Active fluticasone propion-salmet Pretty (ADVAIR DISKUS) 100-50 mcg/dose DISKUS 05/19/20 22 Active fluticasone propionate (FLONASE) 50 mcg/actuation nasal spray SHAKE LIQUID AND USE 1 SPRAY IN EACH NOSTRIL TWICE DAILY NEEDED 04/06/20 Active hydrALAZINE (APRESOLINE) 50 MG tablet Take 50 mg by mouth 3 (three) times a day. 04/06/20 Active pravastatin (PRAVACHOL) 40 MG tablet Take 1 tablet by mouth. Active nitroglycerin (NITROSTAT) 0.[address] 0.4 mg under the tongue. As need it 12/06/19 Active metoprolol tartrate (LOPRESSOR) 50 MG tablet Take 25 mg by mouth 2 (two) times a day. 03/29/20 24 Active insulin aspart U-100 (NOVOLOG) 100 unit/mL (3 mL) injection pen Inject as directed. Active lhchickn-zra-n errous gluconate (CENTRUM WITH IRON) 9 mg iron/15 mL Liqd Take 15 mL by mouth daily. taking centrum silver tablet 05/19/20 Active omega 9-bqa-ifa-fish oil 1,000 mg (120 mg-180 mg) Cap Take 1 capsule by mouth daily. Active acetaminophen (TYLENOL) 325 mg tablet Take 2 tablets (650 mg total) by mouth every 6 (six) hours as needed for mild pain or fever. 0 05/18/20 22 Active ipratropium (ATROVENT) 21 mcg (0.03 %) nasal spray 09/19/20 22 Active dapagliflozin (FARXIGA) 5 mg tablet Take by mouth. 01/25/20 23 Active NOVOLOG U-100 INSULIN ASPART 100 unit/mL injection vial INJECT 240 UNITS WITH INSULIN PUMP DAILY DIRECTED. 04/24/20 Active nut.tx.gluc.in jeffrey,lac-free,s oy (GLUCERNA) Liqd Take 237 mL (1 Can total) by mouth 4 (four) times a day. [address]385 mL 3 04/30/20 23 Active Additional Information Patient not taking.Reported on 09/24/2025 pregabalin (LYRICA) 100 MG capsule Take 1 capsule by mouth daily. 04/30/20 23 Active furosemide (LASIX) 20 MG tablet Take 20 mg by mouth daily. 07/02/20 23 Active acetaminophen- codeine (TYLENOL #3) 300-30 mg per tablet TAKE 1 TAB BY MOUTH EVERY 4-6 HOURS NEDED PAIN 06/19/20 23 Active torsemide (DEMADEX) 20 MG tablet Take 40 mg by mouth daily. 10/01/20 23 Active bumetanide (BUMEX) 2 MG tablet Take 4 mg by mouth daily. 03/29/20 24 Active amLODIPine (NORVASC) 5 MG tablet Take 5 mg by mouth daily. stopped per pcp 03/29/20 24 Active atorvastatin (LIPITOR) 40 MG tablet Take 40 mg by mouth daily. 03/29/20 24 Active calcium acetate (CALPHRON) 668 mg (169 mg elemental) tablet Take 667 mg by mouth 3 (three) times a day with meals. 03/29/20 24 Active insulin glargine 100 unit/mL (3 mL) InPn injection pen Inject 10 Units under the skin nightly at bedtime. 03/29/20 24 Active aspirin 81 MG EC tablet Orally Active losartan (COZAAR) 25 MG tablet Take by mouth. 10/29/20 24 Active oxyCODONE (ROXICODONE) 5 mg/5 mL solution Take by mouth. 03/31/20 24 Active rosuvastatin (CRESTOR) 10 MG tablet Take by mouth. 01/15/20 25 Active sevelamer carbonate (RENVELA) 800 mg tablet Take by mouth. Activ e benzonatate (TESSALON) 100 MG capsule Take 1 capsule (100 mg total) by mouth 3 (three) times a day as needed for cough. 40 capsule 1 07/09/20 25 Active acyclovir (ZOVIRAX) 400 MG tablet Take 1 tablet (400 mg total) by mouth 2 (two) times a day. 60 tablet 3 08/26/20 25 Active predniSONE (DELTASONE) 50 MG tablet Take 100 mg (2 tablets) in the morning with food on days 1-5 with chemotherapy 60 tablet 08/26/20 25 Active prochlorperazi ne (COMPAZINE) 10 MG tablet Take 1 tablet (10 mg total) by mouth every 6 (six) hours as needed (nausea). 60 tablet 3 08/26/20 25 Active allopurinol (ZYLOPRIM) 100 MG tablet Take 1 tablet (100 mg total) by mouth daily for 7 days. 7 tablet 09/01/20 25 Active valsartan (DIOVAN) 320 MG tablet Take 320 mg by mouth nightly at bedtime. 02/22/20 22 023 Discontinu ed(Stop Taking at Discharge) lidocaine-pril ocaine (EMLA) cream Apply topically once for 1 dose. 30 g 09/08/20 25 025 Active Problems Patient Care Coordination No te [...] 05/17/2022 Coronary artery disease 05/17/2022 Overview (05/17/2022): [facility] cardiology Assessment & Plan (05/17/2022 2:44 PM EDT): History of coronary artery disease, followed by [facility] cardiology. History of CABG. Chart notes [...] Encounters Date Type Department Care Team Description 09/24/2025 11:20 AM EDT Infusion [facility] at [address] [address] Haresh Trinidad MD McHugh, Susan Amy, RN Lymphoma of testis (Primary Dx) 09/24/2025 10:20 AM EDT Office Visit [facility] [place] at [address] [address] Haresh Trinidad MD Squamous cell carcinoma of tonsil (Primary Dx); Lymphoma of testis 09/24/2025 8:40 AM EDT Infusion [facility] at [address] [address] Haresh Trinidad MD Gleason, Aileen Marie, LAUREN Need for hepatitis B screening test 09/12/2025 8:52 AM EDT - 09/12/2025 11:59 PM EDT Hospital Encounter [facility] [address] [place] [address] Haresh Trinidad MD Discharge Disposition: Home or Self Care 09/11/2025 Telephone [facility] at [address] [address] Haresh Trinidad MD bone pain ([place]) 09/09/2025 Telephone [facility] at [address] [address] Haresh Trinidad MD echo ([place]) 09/09/2025 Telephone [facility] at [address] [address] Haresh rTinidad MD Lidocaine Prilocaine cream 09/08/2025 8:40 AM EDT Infusion [facility] at [address] [address] Haresh Trinidad MD Markworth, Sharon, LAUREN Need for hepatitis B screening test; Lymphoma of testis 09/08/2025 Orders Only [facility] at [address] [address] Ally Cheney FNP 09/04/2025 8:00 AM EDT Infusion [facility] at [address] [address] Brendon Tang DO Flynn, Margaret Broad, LAUREN Need for hepatitis B screening test; Lymphoma of testis 09/04/2025 Orders Only [facility] at [address] [address] Amelie Roberts, LAUREN Lymphoma of testis (Primary Dx) 09/04/2025 Telephone [facility] at [address] [address] Amelie Roberts, LAUREN Labs 09/04/2025 Orders Only [facility] at [address] [address] Evy Bruce NP 09/03/2025 8:40 AM EDT Infusion [facility] at [address] [address] Haresh Trinidad MD Brumbaugh, Benjamin, LAUREN Lymphoma of testis (Primary Dx); Need for hepatitis B screening test 09/03/2025 Orders Only [facility] at [address] [address] Haresh Trinidad MD 09/02/2025 10:17 AM EDT - 09/02/2025 11:59 PM EDT Hospital En[facility] [address] [place] [phone] Discharge Disposition: Home or Self Care 09/01/2025 11:55 AM EDT - 09/01/2025 12:55 PM EDT Surgery [facility] Cardi[facility] Interventional Radiology [address] [place] [address] Becca Young PA-C PORT A CATH INSERTION (IR) 09/01/2025 8:45 AM EDT - 09/01/2025 11:45 PM EDT Hospital Encounter [facility] Cardiovascular [facility] Interventional Radiology [address] [place] [address] Sylvester Duran DO Blackman, Fermin Pollack MD Discharge Disposition: Home or Self Care 09/01/2025 8:40 AM EDT Office Visit [facility] at [address] [address] Haresh Trinidad MD Blackman, Fermin Pollack MD Squamous cell carcinoma of tonsil (Primary Dx); Lymphoma of testis 09/01/2025 7:31 AM EDT - 09/01/2025 8:44 AM EDT Hospital Encounter [facility] [address] [place] [address] Haresh Trinidad MD Blackman, Fermin Pollack MD Discharge Disposition: Home or Self Care 09/01/2025 Orders Only [facility] at [address] [address] Haresh Trinidad MD 09/01/2025 Telephone [facility] at [address] [address] Haresh Trinidad MD 09/01/2025 Procedure Pass [facility]ventional [facility]iology [address] [place] [address] 08/28/2025 8:00 AM EDT Infusion [facility] at [address] [address] Haresh Trinidad MD Bell, Jennifer Lyn, LAUREN 08/28/2025 Telephone [facility] at [address] [address] Maryan Chow RN 08/28/2025 Orders Only [facility] at [address] [address] Ally Cheney FNP 08/26/2025 Orders Only [facility] at [address] [address] Cori Sequeira CNP Need for hepatitis B screening test (Primary Dx) 08/25/2025 Orders Only [facility] at [address] [address] Que Cárdenas CMA Squamous cell carcinoma of tonsil (Primary Dx) 08/20/2025 9:00 AM EDT Office Visit [facility] at [address] [address] Haresh Trinidad MD Squamous cell carcinoma of tonsil (Primary Dx); Lymphoma of testis; Examination prior to chemotherapy 08/20/2025 Procedure Pass [facility] [address] [place] [address] 08/20/2025 Telephone [facility] at [address] [address] Haresh Triindad MD 08/20/2025 Telephone [facility] at [address] [address] Haresh Trinidad MD Initiate Treatment 08/18/2025 2:00 PM EDT Office Visit [facility] [address] [place] [address], [address], [address] [place] [address] Rebecca Hutton MD, PhD Lymphoma of testis (Primary Dx) 08/13/2025 Orders Only [facility] at [address] [address] Jessica Meier MD 08/11/2025 8:20 AM EDT Office Visit [facility] [place] at [address] [address] Haresh Trinidad MD Squamous cell carcinoma of tonsil (Primary Dx); Lymphoma of testis 08/11/2025 Telephone [facility] at [address] [address] Haresh Trinidad MD 07/09/2025 11:00 AM EDT Office Visit [facility] at [address] [place] [address] Haresh Trinidad MD Squamous cell carcinoma of tonsil (Primary Dx) 07/09/2025 9:53 AM EDT - 07/09/2025 11:59 PM EDT Hospital Encounter [facility] [address] [place] [address] Haresh Trinidad MD Discharge Disposition: Home or Self Care from [...] Not on file 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 on file Not on file Red beret in [place] during war Not on file Not on fi le Not on file Last Filed Vital Signs Vital Sign Reading Time Taken Comments Blood Pressure 148/64 09/24/2025 1:00 PM EDT Pulse 64 09/24/2025 1:00 PM EDT Temperature 36.9 C (98.5 F) 09/24/2025 1:00 PM EDT Respiratory Rate 16 09/08/2025 9:05 AM EDT Oxygen Saturation 94% 09/24/2025 1:00 PM EDT Inhaled Oxygen Concentration - - Weight 68.5 kg (151 lb) 09/24/2025 10:08 AM EDT Height 162 cm (5' 3.78 ) 09/24/2025 10:08 AM EDT Body Mass Index 26.1 09/24/2025 10:08 AM EDT Plan of Treatment Upcoming Encounters Date Type Department Care Team (Late st Contact Info) Description 10/13/2025 1:50 PM EST Blood Draw [facility] [address] [place] [address] Haresh Trinidad MD [address] [place] [address] 10/13/2025 3:00 PM EST Office Visit [facility] at [address] [address] Haresh Trinidad MD [address] [place] [address] 10/15/2025 8:00 AM EST Infusion [facility] at [address] [address] Haresh Trinidad MD [address] [place] [address] Cori Loyd, LAUREN [address] [place] [address] 11/03/2025 8:10 AM EST Blood Draw [facility] [address] [address] Haresh Trinidad MD [address] [place] [address] 11/03/2025 9:30 AM EST Office Visit [facility] at [address] [address] Ally Cheney FNP [address] [place] [address] 11/05/2025 8:40 AM EST Infusion [facility] at [address] [address] Haresh Trinidad MD [address] [place] [address] [email or web address] Jackie Freeman, RN [address] [place] [address] [email or web address] Health Maintenance Due Date Last Done Comments Adult Td,Tdap Booster 1945 DEPRESSION SCREENING 1959 ZOSTER VACCINES (1 of 2) 1966 PNEUMOCOCCAL VACCINES (50+ years) (3 of 3 - PCV) 09/14/2017 09/14/2016, 10/29/2013 DIABETIC EYE EXAM 05/05/2022 COVID-19 VACCINE (2024- season) 2026 08/16/2025, 08/02/2024, 08/31/2023, Additional history exists HEMOGLOBIN A1C 02/24/2026 08/26/2025, 11/2024, 05/27/2025, Additional history exists BLOOD PRESSURE 03/25/2026 09/24/2025 CREATININE LEVEL 09/24/2026 09/24/2025, , 09/04/2025, Additional history exists POTASSIUM LEVEL 09/24/2026 09/24/2025, 08/26, 09/04/2025, Additional history exists RSV VACCINE Completed 08/31/2023 INFLUENZA VACCINE Completed 08/16/2025, , 08/08/2023, Additional history exists HEPATITIS C SCREENING Completed 09/03/2025 , 09/03/2025, 12/03/2024 SMOKING STATUS SCREENING (Once After 26 Yrs) Completed 09/24/2025 HEPATITIS A VACCINES Aged Out No long er eligible based on patient's age to complete this topic HIB VACCINES Aged Out No longer eligi ble based on patient's age to complete this topic IPV VACCINES Aged Out No longer eligi ble based on patient's age to complete this topic MENINGOCOCCAL VACCINES (ACWY) Aged Out No longer eligible based on patient's age to complete this topic MENINGOCOCCAL VACCINES (B) Aged Out N o longer eligible based on patient's age to complete this topic Medical Devices Implanted Type Area Color Sprayer Device Identifier Shelf Expiration Date Model / Serial / Lot Lens Lens Metal In Left Side Of Head From [employer] Port Infusion 6.6fr Power Injectable Dignity Mid-Sized Shaped Attachable - [id number] Implanted:Qty: 1 on 09/01/2025 by Becca Young PA-C at [facility] Left: Chest MEDCOMP [id number] 06/25/2029 [id number] / / [id number] Description:Catheter cut to 27cm Procedures Procedure Name Priority Date/Time Associated Diagnosis Comments CBC AND DIFFERENTIAL Routine 09/24/2025 9:05 AM EDT Need for hepatitis B screening test COMPREHENSIVE METABOLIC PANEL (CMP) Routine 09/24/2025 9:05 AM EDT Need for hepatitis B screening test LDH Routine 09/24/2025 9:05 AM EDT Need for hepatitis B screening test TTE COMPREHENSIVE Routine 09/12/2025 9:2 7 AM EDT Examination prior to chemotherapy PHOSPHORUS STAT 09/08/2025 8:33 AM EDT Lymphoma of testis URIC ACID STAT 09/08/2025 8:33 AM EDT Lymphoma of testis LDH Routine 09/08/2025 8:33 AM EDT Need for hepatitis B screening test COMPREHENSIVE METABOLIC PANEL (CMP) Routine 09/08/2025 8:33 AM EDT Need for hepatitis B screening test CBC AND DIFFERENTIAL Routine 09/08/2025 8:33 AM EDT Need for hepatitis B screening test PHOSPHORUS Routine 09/04/2025 8:10 AM EDT Lymphoma of testis URIC ACID Routine 09/04/2025 8:10 AM EDT Lymphoma of testis LDH Routine 09/04/2025 8:10 AM EDT Need for hepatitis B screening test COMPREHENSIVE METABOLIC PANEL (CMP) Routine 09/04/2025 8:10 AM EDT Need for hepatitis B screening test CBC AND DIFFERENTIAL Routine 09/04/2025 8:10 AM EDT Need for hepatitis B screening test HEPATITIS B SURFACE ANTIBODY Routine 09/03/2025 8:54 AM EDT Need for hepatitis B screening test HEPATITIS B SURFACE ANTIGEN Routine 09/03/2025 8:54 AM EDT Need for hepatitis B screening test HEPATITIS B CORE ANTIBODY, TOTAL Routine 09/03/2025 8:54 AM EDT Need for hepatitis B screening test ANATOMIC PATHOLOGY Routine 09/02/2025 12 :00 AM EDT OUTSIDE PATHOLOGY REVIEW Routine 09/02/2025 12:00 AM EDT PORT A CATH INSERTION (IR) Routine 09/01/2025 12:48 PM EDT Lymphoma of testis LDH Routine 09/01/2025 7:31 AM EDT Squamous cell carcinoma of tonsil COMPREHENSIVE METABOLIC PANEL (CMP) Routine 09/01/2025 7:31 AM EDT Squamous cell carcinoma of tonsil CBC AND DIFFERENTIAL Routine 09/01/2025 7:31 AM EDT Squamous cell carcinoma of tonsil OUTSIDE PATHOLOGY Routine 08/13/2025 9:0 4 AM EDT LDH Routine 07/09/2025 9:53 AM EDT HCG (TUMOR MARKER) Routine 07/09/2025 9: 53 AM EDT THYROID STIMULATING HORMONE (TSH) Routine 07/09/2025 9:53 AM EDT Squamous cell carcinoma of tonsil COMPREHENSIVE METABOLIC PANEL (CMP) Routine 07/09/2025 9:53 AM EDT Squamous cell carcinoma of tonsil CBC AND DIFFERENTIAL Routine 07/09/2025 9:53 AM EDT Squamous cell carcinoma of tonsil from Last 3 Months Results * LDH (09/24/2025 9:05 AM EDT) Only the most recent of5 resultswithin the time period is included. LDH 272 118 - 273 U/L [facility] Blood 09/24/2025 9:05 AM EDT 09/24/2025 9:20 AM EDT us Cori Sequeira [facility] BLOOD BKR ORDERABLES Final R esult [facility] [address] [place] [address] * (ABNORMAL) Comprehensive metabolic panel (09/24/2025 9:05 AM EDT) Only the most recent of5 resultswithin the time period is included. SODIUM 140 133 - 146 mmol/L [facility] POTASSIUM 4.4 3.3 - 5.1 mmol/L [facility] CHLORIDE 100 96 - 108 mmol/L [facility] CO2 31 21 - 35 mmol/L [facility] BUN 25(H) 6 - 19 mg/dL [facility] CREATININE 2.90(H) 0.5 - 1.5 mg/dL [facility] GLUCOSE 171(H) 70 - 99 mg/dL [facility] ALBUMIN 3.9 3.9 - 4.8 g/dL [facility] TOTAL PROTEIN 7.3 6.5 - 8.0 g/dL [facility] CALCIUM 8.6 8.4 - 10.3 mg/dL [facility] ALKALINE PHOSPHATASE 75 39 - 117 U/L [facility] TOTAL BILIRUBIN 0.4 0.0 - 1.2 mg/dL [facility] AST 28 0 - 37 U/L [facility] ALT 12 0 - 40 U/L [facility] GLOBULIN 3.4 1 - 4.8 g/dL [facility] EGFR 22(L) >59 mL/min/1.7 3m2 [facility] Comment:Estimated glomerular filtration rate calculated using the CKD-EPI refit equation. ANION GAP 13 10 - 20 mmol/L [facility] Blood 09/24/2025 9:05 AM EDT 09/24/2025 9:20 AM EDT us Cori Sequeira [facility] BLOOD BKR ORDERABLES Final R esult [address] [address] * (ABNORMAL) CBC and differential (09/24/2025 9:05 AM EDT) Only the most recent of5 resultswithin the time period is included. WBC 7.96 4.00 - 11.00 K/uL [facility] RBC 2.58(L) 4.50 - 5.90 M/uL [facility] HGB 8.6(L) 13.5 - 17.5 g/dL [facility] HCT 26.4(L) 41.0 - 53.0 % [facility] PLT 148(L) 150 - 450 K/uL [facility] MCV 102.3(H) 80.0 - 100.0 fL [facility] MCH 33.3(H) 27.0 - 31.0 pg [facility] MCHC 32.6 32.0 - 36.0 g/dL [facility] RDW 17.6(H) 11.5 - 14.5 % [facility] MPV 10.3 8.4 - 12.0 fL [facility] NRBC 0.00 0.00 /100 WBCs [facility] ABSOLUTE NRBC 0.00 0.00 K/uL [facility] DIFF METHOD Auto [facility] NEUTS 79.5(H) 48.0 - 76.0 % [facility] LYMPHS 6.7(L) 18.0 - 41.0 % [facility] MONOS 12.2(H) 4.0 - 11.0 % [facility] EOS 0.4 0.0 - 5.0 % [facility] BASOS 0.6 0.0 - 1.5 % [facility] Granulocytes, immature (%) 0.6 0.0 - 0.9 % [facility] ABSOLUTE NEUTS 6.33 1.92 - 7.60 K/uL [facility] ABSOLUTE LYMPHS 0.53(L) 0.72 - 4.10 K/uL [facility] ABSOLUTE MONOS 0.97 0.16 - 1.10 K/uL [facility] ABSOLUTE EOS 0.03 0.00 - 0.50 K/uL [facility] ABSOLUTE BASOS 0.05 0.00 - 0.15 K/uL [facility] Granulocytes, immature 0.05 0.00 - 0.09 K/uL [facility] Blood 09/24/2025 9:05 AM EDT 09/24/2025 9:20 AM EDT us Cori Sequeira [facility] BLOOD BKR ORDERABLES Final R esult Performing Organization Address City/State/[facility] Co de Phone Number [address] [phone] * TTE COMPREHENSIVE (09/12/2025 9:27 AM EDT) Body Surface Area 1.72 m2 Height 162 cm Weight 67 kg Interventricular Septum Thickness 12 6 - 11 mm Left Ventricle Internal Diameter End Diastole 49 42 - 58 mm Left Ventricle Internal Diameter End Systole 32 <40 mm Left Ventricular Outflow Tract Diameter 20.0 mm LVOT VTI REST 205.0 mm Left Ventricular Outflow Tract Velocity 1.0 m/s Left Ventricular Outflow Tract Gradient at Rest 4 mmHg Left Ventricular Posterior Wall Thickness 12 6 - 11 mm Left Ventricle Ea Lateral Wave Speed 4.9 cm/s Left Ventricle Ea Septal Wave Speed 4.0 cm/s Ejection Fraction 71 50 - 75 Percent Left Atrium Dimension Anterior-Posterior 41 15 - 40 mm Aortic Valve Mean Gradient 4 mmHg Aortic Valve Time Velocity Integral 278.0 mm Aortic Valve Peak Velocity 1.4 m/s Aortic Valve Peak Gradient 8 mmHg Ascending Aorta Diameter 32 <36 mm Inferior Vena Cava Diameter 23 <21 mm Left Ventricle A Wave Speed 68.3 cm/s Left Ventricle E Wave Speed 161.0 cm/s Mitral Valve Mean Gradient 4 mmHg Mitral Valve Peak Gradient 11 mmHg Mitral Valve Area Continuity Equation 1.50 cm2 Pulmonary Artery End Diastolic Velocity 1.4 m/s Pulmonary Valve Peak Velocity 0.9 m/s Pulmonary Valve Peak Gradient 3 mmHg Right Ventricle Basal Diameter 39 25 - 41 mm Tricuspid Valve Peak Velocity 3.8 m/s Raw LV EF% 57 % MV E/E' Tissue Velocity Lateral 32.86 Relative Wall Thickness 0.49 0.22 - 0.42 Left Ventricle indexed to BSA 131.6 g/m2 MV E/A ratio 2.4 MV E/e' septal 40.25 Left Ventricle E/e' Average 36.6 Aortic Valve Prosthetic Peak Gradient 8 mmHg Aortic Valve Prosthetic Mean Gradient 4 mmHg Ascending Aorta Index 19 mm/m2 Asc Aorta CSA Index by Height 4.96 cm2/m Mitral Valve Prosthetic Peak Gradient 11 mmHg Mitral Valve Prosthetic Mean Gradient 4 mmHg Right Ventricle to Right Atrium Pressure Gradient 58 mmHg Right Ventricle Peak Systolic Pressure (Assuming RAP 10) 68 mmHg MGB CV ECHO TV RVSP (ASSUMING RAP OF 5) 63 mmHg RVSP (Exclusive of RAP) 58 mmHg Pulmonic Valve Prosthetic Peak Gradient 3 mmHg MGB CV AV DIMENSIONLESS INDEX (PEAK) - STRESS ECHO DOBUT - REST 0.71 Ascending Aorta Index 19 mm Ascending Aorta Diameter 19 mm AO ASC DIAM BSA INDEX 18.60 Echo E/Ea 40.25 Left Atrial Volume Index 56 16 - 34 mL/m2 Right Ventricle TAPSE 18 >=17 mm Left Atrial Volume 96 mL Left Atrial Volume Index by Height 59 mL/m Anatomical Region Laterality Modality Heart Ultrasound Narrative 09/13/2025 8:29 AM EDT Images from the original result were not included. 1. The indication is cardiotoxic chemotherapy monitoring the estimated ejection fraction is hyperdynamic at 65 to 70%. Diastolic function is grade 1 and there were no regional wall motion abnormalities. 2. Normal RV size and function. 3. Trileaflet aortic valve there is no evidence of aortic stenosis, the ascending aortic root is normal size. 4. Mild to moderate mitral and mild to moderate tricuspid sufficiency, the PA pressure is moderate to severely elevated at 65 to 70 mmHg. There was a mildly increased mean mitral valve gradient suggestive of minimal mitral stenosis at 4 mmHg. 5. Normal pericardium and there is no prior echo available for comparison. There is a small posterior pericardial effusion measuring 0.9 cm. Left Ventricle The left ventricle is normal in size. There is normal wall thickness. There is normal left ventricular systolic function. The LV ejection fraction is 71% (calculated via biplane measurement). There are no wall motion abnormalities. There is abnormal diastolic function. The E/A ratio is 2.4. The average E/e' ratio is 36.6. Right Ventricle The right ventricle is normal in size. There is normal wall thickness. There is normal right ventricular systolic function. TAPSE is 18 mm. There are no wall motion abnormalities. Left Atrium The left atrium is mildly dilated. The left atrial anterior-posterior dimension is 41 mm. There are normal flow patterns in the pulmonary vein. Right Atrium The right atrium is normal in size. The IVC is normal in size with no inspiratory collapse. Hepatic veins are normal in size. Mitral Valve The mitral valve appears normal. There is no mitral stenosis. There is mild to moderate mitral regurgitation. Tricuspid Valve The tricuspid valve appears normal. There is no tricuspid stenosis. There is mild to moderate tricuspid regurgitation. The RV systolic pressure was calculated at 68 mmHg (using TR peak velocity of 3.8 m/s and assuming an RA pressure of 10 mmHg). Aortic Valve The aortic valve is tricuspid. There is leaflet thickening. There is no aortic stenosis. There is trace aortic regurgitation. The visualized portions of the thoracic aorta appear normal in size. Pulmonic Valve The pulmonic valve appears normal. There is no pulmonic stenosis. There is mild pulmonic regurgitation. The pulmonary artery is normal. Pericardium The pericardium appears normal. There is a trace to small inferior pericardial effusion. General Findings The image quality was good (2). Strain performed. Technique(s) used in the evaluation: Multiplane, Color flow Doppler and Spectral Doppler. There was frequent ventricular ectopy throughout the examination. The predominant rhythm during the study was sinus. Patient tolerated the procedure well. Comparison Findings There are no prior studies for comparison. IAS/IVS The interatrial septum appears normal. The interventricular septum appears normal. us Haresh Trinidad MD CV ECHO ORDERABLES Final Resul t * Uric acid (09/08/2025 8:33 AM EDT) Only the most recent of2 resultswithin the time period is included. URIC ACID 4.5 2.4 - 7.0 mg/dL [facility] Blood 09/08/2025 8:33 AM EDT 09/08/2025 8:56 AM EDT us Ally Yung Shravan AUTISTIC TEACHER LAB BLOOD BKR ORDERABLES Jammie l Result Performing Organization Address [facility] Co de Phone Number [address] [address] * (ABNORMAL) Phosphorus (09/08/2025 8:33 AM EDT) Only the most recent of2 resultswithin the time period is included. PHOSPHORUS 5.2(H) 2.7 - 4.5 mg/dL [facility] Blood 09/08/2025 8:33 AM EDT 09/08/2025 8:56 AM EDT us Ally Dilshad Cheney AUTISTIC TEACHER LAB BLOOD BKR ORDERABLES Jammie l Result Performing Organization Address [facility] Co de Phone Number [address] [address] * Hepatitis B core antibody, total (09/03/2025 8:54 AM EDT) HEP B CORE AB, TOT NON-REACTI VE NON-REACTI VE [facility] Blood 09/03/2025 8:54 AM EDT 09/03/2025 9:26 AM EDT us Cori Sequeira [facility] LAB BLOOD BKR ORDERABLES Final R esult Performing Organization Address [facility] Co de Phone Number [address] [address] * Hepatitis B surface antibody (09/03/2025 8:54 AM EDT) HBV SURFACE ANTIBODY NON-REACTI VE [facility] Comment: Unvaccinated: Non Reactive Vaccinated: Reactive Blood 09/03/2025 8:54 AM EDT 09/03/2025 9:26 AM EDT Cori Sequeira [facility] LAB BLOOD BKR ORDERABLES Final R esult Performing Organization Address City/[facility]/ZIP Co de Phone Number [address] [address] * Hepatitis B surface antigen (09/03/2025 8:54 AM EDT) HBV SURFACE ANTIGEN NON-REACTI VE NON-REACTI VE [facility] Blood 09/03/2025 8:54 AM EDT 09/03/2025 9:26 AM EDT Cori Sequeira [facility] LAB BLOOD BKR ORDERABLES Final R esult Performing Organization Address City/[facility] Co de Phone Number [address] [address] * Outside Pathology Review (09/02/2025 12:00 AM EDT) 09/02/2025 09/02/2025 11: 45 AM EDT Narrative SEE NARRATIVE - 09/03/2025 3:04 [place] [address] Surgical Pathology Outside Consultation Patient Name: ALLEN SOLORZANO V. : 1945 (Age: 79) Sex: M Location: [facility] [place] [facility] of Reported: 09/03/2025 15:04 Results To: Rebecca Hutton MD FINAL PATHOLOGIC DIAGNOSIS: A. LEFT TESTICLE, ORCHIECTOMY ([id number]; 07/28/2025): Diffuse large B-cell lymphoma (See note.) NOTE: Histologic Diagnosis: Diffuse large B-cell lymphoma (DLBCL) Cell of Origin by IHC (Greg Algorithm): Germinal center B-cell (GCB) subtype MYC IHC positive lymphoma cells: ~50-70% BCL2 IHC positive lymphoma cells: 100% EBV (MARY ELLEN CHANTALE): Negative Comments: The tissue section received for review shows testicular parenchyma largely replaced by a diffuse infiltrate of large atypical lymphoid cells with irregular nuclei, multiple prominent nucleoli, and scant pale cytoplasm. Frequent mitotic figures are seen. Background small lymphocytes and histiocytes are present. Immunohistochemical stains sent for review show the neoplastic proliferation to be composed of B cells (CD20+) in a diffuse pattern expressing CD10 (variable in distribution and intensity but overall >30% of cells), BCL2, MUM1 (70%) and CD5 and negative for BCL6. Scattered non-neoplastic T cells (CD3+, CD5+) are also present. CyclinD1 is negative. MYC stains ~50-70% of large cells and Ki67 shows a proliferation index of 70%. Follicular markers, CD21 and CD23 are negative. CD30 and in-situ hybridization for Justice-Higuera virus encoded RNA (MARY ELLEN)) are also negative. 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 Since the majority of primary testicular lymphomas are of non-activated B-cell origin, the possibility of a disseminated systemic large B cell lymphoma with secondary testicular involvement should be excluded. 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 Three copies/polysomy of BCL2 were seen. Electronically Signed Out By Isa Eckert MD Resident Pathologist: Franco Rockwell MD PhD By his/her signature above, the pathologist listed as making the Final Diagnosis certifies that he/she has personally reviewed the case and confirmed the diagnosis. All slides and stains were of sufficient quality to establish the diagnosis, unless otherwise stated. CLINICAL HISTORY None provided. SPECIMENS SUBMITTED: A: LEFT TESTICLE, ORCHIECTOMY ([id number]; 07/28/2025) SLIDE-BLOCK DESCRIPTION: Consult materials received from [place], [place]: A. LEFT TESTICLE, ORCHIECTOMY ([id number]; 07/28/2025): Stained Slides: 16 Unstained slides: 0 Blocks: 0 us Rebecca Hutton MD, PhD PATHOLOGY ORDERABLES F inal Result SEE NARRATIVE * Anatomic Pathology (Non-MGB) (09/02/2025 12:00 AM EDT) [place] [address] Surgical Pathology Outside Consultation Patient Name: ALLEN SOLORZANO V. : 1945 (Age: 79) Sex: M Location: [facility] [place] [facility] [place] of Reported: 09/03/2025 15:04 Results To: Rebecca Hutton MD FINAL PATHOLOGIC DIAGNOSIS: A. LEFT TESTICLE, ORCHIECTOMY ([id number]; 07/28/2025): Diffuse large B-cell lymphoma (See note.) NOTE: Histologic Diagnosis: Diffuse large B-cell lymphoma (DLBCL) Cell of Origin by IHC (Greg Algorithm): Germinal center B-cell (GCB) subtype MYC IHC positive lymphoma cells: ~50-70% BCL2 IHC positive lymphoma cells: 100% EBV (MARY ELLEN CHANTALE): Negative Comments: The tissue section received for review shows testicular parenchyma largely replaced by a diffuse infiltrate of large atypical lymphoid cells with irregular nuclei, multiple prominent nucleoli, and scant pale cytoplasm. Frequent mitotic figures are seen. Background small lymphocytes and histiocytes are present. Immunohistochemica l stains sent for review show the neoplastic proliferation to be composed of B cells (CD20+) in a diffuse pattern expressing CD10 (variable in distribution and intensity but overall >30% of cells), BCL2, MUM1 (70%) and CD5 and negative for BCL6. Scattered non-neoplastic T cells (CD3+, CD5+) are also present. CyclinD1 is negative. MYC stains ~50-70% of large cells and Ki67 shows a proliferation index of 70%. Follicular markers, CD21 and CD23 are negative. CD30 and in-situ hybridization for Justice-Higuera virus encoded RNA (MARY ELLEN)) are also negative. 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 Since the majority of primary testicular lymphomas are of non-activated B-cell origin, the possibility of a disseminated systemic large B cell lymphoma with secondary testicular involvement should be excluded. 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 Three copies/polysomy of BCL2 were seen. Electronically Signed Out By Isa Eckert MD Resident Pathologist: Franco Rockwell MD PhD By his/her signature above, the pathologist listed as making the Final Diagnosis certifies that he/she has personally reviewed the case and confirmed the diagnosis. All slides and stains were of sufficient quality to establish the diagnosis, unless otherwise stated. CLINICAL HISTORY None provided. SPECIMENS SUBMITTED: A: LEFT TESTICLE, ORCHIECTOMY (; 07/28/2025) SLIDE-BLOCK DESCRIPTION: Consult materials received from [place], [place]: A. LEFT TESTICLE, ORCHIECTOMY (; 07/28/2025): Stained Slides: 16 Unstained slides: 0 Blocks: 0 [facility] Clinical History None provided. [facility] Final Diagnosis A. LEFT TESTICLE, ORCHIECTOMY (; 07/28/2025): Diffuse large B-cell lymphoma (See note.) NOTE: Histologic Diagnosis: Diffuse large B-cell lymphoma (DLBCL) Cell of Origin by IHC (Greg Algorithm): Germinal center B-cell (GCB) subtype MYC IHC positive lymphoma cells: ~50-70% BCL2 IHC positive lymphoma cells: 100% EBV (MARY ELLEN CHANTALE): Negative Comments: The tissue section received for review shows testicular parenchyma largely replaced by a diffuse infiltrate of large atypical lymphoid cells with irregular nuclei, multiple prominent nucleoli, and scant pale cytoplasm. Frequent mitotic figures are seen. Background small lymphocytes and histiocytes are present. Immunohistochemica l stains sent for review show the neoplastic proliferation to be composed of B cells (CD20+) in a diffuse pattern expressing CD10 (variable in distribution and intensity but overall >30% of cells), BCL2, MUM1 (70%) and CD5 and negative for BCL6. Scattered non-neoplastic T cells (CD3+, CD5+) are also present. CyclinD1 is negative. MYC stains ~50-70% of large cells and Ki67 shows a proliferation index of 70%. Follicular markers, CD21 and CD23 are negative. CD30 and in-situ hybridization for Justice-Higuera virus encoded RNA (MARY ELLEN)) are also negative. 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 Since the majority of primary testicular lymphomas are of non-activated B-cell origin, the possibility of a disseminated systemic large B cell lymphoma with secondary testicular involvement should be excluded. Reportedly, FISH studies performed at [facility] showed MYC rearrangement without BCL2 or BCL6 rearrangement. Three copies/polysomy of BCL2 were seen. [facility] Slide-Block Description Consult materials received from [facility], [place], [place]: A. LEFT TESTICLE, ORCHIECTOMY ([id number]; 07/28/2025): Stained Slides: 16 Unstained slides: 0 Blocks: 0 [facility] Conversion Type (Conversion Source) 09/02/2025 09/02/2025 11:45 AM EDT us Rebecca Hutton MD, PhD LAB PATHOLOGY ORDERABL ES Final Result [facility] [address] [place] [address] * PORT A CATH INSERTION (IR) (09/01/2025 12:48 PM EDT) Anatomical Region Laterality Modality X-Ray Angiograph y Narrative 09/01/2025 1:00 PM EDT Impression: 1. Ultrasound and fluoroscopic guided placement of left CT-compatible chest port via the internal jugular vein. 2. The tip of the catheter was fluoroscopically positioned in the SVC and the port is ready for use. 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 Patient has history of radiation to the right neck. The tissue is firm and woody. I was unable to compress the right internal jugular vein an over the right neck. Decision was made to proceed with port catheter placement via the left internal jugular vein despite LUE AVF. This decision was confirmed after discussion with Dr. Sylvester Duran, attending IR of the day. Steam Finisher: Becca Young PA-C Anesthesia: Local anesthesia: lidocaine 1%. Moderate sedation: versed 1 mg IV and fentanyl 50 mcg IV. Moderate Sedation: Under my direct supervision intravenous moderate sedation was administered by the radiology department nurse with continous monitoring of hemodynamic parameters. Total time of moderate sedation was 43 minutes. Contrast: None Other Medications: ancef 1 gm, heparin 500 units Estimated Blood Loss: minimal Implantable Devices/Catheters/Specimens: 6 Fr x 27 cm Medcomp port. Radiation Dose: Exposure (mGy) = 1.000; 2. DAP (uGy-m2) = 19.630; Fluoro Time (min) = 0.2 Complications: none Description of Procedure & Findings: Written and oral informed consent was obtained from the patient (or technical support representative) after explaining all risks and benefits of the procedure as well as alternatives and right to refuse. Patient was brought to the angiography suite. Patient verification and a timeout procedure were performed as per standard hospital procedure. The neck and chest were prepped and draped in sterile fashion. All elements of maximum sterile barrier were used including mask, cap, sterile gown, gloves, large sterile sheet, hand hygiene, cutaneous antisepsis with 2% chlorhexidine and sterile preparation of the ultrasound probe. The internal jugular vein was then visualized and demonstrated to be normally compressible using ultrasound. A small incision was made with a scalpel. The internal Jugular vein was punctured under direct ultrasound guidance using a 21 gauge micropuncture needle. Both real-time and static imaging was used. Hard-copy images of pertinent ultrasound findings were stored in the patient's permanent electronic medical record. An 0.018 inch guidewire was advanced through the needle into the SVC using fluoroscopic guidance to document and guide placement. The wire was then exchanged for an 0.035 guidewire which was placed into the IVC. An incision was made in the superolateral chest and blunt dissection was used to create an appropriately sized subcutaneous pocket. A subcutaneous tunnel was created and the catheter tubing was pulled through. Catheter tubing was cut to the appropriate length. A peel-away sheath was placed over the wire and the catheter was fully advanced though the peel-away sheath which was then removed. Adequate function of the port was confirmed by accessing it with a Cardenas needle and aspirating and then injecting it with saline. A heparin lock was instilled. The final catheter tip position in the SVC/Right atrial junction was stored in the medical record using a spot fluoroscopic image. There was no pneumothorax. The skin was closed in two layers using deep interrupted 3-0 Vicryl suture followed by running subcuticular 5-0 Vicryl suture. The IJ access site was also closed with 5-0 vicryl suture. The port and IJ access sites were covered with Dermabond. Disposition of Patient: Stable and awake to recovery room. Dr. Sylvester Saucedo the attending interventional radiologist for this encounter. Haresh Trinidad MD IMG IR Final Result * Outside Pathology (08/13/2025 9:04 AM EDT) Historical Provider MD PATHOLOGY ORDERABLES Jammie l Result * HCG (tumor marker) (07/09/2025 9:53 AM EDT) HCG BETA 0.8 mIU/mL [facility] Comment: Interpretation: MALE: Less than 5 mIU/ml. Test Methodology Letsmake e801 Patient results determined by assays using different manufacturers or methods may not be comparable. 07/09/2025 9:53 AM EDT 07/09/2025 10:00 AM EDT [facility] LAB BLOOD ORDERABLES Final Result [address] [address] * TSH (07/09/2025 9:53 AM EDT) Pathologist [facility] TSH 3.56 0.27 - 4.20 uIU/mL [facility] Blood 07/09/2025 9:53 AM EDT 07/09/2025 10:00 AM EDT Result [facility] LAB BLOOD BKR ORDERABLES F inal Result [address] [address] from Last 3 Months Insurance MEDICARE PART A & B [employer] MEDEX SUPPLEMENT MEDICARE PART A & B [employer] MEDEX SUPPLEMENT MEDICARE PART A & B MEDICARE PART A & B MEDICARE PART A & B [employer] MEDEX SUPPLEMENT MEDICARE PART A & B MEDICARE PART A & [place] [address] [place] [address] CROSS MEDEX SUPPLEMENT MEDICARE PART A & B [employer] MEDEX SUPPLEMENT MEDICARE PART A & B [employer] CROSS MEDEX SUPPLEMENT Advance Directives For more information, please contact: [phone] (9AM - 5PM [facility], Sunday-Sunday) Documents on File Type Date Recorded 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 Moth Proofer Expl anation Healthcare Proxy 06/13/2022 SIGNED 06/13 * Full Code (Latest Code Status on File) Date Activated Date Inactivated Comments 05/17/2022 2:32 PM Question Answer Comments Code Status Confirmed With: Patient Care Teams Youth Advocate Relationship Specialty Start Date End Date Delon Gao MD [address] [place] [address] PCP - General Endocrinology 04/25/22 Haresh Trinidad MD [address] [place] [address] Primary Oncologist Medical Oncology 04/26/22 Cori Sequeira CNP [address] [place] [address] maria Nurse Practitioner Medical Oncology 05/02/22 Additional Source Comments The information contained in this document represents components of the legal health record. It is not the complete legal health record.[facility]
--- OUTSIDE RECORDS SUMMARY | 2025-10-08 08:31 | XMS_ITS | Encounter Summary ---
Author Organization [facility] Address [address] [place] [address] Phone Care Team Providers Care Scientist/Engineer Name Role Phone Delon Gao MD Primary Care Provider Haresh Trinidad MD Unavailable [phone] Cori Sequeira INTERNAL MEDICINE DOCTOR Unavailable Denice Roberts CENTRAL STATION OPERATOR Unavailable [phone] Leslye Tolentino MBBS Unavailable [phone] Encounter Details Date Type Department Care Team (Late st Contact Info) Description 04/26/2022 Ancillary Orders [facility],Outside Imaging [address] [place], [place] [id number] System, Provider Not In, PhD Partners [address] [address] Social History Tobacco Use Types Packs/Day Years [...] EST Blood Draw [facility] [address] [place] [address] Haresh Trinidad MD [address] [place] [address] 10/13/2025 3:00 PM EST Office Visit [facility] at [address] [address] Haresh Trinidad MD [address] [place] [address] 10/15/2025 8:00 AM EST Infusion [facility] at [address] [address] Haresh Trinidad MD [address] [place] [address] Cori Loyd RN [address] [place] [address] 11/03/2025 8:10 AM EST Blood Draw [facility] [address] [address] Haresh Trinidad MD [address] [place] [address] 11/03/2025 9:30 AM EST Office Visit [facility] at [address] [address] Ally Cheney FNP [address] [place] [address] 11/05/2025 8:40 AM EST Infusion [facility] at [address] [address] Haresh Trinidad MD [address] [place] [address] Jackie Freeman, RN [address] [place] [address] [email or web address] documented as of this encounter Results * CT Neck Outside (No Interpretation) (04/14/2022 12:00 AM EDT) Narrative SYSTEMGENERATED, DOCUMENTATION - 04/26/2022 2:33 PM EDT This study is for PACS storage only and not for interpretation. us Provider Not In System PhD IMG OUTSIDE IMAGING W /OUT INTERPRETATION Final Result documented in this encounter Visit Diagnoses Not on filedocumented in this encounter Care Teams Scientist/Engineer Relationship Specialty Start Date End Date Delon Gao MD [address] [place] [address] PCP - General Endocrinology 04/25/22 Haresh Trinidad MD [address] [place] [address] [email or web address] Primary Oncologist Medical Oncology 04/26/22 Cori Sequeira CNP [address] [place] [address] [email or web address] Nurse Practitioner Medical Oncology 05/02/22 Denice Roberts NP [address] [place] [address] [email or web address] Nurse Practitioner Medical Oncology 05/19/22 03/04/25 Leslye Tolentino MBBS [address] [place] [address] [email or web address] Primary Oncologist Hematology and Oncology 10/11/23 documented as of this encounter Additional Source Comments The information contained in this document represents components of the legal health record. It is not the complete legal health record.[facility]
--- OUTSIDE RECORDS SUMMARY | 2025-10-08 08:31 | XMS_ITS | Encounter Summary ---
Author Organization [facility] Address [address] [place] [address] [place] [phone] Phone Care Team Providers Care Marketing Support Manager Name Role Phone Delon Gao MD Primary Care Provider Haresh Trinidad MD Unavailable [phone] Cori Sequeiar SOLE STAINER Unavailable Denice Roberts PSYCH NURSE Unavailable [phone] Leslye Tolentino MBBS Unavailable [phone] Encounter Details Date Type Department Care Team (Late st Contact Info) Description 11/16/2022 Procedure Pass [facility] [address] [place] [address] Social History Tobacco Use Types Packs/Day Years [...] Not on file Not on file 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 Not on file Not on file Not on file [place] during war Not on file Not on fi le Not on file documented as of this encounter Plan of Treatment Upcoming Encounters Date Type Department Care Team (Late st Contact Info) Description 10/13/2025 1:50 PM EST Blood Draw [facility] [address] [address] Haresh Trinidad MD [address] [place] [phone] 10/13/2025 3:00 PM EST Office Visit [facility] at [address] [address] Haresh Trinidad MD [address] [place] [address] 10/15/2025 8:00 AM EST Infusion [facility] at [address] [address] Haresh Trinidad MD [address] [place] [address] Cori Loyd, LAUREN [address] [place] [phone] 11/03/2025 8:10 AM EST Blood Draw [facility] [address] [address] Haresh Trinidad MD [address] [place] [phone] 11/03/2025 9:30 AM EST Office Visit [facility] at [address] [address] Ally Cheney FNP [address] [place] [phone] 11/05/2025 8:40 AM EST Infusion [facility] at [address] [address] [place] [address] [email or web address] Jackie Freeman, LAUREN [address] [place] [address] documented as of this encounter Visit Diagnoses Not on filedocumented in this encounter Care Teams Marketing Support Manager Relationship Specialty Start Date End Date Delon Gao MD [address] [place] [phone] PCP - General Endocrinology 04/25/22 Haresh Trinidad MD [address] [place] [phone] Primary Oncologist Medical Oncology 04/26/22 oCri Sequeira CNP [address] [place] [phone] maria Nurse Practitioner Medical Oncology 05/02/22 Denice Roberts, PSYCH NURSE [address] [place] [address] Nurse Practitioner Medical Oncology 05/19/22 03/04/25 Leslye Tolentino MBBS [address] [place] [address] [email or web address] Primary Oncologist Hematology and Oncology 10/11/23 documented as of this encounter Additional Source Comments The information contained in this document represents components of the legal health record. It is not the complete legal health record.[facility]
[2025-10-08 09:28] LABS: Cholesterol 78 mg/dL (<200); HDL Cholesterol 28 mg/dL (>40); Triglycerides 93 mg/dL (<150)
== END 2025-10-08 08:15 | disposition home or self-care (01) ==
LOC: HO.LAB 08:14
PROVIDERS: PCP Internal Medicine Endocrinology, Diabetes & Metabolism; Visit Provider Internal Medicine Endocrinology, Diabetes & Metabolism
DX: E11.8 Type 2 diabetes mellitus with unspecified complications (principal); E78.00 Pure hypercholesterolemia, unspecified; E03.9 Hypothyroidism, unspecified; Z13.21 Encounter for screening for nutritional disorder
CPT/HCPCS: 36415; 80061; 82306; 84443